=== PATIENT | female | born 1935 | race Caucasian/White ===

== ENCOUNTER 2017-09-22 11:52 | Emergency (ER) | payer MEDICARE, BC ==
--- NOTE | 2017-09-22 12:52 | RAD ---
RADIOGRAPH CHEST 1 VIEW: HISTORY: 82-year-old female with productive cough and dyspnea. FINDINGS: There is no air space density, pulmonary edema, or pneumothorax. The lateral costophrenic angles are sharp. IMPRESSION: No acute pulmonary findings. heather POS: [facility]
[2017-09-22 12:53] LABS: Mean Corpuscular HGB CONC 33.1 g/dL (32.0-36.0); Mean Corpuscular Volume 99.6 fl (81.0-99.0); Mean Platelet Volume 10.2 fL (7.4-10.4); Platelet Count 169 thou/uL (130-400); RBC Distribution Width 11.6 % (11.5-14.5); Red Blood Cell (RBC) Count 4.25 mill/uL (4.20-5.40); White Blood Cell (WBC) Count 12.4 thou/uL (4.8-10.8)
[2017-09-22 13:07] LABS: ALT (SGPT) 12 U/L (8-55); AST (SGOT) 18 U/L (5-34); Alkaline Phosphatase 88 U/L (40-150); Anion Gap 13 mmol/L (10-20); BUN (Urea Nitrogen) 28 mg/dL (9.8-20.1); Bilirubin, Total 0.9 mg/dL (0.2-1.2); Calc. Creatinine Clearance 0 mL/min (70-130); Calcium 10.9 mg/dL (7.8-10.44); Carbon Dioxide 27 mmol/L (23-31); Chloride 101 mmol/L (98-107); Estimated GFR-MDRD 55; Glucose 98 mg/dL (83-110); Potassium 3.7 mmol/L (3.5-5.1); Sodium 137 mmol/L (136-145)
[2017-09-22 13:11] LABS: CKMB 0.7 ng/mL (0-6.6); Troponin I 0.015 ng/mL (< 0.028)
[2017-09-22 13:33] LABS: Lymphocytes 36 % (21-51); MDiff Complete? YES; Monocytes 10 % (0-10); Neutrophil 54 % (42-75); PLT Morphology Comment Appears Adequate
[2017-09-22 16:17] LABS: Bilirubin Negative (Negative); Blood, Urine Negative (Negative); Clarity CLOUDY (Clear); Glucose, Urine (Dipstick) Negative (Negative); Leukocyte Moderate (Negative); Nitrite Negative (Negative); Protein, Urine (Dipstick) Negative (Neg-Trace); Specific Gravity, Urine 1.018 (1.002-1.036)
[2017-09-22 16:19] LABS: Bacteria/HPF 4+ HPF (None Seen); Hyaline Casts/LPF 0-3 HYALINE CAST LPF (0-3 Hyaline); Pathc Cast-AUWi Flag 0.13 (0-2.49); RBC/HPF None Seen HPF (0-3); Squamous Epithelial 0-3 HPF (0-3); WBC/HPF 21-50 HPF (0-3)
--- NOTE | 2017-10-24 15:03 | EKG ---
Test Reason : SOB Blood Pressure : / mmHG Vent. Rate : 075 BPM Atrial Rate : 075 BPM P-R Int : 300 ms QRS Dur : 130 ms QT Int : 390 ms P-R-T Axes : 050 -20 001 degrees QTc Int : 435 ms Sinus rhythm with 1st degree A-V block Right bundle branch block Inferior infarct , age undetermined Abnormal ECG Confirmed by ELGIN MERRITT ([id number]), publications editor SANDI QUINTANA ([id number]) on 10/24/2017 3:02:29 PM Referred By: Confirmed By:ELGIN MERRITT
== END 2017-09-22 18:38 | disposition home or self-care (01) ==
LOC: ERS 11:52
DX: R06.00 Dyspnea, unspecified (principal); R53.1 Weakness; I10 Essential (primary) hypertension
CPT/HCPCS: 36415; 71045; 80053; 81003; 81015; 82553; 84484; 85025; 87077; 87086; 87186; 87804; 93005; 94640; 96365; 96366; J1956; J7620

== ENCOUNTER 2017-12-16 14:24 | Inpatient (IN) | payer MEDICARE, BC ==
[2017-12-16 15:23] LABS: Hemoglobin 12.9 g/dL (12.0-16.0); Mean Corpuscular HGB CONC 33.5 g/dL (32.0-36.0); Mean Corpuscular Volume 95.4 fl (81.0-99.0); Mean Platelet Volume 10.2 fL (7.4-10.4); Platelet Count 205 thou/uL (130-400); RBC Distribution Width 12.5 % (11.5-14.5); Red Blood Cell (RBC) Count 4.03 mill/uL (4.20-5.40); White Blood Cell (WBC) Count 34.2 thou/uL (4.8-10.8)
--- NOTE | 2017-12-16 15:33 | RAD ---
CHEST ONE VIEW: Comparison: 09-22-17 History: Dyspnea. FINDINGS: Normal cardiac silhouette. The pulmonary vessels and hilum are normal. Costophrenic angles are clear. No consolidation or mass. No pneumothorax or osseous abnormality. IMPRESSION: No acute cardiopulmonary process. POS: [facility]
[2017-12-16 15:39] LABS: Band 20 % (5-11); Lymphocytes 4 % (21-51); MDiff Complete? YES; Metamyelocyte 2 % (0-0); Monocytes 11 % (0-10); Myelocyte 2 % (0-0); Neutrophil 61 % (42-75); PLT Morphology Comment Appears Adequate; RBC Morphology Normal
[2017-12-16 15:44] LABS: ALT (SGPT) 16 U/L (8-55); AST (SGOT) 20 U/L (5-34); Albumin 3.2 g/dL (3.4-4.8); Alkaline Phosphatase 76 U/L (40-150); Anion Gap 13 mmol/L (10-20); BUN (Urea Nitrogen) 60 mg/dL (9.8-20.1); Bilirubin, Total 1.2 mg/dL (0.2-1.2); Calc. Creatinine Clearance 0 mL/min (70-130); Calcium 9.5 mg/dL (7.8-10.44); Carbon Dioxide 24 mmol/L (23-31); Chloride 102 mmol/L (98-107); Estimated GFR-MDRD 34; Globulin 3.3 g/dL (2.4-3.5); Glucose 121 mg/dL (83-110); Protein, Total 6.5 g/dL (6.0-8.3); Sodium 136 mmol/L (136-145)
[2017-12-16 16:02] LABS: Potassium 2.8 mmol/L (3.5-5.1)
[2017-12-16 16:24] LABS: CKMB 0.8 ng/mL (0-6.6)
[2017-12-16] MEDS ORDERED: Potassium Chloride 20 MEQ TAB ONE (16:52)
[2017-12-16] MEDS ORDERED: Potassium Chloride 20 MEQ/100 ML PREMIX BAG ONE (16:52)
[2017-12-16 18:00] LABS: Bilirubin Negative (Negative); Blood, Urine Negative (Negative); Clarity CLEAR (Clear); Glucose, Urine (Dipstick) Negative (Negative); Leukocyte Small (Negative); Nitrite Negative (Negative); Protein, Urine (Dipstick) Negative (Neg-Trace); Specific Gravity, Urine 1.018 (1.002-1.036); pH, Urine 5.5 (5.0-9.0)
[2017-12-16 18:02] LABS: Bacteria/HPF 1+ HPF (None Seen); Hyaline Casts/LPF 4-6 HYALINE CAST LPF (0-3 Hyaline); Pathc Cast-AUWi Flag 0.29 (0-2.49); RBC/HPF 0-3 HPF (0-3); Squamous Epithelial 0-3 HPF (0-3)
[2017-12-16 18:24] LABS: Crystals/HPF None Seen HPF (Negative); Oval Fat Bodies/HPF None Seen HPF (None Seen); Renal Epithelial None Seen HPF (0-3); Transitional Epithelial NONE SEEN HPF (0-3); Trichomonas/HPF None Seen HPF (None Seen)
[2017-12-16] MEDS ORDERED: Morphine 4 MG/ML VIAL ONE (18:36)
[2017-12-16] MEDS ORDERED: Ondansetron ODT 8 MG TAB ONE (18:36)
[2017-12-16] MEDS ORDERED: Bisacodyl 5 MG TAB PO PRN (23:21)
[2017-12-16] MEDS ORDERED: Acetaminophen 650 MG Suppository PR PRN (23:21)
[2017-12-17] MEDS: Sodium Chloride 0.9% 1,000 ML IV SCH ×2 (00:30→14:36)
--- NOTE | 2017-12-17 00:37 | HP ---
PRIMARY CARE PHYSICIAN: Solitario Ivory M.D. CHIEF COMPLAINT: Altered mental status. HISTORY OF PRESENT ILLNESS: Ms. Genao is a pleasant 82-year-old lady who was seen at [facility] on 12/16/2017. She is a resident at [facility]. She is able to provide some history. Her daughter is by the bedside and is able to provide additional history. She was reportedly treated for urinary tract infection that was diagnosed 8 days ago. She was treated with Omnicef for 7 days. Her daughter reports that she had an allergic reaction to the antibiotic, with rash in the inframammary folds as well as towards the groin. She had repeat urinalysis, which was positive after finishing the Omnicef course. She was started on ciprofloxacin yesterday. She was found to be confused and was therefore sent to the emergency room. Patient is currently awake, alert, and oriented x2. She does not know why she is here. REVIEW OF SYSTEMS: All other systems were reviewed and found to be negative. PAST MEDICAL HISTORY: Significant for hypertension, possible COPD, possible congestive heart failure, and possible gastroesophageal reflux disease. PAST SURGICAL HISTORY: Appendectomy, hysterectomy, tonsillectomy. SOCIAL HISTORY: No history of tobacco use, alcohol use, or recreational drug use. CODE STATUS: I discussed her code status. She is FULL CODE. ALLERGIES: ADVIL, CODEINE, MACROBID, NAPROXEN, PENICILLIN, SODIUM, SULFA, and VIOXX. CURRENT MEDICATIONS: Advair Diskus 1 puff 2 times a day, albuterol as needed, carbonyl 45 mg daily, ciprofloxacin 250 mg 2 times a day, cranberry 500 mg 2 times a day, Delsym as needed, Lasix 40 mg daily, Micardis 40 mg daily, Mucinex 1200 mg 2 times a day, Nasacort AQ 2 sprays nasally daily, potassium 99 mg 2 times a day, One Source 1 tablet daily, Osteo Bi-Flex 1 tablet daily, Prevacid 30 mg daily, Pulmicort 2 puffs daily, and Xyzal 5 mg daily. FAMILY HISTORY: No family history of premature coronary artery disease. PHYSICAL EXAMINATION: GENERAL: Ms. Genao is awake and alert, not in acute distress. VITAL SIGNS: Blood pressure is 102/54, pulse is 75. She is breathing at rate of 18, and saturating 95% on 1 liter of oxygen. She is afebrile. EYES: No scleral icterus. No conjunctival pallor. ENT: Moist mucosal membranes, no oropharyngeal erythema or exudates. NECK: Supple, nontender, normal range of movement, trachea is midline. RESPIRATORY: Accessory muscles of breathing are not active. Chest wall movements are symmetric bilaterally. Lungs are clear to auscultation, without wheeze, rhonchi, or crepitations. CARDIOVASCULAR: S1 and S2 are heard, regular. Peripheral pulses palpable. No carotid bruit, no pericardial rub. ABDOMEN: Soft, nontender, bowel sounds heard, no hepatomegaly, no splenomegaly. MUSCULOSKELETAL: Power is 5/5 in all 4 extremities. SKIN: She has rash over the left intergluteal fold as well as over the groin. She also has 2 pressure wounds, one on each buttock. LYMPHATIC: No cervical lymphadenopathy. PSYCHIATRIC: Normal mood, normal affect, patient is oriented to person and place, not to time. LABORATORY DATA: Ms. Genao labs and investigations were reviewed. She has leukocytosis with 34,200 white cells, of which 20% are bands and 61% are neutrophils, normal hemoglobin, normal platelet count, normal sodium, decreased potassium of 2.8, elevated blood urea nitrogen of 60, elevated creatinine 1.46, last known creatinine 0.97 on 09/22/2017, decreased albumin of 3.2, otherwise unremarkable liver profile and mildly elevated BNP of 131.5. Magnesium is normal at 1.6. Lactic acid is normal at 1.1. ASSESSMENT AND PLAN: Ms. Genao is a pleasant 82-year-old lady who was seen at [facility] on 12/16/2017. Her problem list includes: 1. Urinary tract infection. Ms. Genao is being admitted to the hospital for urinary tract infection. Given her allergies, we will continue her on fluoroquinolones in the form of levofloxacin, which has already received in the emergency room. We will await urine cultures. 2. Leukocytosis: She has significantly elevated white count, including bands. She does not recall if she is having any loose stools. If she does have loose stools, we will send samples to rule out Clostridium difficile infection. 3. Acute kidney injury: Likely secondary to dehydration, we will provide intravenous fluids and recheck. 4. Hypertension: Monitor vital signs, titrate antihypertensives as needed. 5. Acute encephalopathy: Likely secondary to urinary tract infection. 6. Hypokalemia: Patient is being given potassium supplements. We will recheck her potassium level. Many thanks for allowing me to participate in your patient's care. Please feel free to contact me with any questions or concerns. LEVEL OF RISK: Moderate. LEVEL OF COMPLEXITY: Moderate. MTDD
[2017-12-17 04:46] LABS: Anion Gap 13 mmol/L (10-20); BUN (Urea Nitrogen) 55 mg/dL (9.8-20.1); Calc. Creatinine Clearance 0 mL/min (70-130); Calcium 8.9 mg/dL (7.8-10.44); Carbon Dioxide 21 mmol/L (23-31); Chloride 107 mmol/L (98-107); Estimated GFR-MDRD 41; Glucose 99 mg/dL (83-110); Potassium 3.3 mmol/L (3.5-5.1); Sodium 138 mmol/L (136-145)
[2017-12-17 05:14] LABS: Band 20 % (5-11); Hemoglobin 11.7 g/dL (12.0-16.0); Lymphocytes 15 % (21-51); MDiff Complete? YES; Mean Corpuscular HGB CONC 32.9 g/dL (32.0-36.0); Mean Corpuscular Hemoglobin 31.7 pg (27.0-31.0); Mean Corpuscular Volume 96.3 fl (81.0-99.0); Mean Platelet Volume 10.3 fL (7.4-10.4); Metamyelocyte 2 % (0-0); Monocytes 10 % (0-10); Neutrophil 53 % (42-75); PLT Morphology Comment Appears Adequate; Platelet Count 190 thou/uL (130-400); RBC Distribution Width 12.5 % (11.5-14.5); Red Blood Cell (RBC) Count 3.68 mill/uL (4.20-5.40); White Blood Cell (WBC) Count 33.8 thou/uL (4.8-10.8)
[2017-12-17] MEDS ORDERED: Potassium Chloride 20 MEQ TAB PO SCH ×2 (06:30→17:00)
[2017-12-17] MEDS: Heparin 5,000 UNITS/ML VIAL SC SCH ×3 (08:13→20:52)
[2017-12-17] MEDS ORDERED: Enoxaparin Sodium 40 MG/0.4 ML SYRINGE SC SCH (09:00)
[2017-12-17 11:24] VITALS: BMI 41.0
--- NOTE | 2017-12-17 14:04 | PDOC.PN ---
- Subjective Encounter Start Date: 12/17/17 Encounter Start Time: 14:05 Subjective: Seen and examined for acute encephalopathy, UTI. -: She is awake and oriented to time and place. -: No acute events overnight - Objective Resuscitation Status: Resuscitation Status FULL:Full Resuscitation MAR Reviewed: Yes Vital Signs & Weight: Vital Signs (12 hours) Temp Pulse Resp BP Pulse Ox 12/17/17 08:00 98.0 F 78 20 92 L 12/17/17 07:20 98.0 F 78 20 105/60 92 L 12/17/17 04:14 98.0 F 77 18 102/63 93 L Weight Admit Weight 254 lb 1.6 oz Weight 254 lb 1.6 oz I&O: 12/16/17 12/17/17 12/18/17 06:59 06:59 06:59 Intake Total 610 360 Output Total 600 Balance 10 360 Result Diagrams: 12/17/17 04:00 12/17/17 04:00 Phys Exam - Physical Examination Constitutional: NAD HEENT: PERRLA, moist MMs, sclera anicteric, oral pharynx no lesions Neck: no JVD, supple, full ROM Respiratory: no wheezing, no rales, no rhonchi, clear to auscultation bilateral Cardiovascular: RRR, no significant murmur, no rub Gastrointestinal: soft, non-tender, no distention, positive bowel sounds Musculoskeletal: no edema, pulses present Neurological: non-focal, moves all 4 limbs Psychiatric: normal affect Deviation from normal: Lethargic but oriented to person and place Skin: no rash, normal turgor Dx/Plan (1) Acute encephalopathy Code(s): G93.40 - ENCEPHALOPATHY, UNSPECIFIED Status: Acute Comment: Improving with Levofloxacin. f/u culture results. (2) UTI (urinary tract infection) Status: Acute Qualifiers: Urinary tract infection type: acute cystitis Hematuria presence: without hematuria Qualified Code(s): N30.00 - Acute cystitis without hematuria (3) Leucocytosis Code(s): D72.829 - ELEVATED WHITE BLOOD CELL COUNT, UNSPECIFIED Status: Acute Comment: Continue levofloxacin. f/u blood cultures. (4) STEPHANIE (acute kidney injury) Code(s): N17.9 - ACUTE KIDNEY FAILURE, UNSPECIFIED Status: Acute (5) HTN (hypertension) Code(s): I10 - ESSENTIAL (PRIMARY) HYPERTENSION Status: Acute Qualifiers: Hypertension type: essential hypertension Qualified Code(s): I10 - Essential (primary) hypertension Comment: Fairly well controlled. 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 - Plan cont current plan of care, plan discussed w/ family, edouard catheter, continue antibiotics, DVT proph w/heparin f/u cultures Continue parenteral hydration and monitor volume status. Avoid nephrotoxins Continue Levofloxacin. Review of Systems - Medications/Allergies Allergies/Adverse Reactions: Allergies Allergy/AdvReac Type Severity Reaction Status Date / Time codeine Allergy Verified 12/17/17 01:40 ibuprofen [From Advil] Allergy Verified 12/17/17 01:40 naproxen [From Naprosyn] Allergy Verified 12/17/17 01:40 nitrofurantoin Allergy Verified 12/17/17 01:40 [From Macrobid] Penicillins Allergy Verified 12/16/17 23:21 rofecoxib [From Vioxx] Allergy Verified 12/17/17 01:40 Sulfa (Sulfonamide Allergy Verified 12/17/17 01:40 Antibiotics) Medications: Current Medications Acetaminophen (Tylenol) 650 mg PO Q4H PRN PRN Reason: Headache/Fever or Pain Acetaminophen (Tylenol) 650 mg [place] Q4H PRN PRN Reason: Headache/Fever or Pain Bisacodyl (Dulcolax) 10 mg PO DAILYPRN PRN PRN Reason: Constipation Mineral Oil/White Petrolatum 99 gm/ Cholestyramine Resin 4 gm 0 gm TOP DAILY [facility] Heparin Sodium (Porcine) (Heparin) 5,000 units SC TID [facility] Last Admin: 12/17/17 08:13 Dose: 5,000 units Sodium Chloride (Normal Saline 0.9%) 1,000 mls @ 70 mls/hr IV .[id number] [facility] Last Admin: 12/17/17 00:30 Dose: 1,000 mls Levofloxacin 500 mg/ Device 100 mls @ 100 mls/hr IVPB Q24HR [facility] Potassium Chloride (K-Dur) 40 meq PO BID-WM [facility] Stop: 12/18/17 17:01 Sodium Chloride (Flush - Normal Saline) 10 ml IVF Q12HR [facility] Last Admin: 12/17/17 08:14 Dose: 10 ml Sodium Chloride (Flush - Normal Saline) 10 ml IVF PRN PRN PRN Reason: Saline Flush
[2017-12-17] MEDS ORDERED: Albuterol Sulfate 2.5 mg/3 ml Neb NEB PRN (14:08)
[2017-12-17] MEDS ORDERED: Nystatin Cream 30 GM TUBE TOP PRN ×2 (14:09→14:34)
[2017-12-17] MEDS: Acetaminophen 325 MG TAB PO PRN (16:29)
[2017-12-17] MEDS: guaiFENesin ER 600 MG TAB PO SCH (20:52)
[2017-12-17] MEDS ORDERED: Non-Formulary Item 1 EACH (Guaifenesin [Mucinex] 1,200 MG) PO SCH (21:00)
[2017-12-18 05:45] LABS: Anion Gap 9 mmol/L (10-20); BUN (Urea Nitrogen) 42 mg/dL (9.8-20.1); Calc. Creatinine Clearance 78 mL/min (70-130); Calcium 8.9 mg/dL (7.8-10.44); Carbon Dioxide 24 mmol/L (23-31); Chloride 109 mmol/L (98-107); Estimated GFR-MDRD 54; Glucose 101 mg/dL (83-110); Potassium 4.1 mmol/L (3.5-5.1); Sodium 138 mmol/L (136-145)
[2017-12-18 06:00] LABS: Band 20 % (5-11); Hemoglobin 11.3 g/dL (12.0-16.0); Lymphocytes 3 % (21-51); MDiff Complete? YES; Mean Corpuscular HGB CONC 32.3 g/dL (32.0-36.0); Mean Corpuscular Hemoglobin 31.2 pg (27.0-31.0); Mean Corpuscular Volume 96.8 fl (81.0-99.0); Mean Platelet Volume 10.2 fL (7.4-10.4); Metamyelocyte 4 % (0-0); Monocytes 15 % (0-10); Myelocyte 3 % (0-0); Neutrophil 55 % (42-75); PLT Morphology Comment Appears Adequate; Platelet Count 186 thou/uL (130-400); RBC Distribution Width 12.6 % (11.5-14.5); RBC Morphology Normal; Red Blood Cell (RBC) Count 3.62 mill/uL (4.20-5.40); White Blood Cell (WBC) Count 34.9 thou/uL (4.8-10.8)
[2017-12-18] MEDS ORDERED: Sodium Chloride 0.65% Nasal 44 ML BOT EA NARE PRN (06:58)
[2017-12-18] MEDS ORDERED: Artificial Tears 18 DROP/0.9 ML EA EYE PRN (06:58)
[2017-12-18] MEDS ORDERED: Mag-Al 1200 mg/1200 mg/30 ML UDCUP PO PRN (06:58)
[2017-12-18] MEDS ORDERED: Ondansetron HCl/PF 4 MG/2 ML Vial IVP PRN (06:58)
[2017-12-18] MEDS ORDERED: Ondansetron ODT 4 MG TAB PO PRN (06:58)
[2017-12-18] MEDS ORDERED: hydrALAZINE 20 MG/ML VIAL SLOW IVP PRN (06:58)
[2017-12-18] MEDS ORDERED: Eucerin (Mineral Oil/Petrolatum,White) 30 gm Jar TOP PRN (06:58)
[2017-12-18] MEDS ORDERED: Chloraseptic Spray 180 ml Bottle PO PRN (06:58)
[2017-12-18] MEDS ORDERED: Milk Of Magnesia 30 ML UDCUP PO PRN (06:58)
[2017-12-18] MEDS ORDERED: Diabetic Tussin 200 MG/10 ML UDCUP PO PRN (06:58)
[2017-12-18] MEDS: Sodium Chloride 0.9% 1,000 ML IV SCH ×2 (08:08→20:36)
[2017-12-18] MEDS: Heparin 5,000 UNITS/ML VIAL SC SCH ×3 (08:09→20:39)
[2017-12-18] MEDS: guaiFENesin ER 600 MG TAB PO SCH ×2 (08:09→20:39)
[2017-12-18] MEDS: Aquaphor 30 GM 99 GM, Cholestyramine/Aspartame 4 GM TOP SCH (08:10)
[2017-12-18] MEDS: Loratadine 10 MG TAB PO SCH (08:10)
[2017-12-18] MEDS: Multivit, Therapeutic 1 TAB PO SCH (08:10)
[2017-12-18] MEDS ORDERED: MULTIVITAMIN PO SCH (09:00)
[2017-12-18] MEDS ORDERED: LANSOPRAZOLE PO SCH (09:00)
[2017-12-18] MEDS ORDERED: Famotidine 20 MG TAB PO SCH (09:00)
[2017-12-18] MEDS ORDERED: THIAMINE HCL PO SCH (09:00)
[2017-12-18] MEDS ORDERED: [UNRECOGNIZED DRUG - REMARK] EA NARE SCH (09:00)
[2017-12-18] MEDS ORDERED: LEVOCETIRIZINE DIHYDROCHLORIDE 5 MG PO SCH (09:00)
[2017-12-18] MEDS: Acetaminophen 325 MG TAB PO PRN (11:42)
[2017-12-18] MEDS: Fluticasone Propionate Nasal Spray 16 gm Bottle NASAL SCH (11:43)
[2017-12-18] MEDS ORDERED: Fentanyl 100 MCG/2 ML VIAL SLOW IVP PRN (12:00)
--- NOTE | 2017-12-18 12:03 | PDOC.PN ---
- Subjective Encounter Start Date: 12/18/17 Encounter Start Time: 07:40 -: old records requested/rev Patient seen and examined for UTI, sepsis. pt is not feeling good, Noted overnight events - Objective Resuscitation Status: Resuscitation Status FULL:Full Resuscitation MAR Reviewed: Yes Vital Signs & Weight: Vital Signs (12 hours) Temp Pulse Resp BP Pulse Ox 12/18/17 07:37 98.1 F 71 20 93 L 12/18/17 07:10 98.1 F 71 20 100/56 L 93 L 12/18/17 04:57 93 L Weight Admit Weight 254 lb 1.6 oz Weight 254 lb 1.6 oz I&O: 12/17/17 12/18/17 12/19/17 06:59 06:59 06:59 Intake Total 610 1880 180 Output Total 600 1575 Balance 10 305 180 Result Diagrams: 12/18/17 04:35 12/18/17 04:35 Phys Exam - Physical Examination Constitutional: NAD HEENT: PERRLA, moist MMs, sclera anicteric Neck: no JVD, supple Respiratory: no wheezing, no rales, no rhonchi Cardiovascular: RRR, no significant murmur, no rub Gastrointestinal: soft, no distention, positive bowel sounds vague discomfort noted Musculoskeletal: no edema, pulses present Neurological: non-focal, normal sensation Lymphatic: no nodes Psychiatric: normal affect, A&O x 3 Skin: no rash, normal turgor Dx/Plan (1) STEPHANIE (acute kidney injury) Code(s): N17.9 - ACUTE KIDNEY FAILURE, UNSPECIFIED Status: Resolved (2) Acute encephalopathy Code(s): G93.40 - ENCEPHALOPATHY, UNSPECIFIED Status: Resolved Comment: (3) Leucocytosis Code(s): D72.829 - ELEVATED WHITE BLOOD CELL COUNT, UNSPECIFIED Status: Acute Comment: (4) UTI (urinary tract infection) Status: Acute Qualifiers: Urinary tract infection type: acute cystitis Hematuria presence: without hematuria Qualified Code(s): N30.00 - Acute cystitis without hematuria (5) HTN (hypertension) Code(s): I10 - ESSENTIAL (PRIMARY) HYPERTENSION Status: Chronic Qualifiers: Hypertension type: essential hypertension Qualified Code(s): I10 - Essential (primary) hypertension Comment: (6) Morbid obesity with BMI of 40.0-44.9, adult Code(s): E66.01 - MORBID (SEVERE) OBESITY DUE TO EXCESS CALORIES; Z68.41 - BODY MASS INDEX (BMI) 40.0-44.9, ADULT Status: Chronic (7) Hypokalemia Code(s): E87.6 - HYPOKALEMIA Status: Resolved Comment: - Plan cont current plan of care, plan discussed w/ family, continue antibiotics * her elevated wbc count is going up, she has abdominal discomfort, will get CT abdomen and pelvis with contrast * continue IVF * so far culture negative * continue levaquin * medication reviewed as below * symptomatic treatment * repeat labs tomorrow * discussed with family bedside. * stool for infection work up is pending Review of Systems - Review of Systems Constitutional: weakness, malaise. negative: fever, chills, sweats, other Eyes: negative: Pain, Vision Change, Conjunctivae Inflammation, Eyelid Inflammation, Redness, Other ENT: negative: Ear Pain, Ear Discharge, Nose Pain, Nose Discharge, Nose Congestion, Mouth Pain, Mouth Swelling, Throat Pain, Throat Swelling, Other Respiratory: negative: Cough, Dry, Shortness of Breath, Hemoptysis, SOB with Excertion, Pleuritic Pain, Sputum, Wheezing Cardiovascular: negative: chest pain, palpitations, orthopnea, paroxysmal nocturnal dyspnea, edema, light headedness, other Gastrointestinal: Abdominal Pain. negative: Nausea, Vomiting, Diarrhea, Constipation, Melena, Hematochezia, Other Genitourinary: negative: Dysuria, Frequency, Incontinence, Hematuria, Retention , Other Musculoskeletal: negative: Neck Pain, Shoulder Pain, Arm Pain, Back Pain, Hand Pain, Leg Pain, Foot Pain, Other Skin: negative: Rash, Lesions, Natalio, Bruising, Other - Medications/Allergies Allergies/Adverse Reactions: Allergies Allergy/AdvReac Type Severity Reaction Status Date / Time codeine Allergy Verified 12/17/17 01:40 ibuprofen [From Advil] Allergy Verified 12/17/17 01:40 naproxen [From Naprosyn] Allergy Verified 12/17/17 01:40 nitrofurantoin Allergy Verified 12/17/17 01:40 [From Macrobid] Penicillins Allergy Verified 12/16/17 23:21 rofecoxib [From Vioxx] Allergy Verified 12/17/17 01:40 Sulfa (Sulfonamide Allergy Verified 12/17/17 01:40 Antibiotics) Medications: Current Medications Acetaminophen (Tylenol) 650 mg PO Q4H PRN PRN Reason: Headache/Fever or Pain Last Admin: 12/18/17 11:42 Dose: 650 mg Acetaminophen (Tylenol) 650 mg RI Q4H PRN PRN Reason: Headache/Fever or Pain Al Hydroxide/Mg Hydroxide (Maalox) 15 ml PO Q4H PRN PRN Reason: Heartburn or Indigestion Albuterol Sulfate (Ventolin) 2.5 mg NEB [id number] PRN PRN Reason: Wheezing Artificial Tears (Tears Naturale) 0 drop EA EYE PRN PRN PRN Reason: Dry Eyes Bisacodyl (Dulcolax) 10 mg PO DAILYPRN PRN PRN Reason: Constipation Mineral Oil/White Petrolatum 99 gm/ Cholestyramine Resin 4 gm 0 gm TOP DAILY [facility] Last Admin: 12/18/17 08:10 Dose: 1 oint Fentanyl (Sublimaze) 25 mcg SLOW IVP Q4H PRN PRN Reason: Pain Fluticasone Propionate (Flonase Nasal Randolph) 0 gm NASAL DAILY [facility] Last Admin: 12/18/17 11:43 Dose: 2 spr Guaifenesin (Mucinex) 1,200 mg PO Q12HR [facility] Last Admin: 12/18/17 08:09 Dose: 1,200 mg Guaifenesin (Robitussin Sf) 200 mg PO Q4H PRN PRN Reason: Cough Heparin Sodium (Porcine) (Heparin) 5,000 units SC TID [facility] Last Admin: 12/18/17 08:09 Dose: 5,000 units Hydralazine HCl (Apresoline) 10 mg SLOW IVP Q4H PRN PRN Reason: Systolic BP > 180 Sodium Chloride (Normal Saline 0.9%) 1,000 mls @ 70 mls/hr IV .[id number] [facility] Last Admin: 12/18/17 08:08 Dose: 1,000 mls Levofloxacin 500 mg/ Device 100 mls @ 100 mls/hr IVPB Q24HR [facility] Last Admin: 12/17/17 20:52 Dose: 100 mls Loratadine (Claritin) 10 mg PO DAILY [facility] Last Admin: 12/18/17 08:10 Dose: 10 mg Magnesium Hydroxide (Milk Of Magnesium) 30 ml PO DAILYPRN PRN PRN Reason: Constipation Mineral Oil/White Petrolatum (Eucerin Cream) 0 gm TOP BIDPRN PRN PRN Reason: Dry Skin Multivitamins (Theragran) 1 tab PO DAILY [facility] Last Admin: 12/18/17 08:10 Dose: 1 tab Nystatin (Mycostatin Cream) 0 gm TOP BIDPRN PRN PRN Reason: Topical Irritations Ondansetron HCl (Zofran Odt) 4 mg PO Q6H PRN PRN Reason: Nausea/Vomiting Ondansetron HCl (Zofran) 4 mg IVP Q6H PRN PRN Reason: Nausea/Vomiting Pantoprazole Sodium (Protonix) 40 mg PO DAILY [facility] Last Admin: 12/18/17 08:10 Dose: 40 mg Phenol (Chloraseptic Randolph 180 Ml Bot) 0 ml PO PRN PRN PRN Reason: Sore Throat Sodium Chloride (Flush - Normal Saline) 10 ml IVF Q12HR [facility] Last Admin: 12/18/17 08:10 Dose: Not Given Sodium Chloride (Flush - Normal Saline) 10 ml IVF PRN PRN PRN Reason: Saline Flush Sodium Chloride (Gila Nasal Randolph 0.65%) 0 ml EA NARE QIDPRN PRN PRN Reason: Nasal Congestion Thiamine HCl (Thiamine) 100 mg PO DAILY [facility] Last Admin: 12/18/17 08:10 Dose: 100 mg
--- NOTE | 2017-12-18 14:02 | CT ---
CT ABDOMEN AND PELVIS WITH ORAL AND IV CONTRAST: Date: 12/18/17 HISTORY: Sepsis, UTI. FINDINGS: There is a small patchy infiltrate in the left lower lobe. There is evidence of old granulomatous dis ease in the lower chest, liver, and spleen. The patient is post appendectomy, cholecystectomy, and hy sterectomy. There is atrophy of the pancreas. Adrenal glands and kidneys are unremarkable. No free air is seen. No lymphadenopathy is identified in the abdomen or pelvis. There is a small amou nt of free fluid in the lower abdomen and pelvis. There is sigmoid diverticulosis. There is thickenin g of the wall of the colon and the rectum with mild pericolonic and perirectal inflammatory changes. The small bowel loops are not abnormally dilated. A IVC filter is present. There is no evidence of an eurysmal dilatation of the abdominal aorta. There is a Marrero catheter in the urinary bladder. Degener ative changes are present in the spine. IMPRESSION: Findings are consistent with proctocolitis. CODE T. POS: [facility]
[2017-12-18] MEDS ORDERED: ISOVUE-370 76%-LOCM 1 ML ONE (20:20)
[2017-12-18] MEDS: metroNIDAZOLE 500 MG in Premix Bag 1 BAG IVPB SCH (22:23)
[2017-12-19] MEDS: metroNIDAZOLE 500 MG in Premix Bag 1 BAG IVPB SCH ×3 (05:44→20:48)
[2017-12-19 05:56] LABS: Anion Gap 12 mmol/L (10-20); BUN (Urea Nitrogen) 25 mg/dL (9.8-20.1); Calc. Creatinine Clearance 93 mL/min (70-130); Calcium 8.8 mg/dL (7.8-10.44); Carbon Dioxide 20 mmol/L (23-31); Chloride 108 mmol/L (98-107); Estimated GFR-MDRD 66; Glucose 94 mg/dL (83-110); Potassium 4.1 mmol/L (3.5-5.1); Sodium 136 mmol/L (136-145)
[2017-12-19 06:13] LABS: Band 5 % (5-11); Hemoglobin 11.3 g/dL (12.0-16.0); Lymphocytes 6 % (21-51); MDiff Complete? YES; Mean Corpuscular HGB CONC 32.4 g/dL (32.0-36.0); Mean Corpuscular Hemoglobin 31.5 pg (27.0-31.0); Mean Corpuscular Volume 97.3 fl (81.0-99.0); Mean Platelet Volume 10.2 fL (7.4-10.4); Monocytes 16 % (0-10); Neutrophil 73 % (42-75); PLT Morphology Comment Appears Adequate; Platelet Count 185 thou/uL (130-400); RBC Distribution Width 12.6 % (11.5-14.5); Red Blood Cell (RBC) Count 3.58 mill/uL (4.20-5.40); White Blood Cell (WBC) Count 30.9 thou/uL (4.8-10.8)
[2017-12-19] MEDS: guaiFENesin ER 600 MG TAB PO SCH ×2 (08:05→19:39)
[2017-12-19] MEDS: Loratadine 10 MG TAB PO SCH (08:05)
[2017-12-19] MEDS: Multivit, Therapeutic 1 TAB PO SCH (08:05)
[2017-12-19] MEDS: Saccharomyces boulardii 250 MG CAP PO SCH (08:05)
[2017-12-19] MEDS: Heparin 5,000 UNITS/ML VIAL SC SCH ×3 (08:07→19:40)
[2017-12-19] MEDS: Sodium Chloride 0.9% 1,000 ML IV SCH ×2 (08:07→14:48)
[2017-12-19] MEDS: Fluticasone Propionate Nasal Spray 16 gm Bottle NASAL SCH (08:07)
[2017-12-19] MEDS: Aquaphor 30 GM 99 GM, Cholestyramine/Aspartame 4 GM TOP SCH (08:08)
--- NOTE | 2017-12-19 10:06 | PDOC.PN ---
- Subjective Encounter Start Date: 12/19/17 Encounter Start Time: 09:00 Patient seen and examined for UTI and colitis. No new complaints. No overnight events - Objective Resuscitation Status: Resuscitation Status FULL:Full Resuscitation MAR Reviewed: Yes Vital Signs & Weight: Vital Signs (12 hours) Temp Pulse Resp BP Pulse Ox 12/19/17 07:19 98 F 71 16 114/69 94 L 12/19/17 05:28 94 L 12/19/17 04:00 97.6 F 75 20 116/70 94 L 12/19/17 00:00 98.6 F 76 20 101/58 L 94 L Weight Admit Weight 254 lb 1.6 oz Weight 254 lb 1.6 oz I&O: 12/18/17 12/19/17 12/20/17 06:59 06:59 06:59 Intake Total 1880 1309 Output Total 1575 850 Balance 305 459 Result Diagrams: 12/19/17 04:32 12/19/17 04:32 Radiology Reviewed by me: Yes (CT abdomen) Phys Exam - Physical Examination Constitutional: NAD HEENT: PERRLA, moist MMs, sclera anicteric Neck: no JVD, supple Respiratory: no wheezing, no rales, no rhonchi Cardiovascular: RRR, no significant murmur, no rub Gastrointestinal: soft, non-tender, no distention, positive bowel sounds discomfort noted Musculoskeletal: no edema, pulses present Neurological: non-focal, normal sensation, moves all 4 limbs Lymphatic: no nodes Psychiatric: normal affect Skin: no rash, normal turgor Dx/Plan (1) C. difficile colitis Status: Acute (2) STEPHANIE (acute kidney injury) Code(s): N17.9 - ACUTE KIDNEY FAILURE, UNSPECIFIED Status: Resolved (3) Acute encephalopathy Code(s): G93.40 - ENCEPHALOPATHY, UNSPECIFIED Status: Resolved Comment: (4) Leucocytosis Code(s): D72.829 - ELEVATED WHITE BLOOD CELL COUNT, UNSPECIFIED Status: Acute Qualifiers: Leukocytosis type: bandemia Qualified Code(s): D72.825 - Bandemia Comment: (5) UTI (urinary tract infection) Status: Acute Qualifiers: Urinary tract infection type: acute cystitis Hematuria presence: without hematuria Qualified Code(s): N30.00 - Acute cystitis without hematuria (6) HTN (hypertension) Code(s): I10 - ESSENTIAL (PRIMARY) HYPERTENSION Status: Chronic Qualifiers: Hypertension type: essential hypertension Qualified Code(s): I10 - Essential (primary) hypertension Comment: (7) Morbid obesity with BMI of 40.0-44.9, adult Code(s): E66.01 - MORBID (SEVERE) OBESITY DUE TO EXCESS CALORIES; Z68.41 - BODY MASS INDEX (BMI) 40.0-44.9, ADULT Status: Chronic (8) Hypokalemia Code(s): E87.6 - HYPOKALEMIA Status: Resolved Comment: - Plan cont current plan of care, plan discussed w/ family, continue antibiotics * continue levaquin for UTI * continue IV flagyl and add po vancomycin for c-diff infection * GI consulted * continue florastor * repeat labs tomorrow * medication reviewed as below * symptomatic treatment * discussed with family. Review of Systems - Review of Systems ENT: negative: Ear Pain, Ear Discharge, Nose Pain, Nose Discharge, Nose Congestion, Mouth Pain, Mouth Swelling, Throat Pain, Throat Swelling, Other Respiratory: negative: Cough, Dry, Shortness of Breath, Hemoptysis, SOB with Excertion, Pleuritic Pain, Sputum, Wheezing Cardiovascular: negative: chest pain, palpitations, orthopnea, paroxysmal nocturnal dyspnea, edema, light headedness, other Gastrointestinal: negative: Nausea, Vomiting, Abdominal Pain, Diarrhea, Constipation, Melena, Hematochezia, Other Genitourinary: negative: Dysuria, Frequency, Incontinence, Hematuria, Retention , Other Musculoskeletal: negative: Neck Pain, Shoulder Pain, Arm Pain, Back Pain, Hand Pain, Leg Pain, Foot Pain, Other Skin: negative: Rash, Lesions, Natalio, Bruising, Other - Medications/Allergies Allergies/Adverse Reactions: Allergies Allergy/AdvReac Type Severity Reaction Status Date / Time codeine Allergy Verified 12/17/17 01:40 ibuprofen [From Advil] Allergy Verified 12/17/17 01:40 naproxen [From Naprosyn] Allergy Verified 12/17/17 01:40 nitrofurantoin Allergy Verified 12/17/17 01:40 [From Macrobid] Penicillins Allergy Verified 12/16/17 23:21 rofecoxib [From Vioxx] Allergy Verified 12/17/17 01:40 Sulfa (Sulfonamide Allergy Verified 12/17/17 01:40 Antibiotics) Medications: Current Medications Acetaminophen (Tylenol) 650 mg PO Q4H PRN PRN Reason: Headache/Fever or Pain Last Admin: 12/18/17 11:42 Dose: 650 mg Al Hydroxide/Mg Hydroxide (Maalox) 15 ml PO Q4H PRN PRN Reason: Heartburn or Indigestion Albuterol Sulfate (Ventolin) 2.5 mg NEB [id number] PRN PRN Reason: Wheezing Artificial Tears (Tears Naturale) 0 drop EA EYE PRN PRN PRN Reason: Dry Eyes Bisacodyl (Dulcolax) 10 mg PO DAILYPRN PRN PRN Reason: Constipation Mineral Oil/White Petrolatum 99 gm/ Cholestyramine Resin 4 gm 0 gm TOP DAILY [facility] Last Admin: 12/19/17 08:08 Dose: 1 oint Fentanyl (Sublimaze) 25 mcg SLOW IVP Q4H PRN PRN Reason: PAIN 5-10 Fluticasone Propionate (Flonase Nasal [place]) 0 gm NASAL DAILY [facility] Last Admin: 12/19/17 08:07 Dose: 1 spr Guaifenesin (Mucinex) 1,200 mg PO Q12HR [facility] Last Admin: 12/19/17 08:05 Dose: 1,200 mg Guaifenesin (Robitussin Sf) 200 mg PO Q4H PRN PRN Reason: Cough Heparin Sodium (Porcine) (Heparin) 5,000 units SC TID [facility] Last Admin: 12/19/17 08:07 Dose: 5,000 units Hydralazine HCl (Apresoline) 10 mg SLOW IVP Q4H PRN PRN Reason: Systolic BP > 180 Sodium Chloride (Normal Saline 0.9%) 1,000 mls @ 70 mls/hr IV .[id number] [facility] Last Admin: 12/19/17 08:07 Dose: Not Given Levofloxacin 500 mg/ Device 100 mls @ 100 mls/hr IVPB Q24HR [facility] Last Admin: 12/18/17 20:37 Dose: 100 mls Metronidazole 500 mg/ Device 100 mls @ 100 mls/hr IVPB Q8HR [facility] Last Admin: 12/19/17 05:44 Dose: 100 mls Loratadine (Claritin) 10 mg PO DAILY [facility] Last Admin: 12/19/17 08:05 Dose: 10 mg Magnesium Hydroxide (Milk Of Magnesium) 30 ml PO DAILYPRN PRN PRN Reason: Constipation Mineral Oil/White Petrolatum (Eucerin Cream) 0 gm TOP BIDPRN PRN PRN Reason: Dry Skin Multivitamins (Theragran) 1 tab PO DAILY [facility] Last Admin: 12/19/17 08:05 Dose: 1 tab Nystatin (Mycostatin Cream) 0 gm TOP BIDPRN PRN PRN Reason: Topical Irritations Ondansetron HCl (Zofran Odt) 4 mg PO Q6H PRN PRN Reason: Nausea/Vomiting Ondansetron HCl (Zofran) 4 mg IVP Q6H PRN PRN Reason: Nausea/Vomiting Pantoprazole Sodium (Protonix) 40 mg PO DAILY [facility] Last Admin: 12/19/17 08:06 Dose: 40 mg Phenol (Chloraseptic [place] 180 Ml Bot) 0 ml PO PRN PRN PRN Reason: Sore Throat Saccharomyces Boulardii (Florastor) 250 mg PO DAILY [facility] Last Admin: 12/19/17 08:05 Dose: 250 mg Sodium Chloride (Flush - Normal Saline) 10 ml IVF Q12HR [facility] Last Admin: 12/19/17 08:08 Dose: Not Given Sodium Chloride (Flush - Normal Saline) 10 ml IVF PRN PRN PRN Reason: Saline Flush Sodium Chloride ([place] Nasal [place] 0.65%) 0 ml EA NARE QIDPRN PRN PRN Reason: Nasal Congestion Thiamine HCl (Thiamine) 100 mg PO DAILY [facility] Last Admin: 12/19/17 08:07 Dose: 100 mg Vancomycin HCl (First Vancomycin) 125 mg PO QID [facility]
[2017-12-19] MEDS: Vancomycin HCl 25 MG/ML Oral PO SCH ×3 (12:22→19:40)
[2017-12-20] MEDS: metroNIDAZOLE 500 MG in Premix Bag 1 BAG IVPB SCH ×3 (05:21→21:40)
[2017-12-20 05:49] LABS: Anion Gap 10 mmol/L (10-20); BUN (Urea Nitrogen) 18 mg/dL (9.8-20.1); Calc. Creatinine Clearance 106 mL/min (70-130); Calcium 8.8 mg/dL (7.8-10.44); Carbon Dioxide 19 mmol/L (23-31); Chloride 110 mmol/L (98-107); Estimated GFR-MDRD 76; Glucose 99 mg/dL (83-110); Potassium 4.4 mmol/L (3.5-5.1); Sodium 135 mmol/L (136-145)
[2017-12-20 06:00] LABS: Band 15 % (5-11); Hemoglobin 12.4 g/dL (12.0-16.0); Lymphocytes 5 % (21-51); MDiff Complete? YES; Mean Corpuscular HGB CONC 32.8 g/dL (32.0-36.0); Mean Corpuscular Volume 97.7 fl (81.0-99.0); Mean Platelet Volume 9.6 fL (7.4-10.4); Metamyelocyte 5 % (0-0); Monocytes 11 % (0-10); Neutrophil 64 % (42-75); PLT Morphology Comment Appears Adequate; Platelet Count 174 thou/uL (130-400); RBC Distribution Width 12.7 % (11.5-14.5); RBC Morphology Normal; Red Blood Cell (RBC) Count 3.88 mill/uL (4.20-5.40)
[2017-12-20] MEDS: Vancomycin HCl 25 MG/ML Oral PO SCH ×4 (07:31→20:20)
[2017-12-20] MEDS: Fluticasone Propionate Nasal Spray 16 gm Bottle NASAL SCH (07:32)
[2017-12-20] MEDS: Heparin 5,000 UNITS/ML VIAL SC SCH ×3 (07:32→20:19)
[2017-12-20] MEDS: Loratadine 10 MG TAB PO SCH (07:32)
[2017-12-20] MEDS: Multivit, Therapeutic 1 TAB PO SCH (07:32)
[2017-12-20] MEDS: Saccharomyces boulardii 250 MG CAP PO SCH ×3 (07:32→20:19)
[2017-12-20] MEDS: guaiFENesin ER 600 MG TAB PO SCH ×2 (07:33→20:19)
[2017-12-20] MEDS: Aquaphor 30 GM 99 GM, Cholestyramine/Aspartame 4 GM TOP SCH (07:34)
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
[2017-12-20] MEDS ORDERED: Nystatin Powder 15 GM BOT TOP PRN (10:01)
--- NOTE | 2017-12-20 10:51 | PDOC.PN ---
- Subjective Encounter Start Date: 12/20/17 Encounter Start Time: 09:20 Patient seen and examined for c-diff colitis. No new complaints. No overnight events - Objective Resuscitation Status: Resuscitation Status FULL:Full Resuscitation MAR Reviewed: Yes Vital Signs & Weight: Vital Signs (12 hours) Temp Pulse Resp BP BP Pulse Ox 12/20/17 08:00 98.3 F 78 16 95 12/20/17 07:20 98.3 F 78 16 107/64 95 12/20/17 04:00 97.9 F 79 20 145/74 H 96 12/20/17 00:00 98.5 F 79 20 132/83 95 Weight Admit Weight 254 lb 1.6 oz Weight 254 lb 1.6 oz I&O: 12/19/17 12/20/17 12/21/17 06:59 06:59 06:59 Intake Total 1309 790 Output Total 850 1550 Balance 459 -760 Result Diagrams: 12/20/17 05:11 12/20/17 05:11 Phys Exam - Physical Examination Constitutional: NAD HEENT: PERRLA, moist MMs, sclera anicteric Neck: no JVD, supple Respiratory: no wheezing, no rales, no rhonchi Cardiovascular: RRR, no significant murmur, no rub Gastrointestinal: soft, non-tender, no distention, positive bowel sounds edouard+ Musculoskeletal: no edema, pulses present Neurological: non-focal, normal sensation, moves all 4 limbs Lymphatic: no nodes Psychiatric: normal affect Skin: no rash, normal turgor Dx/Plan (1) C. difficile colitis Status: Acute (2) STEPHANIE (acute kidney injury) Code(s): N17.9 - ACUTE KIDNEY FAILURE, UNSPECIFIED Status: Resolved (3) Acute encephalopathy Code(s): G93.40 - ENCEPHALOPATHY, UNSPECIFIED Status: Resolved Comment: (4) Leucocytosis Code(s): D72.829 - ELEVATED WHITE BLOOD CELL COUNT, UNSPECIFIED Status: Acute Qualifiers: Leukocytosis type: bandemia Qualified Code(s): D72.825 - Bandemia Comment: (5) UTI (urinary tract infection) Status: Acute Qualifiers: Urinary tract infection type: acute cystitis Hematuria presence: without hematuria Qualified Code(s): N30.00 - Acute cystitis without hematuria (6) HTN (hypertension) Code(s): I10 - ESSENTIAL (PRIMARY) HYPERTENSION Status: Chronic Qualifiers: Hypertension type: essential hypertension Qualified Code(s): I10 - Essential (primary) hypertension Comment: (7) Morbid obesity with BMI of 40.0-44.9, adult Code(s): E66.01 - MORBID (SEVERE) OBESITY DUE TO EXCESS CALORIES; Z68.41 - BODY MASS INDEX (BMI) 40.0-44.9, ADULT Status: Chronic (8) Hypokalemia Code(s): E87.6 - HYPOKALEMIA Status: Resolved Comment: - Plan cont current plan of care, continue antibiotics * wbc count high today, continue iv flagyl and po vancomycin * change florastor bid * continue levaquin for UTI * will repeat labs tomorrow * pt will need placement on discharge as she is very weak * medication reviewed as below * symptomatic treatment. Review of Systems - Review of Systems Eyes: negative: Pain, Vision Change, Conjunctivae Inflammation, Eyelid Inflammation, Redness, Other ENT: negative: Ear Pain, Ear Discharge, Nose Pain, Nose Discharge, Nose Congestion, Mouth Pain, Mouth Swelling, Throat Pain, Throat Swelling, Other Respiratory: negative: Cough, Dry, Shortness of Breath, Hemoptysis, SOB with Excertion, Pleuritic Pain, Sputum, Wheezing Cardiovascular: negative: chest pain, palpitations, orthopnea, paroxysmal nocturnal dyspnea, edema, light headedness, other Gastrointestinal: negative: Nausea, Vomiting, Abdominal Pain, Diarrhea, Constipation, Melena, Hematochezia, Other Genitourinary: negative: Dysuria, Frequency, Incontinence, Hematuria, Retention , Other Musculoskeletal: negative: Neck Pain, Shoulder Pain, Arm Pain, Back Pain, Hand Pain, Leg Pain, Foot Pain, Other Skin: negative: Rash, Lesions, Natalio, Bruising, Other - Medications/Allergies Allergies/Adverse Reactions: Allergies Allergy/AdvReac Type Severity Reaction Status Date / Time codeine Allergy Verified 12/17/17 01:40 ibuprofen [From Advil] Allergy Verified 12/17/17 01:40 naproxen [From Naprosyn] Allergy Verified 12/17/17 01:40 nitrofurantoin Allergy Verified 12/17/17 01:40 [From Macrobid] Penicillins Allergy Verified 12/16/17 23:21 rofecoxib [From Vioxx] Allergy Verified 12/17/17 01:40 Sulfa (Sulfonamide Allergy Verified 12/17/17 01:40 Antibiotics) Medications: Current Medications Acetaminophen (Tylenol) 650 mg PO Q4H PRN PRN Reason: Headache/Fever or Pain Last Admin: 12/18/17 11:42 Dose: 650 mg Al Hydroxide/Mg Hydroxide (Maalox) 15 ml PO Q4H PRN PRN Reason: Heartburn or Indigestion Albuterol Sulfate (Ventolin) 2.5 mg NEB [id number] PRN PRN Reason: Wheezing Artificial Tears (Tears Naturale) 0 drop EA EYE PRN PRN PRN Reason: Dry Eyes Bisacodyl (Dulcolax) 10 mg PO DAILYPRN PRN PRN Reason: Constipation Mineral Oil/White Petrolatum 99 gm/ Cholestyramine Resin 4 gm 0 gm TOP DAILY [facility] Last Admin: 12/20/17 07:34 Dose: 1 oint Fentanyl (Sublimaze) 25 mcg SLOW IVP Q4H PRN PRN Reason: PAIN 5-10 Fluticasone Propionate (Flonase Nasal [place]) 0 gm NASAL DAILY [facility] Last Admin: 12/20/17 07:32 Dose: 1 spr Guaifenesin (Mucinex) 1,200 mg PO Q12HR [facility] Last Admin: 12/20/17 07:33 Dose: 1,200 mg Guaifenesin (Robitussin Sf) 200 mg PO Q4H PRN PRN Reason: Cough Heparin Sodium (Porcine) (Heparin) 5,000 units SC TID [facility] Last Admin: 12/20/17 07:32 Dose: 5,000 units Hydralazine HCl (Apresoline) 10 mg SLOW IVP Q4H PRN PRN Reason: Systolic BP > 180 Sodium Chloride (Normal Saline 0.9%) 1,000 mls @ 70 mls/hr IV .[id number] [facility] Last Admin: 12/19/17 14:48 Dose: 1,000 mls Levofloxacin 500 mg/ Device 100 mls @ 100 mls/hr IVPB Q24HR [facility] Last Admin: 12/19/17 19:37 Dose: 100 mls Metronidazole 500 mg/ Device 100 mls @ 100 mls/hr IVPB Q8HR [facility] Last Admin: 12/20/17 05:21 Dose: 100 mls Loratadine (Claritin) 10 mg PO DAILY [facility] Last Admin: 12/20/17 07:32 Dose: 10 mg Magnesium Hydroxide (Milk Of Magnesium) 30 ml PO DAILYPRN PRN PRN Reason: Constipation Mineral Oil/White Petrolatum (Eucerin Cream) 0 gm TOP BIDPRN PRN PRN Reason: Dry Skin Multivitamins (Theragran) 1 tab PO DAILY [facility] Last Admin: 12/20/17 07:32 Dose: 1 tab Nystatin (Mycostatin Cream) 0 gm TOP BIDPRN PRN PRN Reason: Topical Irritations Nystatin (Mycostatin Powder) 0 gm TOP PRN PRN PRN Reason: TO AREA Ondansetron HCl (Zofran Odt) 4 mg PO Q6H PRN PRN Reason: Nausea/Vomiting Ondansetron HCl (Zofran) 4 mg IVP Q6H PRN PRN Reason: Nausea/Vomiting Pantoprazole Sodium (Protonix) 40 mg PO DAILY [facility] Last Admin: 12/20/17 07:33 Dose: 40 mg Phenol (Chloraseptic [place] 180 Ml Bot) 0 ml PO PRN PRN PRN Reason: Sore Throat Saccharomyces Boulardii (Florastor) 250 mg PO BID [facility] Last Admin: 12/20/17 07:51 Dose: Not Given Sodium Chloride (Flush - Normal Saline) 10 ml IVF Q12HR [facility] Last Admin: 12/20/17 07:33 Dose: Not Given Sodium Chloride (Flush - Normal Saline) 10 ml IVF PRN PRN PRN Reason: Saline Flush Sodium Chloride ([place] Nasal [place] 0.65%) 0 ml EA NARE QIDPRN PRN PRN Reason: Nasal Congestion Thiamine HCl (Thiamine) 100 mg PO DAILY [facility] Last Admin: 12/20/17 07:33 Dose: 100 mg Vancomycin HCl (First Vancomycin) 125 mg PO QID [facility] Last Admin: 12/20/17 07:31 Dose: 125 mg
[2017-12-20] MEDS: Sodium Chloride 0.9% 1,000 ML IV SCH ×2 (16:32→20:16)
[2017-12-20] MEDS: Acetaminophen 325 MG TAB PO PRN (16:34)
--- NOTE | 2017-12-20 19:09 | PRG ---
DATE OF SERVICE: 12/20/2017 SUBJECTIVE: This is a very pleasant 82-year-old female hospitalized because of urina ry tract infection. She also has abdominal pain, recently some nausea. An abdominal CAT scan showed colitis. Subsequently, a stool exam done showed positive stool for C. difficile toxin and antigen. She is on vancomycin and also Flagyl and Levaquin. She is actually feeling a whole lot better today . She has had no stool today. No abdominal pain, no nausea, no vomiting. Her appetite is actually pretty good. She has no complains. OBJECTIVE: VITAL SIGNS: Afebrile, pulse is 78, blood pressure 145/74. CARDIOVASCULAR: First and second heart sounds normal. LUNGS: Clear to auscultation. ABDOMEN: Soft to palpate. Abdomen is nontender. LABORATORY DATA: Today shows a still marked leukocytosis of 32,000; however, yesterday . Hemog lobin 12.4, hematocrit 37.9, bandemia of 15%, total WBC is 30,000, polymorphs 64. Chem-7: Sodium 13 5, potassium 4.4, chloride 110, bicarbonate 19, BUN is 18, creatinine 0.73. CLINICAL IMPRESSION: 1. Recurrent urinary tract infection. 2. C. difficile colitis, on vancomycin. 3. Increased leukocytosis with very benign abdomen, etiology unclear. RECOMMENDATIONS: 1. Continue IV fluids and p.o. intake. 2. Continue vancomycin. 3. Follow up labs.
[2017-12-21] MEDS: metroNIDAZOLE 500 MG in Premix Bag 1 BAG IVPB SCH ×3 (05:24→20:22)
[2017-12-21 05:45] LABS: Anion Gap 10 mmol/L (10-20); BUN (Urea Nitrogen) 16 mg/dL (9.8-20.1); Calc. Creatinine Clearance 109 mL/min (70-130); Calcium 8.3 mg/dL (7.8-10.44); Carbon Dioxide 20 mmol/L (23-31); Chloride 110 mmol/L (98-107); Estimated GFR-MDRD 79; Glucose 103 mg/dL (83-110); Potassium 4.2 mmol/L (3.5-5.1); Sodium 136 mmol/L (136-145)
[2017-12-21 05:55] LABS: Band 6 % (5-11); Hemoglobin 11.9 g/dL (12.0-16.0); Lymphocytes 9 % (21-51); MDiff Complete? YES; Mean Corpuscular HGB CONC 32.2 g/dL (32.0-36.0); Mean Corpuscular Hemoglobin 31.3 pg (27.0-31.0); Mean Corpuscular Volume 97.1 fl (81.0-99.0); Mean Platelet Volume 9.9 fL (7.4-10.4); Metamyelocyte 4 % (0-0); Monocytes 10 % (0-10); Myelocyte 1 % (0-0); Neutrophil 70 % (42-75); PLT Morphology Comment Appears Adequate; Platelet Count 169 thou/uL (130-400); RBC Distribution Width 12.7 % (11.5-14.5); Red Blood Cell (RBC) Count 3.79 mill/uL (4.20-5.40); White Blood Cell (WBC) Count 36.2 thou/uL (4.8-10.8)
[2017-12-21] MEDS: Aquaphor 30 GM 99 GM, Cholestyramine/Aspartame 4 GM TOP SCH (08:08)
[2017-12-21] MEDS: Vancomycin HCl 25 MG/ML Oral PO SCH ×4 (08:09→20:25)
[2017-12-21] MEDS: Fluticasone Propionate Nasal Spray 16 gm Bottle NASAL SCH (08:09)
[2017-12-21] MEDS: guaiFENesin ER 600 MG TAB PO SCH ×2 (08:10→20:24)
[2017-12-21] MEDS: Heparin 5,000 UNITS/ML VIAL SC SCH ×3 (08:10→20:24)
[2017-12-21] MEDS: Saccharomyces boulardii 250 MG CAP PO SCH ×2 (08:10→20:24)
[2017-12-21] MEDS: Loratadine 10 MG TAB PO SCH (08:10)
[2017-12-21] MEDS: Multivit, Therapeutic 1 TAB PO SCH (08:10)
--- NOTE | 2017-12-21 11:01 | PDOC.PN ---
- Subjective Encounter Start Date: 12/21/17 Encounter Start Time: 09:00 Patient seen and examined for c-diff colitis. No new complaints. No overnight events - Objective Resuscitation Status: Resuscitation Status FULL:Full Resuscitation MAR Reviewed: Yes Vital Signs & Weight: Vital Signs (12 hours) Temp Pulse Resp BP BP Pulse Ox 12/21/17 08:00 98.2 F 80 18 94 L 12/21/17 07:26 98.2 F 80 18 121/59 L 94 L 12/21/17 04:05 95 12/21/17 04:00 97.5 F L 90 90 H 115/72 94 L 12/21/17 00:00 99.2 F 77 20 115/72 95 Weight Admit Weight 254 lb 1.6 oz Weight 254 lb 1.6 oz I&O: 12/20/17 12/21/17 12/22/17 06:59 06:59 06:59 Intake Total 790 820 Output Total 1550 450 Balance -760 370 Result Diagrams: 12/21/17 04:57 12/21/17 04:57 Phys Exam - Physical Examination Constitutional: NAD HEENT: PERRLA, moist MMs, sclera anicteric Neck: no JVD, supple Respiratory: no wheezing, no rales, no rhonchi Cardiovascular: RRR, no significant murmur, no rub Gastrointestinal: soft, non-tender, no distention, positive bowel sounds Musculoskeletal: no edema, pulses present Neurological: non-focal, normal sensation Lymphatic: no nodes Psychiatric: normal affect, A&O x 3 Skin: no rash, normal turgor Dx/Plan (1) C. difficile colitis Status: Acute (2) STEPHANIE (acute kidney injury) Code(s): N17.9 - ACUTE KIDNEY FAILURE, UNSPECIFIED Status: Resolved (3) Acute encephalopathy Code(s): G93.40 - ENCEPHALOPATHY, UNSPECIFIED Status: Resolved Comment: (4) Leucocytosis Code(s): D72.829 - ELEVATED WHITE BLOOD CELL COUNT, UNSPECIFIED Status: Acute Qualifiers: Leukocytosis type: bandemia Qualified Code(s): D72.825 - Bandemia Comment: (5) UTI (urinary tract infection) Status: Acute Qualifiers: Urinary tract infection type: acute cystitis Hematuria presence: without hematuria Qualified Code(s): N30.00 - Acute cystitis without hematuria (6) HTN (hypertension) Code(s): I10 - ESSENTIAL (PRIMARY) HYPERTENSION Status: Chronic Qualifiers: Hypertension type: essential hypertension Qualified Code(s): I10 - Essential (primary) hypertension Comment: (7) Morbid obesity with BMI of 40.0-44.9, adult Code(s): E66.01 - MORBID (SEVERE) OBESITY DUE TO EXCESS CALORIES; Z68.41 - BODY MASS INDEX (BMI) 40.0-44.9, ADULT Status: Chronic (8) Hypokalemia Code(s): E87.6 - HYPOKALEMIA Status: Resolved Comment: - Plan cont current plan of care, plan discussed w/ family, 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 Review of Systems - Review of Systems Constitutional: weakness. negative: fever, chills, sweats, malaise, other ENT: negative: Ear Pain, Ear Discharge, Nose Pain, Nose Discharge, Nose Congestion, Mouth Pain, Mouth Swelling, Throat Pain, Throat Swelling, Other Respiratory: negative: Cough, Dry, Shortness of Breath, Hemoptysis, SOB with Excertion, Pleuritic Pain, Sputum, Wheezing Cardiovascular: negative: chest pain, palpitations, orthopnea, paroxysmal nocturnal dyspnea, edema, light headedness, other Gastrointestinal: negative: Nausea, Vomiting, Abdominal Pain, Diarrhea, Constipation, Melena, Hematochezia, Other Genitourinary: negative: Dysuria, Frequency, Incontinence, Hematuria, Retention , Other Musculoskeletal: negative: Neck Pain, Shoulder Pain, Arm Pain, Back Pain, Hand Pain, Leg Pain, Foot Pain, Other Skin: negative: Rash, Lesions, Natalio, Bruising, Other - Medications/Allergies Allergies/Adverse Reactions: Allergies Allergy/AdvReac Type Severity Reaction Status Date / Time codeine Allergy Verified 12/17/17 01:40 ibuprofen [From Advil] Allergy Verified 12/17/17 01:40 naproxen [From Naprosyn] Allergy Verified 12/17/17 01:40 nitrofurantoin Allergy Verified 12/17/17 01:40 [From Macrobid] Penicillins Allergy Verified 12/16/17 23:21 rofecoxib [From Vioxx] Allergy Verified 12/17/17 01:40 Sulfa (Sulfonamide Allergy Verified 12/17/17 01:40 Antibiotics) Medications: Current Medications Acetaminophen (Tylenol) 650 mg PO Q4H PRN PRN Reason: Headache/Fever or Pain Last Admin: 12/20/17 16:34 Dose: 650 mg Al Hydroxide/Mg Hydroxide (Maalox) 15 ml PO Q4H PRN PRN Reason: Heartburn or Indigestion Albuterol Sulfate (Ventolin) 2.5 mg NEB [id number] PRN PRN Reason: Wheezing Last Admin: 12/20/17 16:57 Dose: 2.5 mg Artificial Tears (Tears Naturale) 0 drop EA EYE PRN PRN PRN Reason: Dry Eyes Bisacodyl (Dulcolax) 10 mg PO DAILYPRN PRN PRN Reason: Constipation Mineral Oil/White Petrolatum 99 gm/ Cholestyramine Resin 4 gm 0 gm TOP DAILY [facility] Last Admin: 12/21/17 08:08 Dose: 1 oint Fentanyl (Sublimaze) 25 mcg SLOW IVP Q4H PRN PRN Reason: PAIN 5-10 Fluticasone Propionate (Flonase Nasal [place]) 0 gm NASAL DAILY [facility] Last Admin: 12/21/17 08:09 Dose: 1 spr Guaifenesin (Mucinex) 1,200 mg PO Q12HR [facility] Last Admin: 12/21/17 08:10 Dose: 1,200 mg Guaifenesin (Robitussin Sf) 200 mg PO Q4H PRN PRN Reason: Cough Heparin Sodium (Porcine) (Heparin) 5,000 units SC TID [facility] Last Admin: 12/21/17 08:10 Dose: 5,000 units Hydralazine HCl (Apresoline) 10 mg SLOW IVP Q4H PRN PRN Reason: Systolic BP > 180 Metronidazole 500 mg/ Device 100 mls @ 100 mls/hr IVPB Q8HR [facility] Last Admin: 12/21/17 05:24 Dose: 100 mls Loratadine (Claritin) 10 mg PO DAILY [facility] Last Admin: 12/21/17 08:10 Dose: 10 mg Magnesium Hydroxide (Milk Of Magnesium) 30 ml PO DAILYPRN PRN PRN Reason: Constipation Mineral Oil/White Petrolatum (Eucerin Cream) 0 gm TOP BIDPRN PRN PRN Reason: Dry Skin Multivitamins (Theragran) 1 tab PO DAILY [facility] Last Admin: 12/21/17 08:10 Dose: 1 tab Nystatin (Mycostatin Cream) 0 gm TOP BIDPRN PRN PRN Reason: Topical Irritations Nystatin (Mycostatin Powder) 0 gm TOP PRN PRN PRN Reason: TO AREA Ondansetron HCl (Zofran Odt) 4 mg PO Q6H PRN PRN Reason: Nausea/Vomiting Ondansetron HCl (Zofran) 4 mg IVP Q6H PRN PRN Reason: Nausea/Vomiting Pantoprazole Sodium (Protonix) 40 mg PO DAILY [facility] Last Admin: 12/21/17 08:10 Dose: 40 mg Phenol (Chloraseptic [place] 180 Ml Bot) 0 ml PO PRN PRN PRN Reason: Sore Throat Saccharomyces Boulardii (Florastor) 250 mg PO BID [facility] Last Admin: 12/21/17 08:10 Dose: 250 mg Sodium Chloride (Flush - Normal Saline) 10 ml IVF Q12HR [facility] Last Admin: 12/21/17 08:10 Dose: Not Given Sodium Chloride (Flush - Normal Saline) 10 ml IVF PRN PRN PRN Reason: Saline Flush Sodium Chloride ([place] Nasal [place] 0.65%) 0 ml EA NARE QIDPRN PRN PRN Reason: Nasal Congestion Thiamine HCl (Thiamine) 100 mg PO DAILY [facility] Last Admin: 12/21/17 08:10 Dose: 100 mg Vancomycin HCl (First Vancomycin) 125 mg PO QID [facility] Last Admin: 12/21/17 08:09 Dose: 125 mg
--- NOTE | 2017-12-21 12:29 | PQF ---
CLINICAL DOCUMENTATION IMPROVEMENT CLARIFICATION FORM: ICD-10 Updated PLEASE DO AN ADDENDUM TO THE PROGRESS NOTE WITH ANY DOCUMENTATION UPDATES OR ADDITIONS AND CARRY THROUGH TO DC SUMMARY. THANK YOU. DATE: 12/21/17 ATTN: Dr. Tovar Please exercise your independent, professional judgment in responding to the clarification form. Clinical indicators are provided on the bottom of this form for your review Please check appropriate box(s) to clarify if the following diagnosis has been ruled in or ruled out: SEPSIS (PN /) . [ X ] Ruled in diagnosis [ X ] Continue to treat [ ] Resolved [ ] Ruled out diagnosis [ ] Cannot rule out diagnosis [ ] Other diagnosis [ ] Unable to determine In addition, please specify: Present on Admission (POA): [ X ] Yes [ ] No [ ] Unable to determine For continuity of documentation, please document condition throughout progress notes and discharge summary. Thank You. CLINICAL INDICATORS - SIGNS / SYMPTOMS / LABS PN /: PT SEEN & EXAMINED FOR UTI, SEPSIS. H&P: SHE HAS LEUKOCYTOSIS W/ 34,200 WHITE CELLS, OF WHICH 20% BANDS & 61% ARE NEUTROPHILS. ADMITTED TO THE HOSPITAL FOR UTI. LEUKOCYTOSIS. STEPHANIE. ACUTE ENCEPHALOPATHY, LIKELY 2/2 UTI. RISKS: H&P: 82 YO. UTI. LEUKOCYTOSIS. ACUTE ENCEPHALOPATHY. GI CONSULT 12/19: CLOSTRIDIUM DIFFICILE COLITIS W/ BANDEMIA & ALSO MARKED LEUKOCYTOSIS. TREATMENT: CPOE 5/2: LEVAQUIN 500MG IV Q24 HR. DC'D 12/21/17. CPOE 5/4: FLAGYL 500MG IV Q8 HR Thank you, Carie (This form is maintained as a part of the permanent medical record) 2015 [email or web address] All Rights Reserved Carie Juárez RN, BSN [email or web address] Office: [phone] [facility]
--- NOTE | 2017-12-21 18:10 | PRG ---
DATE OF SERVICE: 12/21/2017 SUBJECTIVE: This is an 82-year-old female with recurrent UTI, C. difficile colitis. She i s on IV antibiotics. She is also on p.o. vancomycin. The patient has no abdominal pain, no nausea o r vomiting. She had no diarrhea anymore. She feels well actually. She has no abdominal pain, no na usea, and her appetite is very good. She offers no complaints. OBJECTIVE: GENERAL: She appears comfortable. VITAL SIGNS: Stable, afebrile, temperature 98.2 degrees Fahrenheit, pulse is 80, blood pressure 120/ 59. CARDIOVASCULAR: First and second heart sounds normal. LUNGS: Clear to auscultation. ABDOMEN: Soft to palpate. No organomegaly. No tenderness. No mass. RECOMMENDATIONS: 1. Continue antibiotics. 2. Follow up labs.
[2017-12-22] MEDS: metroNIDAZOLE 500 MG in Premix Bag 1 BAG IVPB SCH (04:29)
[2017-12-22 06:04] LABS: Band 24 % (5-11); Hemoglobin 11.6 g/dL (12.0-16.0); Lymphocytes 5 % (21-51); MDiff Complete? YES; Mean Corpuscular HGB CONC 32.5 g/dL (32.0-36.0); Mean Corpuscular Hemoglobin 31.8 pg (27.0-31.0); Mean Corpuscular Volume 97.7 fl (81.0-99.0); Mean Platelet Volume 9.7 fL (7.4-10.4); Metamyelocyte 10 % (0-0); Monocytes 6 % (0-10); Myelocyte 2 % (0-0); Neutrophil 53 % (42-75); PLT Morphology Comment Appears Adequate; Platelet Count 173 thou/uL (130-400); RBC Distribution Width 12.8 % (11.5-14.5); RBC Morphology Normal; Red Blood Cell (RBC) Count 3.66 mill/uL (4.20-5.40)
[2017-12-22] MEDS: Acetaminophen 325 MG TAB PO PRN (06:11)
[2017-12-22] MEDS: Heparin 5,000 UNITS/ML VIAL SC SCH ×3 (08:08→20:34)
[2017-12-22] MEDS: guaiFENesin ER 600 MG TAB PO SCH ×2 (08:08→20:34)
[2017-12-22] MEDS: Multivit, Therapeutic 1 TAB PO SCH (08:08)
[2017-12-22] MEDS: Saccharomyces boulardii 250 MG CAP PO SCH ×2 (08:08→20:34)
[2017-12-22] MEDS: Loratadine 10 MG TAB PO SCH (08:08)
[2017-12-22] MEDS: Vancomycin HCl 25 MG/ML Oral PO SCH ×4 (08:09→20:34)
[2017-12-22] MEDS: Fluticasone Propionate Nasal Spray 16 gm Bottle NASAL SCH (08:09)
[2017-12-22] MEDS: Aquaphor 30 GM 99 GM, Cholestyramine/Aspartame 4 GM TOP SCH (08:10)
--- NOTE | 2017-12-22 09:41 | PDOC.PN ---
- Subjective Encounter Start Date: 12/22/17 Encounter Start Time: 08:40 Patient seen and examined for c-diff colitis. No new complaints. No overnight events - Objective Resuscitation Status: Resuscitation Status FULL:Full Resuscitation MAR Reviewed: Yes Vital Signs & Weight: Vital Signs (12 hours) Temp Pulse Resp BP Pulse Ox 12/22/17 07:37 98.3 F 75 22 H 106/66 94 L 12/22/17 04:49 98.4 F 71 20 120/66 94 L 12/22/17 00:34 98.4 F 84 20 123/72 92 L Weight Admit Weight 254 lb 1.6 oz Weight 254 lb 1.6 oz I&O: 12/21/17 12/22/17 12/23/17 06:59 06:59 06:59 Intake Total 820 500 Output Total 450 1050 Balance 370 -550 Result Diagrams: 12/22/17 04:38 12/21/17 04:57 Phys Exam - Physical Examination Constitutional: NAD HEENT: PERRLA, moist MMs, sclera anicteric Neck: no JVD, supple Respiratory: no wheezing, no rales, no rhonchi Cardiovascular: RRR, no significant murmur, no rub Gastrointestinal: soft, non-tender, no distention, positive bowel sounds obesity+ Musculoskeletal: no edema, pulses present Neurological: non-focal, normal sensation Lymphatic: no nodes Psychiatric: normal affect Skin: no rash, normal turgor Dx/Plan (1) C. difficile colitis Status: Acute (2) STEPHANIE (acute kidney injury) Code(s): N17.9 - ACUTE KIDNEY FAILURE, UNSPECIFIED Status: Resolved (3) Acute encephalopathy Code(s): G93.40 - ENCEPHALOPATHY, UNSPECIFIED Status: Resolved Comment: (4) Leucocytosis Code(s): D72.829 - ELEVATED WHITE BLOOD CELL COUNT, UNSPECIFIED Status: Acute Qualifiers: Leukocytosis type: bandemia Qualified Code(s): D72.825 - Bandemia Comment: (5) UTI (urinary tract infection) Status: Resolved Qualifiers: Urinary tract infection type: acute cystitis Hematuria presence: without hematuria Qualified Code(s): N30.00 - Acute cystitis without hematuria (6) HTN (hypertension) Code(s): I10 - ESSENTIAL (PRIMARY) HYPERTENSION Status: Chronic Qualifiers: Hypertension type: essential hypertension Qualified Code(s): I10 - Essential (primary) hypertension Comment: (7) Morbid obesity with BMI of 40.0-44.9, adult Code(s): E66.01 - MORBID (SEVERE) OBESITY DUE TO EXCESS CALORIES; Z68.41 - BODY MASS INDEX (BMI) 40.0-44.9, ADULT Status: Chronic (8) Hypokalemia Code(s): E87.6 - HYPOKALEMIA Status: Resolved Comment: - Plan cont current plan of care, 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 Review of Systems - Review of Systems Constitutional: weakness Eyes: negative: Pain, Vision Change, Conjunctivae Inflammation, Eyelid Inflammation, Redness, Other ENT: negative: Ear Pain, Ear Discharge, Nose Pain, Nose Discharge, Nose Congestion, Mouth Pain, Mouth Swelling, Throat Pain, Throat Swelling, Other Respiratory: negative: Cough, Dry, Shortness of Breath, Hemoptysis, SOB with Excertion, Pleuritic Pain, Sputum, Wheezing Cardiovascular: negative: chest pain, palpitations, orthopnea, paroxysmal nocturnal dyspnea, edema, light headedness, other Gastrointestinal: Diarrhea. negative: Nausea, Vomiting, Abdominal Pain, Constipation, Melena, Hematochezia, Other Genitourinary: negative: Dysuria, Frequency, Incontinence, Hematuria, Retention , Other Musculoskeletal: negative: Neck Pain, Shoulder Pain, Arm Pain, Back Pain, Hand Pain, Leg Pain, Foot Pain, Other Skin: negative: Rash, Lesions, Natalio, Bruising, Other - Medications/Allergies Allergies/Adverse Reactions: Allergies Allergy/AdvReac Type Severity Reaction Status Date / Time codeine Allergy Verified 12/17/17 01:40 ibuprofen [From Advil] Allergy Verified 12/17/17 01:40 naproxen [From Naprosyn] Allergy Verified 12/17/17 01:40 nitrofurantoin Allergy Verified 12/17/17 01:40 [From Macrobid] Penicillins Allergy Verified 12/16/17 23:21 rofecoxib [From Vioxx] Allergy Verified 12/17/17 01:40 Sulfa (Sulfonamide Allergy Verified 12/17/17 01:40 Antibiotics) Medications: Current Medications Acetaminophen (Tylenol) 650 mg PO Q4H PRN PRN Reason: Headache/Fever or Pain Last Admin: 12/22/17 06:11 Dose: 650 mg Al Hydroxide/Mg Hydroxide (Maalox) 15 ml PO Q4H PRN PRN Reason: Heartburn or Indigestion Albuterol Sulfate (Ventolin) 2.5 mg NEB [id number] PRN PRN Reason: Wheezing Last Admin: 12/20/17 16:57 Dose: 2.5 mg Artificial Tears (Tears Naturale) 0 drop EA EYE PRN PRN PRN Reason: Dry Eyes Bisacodyl (Dulcolax) 10 mg PO DAILYPRN PRN PRN Reason: Constipation Mineral Oil/White Petrolatum 99 gm/ Cholestyramine Resin 4 gm 0 gm TOP DAILY [facility] Last Admin: 12/22/17 08:10 Dose: 1 oint Fentanyl (Sublimaze) 25 mcg SLOW IVP Q4H PRN PRN Reason: PAIN 5-10 Fluticasone Propionate (Flonase Nasal [place]) 0 gm NASAL DAILY [facility] Last Admin: 12/22/17 08:09 Dose: 2 spr Guaifenesin (Mucinex) 1,200 mg PO Q12HR [facility] Last Admin: 12/22/17 08:08 Dose: 1,200 mg Guaifenesin (Robitussin Sf) 200 mg PO Q4H PRN PRN Reason: Cough Heparin Sodium (Porcine) (Heparin) 5,000 units SC TID [facility] Last Admin: 12/22/17 08:08 Dose: 5,000 units Hydralazine HCl (Apresoline) 10 mg SLOW IVP Q4H PRN PRN Reason: Systolic BP > 180 Metronidazole 500 mg/ Device 100 mls @ 100 mls/hr IVPB Q8HR [facility] Last Admin: 12/22/17 04:29 Dose: 100 mls Loratadine (Claritin) 10 mg PO DAILY [facility] Last Admin: 12/22/17 08:08 Dose: 10 mg Magnesium Hydroxide (Milk Of Magnesium) 30 ml PO DAILYPRN PRN PRN Reason: Constipation Metronidazole (Flagyl) 500 mg PO TID [facility] Mineral Oil/White Petrolatum (Eucerin Cream) 0 gm TOP BIDPRN PRN PRN Reason: Dry Skin Multivitamins (Theragran) 1 tab PO DAILY [facility] Last Admin: 12/22/17 08:08 Dose: 1 tab Nystatin (Mycostatin Cream) 0 gm TOP BIDPRN PRN PRN Reason: Topical Irritations Nystatin (Mycostatin Powder) 0 gm TOP PRN PRN PRN Reason: TO AREA Ondansetron HCl (Zofran Odt) 4 mg PO Q6H PRN PRN Reason: Nausea/Vomiting Ondansetron HCl (Zofran) 4 mg IVP Q6H PRN PRN Reason: Nausea/Vomiting Pantoprazole Sodium (Protonix) 40 mg PO DAILY [facility] Last Admin: 12/22/17 08:09 Dose: 40 mg Phenol (Chloraseptic [place] 180 Ml Bot) 0 ml PO PRN PRN PRN Reason: Sore Throat Saccharomyces Boulardii (Florastor) 250 mg PO BID [facility] Last Admin: 12/22/17 08:08 Dose: 250 mg Sodium Chloride (Flush - Normal Saline) 10 ml IVF Q12HR [facility] Last Admin: 12/22/17 08:08 Dose: 10 ml Sodium Chloride (Flush - Normal Saline) 10 ml IVF PRN PRN PRN Reason: Saline Flush Sodium Chloride ([place] Nasal [place] 0.65%) 0 ml EA NARE QIDPRN PRN PRN Reason: Nasal Congestion Thiamine HCl (Thiamine) 100 mg PO DAILY [facility] Last Admin: 12/22/17 08:08 Dose: 100 mg Vancomycin HCl (First Vancomycin) 125 mg PO QID [facility] Last Admin: 12/22/17 08:09 Dose: 125 mg
[2017-12-22] MEDS: metroNIDAZOLE 500 MG TAB PO SCH ×2 (14:01→20:34)
[2017-12-23 05:49] LABS: Band 21 % (5-11); Lymphocytes 9 % (21-51); MDiff Complete? YES; Mean Corpuscular HGB CONC 31.7 g/dL (32.0-36.0); Mean Corpuscular Hemoglobin 31.3 pg (27.0-31.0); Mean Corpuscular Volume 98.6 fl (81.0-99.0); Mean Platelet Volume 9.7 fL (7.4-10.4); Metamyelocyte 3 % (0-0); Monocytes 12 % (0-10); Neutrophil 55 % (42-75); PLT Morphology Comment Appears Adequate; Platelet Count 170 thou/uL (130-400); RBC Distribution Width 12.9 % (11.5-14.5); Red Blood Cell (RBC) Count 3.82 mill/uL (4.20-5.40)
[2017-12-23] MEDS: Fluticasone Propionate Nasal Spray 16 gm Bottle NASAL SCH (09:13)
[2017-12-23] MEDS: metroNIDAZOLE 500 MG TAB PO SCH ×3 (09:14→20:09)
[2017-12-23] MEDS: guaiFENesin ER 600 MG TAB PO SCH ×2 (09:14→20:09)
[2017-12-23] MEDS: Heparin 5,000 UNITS/ML VIAL SC SCH ×3 (09:15→20:10)
[2017-12-23] MEDS: Loratadine 10 MG TAB PO SCH (09:15)
[2017-12-23] MEDS: Multivit, Therapeutic 1 TAB PO SCH (09:15)
[2017-12-23] MEDS: Saccharomyces boulardii 250 MG CAP PO SCH ×2 (09:15→20:09)
[2017-12-23] MEDS: Vancomycin HCl 25 MG/ML Oral PO SCH ×4 (09:22→20:11)
[2017-12-23] MEDS: Aquaphor 30 GM 99 GM, Cholestyramine/Aspartame 4 GM TOP SCH (09:23)
--- NOTE | 2017-12-23 10:27 | PDOC.PN ---
- Subjective Encounter Start Date: 12/23/17 Encounter Start Time: 09:10 Patient seen and examined for c-diff colitis. No new complaints. No overnight events - Objective Resuscitation Status: Resuscitation Status FULL:Full Resuscitation MAR Reviewed: Yes Vital Signs & Weight: Vital Signs (12 hours) Temp Pulse Resp BP Pulse Ox 12/23/17 08:03 98.6 F 75 18 93 L 12/23/17 07:42 98.6 F 75 18 122/72 93 L Weight Admit Weight 254 lb 1.6 oz Weight 254 lb 1.6 oz I&O: 12/22/17 12/23/17 12/24/17 06:59 06:59 06:59 Intake Total 500 740 Output Total 1050 550 Balance -550 190 Result Diagrams: 12/23/17 04:39 12/21/17 04:57 Phys Exam - Physical Examination Constitutional: NAD HEENT: PERRLA, moist MMs, sclera anicteric Neck: no JVD, supple Respiratory: no wheezing, no rales, no rhonchi Cardiovascular: RRR, no significant murmur, no rub Gastrointestinal: soft, non-tender, no distention, positive bowel sounds Musculoskeletal: no edema, pulses present Neurological: non-focal, moves all 4 limbs Lymphatic: no nodes Psychiatric: normal affect Skin: no rash, normal turgor Dx/Plan (1) C. difficile colitis Status: Acute (2) STEPHANIE (acute kidney injury) Code(s): N17.9 - ACUTE KIDNEY FAILURE, UNSPECIFIED Status: Resolved (3) Acute encephalopathy Code(s): G93.40 - ENCEPHALOPATHY, UNSPECIFIED Status: Resolved Comment: (4) Leucocytosis Code(s): D72.829 - ELEVATED WHITE BLOOD CELL COUNT, UNSPECIFIED Status: Acute Qualifiers: Leukocytosis type: bandemia Qualified Code(s): D72.825 - Bandemia Comment: (5) UTI (urinary tract infection) Status: Resolved Qualifiers: Urinary tract infection type: acute cystitis Hematuria presence: without hematuria Qualified Code(s): N30.00 - Acute cystitis without hematuria (6) HTN (hypertension) Code(s): I10 - ESSENTIAL (PRIMARY) HYPERTENSION Status: Chronic Qualifiers: Hypertension type: essential hypertension Qualified Code(s): I10 - Essential (primary) hypertension Comment: (7) Morbid obesity with BMI of 40.0-44.9, adult Code(s): E66.01 - MORBID (SEVERE) OBESITY DUE TO EXCESS CALORIES; Z68.41 - BODY MASS INDEX (BMI) 40.0-44.9, ADULT Status: Chronic (8) Hypokalemia Code(s): E87.6 - HYPOKALEMIA Status: Resolved Comment: - Plan cont current plan of care, continue antibiotics, 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 Review of Systems - Review of Systems Eyes: negative: Pain, Vision Change, Conjunctivae Inflammation, Eyelid Inflammation, Redness, Other ENT: negative: Ear Pain, Ear Discharge, Nose Pain, Nose Discharge, Nose Congestion, Mouth Pain, Mouth Swelling, Throat Pain, Throat Swelling, Other Respiratory: negative: Cough, Dry, Shortness of Breath, Hemoptysis, SOB with Excertion, Pleuritic Pain, Sputum, Wheezing Cardiovascular: negative: chest pain, palpitations, orthopnea, paroxysmal nocturnal dyspnea, edema, light headedness, other Gastrointestinal: negative: Nausea, Vomiting, Abdominal Pain, Diarrhea, Constipation, Melena, Hematochezia, Other Genitourinary: negative: Dysuria, Frequency, Incontinence, Hematuria, Retention , Other Musculoskeletal: negative: Neck Pain, Shoulder Pain, Arm Pain, Back Pain, Hand Pain, Leg Pain, Foot Pain, Other Skin: negative: Rash, Lesions, Natalio, Bruising, Other - Medications/Allergies Allergies/Adverse Reactions: Allergies Allergy/AdvReac Type Severity Reaction Status Date / Time codeine Allergy Verified 12/17/17 01:40 ibuprofen [From Advil] Allergy Verified 12/17/17 01:40 naproxen [From Naprosyn] Allergy Verified 12/17/17 01:40 nitrofurantoin Allergy Verified 12/17/17 01:40 [From Macrobid] Penicillins Allergy Verified 12/16/17 23:21 rofecoxib [From Vioxx] Allergy Verified 12/17/17 01:40 Sulfa (Sulfonamide Allergy Verified 12/17/17 01:40 Antibiotics) Medications: Current Medications Acetaminophen (Tylenol) 650 mg PO Q4H PRN PRN Reason: Headache/Fever or Pain Last Admin: 12/22/17 06:11 Dose: 650 mg Al Hydroxide/Mg Hydroxide (Maalox) 15 ml PO Q4H PRN PRN Reason: Heartburn or Indigestion Albuterol Sulfate (Ventolin) 2.5 mg NEB [id number] PRN PRN Reason: Wheezing Last Admin: 12/20/17 16:57 Dose: 2.5 mg Artificial Tears (Tears Naturale) 0 drop EA EYE PRN PRN PRN Reason: Dry Eyes Bisacodyl (Dulcolax) 10 mg PO DAILYPRN PRN PRN Reason: Constipation Mineral Oil/White Petrolatum 99 gm/ Cholestyramine Resin 4 gm 0 gm TOP DAILY [facility] Last Admin: 12/23/17 09:23 Dose: 1 oint Fentanyl (Sublimaze) 25 mcg SLOW IVP Q4H PRN PRN Reason: PAIN 5-10 Fluticasone Propionate (Flonase Nasal [place]) 0 gm NASAL DAILY [facility] Last Admin: 12/23/17 09:13 Dose: 1 spr Guaifenesin (Mucinex) 1,200 mg PO Q12HR [facility] Last Admin: 12/23/17 09:14 Dose: 1,200 mg Guaifenesin (Robitussin Sf) 200 mg PO Q4H PRN PRN Reason: Cough Heparin Sodium (Porcine) (Heparin) 5,000 units SC TID [facility] Last Admin: 12/23/17 09:15 Dose: 5,000 units Hydralazine HCl (Apresoline) 10 mg SLOW IVP Q4H PRN PRN Reason: Systolic BP > 180 Loratadine (Claritin) 10 mg PO DAILY [facility] Last Admin: 12/23/17 09:15 Dose: 10 mg Magnesium Hydroxide (Milk Of Magnesium) 30 ml PO DAILYPRN PRN PRN Reason: Constipation Metronidazole (Flagyl) 500 mg PO TID [facility] Last Admin: 12/23/17 09:14 Dose: 500 mg Mineral Oil/White Petrolatum (Eucerin Cream) 0 gm TOP BIDPRN PRN PRN Reason: Dry Skin Multivitamins (Theragran) 1 tab PO DAILY [facility] Last Admin: 12/23/17 09:15 Dose: 1 tab Nystatin (Mycostatin Cream) 0 gm TOP BIDPRN PRN PRN Reason: Topical Irritations Nystatin (Mycostatin Powder) 0 gm TOP PRN PRN PRN Reason: TO AREA Ondansetron HCl (Zofran Odt) 4 mg PO Q6H PRN PRN Reason: Nausea/Vomiting Ondansetron HCl (Zofran) 4 mg IVP Q6H PRN PRN Reason: Nausea/Vomiting Pantoprazole Sodium (Protonix) 40 mg PO DAILY [facility] Last Admin: 12/23/17 09:15 Dose: 40 mg Phenol (Chloraseptic [place] 180 Ml Bot) 0 ml PO PRN PRN PRN Reason: Sore Throat Saccharomyces Boulardii (Florastor) 250 mg PO BID [facility] Last Admin: 12/23/17 09:15 Dose: 250 mg Sodium Chloride (Flush - Normal Saline) 10 ml IVF Q12HR [facility] Last Admin: 12/23/17 09:16 Dose: 10 ml Sodium Chloride (Flush - Normal Saline) 10 ml IVF PRN PRN PRN Reason: Saline Flush Sodium Chloride ([place] Nasal [place] 0.65%) 0 ml EA NARE QIDPRN PRN PRN Reason: Nasal Congestion Thiamine HCl (Thiamine) 100 mg PO DAILY [facility] Last Admin: 12/23/17 09:14 Dose: 100 mg Vancomycin HCl (First Vancomycin) 125 mg PO QID [facility] Last Admin: 12/23/17 09:22 Dose: 125 mg
[2017-12-23] MEDS: Acetaminophen 325 MG TAB PO PRN (22:19)
[2017-12-24 05:41] LABS: Band 11 % (5-11); Hemoglobin 11.6 g/dL (12.0-16.0); Lymphocytes 19 % (21-51); MDiff Complete? YES; Mean Corpuscular Hemoglobin 31.6 pg (27.0-31.0); Mean Corpuscular Volume 98.9 fl (81.0-99.0); Mean Platelet Volume 9.7 fL (7.4-10.4); Monocytes 15 % (0-10); Neutrophil 55 % (42-75); Platelet Count 183 thou/uL (130-400); RBC Distribution Width 13.1 % (11.5-14.5); Red Blood Cell (RBC) Count 3.68 mill/uL (4.20-5.40); White Blood Cell (WBC) Count 29.9 thou/uL (4.8-10.8)
[2017-12-24] MEDS: metroNIDAZOLE 500 MG TAB PO SCH ×3 (09:11→20:43)
[2017-12-24] MEDS: guaiFENesin ER 600 MG TAB PO SCH ×2 (09:11→20:40)
[2017-12-24] MEDS: Saccharomyces boulardii 250 MG CAP PO SCH ×2 (09:11→20:40)
[2017-12-24] MEDS: Loratadine 10 MG TAB PO SCH (09:11)
[2017-12-24] MEDS: Multivit, Therapeutic 1 TAB PO SCH (09:11)
[2017-12-24] MEDS: Heparin 5,000 UNITS/ML VIAL SC SCH ×3 (09:12→20:41)
[2017-12-24] MEDS: Fluticasone Propionate Nasal Spray 16 gm Bottle NASAL SCH (09:13)
[2017-12-24] MEDS: Aquaphor 30 GM 99 GM, Cholestyramine/Aspartame 4 GM TOP SCH (09:15)
[2017-12-24] MEDS: Vancomycin HCl 25 MG/ML Oral PO SCH ×4 (09:15→20:41)
--- NOTE | 2017-12-24 09:42 | PDOC.PN ---
- Subjective Encounter Start Date: 12/24/17 Encounter Start Time: 07:50 Patient seen and examined for c-diff colitis. No new complaints. No overnight events - Objective Resuscitation Status: Resuscitation Status FULL:Full Resuscitation MAR Reviewed: Yes Vital Signs & Weight: Vital Signs (12 hours) Temp Pulse Resp BP Pulse Ox 12/24/17 07:09 98.2 F 65 20 119/73 95 Weight Admit Weight 254 lb 1.6 oz Weight 254 lb 1.6 oz I&O: 12/23/17 12/24/17 12/25/17 06:59 06:59 06:59 Intake Total 740 720 Output Total 550 1250 Balance 190 -530 Result Diagrams: 12/24/17 03:59 12/21/17 04:57 Phys Exam - Physical Examination Constitutional: NAD HEENT: PERRLA, moist MMs, sclera anicteric Neck: no JVD, supple Respiratory: no wheezing, no rales, no rhonchi Cardiovascular: RRR, no significant murmur, no rub Gastrointestinal: soft, non-tender, no distention, positive bowel sounds Musculoskeletal: no edema, pulses present Neurological: non-focal, moves all 4 limbs Lymphatic: no nodes Psychiatric: normal affect, A&O x 3 Skin: no rash, normal turgor Dx/Plan (1) C. difficile colitis Status: Acute (2) STEPHANIE (acute kidney injury) Code(s): N17.9 - ACUTE KIDNEY FAILURE, UNSPECIFIED Status: Resolved (3) Acute encephalopathy Code(s): G93.40 - ENCEPHALOPATHY, UNSPECIFIED Status: Resolved Comment: (4) Leucocytosis Code(s): D72.829 - ELEVATED WHITE BLOOD CELL COUNT, UNSPECIFIED Status: Acute Qualifiers: Leukocytosis type: bandemia Qualified Code(s): D72.825 - Bandemia Comment: (5) UTI (urinary tract infection) Status: Resolved Qualifiers: Urinary tract infection type: acute cystitis Hematuria presence: without hematuria Qualified Code(s): N30.00 - Acute cystitis without hematuria (6) HTN (hypertension) Code(s): I10 - ESSENTIAL (PRIMARY) HYPERTENSION Status: Chronic Qualifiers: Hypertension type: essential hypertension Qualified Code(s): I10 - Essential (primary) hypertension Comment: (7) Morbid obesity with BMI of 40.0-44.9, adult Code(s): E66.01 - MORBID (SEVERE) OBESITY DUE TO EXCESS CALORIES; Z68.41 - BODY MASS INDEX (BMI) 40.0-44.9, ADULT Status: Chronic (8) Hypokalemia Code(s): E87.6 - HYPOKALEMIA Status: Resolved Comment: - Plan cont current plan of care, PT/OT, social welfare research worker * medication reviewed as below * symptomatic treatment * continue oral vancomycin and flagyl. * will need placement Review of Systems - Review of Systems Constitutional: weakness. negative: fever, chills, sweats, malaise, other Eyes: negative: Pain, Vision Change, Conjunctivae Inflammation, Eyelid Inflammation, Redness, Other ENT: negative: Ear Pain, Ear Discharge, Nose Pain, Nose Discharge, Nose Congestion, Mouth Pain, Mouth Swelling, Throat Pain, Throat Swelling, Other Respiratory: negative: Cough, Dry, Shortness of Breath, Hemoptysis, SOB with Excertion, Pleuritic Pain, Sputum, Wheezing Cardiovascular: negative: chest pain, palpitations, orthopnea, paroxysmal nocturnal dyspnea, edema, light headedness, other Gastrointestinal: negative: Nausea, Vomiting, Abdominal Pain, Diarrhea, Constipation, Melena, Hematochezia, Other Genitourinary: negative: Dysuria, Frequency, Incontinence, Hematuria, Retention , Other Musculoskeletal: negative: Neck Pain, Shoulder Pain, Arm Pain, Back Pain, Hand Pain, Leg Pain, Foot Pain, Other Skin: negative: Rash, Lesions, Natalio, Bruising, Other - Medications/Allergies Allergies/Adverse Reactions: Allergies Allergy/AdvReac Type Severity Reaction Status Date / Time codeine Allergy Verified 12/17/17 01:40 ibuprofen [From Advil] Allergy Verified 12/17/17 01:40 naproxen [From Naprosyn] Allergy Verified 12/17/17 01:40 nitrofurantoin Allergy Verified 12/17/17 01:40 [From Macrobid] Penicillins Allergy Verified 12/16/17 23:21 rofecoxib [From Vioxx] Allergy Verified 12/17/17 01:40 Sulfa (Sulfonamide Allergy Verified 12/17/17 01:40 Antibiotics) Medications: Current Medications Acetaminophen (Tylenol) 650 mg PO Q4H PRN PRN Reason: Headache/Fever or Pain Last Admin: 12/23/17 22:19 Dose: 650 mg Al Hydroxide/Mg Hydroxide (Maalox) 15 ml PO Q4H PRN PRN Reason: Heartburn or Indigestion Albuterol Sulfate (Ventolin) 2.5 mg NEB [id number] PRN PRN Reason: Wheezing Last Admin: 12/20/17 16:57 Dose: 2.5 mg Artificial Tears (Tears Naturale) 0 drop EA EYE PRN PRN PRN Reason: Dry Eyes Bisacodyl (Dulcolax) 10 mg PO DAILYPRN PRN PRN Reason: Constipation Mineral Oil/White Petrolatum 99 gm/ Cholestyramine Resin 4 gm 0 gm TOP DAILY [facility] Last Admin: 12/23/17 09:23 Dose: 1 oint Fentanyl (Sublimaze) 25 mcg SLOW IVP Q4H PRN PRN Reason: PAIN 5-10 Fluticasone Propionate (Flonase Nasal [place]) 0 gm NASAL DAILY [facility] Last Admin: 12/24/17 09:13 Dose: 1 spr Guaifenesin (Mucinex) 1,200 mg PO Q12HR [facility] Last Admin: 12/24/17 09:11 Dose: 1,200 mg Guaifenesin (Robitussin Sf) 200 mg PO Q4H PRN PRN Reason: Cough Heparin Sodium (Porcine) (Heparin) 5,000 units SC TID [facility] Last Admin: 12/24/17 09:12 Dose: 5,000 units Hydralazine HCl (Apresoline) 10 mg SLOW IVP Q4H PRN PRN Reason: Systolic BP > 180 Loratadine (Claritin) 10 mg PO DAILY [facility] Last Admin: 12/24/17 09:11 Dose: 10 mg Magnesium Hydroxide (Milk Of Magnesium) 30 ml PO DAILYPRN PRN PRN Reason: Constipation Metronidazole (Flagyl) 500 mg PO TID [facility] Last Admin: 12/24/17 09:11 Dose: 500 mg Mineral Oil/White Petrolatum (Eucerin Cream) 0 gm TOP BIDPRN PRN PRN Reason: Dry Skin Multivitamins (Theragran) 1 tab PO DAILY [facility] Last Admin: 12/24/17 09:11 Dose: 1 tab Nystatin (Mycostatin Cream) 0 gm TOP BIDPRN PRN PRN Reason: Topical Irritations Nystatin (Mycostatin Powder) 0 gm TOP PRN PRN PRN Reason: TO AREA Ondansetron HCl (Zofran Odt) 4 mg PO Q6H PRN PRN Reason: Nausea/Vomiting Ondansetron HCl (Zofran) 4 mg IVP Q6H PRN PRN Reason: Nausea/Vomiting Pantoprazole Sodium (Protonix) 40 mg PO DAILY [facility] Last Admin: 12/24/17 09:11 Dose: 40 mg Phenol (Chloraseptic [place] 180 Ml Bot) 0 ml PO PRN PRN PRN Reason: Sore Throat Saccharomyces Boulardii (Florastor) 250 mg PO BID [facility] Last Admin: 12/24/17 09:11 Dose: 250 mg Sodium Chloride (Flush - Normal Saline) 10 ml IVF Q12HR [facility] Last Admin: 12/24/17 09:12 Dose: 10 ml Sodium Chloride (Flush - Normal Saline) 10 ml IVF PRN PRN PRN Reason: Saline Flush Sodium Chloride ([place] Nasal [place] 0.65%) 0 ml EA NARE QIDPRN PRN PRN Reason: Nasal Congestion Thiamine HCl (Thiamine) 100 mg PO DAILY [facility] Last Admin: 12/24/17 09:11 Dose: 100 mg Vancomycin HCl (First Vancomycin) 125 mg PO QID [facility] Last Admin: 12/23/17 20:11 Dose: 125 mg
[2017-12-24] MEDS: Acetaminophen 325 MG TAB PO PRN (22:00)
[2017-12-25] MEDS: Saccharomyces boulardii 250 MG CAP PO SCH ×2 (10:01→21:22)
[2017-12-25] MEDS: Multivit, Therapeutic 1 TAB PO SCH (10:01)
[2017-12-25] MEDS: Heparin 5,000 UNITS/ML VIAL SC SCH ×3 (10:01→21:22)
[2017-12-25] MEDS: metroNIDAZOLE 500 MG TAB PO SCH ×3 (10:01→21:22)
[2017-12-25] MEDS: Loratadine 10 MG TAB PO SCH (10:01)
[2017-12-25] MEDS: guaiFENesin ER 600 MG TAB PO SCH ×2 (10:01→21:21)
[2017-12-25] MEDS: Fluticasone Propionate Nasal Spray 16 gm Bottle NASAL SCH (10:02)
[2017-12-25] MEDS: Aquaphor 30 GM 99 GM, Cholestyramine/Aspartame 4 GM TOP SCH (10:10)
[2017-12-25] MEDS: Vancomycin HCl 25 MG/ML Oral PO SCH ×4 (10:35→21:23)
--- NOTE | 2017-12-25 17:51 | PDOC.PN ---
- Subjective Encounter Start Date: 12/25/17 Encounter Start Time: 17:45 Subjective: f/u for c. diff colitis on Vancomycin and Flagyl and Enterobacter UTI. -: Remains weakened, working with PT but slow to meet goals. - Objective Resuscitation Status: Resuscitation Status FULL:Full Resuscitation MAR Reviewed: Yes Vital Signs & Weight: Vital Signs (12 hours) Temp Pulse Resp BP Pulse Ox 12/25/17 16:43 98.5 F 74 16 130/75 94 L 12/25/17 12:07 97.8 F 73 18 116/83 94 L 12/25/17 08:00 97.6 F 69 16 93 L 12/25/17 07:13 97.6 F 69 16 125/80 93 L Weight Admit Weight 254 lb 1.6 oz Weight 254 lb 1.6 oz I&O: 12/24/17 12/25/17 12/26/17 06:59 06:59 06:59 Intake Total 720 880 Output Total 1250 1300 Balance -530 -420 Result Diagrams: 12/24/17 03:59 12/21/17 04:57 Additional Labs: Microbiology 12/22/17 16:51 Stool C. difficile [facility] Antigen & Toxins - Final 12/19/17 05:46 Stool Stool Culture - Final 12/19/17 05:46 Stool Campylobacter Antigen Assay - Final 12/19/17 05:46 Stool Shiga Toxin Test - Final 12/19/17 05:46 Stool C. difficile [facility] Antigen & Toxins - Final 12/16/17 17:17 Urine Straight Catheter Urine Culture - Final Enterobacter cloacae complex Laboratory Tests 12/20/17 12/21/17 12/22/17 05:11 04:57 04:38 WBC 32.0 H 36.2 H 34.0 H Band Neuts % (Manual) 15 H 6 24 H 12/23/17 12/24/17 04:39 03:59 WBC 34.0 H Band Neuts % (Manual) 21 H 11 Phys Exam - Physical Examination Constitutional: NAD HEENT: PERRLA, moist MMs, sclera anicteric, oral pharynx no lesions Neck: no nodes, no JVD, supple Respiratory: no wheezing, no rales, no rhonchi, clear to auscultation bilateral S1, S2 Cardiovascular: RRR, no significant murmur, no rub, gallop Gastrointestinal: soft, non-tender, no distention, positive bowel sounds Musculoskeletal: no edema, pulses present Neurological: non-focal, normal sensation, moves all 4 limbs Psychiatric: normal affect, A&O x 3 Skin: no rash, normal turgor, cap refill <2 seconds Dx/Plan (1) C. difficile colitis Status: Acute Comment: Continue Flagyl and po Vancomycin, repeat c. diff toxin after 7 days of therapy (2) Leucocytosis Code(s): D72.829 - ELEVATED WHITE BLOOD CELL COUNT, UNSPECIFIED Status: Acute Qualifiers: Leukocytosis type: bandemia Qualified Code(s): D72.825 - Bandemia Comment: Secondary to #1, serial monitoring, anticipate improvement in next 48h (3) Sepsis Code(s): A41.9 - SEPSIS, UNSPECIFIED ORGANISM Status: Acute Comment: Resolving with abx support (4) Morbid obesity with BMI of 40.0-44.9, adult Code(s): E66.01 - MORBID (SEVERE) OBESITY DUE TO EXCESS CALORIES; Z68.41 - BODY MASS INDEX (BMI) 40.0-44.9, ADULT Status: Chronic Comment: Dietary measures (5) UTI (urinary tract infection) Status: Resolved Qualifiers: Urinary tract infection type: acute cystitis Hematuria presence: without hematuria Qualified Code(s): N30.00 - Acute cystitis without hematuria Comment: Enterobacter spp, completed abx rx - Plan continue antibiotics, PT/OT, social work manager, DVT proph w/SCDs Stable overall -: Continue Flagyl and Vancomycin -: Leukocytosis persistent, serial monitoring -: CM for assistance with SNF options -: AM lab: CBC * .
[2017-12-26 05:16] LABS: Band 8 % (5-11); Hemoglobin 11.4 g/dL (12.0-16.0); Lymphocytes 17 % (21-51); MDiff Complete? YES; Mean Corpuscular HGB CONC 33.2 g/dL (32.0-36.0); Mean Corpuscular Hemoglobin 33.1 pg (27.0-31.0); Mean Corpuscular Volume 99.6 fl (81.0-99.0); Mean Platelet Volume 9.5 fL (7.4-10.4); Monocytes 17 % (0-10); Neutrophil 58 % (42-75); Platelet Count 210 thou/uL (130-400); RBC Distribution Width 13.4 % (11.5-14.5); Red Blood Cell (RBC) Count 3.44 mill/uL (4.20-5.40); White Blood Cell (WBC) Count 23.5 thou/uL (4.8-10.8)
[2017-12-26] MEDS: Vancomycin HCl 25 MG/ML Oral PO SCH ×4 (10:26→21:27)
[2017-12-26] MEDS: guaiFENesin ER 600 MG TAB PO SCH ×2 (10:27→21:26)
[2017-12-26] MEDS: Heparin 5,000 UNITS/ML VIAL SC SCH ×3 (10:27→21:26)
[2017-12-26] MEDS: Multivit, Therapeutic 1 TAB PO SCH (10:28)
[2017-12-26] MEDS: metroNIDAZOLE 500 MG TAB PO SCH ×3 (10:28→21:27)
[2017-12-26] MEDS: Loratadine 10 MG TAB PO SCH (10:28)
[2017-12-26] MEDS: Saccharomyces boulardii 250 MG CAP PO SCH ×2 (10:28→21:27)
[2017-12-26] MEDS: Aquaphor 30 GM 99 GM, Cholestyramine/Aspartame 4 GM TOP SCH (10:28)
[2017-12-26] MEDS: Fluticasone Propionate Nasal Spray 16 gm Bottle NASAL SCH (10:30)
[2017-12-26] MEDS: Acetaminophen 325 MG TAB PO PRN (17:05)
--- NOTE | 2017-12-26 22:37 | PDOC.PN ---
- Subjective Encounter Start Date: 12/26/17 Encounter Start Time: 11:30 Patient seen and examined for Sepsis/C diff colitis/UTI. Diarrhea improving. No overnight events - Objective Resuscitation Status: Resuscitation Status FULL:Full Resuscitation MAR Reviewed: Yes Vital Signs & Weight: Vital Signs (12 hours) Temp Pulse Resp BP Pulse Ox 12/26/17 19:38 97.6 F 78 18 116/71 92 L 12/26/17 16:00 98.9 F 65 18 102/57 L 93 L 12/26/17 11:00 98.7 F 76 16 113/68 93 L Weight Admit Weight 254 lb 1.6 oz Weight 254 lb 1.6 oz I&O: 12/25/17 12/26/17 12/27/17 06:59 06:59 06:59 Intake Total 880 135 Output Total 1300 850 Balance -420 -715 Result Diagrams: 12/27/17 04:11 12/27/17 04:11 Phys Exam - Physical Examination Constitutional: NAD Respiratory: no wheezing, no rhonchi Cardiovascular: RRR, no rub Gastrointestinal: soft, non-tender, positive bowel sounds Musculoskeletal: no edema Neurological: moves all 4 limbs Dx/Plan (1) Sepsis Code(s): A41.9 - SEPSIS, UNSPECIFIED ORGANISM Status: Acute (2) C. difficile colitis Status: Acute Plan: Cont PO Vancomycin and Flagyl (3) Physical deconditioning Code(s): R53.81 - OTHER MALAISE Status: Acute (4) Morbid obesity with BMI of 40.0-44.9, adult Code(s): E66.01 - MORBID (SEVERE) OBESITY DUE TO EXCESS CALORIES; Z68.41 - BODY MASS INDEX (BMI) 40.0-44.9, ADULT Status: Chronic (5) HTN (hypertension) Code(s): I10 - ESSENTIAL (PRIMARY) HYPERTENSION Status: Chronic Qualifiers: Hypertension type: essential hypertension Qualified Code(s): I10 - Essential (primary) hypertension Plan: Will monitor Comment: (6) STEPHANIE (acute kidney injury) Code(s): N17.9 - ACUTE KIDNEY FAILURE, UNSPECIFIED Status: Resolved (7) Hypokalemia Code(s): E87.6 - HYPOKALEMIA Status: Resolved Comment: (8) UTI (urinary tract infection) Status: Resolved Qualifiers: Urinary tract infection type: acute cystitis Hematuria presence: without hematuria Qualified Code(s): N30.00 - Acute cystitis without hematuria Comment: Enterobacter spp, completed abx rx - Plan plan discussed w/ family, edouard catheter, continue antibiotics, PT/OT, DVT proph w/heparin, DVT proph w/SCDs Still her elevated WBC -: DC in AM if stable -: AM labs Review of Systems - Review of Systems Respiratory: negative: Cough, Dry, Shortness of Breath, Hemoptysis, SOB with Excertion, Pleuritic Pain, Sputum, Wheezing Cardiovascular: negative: chest pain, palpitations, orthopnea, paroxysmal nocturnal dyspnea, edema, light headedness, other - Medications/Allergies Allergies/Adverse Reactions: Allergies Allergy/AdvReac Type Severity Reaction Status Date / Time codeine Allergy Verified 12/17/17 01:40 ibuprofen [From Advil] Allergy Verified 12/17/17 01:40 naproxen [From Naprosyn] Allergy Verified 12/17/17 01:40 nitrofurantoin Allergy Verified 12/17/17 01:40 [From Macrobid] Penicillins Allergy Verified 12/16/17 23:21 rofecoxib [From Vioxx] Allergy Verified 12/17/17 01:40 Sulfa (Sulfonamide Allergy Verified 12/17/17 01:40 Antibiotics) Medications: Current Medications Acetaminophen (Tylenol) 650 mg PO Q4H PRN PRN Reason: Headache/Fever or Pain Last Admin: 12/26/17 17:05 Dose: 650 mg Al Hydroxide/Mg Hydroxide (Maalox) 15 ml PO Q4H PRN PRN Reason: Heartburn or Indigestion Albuterol Sulfate (Ventolin) 2.5 mg NEB [id number] PRN PRN Reason: Wheezing Last Admin: 12/20/17 16:57 Dose: 2.5 mg Artificial Tears (Tears Naturale) 0 drop EA EYE PRN PRN PRN Reason: Dry Eyes Bisacodyl (Dulcolax) 10 mg PO DAILYPRN PRN PRN Reason: Constipation Mineral Oil/White Petrolatum 99 gm/ Cholestyramine Resin 4 gm 0 gm TOP DAILY [facility] Last Admin: 12/26/17 10:28 Dose: 1 oint Fentanyl (Sublimaze) 25 mcg SLOW IVP Q4H PRN PRN Reason: PAIN 5-10 Fluticasone Propionate (Flonase Nasal [place]) 0 gm NASAL DAILY [facility] Last Admin: 12/26/17 10:30 Dose: 1 spr Guaifenesin (Mucinex) 1,200 mg PO Q12HR [facility] Last Admin: 12/26/17 21:26 Dose: 1,200 mg Guaifenesin (Robitussin Sf) 200 mg PO Q4H PRN PRN Reason: Cough Heparin Sodium (Porcine) (Heparin) 5,000 units SC TID [facility] Last Admin: 12/26/17 21:26 Dose: 5,000 units Hydralazine HCl (Apresoline) 10 mg SLOW IVP Q4H PRN PRN Reason: Systolic BP > 180 Loratadine (Claritin) 10 mg PO DAILY [facility] Last Admin: 12/26/17 10:28 Dose: 10 mg Magnesium Hydroxide (Milk Of Magnesium) 30 ml PO DAILYPRN PRN PRN Reason: Constipation Metronidazole (Flagyl) 500 mg PO TID [facility] Last Admin: 12/26/17 21:27 Dose: 500 mg Mineral Oil/White Petrolatum (Eucerin Cream) 0 gm TOP BIDPRN PRN PRN Reason: Dry Skin Multivitamins (Theragran) 1 tab PO DAILY [facility] Last Admin: 12/26/17 10:28 Dose: 1 tab Nystatin (Mycostatin Cream) 0 gm TOP BIDPRN PRN PRN Reason: Topical Irritations Nystatin (Mycostatin Powder) 0 gm TOP PRN PRN PRN Reason: TO AREA Ondansetron HCl (Zofran Odt) 4 mg PO Q6H PRN PRN Reason: Nausea/Vomiting Ondansetron HCl (Zofran) 4 mg IVP Q6H PRN PRN Reason: Nausea/Vomiting Pantoprazole Sodium (Protonix) 40 mg PO DAILY [facility] Last Admin: 12/26/17 10:28 Dose: 40 mg Phenol (Chloraseptic [place] 180 Ml Bot) 0 ml PO PRN PRN PRN Reason: Sore Throat Saccharomyces Boulardii (Florastor) 250 mg PO BID [facility] Last Admin: 12/26/17 21:27 Dose: 250 mg Sodium Chloride (Flush - Normal Saline) 10 ml IVF Q12HR [facility] Last Admin: 12/26/17 21:27 Dose: 10 ml Sodium Chloride (Flush - Normal Saline) 10 ml IVF PRN PRN PRN Reason: Saline Flush Sodium Chloride ([place] Nasal [place] 0.65%) 0 ml EA NARE QIDPRN PRN PRN Reason: Nasal Congestion Thiamine HCl (Thiamine) 100 mg PO DAILY [facility] Last Admin: 12/26/17 10:27 Dose: 100 mg Vancomycin HCl (First Vancomycin) 125 mg PO QID [facility] Last Admin: 12/26/17 21:27 Dose: 125 mg
[2017-12-27 05:04] LABS: Albumin 2.5 g/dL (3.4-4.8); Anion Gap 10 mmol/L (10-20); BUN (Urea Nitrogen) 7 mg/dL (9.8-20.1); BUN/Creatinine Ratio 11.11; Calc. Creatinine Clearance 123 mL/min (70-130); Calcium 8.8 mg/dL (7.8-10.44); Carbon Dioxide 24 mmol/L (23-31); Chloride 108 mmol/L (98-107); Estimated GFR-MDRD 90; Glucose 102 mg/dL (83-110); Magnesium 1.3 mg/dL (1.6-2.6); Phosphorus 2.6 mg/dL (2.3-4.7); Potassium 4.2 mmol/L (3.5-5.1); Sodium 138 mmol/L (136-145)
[2017-12-27 05:27] LABS: Band 7 % (5-11); Hemoglobin 11.6 g/dL (12.0-16.0); Lymphocytes 7 % (21-51); MDiff Complete? YES; Mean Corpuscular Hemoglobin 32.7 pg (27.0-31.0); Metamyelocyte 2 % (0-0); Monocytes 20 % (0-10); Myelocyte 1 % (0-0); Neutrophil 63 % (42-75); Platelet Count 224 thou/uL (130-400); RBC Distribution Width 13.7 % (11.5-14.5); Red Blood Cell (RBC) Count 3.53 mill/uL (4.20-5.40); White Blood Cell (WBC) Count 20.9 thou/uL (4.8-10.8)
[2017-12-27] MEDS: guaiFENesin ER 600 MG TAB PO SCH (07:32)
[2017-12-27] MEDS: Saccharomyces boulardii 250 MG CAP PO SCH (07:32)
[2017-12-27] MEDS: metroNIDAZOLE 500 MG TAB PO SCH ×2 (07:32→14:51)
[2017-12-27] MEDS: Multivit, Therapeutic 1 TAB PO SCH (07:32)
[2017-12-27] MEDS: Loratadine 10 MG TAB PO SCH (07:32)
[2017-12-27] MEDS: Acetaminophen 325 MG TAB PO PRN (07:32)
[2017-12-27] MEDS: Heparin 5,000 UNITS/ML VIAL SC SCH ×2 (07:34→14:51)
[2017-12-27] MEDS: Fluticasone Propionate Nasal Spray 16 gm Bottle NASAL SCH (07:35)
[2017-12-27] MEDS: Aquaphor 30 GM 99 GM, Cholestyramine/Aspartame 4 GM TOP SCH (07:36)
[2017-12-27] MEDS ORDERED: Magnesium Sulfate 4 GM in Sodium Chloride 0.9% 250 ML 250 ML IVPB SCH (10:00)
[2017-12-27] MEDS: Vancomycin HCl 25 MG/ML Oral PO SCH ×3 (11:35→17:40)
[2017-12-27 16:28] VITALS: BP 132/87; TEMP 98.7
--- NOTE | 2017-12-28 09:56 | DIS ---
DATE OF DISCHARGE: 12/27/2017 DISCHARGE DISPOSITION: To inpatient rehabilitation. DISCHARGE MEDICATIONS: 1. Oral vancomycin with Flagyl until 01/03/2018. 2. Lasix 40 mg daily as needed. 3. Mucinex twice a day. 4. Lansoprazole 30 mg daily. 5. Levocetirizine 5 mg daily. 6. Nystatin cream as needed. 7. Florastor 250 mg twice a day. 8. Thiamine daily. 9. Nasacort Allergy daily. 10. Tylenol as needed. 11. Albuterol inhaler as needed, vitamin C daily, Pulmicort 2 puffs daily, vitamin D3 and vitamin B1 2 daily. 12. Advair 250/50 b.i.d. INPATIENT MEAT MANAGER: Gastroenterology, Dr. Rodriguez. BRIEF HOSPITAL COURSE: Patient is an 82-year-old female with hypertension who [facility]ation. Please refer to the history and physical dated 01/03/2018 for further de tails. The patient was admitted to the hospital with a diagnosis of sepsis with toxic metabolic encephalopat hy. Her WBC count on admission was 34.2 with 20% bandemia. Her potassium was 2.8 with normal magnes ium. Her creatinine was 1.46 with BUN of 60. Urinalysis showed 1+ bacteria. Her blood cultures rem ained negative. Urine culture showed Enterobacter. Later on stool for C. difficile was positive for antigen and toxin. All other stool workups were negative. She showed good improvement with antibio tics and IV fluids. Electrolytes have been corrected. On the day of discharge, magnesium was 1.3 th at was replaced. Creatinine on the day of discharge is 0.63. WBC count has improved to 20.9 on the day of discharge with only 7% bandemia. Patient was evaluated by Gastroenterology who recommended to continue antibiotics. FINAL DIAGNOSES: 1. Sepsis secondary to Clostridium difficile colitis and Enterobacter urinary tract infection. 2. Physical deconditioning. Patient will be discharged to inpatient rehabilitation. 3. Morbid obesity with body mass index of 41. 4. Hypertension. 5. Acute kidney injury, resolved. 6. Hypokalemia, corrected. 7. Hypomagnesemia. 8. Enterobacter urinary tract infection. 9. Suspected chronic obstructive pulmonary disease. 10. Toxic metabolic encephalopathy on admission, resolved. RADIOLOGY FINDINGS: 1. CT scan of the abdomen and pelvis with oral and IV contrast showed findings consistent with proct ocolitis. 2. Chest x-ray on admission was negative for infiltrate. Plan of care was discussed with the patient and the family in detail. They stated understanding. Total time coordinating the discharge of this patient to inpatient rehabilitation was 35 minutes.
== END 2017-12-27 17:52 | DRG 871 ==
LOC: ERS 14:24 → T4-A 18:10
PROVIDERS: ADMIT Internal Medicine; ATTEND Internal Medicine
DX: A41.59 Other Gram-negative sepsis (principal); G92 Toxic encephalopathy; N17.9 Acute kidney failure, unspecified; A04.72 Enterocolitis due to Clostridium difficile, not specified as recurrent; Z68.41 Body mass index [BMI] 40.0-44.9, adult; N30.00 Acute cystitis without hematuria; E86.0 Dehydration; I10 Essential (primary) hypertension; E87.6 Hypokalemia; E83.42 Hypomagnesemia; E66.01 Morbid (severe) obesity due to excess calories; B96.89 Other specified bacterial agents as the cause of diseases classified elsewhere; Z88.6 Allergy status to analgesic agent; Z88.5 Allergy status to narcotic agent; Z88.0 Allergy status to penicillin; Z88.2 Allergy status to sulfonamides; Z88.1 Allergy status to other antibiotic agents; Z79.899 Other long term (current) drug therapy
CPT/HCPCS: 36415; 51701; 71045; 74177; 80048; 80053; 80069; 81003; 81015; 82553; 83605; 83735; 83880; 84484; 85007; 85025; 85027; 87040; 87045; 87046; 87077; 87086; 87186; 87324; 87449; 87899; 94640; 96365; 96366; 96368; 96375; A4216; A4353; G8978-GP-CM; G8979-GP-CK; G8987-GO-CL; G8988-GO-CJ; J1644; J1956; J2270; J3475; J3480; J7050

== ENCOUNTER 2018-01-03 13:49 | Emergency (ER) | payer MEDICARE, BC ==
[2018-01-03] MEDS ORDERED: Enoxaparin Sodium 100 MG/ML SYRINGE ONE (14:46)
[2018-01-03 14:48] LABS: Hemoglobin 13.3 g/dL (12.0-16.0); Mean Corpuscular HGB CONC 32.8 g/dL (32.0-36.0); Mean Corpuscular Hemoglobin 32.7 pg (27.0-31.0); Mean Corpuscular Volume 99.8 fl (81.0-99.0); Mean Platelet Volume 8.9 fL (7.4-10.4); Platelet Count 252 thou/uL (130-400); RBC Distribution Width 14.7 % (11.5-14.5); Red Blood Cell (RBC) Count 4.06 mill/uL (4.20-5.40); White Blood Cell (WBC) Count 9.7 thou/uL (4.8-10.8)
[2018-01-03 14:54] LABS: INR-International Normal Ratio 1.1; PTT 32.1 SEC (22.9-36.1); Prothrombin Time 14.8 SEC (12.0-14.7)
[2018-01-03 15:08] LABS: ALT (SGPT) 18 U/L (8-55); AST (SGOT) 24 U/L (5-34); Albumin 3.4 g/dL (3.4-4.8); Alkaline Phosphatase 148 U/L (40-150); Anion Gap 11 mmol/L (10-20); BUN (Urea Nitrogen) 9 mg/dL (9.8-20.1); Band 4 % (5-11); Bilirubin, Total 0.7 mg/dL (0.2-1.2); Calc. Creatinine Clearance 0 mL/min (70-130); Calcium 10.3 mg/dL (7.8-10.44); Carbon Dioxide 31 mmol/L (23-31); Chloride 100 mmol/L (98-107); Estimated GFR-MDRD 73; Globulin 4.1 g/dL (2.4-3.5); Glucose 99 mg/dL (83-110); Lymphocytes 29 % (21-51); MDiff Complete? YES; Monocytes 21 % (0-10); Neutrophil 42 % (42-75); PLT Morphology Comment Appears Adequate; Polychromasia SLIGHT = 2-3 cells (100X) (0-2/hpf); Potassium 3.8 mmol/L (3.5-5.1); Protein, Total 7.5 g/dL (6.0-8.3); Reactive Lymphocytes 4 % (0-10); Sodium 138 mmol/L (136-145); Vacuoles SLIGHT
== END 2018-01-03 17:20 | disposition home or self-care (01) ==
LOC: ERS 13:49
DX: I82.431 Acute embolism and thrombosis of right popliteal vein (principal); I82.441 Acute embolism and thrombosis of right tibial vein; I10 Essential (primary) hypertension; Z79.899 Other long term (current) drug therapy
CPT/HCPCS: 36415; 80053; 85025; 85610; 85730; 96372; J1650

== ENCOUNTER → 2018-01-07 | Day surgery (SDC) | payer MEDICARE, BC ==
--- NOTE | 2018-01-07 16:31 | SPC ---
LEFT UPPER EXTREMITY PICC LINE PLACEMENT: INDICATIONS: History of C. difficile infection and UTI. TECHNIQUE: Informed consent was obtained. Pre-procedure ultrasound demonstrated a patent left basilic vein. Th e left upper extremity was prepped and draped in the usual sterile fashion, and buffered 1% Lidocaine was administered to the overlying subcutaneous tissues. Under ultrasound guidance, a micropuncture access kit was utilized to gain access to the left basilic vein. The guide wire was advanced to the level of the IVC. A 5 [place] catheter sheath was then placed. A dual-lumen PICC line, trimmed to 45 cm, was guided over the wire and into the sheath. The sheath and wire were removed. Total fluorosc opic time was 1.3 minutes. Total exposure was 8827 mGy per cm2. IMPRESSION: Successful ultrasound-guided placement of a left upper extremity basilic vein peripherally inserted c entral catheter line, trimmed to 45 cm. POS: [facility]
== END ==
LOC: SPEC 12:33
PROVIDERS: ATTEND Internal Medicine
PROC: 06H033Z Insertion of Infusion Device into Inferior Vena Cava, Percutaneous Approach (ICD-10-PCS; principal; 2018-01-07)
PROC: B549ZZA Ultrasonography of Inferior Vena Cava, Guidance (ICD-10-PCS; 2018-01-07)
DX: N39.0 Urinary tract infection, site not specified (principal); B96.89 Other specified bacterial agents as the cause of diseases classified elsewhere; Z88.0 Allergy status to penicillin; Z88.1 Allergy status to other antibiotic agents; Z88.2 Allergy status to sulfonamides; Z88.5 Allergy status to narcotic agent; Z88.6 Allergy status to analgesic agent; Z79.51 Long term (current) use of inhaled steroids; Z79.2 Long term (current) use of antibiotics; Z79.899 Other long term (current) drug therapy
CPT/HCPCS: 36569

== ENCOUNTER 2018-02-03 09:47 | Inpatient (IN) | payer MEDICARE, BC ==
[2018-02-03 10:32] LABS: PTT 46.7 SEC (22.9-36.1)
[2018-02-03 10:33] LABS: Prothrombin Time 68.2 SEC (12.0-14.7)
[2018-02-03 10:38] LABS: Bilirubin Small (Negative); Blood, Urine Negative (Negative); Clarity CLOUDY (Clear); Glucose, Urine (Dipstick) Negative (Negative); Leukocyte Small (Negative); Nitrite Negative (Negative); Protein, Urine (Dipstick) 30 mg/dL (Neg-Trace); Specific Gravity, Urine 1.017 (1.002-1.036)
[2018-02-03 10:42] LABS: Hemoglobin 14.5 g/dL (12.0-16.0); Mean Corpuscular HGB CONC 32.4 g/dL (32.0-36.0); Mean Corpuscular Hemoglobin 31.1 pg (27.0-31.0); Mean Corpuscular Volume 95.9 fL (78.0-98.0); Mean Platelet Volume 10.5 fL (7.4-10.4); Platelet Count 198 thou/uL (130-400); RBC Distribution Width 14.3 % (11.5-14.5); Red Blood Cell (RBC) Count 4.65 mill/uL (4.20-5.40)
[2018-02-03 10:42] LABS: Bacteria/HPF 2+ HPF (None Seen); Pathc Cast-AUWi Flag 1.74 (0-2.49); RBC/HPF 0-3 HPF (0-3); WBC/HPF 0-3 HPF (0-3)
[2018-02-03 10:51] LABS: Hyaline Casts/LPF 0-3 HYALINE CAST LPF (0-3 Hyaline); Renal Epithelial None Seen HPF (0-3); Transitional Epithelial NONE SEEN HPF (0-3)
[2018-02-03 10:53] LABS: Band 27 % (5-11); Lymphocytes 5 % (21-51); MDiff Complete? YES; Metamyelocyte 5 % (0-0); Monocytes 13 % (0-10); Myelocyte 3 % (0-0); Neutrophil 47 % (42-75); PLT Morphology Comment Appears Adequate; RBC Morphology Normal; Vacuoles SLIGHT
[2018-02-03 10:55] LABS: INR-International Normal Ratio 7.5
--- NOTE | 2018-02-03 11:01 | RAD ---
SINGLE VIEW CHEST: Date: 02/03/18 COMPARISON: 12/29/17. HISTORY: Altered mental status and fever. FINDINGS: Single view of the chest shows a cardiomediastinal silhouette which is upper limits of normal in size . Increased interstitial markings are present. A calcified granuloma projects over the bilateral lowe r lobes. There is no evidence of consolidation or pleural effusion. IMPRESSION: No evidence of acute cardiopulmonary disease. POS: [facility]
[2018-02-03 11:10] LABS: ALT (SGPT) 18 U/L (8-55); Albumin 2.6 g/dL (3.4-4.8); Alkaline Phosphatase 167 U/L (40-150); BUN (Urea Nitrogen) 102 mg/dL (9.8-20.1); Bilirubin, Total 1.2 mg/dL (0.2-1.2); Calc. Creatinine Clearance 0 mL/min (70-130); Calcium 9.5 mg/dL (7.8-10.44); Carbon Dioxide 21 mmol/L (23-31); Chloride 86 mmol/L (98-107); Estimated GFR-MDRD 35; Globulin 3.6 g/dL (2.4-3.5); Glucose 114 mg/dL (83-110); Lipase 42 U/L (8-78); Protein, Total 6.2 g/dL (5.8-8.1); Sodium 127 mmol/L (136-145)
[2018-02-03 11:11] LABS: AST (SGOT) 31 U/L (5-34); Magnesium 1.8 mg/dL (1.6-2.6)
[2018-02-03 11:12] LABS: Anion Gap 24 mmol/L (10-20)
[2018-02-03 11:21] LABS: Troponin I Less than 0.010 ng/mL (< 0.028)
--- NOTE | 2018-02-03 11:55 | CT ---
CT ABDOMEN AND PELVIS WITH CONTRAST: Comparison: 12-18-17 History: Abdominal pain, altered mental status. Patient was recently diagnosed with a urinary tract i nfection and placed on antibiotics. Technique: Multiple contiguous axial images were obtained in a CT of the abdomen and pelvis with cont rast. Coronal reformats were performed. FINDINGS: There is diffuse thickening of the wall of the colon. This extends throughout the colon but is more p rominent in the rectum and left colon. There is slight stranding changes surrounding the colon which could be secondary to colitis. No free air or free fluid are seen in the abdomen or pelvis. A few sca ttered diverticula are seen in the sigmoid colon. Patient has an inferior vena cava filter. One of the struts of the inferior vena cava filter is seen within the liver. This is unchanged compared to the prior examination. The gallbladder is not seen an d may have been removed. The kidneys, adrenal glands, and pancreas are unremarkable. Calcifications i n the spleen are likely from prior granulomatous disease. The small bowel is unremarkable. There is a right ventral hernia containing nonobstructed small bowel measuring 5.8 cm in size. No abdominal or pelvic lymphadenopathy are seen. The patient is status pos t hysterectomy. Degenerative changes are seen in the spine. There are nodules in the abdominal wall soft tissues whic h may represent injection hematomas. The visualized inferior thorax shows a calcified granuloma in th e bilateral lung bases and calcified mediastinal lymph nodes from prior granulomatous disease. IMPRESSION: 1. Diffuse thickening in the wall of the colon is concerning for colitis. This could be secondary to C. Diff. Colitis. 2. Diverticulosis. 3. Fractured inferior vena cava filter as above, unchanged. POS: [facility]
[2018-02-03] MEDS ORDERED: metroNIDAZOLE 500 MG in Premix Bag 1 BAG IVPB SCH (13:00)
[2018-02-03] MEDS ORDERED: Vancomycin HCl 25 MG/ML Oral PO SCH ×2 (13:00→17:00)
[2018-02-03] MEDS ORDERED: ISOVUE-370 76%-LOCM 1 ML ONE (14:17)
[2018-02-03 14:24] LABS: Lactic Acid 3.1 mmol/L (0.5-2.2)
--- NOTE | 2018-02-03 14:44 | HP ---
PRIMARY CARE PHYSICIAN: Dr. Ivory REASON FOR ADMISSION: Sepsis due to colitis. HISTORY OF PRESENT ILLNESS: An 82-year-old female who lives at [facility]. From there, she was sent to Emergency Room for diffuse abdominal pain and altered mental status. The patient is not able to provide any history because of altered mental status and discomfort with abdominal pain, but patient's daughter who is present at bedside who provided some history. Back in 12/2017, she was admitted in our hospital. At that time, she was found with urinary tract infection as well as C. difficile infection. Patient was treated with levofloxacin for urinary tract infection and subsequently her WBC count was not improving and we checked a stool for C. diff which was positive and that is why antibiotic therapy was discontinued and patient was only treated for C. difficile infection. During that admission, GI Dr. Rodriguez was also consulted. She was discharged from the hospital on 12/28/2017, at that time, patient was given oral vancomycin therapy only. When she was discharged at that time her white count improved to 12,000 and eventually it was normal. Her renal function was also normal by the time of discharge. Family member reports that for the last 2-3 days, the patient was not eating. She was having diffuse abdominal discomfort. She started having diarrhea yesterday and she was becoming more and more disoriented and that is why today she was sent to emergency room for evaluation. The patient's family member also reports that after discharge, the patient was required PICC line placement on 01/07/2018 and the patient was given course of antibiotic therapy for UTI as well as recently patient was given Macrobid for UTI as well. After starting all these antibiotic therapy, patient's condition had gotten worse with abdominal pain. Today in the emergency room, the patient has a white count 102 with bandemia, coagulopathy with INR 7.5 and acute kidney injury with a creatinine of 1.44. REVIEW OF SYSTEMS: All review of systems tried to review with the patient, but unable to review due to encephalopathy. ALLERGIES: ADVIL, CODEINE SULFATE, IBUPROFEN, MACROBID, NAPROXEN, SULFA DRUGS, PENICILLIN, VIOXX. CURRENT HOME MEDICATIONS: The patient was discharged to skilled nursing on following medications: Vitamin C 1000 mg p.o. daily, Pulmicort nebulization twice daily, vitamin D3 of 1000 unit p.o. daily, vitamin B12 of 2500 mcg p.o. daily, Advair 1 inhalation b.i.d., Lasix 40 mg p.o. daily p.r.n., Mucinex 1200 mg p.o. twice daily, Prevacid 30 mg p.o. daily, levocetirizine 5 mg p.o. daily, multivitamin 1 tablet p.o. daily, Florastor 250 mg p.o. daily, thiamine 125 mg p.o. daily, vancomycin 125 mg p.o. q.i.d. which she finished on 01/03/2018. Patient was also given Flagyl 500 mg p.o. t.i.d. which she finished on 2017. PAST MEDICAL HISTORY: COPD, physical deconditioning, hypertension, chronic diastolic heart failure, gastroesophageal reflux disease, recent admission for C. diff colitis, recurrent urinary tract infection. PAST SURGICAL HISTORY: Appendicectomy, hysterectomy, tonsillectomy, PICC line placement. PAST PSYCHIATRIC HISTORY: Reviewed and negative. SOCIAL HISTORY: Patient is currently from skilled nursing. No history of tobacco , alcohol or illicit drug abuse. FAMILY HISTORY: No strong family history of premature coronary artery disease, stroke or cancer. EMERGENCY ROOM COURSE: Patient has received Flagyl 500 mg IV, vancomycin 500 mg oral and IV fluid. PHYSICAL EXAMINATION: VITAL SIGNS: On arrival, blood pressure 109/59, pulse 89, respiratory rate 20, saturation 95% on room air, weight 108.9 kg, respiratory rate 18. GENERAL: Patient is in distress due to abdominal pain, altered. HEENT: Head is normocephalic, atraumatic. Eyes: Pupils round, reactive to light. Dry appearing mucous membrane, no oral lesion, no pharyngeal erythema, no exudate. NECK: Supple, no JVD, no thyromegaly, no carotid bruit. LUNGS: Clear to auscultation without any rhonchi or rales, air entry reduced at base because of poor respiratory effort. CARDIAC: S1, S2 appears slightly irregular. Monitor showing atrial flutter. Soft systolic murmur noted, no gallop, no rub. ABDOMEN: The patient does have diffuse tenderness all over abdomen, but no peritoneal sign, no guarding, no rigidity, no rebound. BACK: Unremarkable, no CVA tenderness. EXTREMITIES: Upper extremity passive movement of all joints are normal. Lower extremity, no edema. Good peripheral pulsation. SKIN: No skin rash. HEMATOLOGICAL: No lymphadenopathy. NEUROLOGIC: Grossly nonfocal examination. She moves all 4 limbs. Detailed neurological examination is not possible because not able to provide any good history. SIGNIFICANT LABORATORIES: EKG showing atrial fibrillation with controlled ventricular response, complete right bundle-branch block pattern. Chest x-ray based on my review, no acute cardiopulmonary process. CT of the abdomen and pelvis showing diffuse thickening of the colon consistent with colitis. CBC: WBC 102.0, hemoglobin 14.5, platelet 198 with bandemia 27. INR 7.5. BMP: Sodium 127, potassium 4.0, chloride 86, carbon dioxide 21, BUN 102, creatinine 1.44, anion gap 24, glucose 114, lactic acid 2.2, calcium 9.5. LFT: AST 31, ALT 18, alkaline phosphatase 167, albumin 2.6, lipase 42. Cardiac enzymes negative. Urinalysis: Leukocyte esterase small, with 2+ bacteria. ASSESSMENT AND PLAN: 1. Sepsis with acute organ dysfunction due to Clostridium difficile colitis. Patient has associated acute kidney injury. 2. Diffuse colitis likely due to Clostridium difficile infection. This patient was exposed to antibiotic therapy, IV as well as overall recently and she does have previous history of Clostridium difficile colitis. 3. Acute kidney failure due to dehydration and poor p.o. intake as well as volume depletion secondary to diarrhea from Clostridium difficile colitis. 4. Metabolic acidosis due to renal failure as well as diarrhea. 5. Hyponatremia due to volume depletion. 6. Leukemoid reaction with WBC 102,000 secondary to Clostridium difficile colitis. 7. Coagulopathy with INR 7.5. We will reverse coagulopathy with FFP 1 unit and will repeat PT/INR. 8. Gastroesophageal reflux disease. We will continue Pepcid 20 mg p.o. b.i.d. 9. Chronic obstructive pulmonary disease. We will continue DuoNeb, Pulmicort therapy. 10. Extreme physical deconditioning. PT, OT will be consulted. 11. Code status: At this point, I spoke with the patient's daughter at bedside who wanted to conform code status with her brother and then she will let us know about code status. Meanwhile, she wanted to keep as a FULL CODE. She personally prefers DNR, but she wanted to make sure with other family member. We will consult palliative care while in hospital. 12. Gastrointestinal prophylaxis. Pepcid 20 mg p.o. b.i.d. 13. Acute encephalopathy: due to sepsis PLAN: 1. The patient will be admitted to telemetry floor. Currently, she is hemodynamically stable with vitals. We will continue with oral vancomycin 125 mg q.i.d. with Flagyl 500 mg IV q.8 hourly. GI will be consulted. She may need ultimately fecal transplantation for possible refractory Clostridium difficile colitis. We will also prescribe probiotic, Florastor 250 mg twice daily. Patient will be given IV fluid with NS 800 mL per hour. We will resume her selected home medication including vitamin B12, vitamin D3, vitamin C, vitamin B1, along with p.r.n. DuoNeb therapy as well as Pulmicort nebulization therapy. PT, OT will be consulted. Wound care team will be consulted because she has a decubitus ulcer which is already improving, but present since previous admission. She has tinea infection in groin and that is why she will need to be treated with Nystatin powder as well as Diflucan. 2. Deep venous thrombosis prophylaxis. We will avoid any heparin products because of coagulopathy. Disposition plan based on clinical course. We are expecting patient's stay in hospital more than 2 midnights. Plan of care discussed with the family member at bedside. Condition is severe and prognosis is guarded. MTDD
[2018-02-03] MEDS ORDERED: hydrALAZINE 20 MG/ML VIAL SLOW IVP PRN (15:04)
[2018-02-03] MEDS ORDERED: Mag-Al 1200 mg/1200 mg/30 ML UDCUP PO PRN (15:04)
[2018-02-03] MEDS ORDERED: Diabetic Tussin 200 MG/10 ML UDCUP PO PRN (15:04)
[2018-02-03] MEDS ORDERED: Loratadine 10 MG TAB PO PRN (15:04)
[2018-02-03] MEDS ORDERED: Sodium Chloride 0.65% Nasal 44 ML BOT EA NARE PRN (15:04)
[2018-02-03] MEDS ORDERED: Eucerin (Mineral Oil/Petrolatum,White) 30 gm Jar TOP PRN (15:04)
[2018-02-03] MEDS ORDERED: Artificial Tear Sol 15 ML BOT EA EYE PRN (15:04)
[2018-02-03] MEDS ORDERED: Ondansetron ODT 4 MG TAB PO PRN (15:04)
[2018-02-03] MEDS ORDERED: Sodium Chloride 0.9% 1,000 ML IV SCH (15:04)
[2018-02-03 16:15] LABS: Actual Bicarbonate (HCO3a) 24.6 mEq/L (22-28); Base Excess (BEa) 2.2 mEq/L (-2.0 to +3.0); CO2 Tension 32.1 mmHg (35.0-45.0); Hemoglobin (Hb) 14.1 g/dL (12.0-16.0); O2 Tension (PaO2) 77.1 mmHg (> 60.0)
[2018-02-03 16:17] LABS: Calcium, Ionized 1.1 mmol/L (1.12-1.30)
[2018-02-03 16:18] LABS: ALV-art Gradient 81.015 (0-20); Puncture Site LR
[2018-02-03] MEDS: Budesonide 0.5 MG/2 ML NEB INH SCH (18:15)
[2018-02-03] MEDS: Vancomycin HCl 25 MG/ML Oral PO SCH ×2 (18:19→21:28)
[2018-02-03] MEDS: Sodium Chloride 0.9% 1,000 ML IV SCH ×2 (18:26→21:29)
[2018-02-03] MEDS ORDERED: Saccharomyces boulardii 250 MG CAP PO SCH (21:00)
[2018-02-03] MEDS: Nystatin Powder 15 GM BOT TOP SCH (21:25)
--- NOTE | 2018-02-03 21:45 | RAD ---
RADIOGRAPH CHEST 1 VIEW: 02/03/18 HISTORY: Central line placement FINDINGS: There are no air space densities, pulmonary edema, pneumothorax, or cardiomegaly. The lateral costop hrenic angles are sharp. There is a right subclavian central line with distal tip overlying the expec asif location of the SVC/right atrial junction, new since the prior study of 01/03/18. IMPRESSION: 1. No acute cardiopulmonary findings. 2. Insertion of right subclavian central venous catheter. heather [] POS: JAXSON
--- NOTE | 2018-02-03 22:00 | CON ---
DATE OF CONSULTATION: 02/03/2018 Ms. Cardoso is an 82-year-old female. She has been in rehabilitation across [facility] after a hospitaliza tion here with a UTI and Clostridium difficile infection. She was hospitalized 12/16/2017 to 12/27/2017. She was discharged with a diagnosis of sepsis secondary to Clostridium difficile colitis and an enter obacter urinary tract infection. Reviewing cultures, she had enterobacter in her urine, but no enter obacter in her blood. She had Clostridium difficile antigen and toxins positive that admission. She was seen by Dr. Rodriguez and was treated with antimicrobial therapy for both her UTI and her Yasmeen stridium difficile. She apparently came back 4 days after discharge for PICC line placement. She actually had been disch arged on oral Flagyl and oral vancomycin. It is unclear to me what culture led to placement of the PICC line, but her daughter tells me that bryant adkins had another [facility]. For 2 days, she has had progressive abdominal discomfort, abdominal distention, and her daughter says that she has been looking acutely ill. She says 3 days ago, her mom looked great. She subsequently was admitted to the Intermediate Care Unit. I was consulted by the nurses because o f their concerns about her clinical condition. PAST MEDICAL HISTORY: Prior to this last admission in December was remarkable for hypertension, possible COPD, history of reflux disease. She actually was quite functional, according to her daughter. PAST SURGICAL HISTORY: Remarkable for appendectomy, hysterectomy, and tonsillectomy. SOCIAL HISTORY: She is a nonsmoker, nondrinker, and does not use drugs. ALLERGIES: She reports allergies to ADVIL, CODEINE, MACROBID, NAPROSYN, PENICILLIN, SULFA, and VIOXX . It is interesting to note that she was just [facility]. FAMILY HISTORY: Negative for lung disease in early age. REVIEW OF SYSTEMS: 10-point review of systems is not really accurately obtainable. Her daughter say s her only complaints were abdominal pain and diarrhea. She only said "I feel horrible." I have discussed surgery with her and she said she would do whatever she had to do to get better. PHYSICAL EXAMINATION: VITAL SIGNS: She is afebrile, heart rate 79, respiratory rates in the mid 20s, oximetry is 96 on 2 l iters, blood pressure is 97/59. HEENT: Pupils are equal. Sclerae are anicteric. NECK: Supple. LUNGS: Clear anteriorly. HEART: Regular rhythm. S1 and S2 are normal. I do not hear a murmur. ABDOMEN: Diffusely tender. EXTREMITIES: Without clubbing, cyanosis, or edema. NEUROLOGIC: Grossly nonfocal. LABORATORY DATA: White count is 102,000, hemoglobin 14.5, platelets 198,000. She has 47 segs, 27 ba nds, 5% lymphocytes, 13% monocytes, 5% metamyelocytes, 3% myelocytes. Platelets are normal at 198. Sodium 127, potassium 4, chloride 86, bicarbonate 21, BUN 102, creatinine 1.44. Creatinine was 0.[address] shows diffuse thickening of her colon. IMPRESSION: ? toxic megacolon versus sepsis from Clostridium difficile colitis versus bowel. A consult to Gastroenterology and General Surgery. I think this is all leukemoid reaction, although I have reviewed her smear with Hematology. Based on reviewing the old smears recently, it is felt to be much less likely acute leukemia, especia lly given her clinical condition. We will make her n.p.o. She may need surgical resection of her colon. I think she can survive the surgery, but I am not sure she can recover from that, although she says s he is willing to do whatever she needs to do. I have increased her fluids from 100 mL an hour to 20 0 mL an hour. Critical care time, 35 minutes.
[2018-02-03] MEDS: metroNIDAZOLE 500 MG in Premix Bag 1 BAG IVPB SCH (22:17)
[2018-02-03] MEDS: Acetaminophen 325 MG TAB PO PRN (22:18)
[2018-02-03] MEDS: Norepinephrine 8 MG/250 ML BAG IVPB PRN (22:20)
[2018-02-04] MEDS: Sodium Chloride 0.9% 1,000 ML IV SCH ×5 (01:21→21:28)
--- NOTE | 2018-02-04 03:13 | CON ---
DATE OF CONSULTATION: 02/03/2018 REFERRING PHYSICIAN: Rochelle Tovar M.D. REASON FOR CONSULTATION: Recurrent Clostridium difficile colitis, severe dehydration, sepsis. HISTORY OF PRESENT ILLNESS: Ms. Jessica Cardoso is a very pleasant 82-year-old female seen by me in 12/2017 when she was hospitalized here with recurrent UTI and also C. difficile diarrhea. T he patient was given antibiotics including vancomycin and also IV Levaquin for UTI. She was also carlos terrie on probiotics. She had persistent leukocytosis several days and subsequently she got better and [facility]. The patient was sent to ER today because of altered mental status and the patient's clinical condition appears slightly worse over the last 24 hours. The patient was seen in the room along with the patient's daughter. As per the patient's daughter, Tara, the patient has bee n eating well over the last probably 10 days or longer. She was eating very small amount of ice crea m and drinking small amount of fluid. She was tolerating her diet. Apparently, she has had diarrhea off and on, but the diarrhea was really not very severe. Tara, her daughter, tells me that she had 1 watery stool yesterday. Apparently, the watery stool has been going and the severity is unclear at the present time. The patient was found to have abdominal distention and also had altered mental sta tus. She was sent to the ER. In the ER, the evaluation showed, 1. Stool positive for C. difficile toxin and antigen. 2. She is severely dehydrated with BUN of 112. 3. She has severe bandemia, almost like leukemoid reaction with total WBC count of 102,000 and she h ad 27% bands. The patient is awake and does communicate to some extent. Most of the history was obtained by remedios jones to the patient's daughter. The patient had no stool since admission to the hospital. She has been started on Flagyl, vancomycin, and probiotics by Dr. Rochelle Tovar. She is also on IV fluids. She complains of diffuse abdominal pain. Even slight touch of abdomen, she is very tender. Apparently, since discharge from the hospital, she had to have another course of antibiotics because of UTI. She was also placed on Macrobid recently. ALLERGIES: CODEINE, IBUPROFEN, NAPROXEN, NITROFURANTOIN, PENICILLIN. SOCIAL HISTORY: The patient does not smoke or drink alcohol. MEDICAL ILLNESSES: 1. Recurrent urinary tract infection. 2. Recent Clostridium difficile colitis, treated with vancomycin with resolution. 3. Hypertension. 4. Chronic obstructive pulmonary disease. 5. Chronic acid reflux. 6. Colon polyp. 7. Appendectomy. 8. Hysterectomy. MEDICATIONS: List includes IV Flagyl and also p.o. vancomycin and Florastor. Other medicines includ e Micardis, Lasix, albuterol inhaler, Nasacort spray. REVIEW OF SYSTEMS: Unobtainable. PHYSICAL EXAMINATION: GENERAL: She is awake, but she appears clinically dry. She is in no distress. VITAL SIGNS: Afebrile. Temperature 97.3 degree Fahrenheit, pulse is 83, blood pressure 120/59. HEENT: Her oral mucous membranes are dry. Conjunctivae clear. CARDIOVASCULAR SYSTEM: First and second heart sounds normal. LUNGS: Clear to auscultation. ABDOMEN: Distended. Abdomen is markedly tender. Her bowel sounds are faint. EXTREMITIES: Reveal no edema. LABORATORY DATA: Shows severe leukocytosis with WBC count of 102,000, polymorphs 47, bands 27, lymph ocytes 5, monocytes 13, hemoglobin 14.5, hematocrit 46.6. Chemistry panel: Sodium 127, potassium 4, chloride 86, bicarbonate 21, BUN is 102, creatinine 1.44, glucose 114, lactic acid is 3.1, calcium 9 .5, bilirubin 1.2, AST 31, ALT 18, alkaline phosphatase 167, albumin 2.6. CLINICAL IMPRESSION: 1. An 82-year-old female with Clostridium difficile colitis, treated with vancomycin a mon th ago. She presents with recurrence of diarrhea and she has positive Clostridium difficile toxin an d antigen. She is severely dehydrated. She also has leukemoid reaction. The abdomen is very tender even slight to touch. It appears that she has severe form of Clostridium difficile colitis and seps is. 2. Severe dehydration. 3. Leukemoid reaction. RECOMMENDATIONS: N.p.o., IV fluids, IV Flagyl, and also p.o. vancomycin. I also agree with starting on Florastor. The patient's overall prognosis appears poor at the present time. If clinically the patient does not really get better in the next 24 hours, may have to consider surgical input.
[2018-02-04 05:17] LABS: Hemoglobin 12.8 g/dL (12.0-16.0); Mean Corpuscular HGB CONC 32.3 g/dL (32.0-36.0); Mean Corpuscular Hemoglobin 30.9 pg (27.0-31.0); Mean Corpuscular Volume 95.7 fL (78.0-98.0); Mean Platelet Volume 9.8 fL (7.4-10.4); Platelet Count 205 thou/uL (130-400); RBC Distribution Width 14.4 % (11.5-14.5); Red Blood Cell (RBC) Count 4.14 mill/uL (4.20-5.40); White Blood Cell (WBC) Count 99.8 thou/uL (4.8-10.8)
[2018-02-04 05:20] LABS: Band 13 % (5-11); Lymphocytes 7 % (21-51); MDiff Complete? YES; Metamyelocyte 3 % (0-0); Monocytes 6 % (0-10); Myelocyte 1 % (0-0); Neutrophil 70 % (42-75)
[2018-02-04 05:28] LABS: ALT (SGPT) 14 U/L (8-55); AST (SGOT) 29 U/L (5-34); Albumin 2.5 g/dL (3.4-4.8); Alkaline Phosphatase 144 U/L (40-150); Anion Gap 19 mmol/L (10-20); BUN (Urea Nitrogen) 93 mg/dL (9.8-20.1); Calc. Creatinine Clearance 59 mL/min (70-130); Calcium 8.9 mg/dL (7.8-10.44); Carbon Dioxide 23 mmol/L (23-31); Chloride 96 mmol/L (98-107); Estimated GFR-MDRD 45; Glucose 151 mg/dL (83-110); Protein, Total 5.5 g/dL (6.0-8.3); Sodium 135 mmol/L (136-145)
--- NOTE | 2018-02-04 05:30 | OP ---
DATE OF PROCEDURE: 02/03/2018 PREOPERATIVE DIAGNOSEIS: Abdominal pain, sepsis, leukocytosis, poor IV access, anticoagulation. POSTOPERATIVE DIAGNOSES: Abdominal pain, sepsis, leukocytosis, poor IV access, anticoagulation. PROCEDURE: Right subclavian vein central line. SURGEON: Dr. Neo Benitez ANESTHESIA: 1%, Xylocaine. PROCEDURE: The patient at her bedside, her right periclavicular area was prepared with ChloraPrep, d raped in routine fashion. Local anesthetic instilled 1% Xylocaine infiltrated into skin and subcutan eous tissue. Seldinger technique used to place a triple lumen catheter, removing the J wire securing it with 3-0 silk. Sterile dressing applied. The patient tolerated the procedure well.
[2018-02-04] MEDS: metroNIDAZOLE 500 MG in Premix Bag 1 BAG IVPB SCH ×3 (06:05→21:28)
[2018-02-04] MEDS: Norepinephrine 8 MG/250 ML BAG IVPB PRN ×3 (06:06→21:29)
[2018-02-04] MEDS: Budesonide 0.5 MG/2 ML NEB INH SCH ×2 (06:32→19:18)
--- NOTE | 2018-02-04 08:17 | HP ---
HISTORY OF PRESENT ILLNESS: Jessica Cardoso is an 82-year-old female who [facility] for her change in mental status, abdominal pain. The patient has been treated for C. diff coli tis. Apparently, she has had solid stool for the past 2-3 weeks and the care facility as stated that there is no need to test that anymore. The patient apparently has had a deterioration and condition ing; however, she has been unable to walk since her recent hospitalization for [facility]. Patient has had a history of C. difficile colitis seen by Dr. Rodriguez in the past. Since that time , she has been treated on two different occasions for urinary tract infections, has had a PICC line p laced and removed. She is admitted on this occasion because of abdominal pain and found to have an I NR of 7.5. She has history of DVT. She has had an IVC filter, the family states it is fragmented, b ut has been present for more than 30 years. On admission, the patient's PT was 68. INR 7.5. PTT 46 .7. Sodium 127, potassium 4.0, chloride 86, carbon dioxide 21, BUN 102, creatinine 1.44. GFR 35. W adam count 102,000, hemoglobin 14, 47 neutrophils, 27 bands. Patient's hemoglobin has been usually t end to 11, this probably represents hemoconcentration and dehydration. Patient has been admitted to the ICU. Heart rate is 79, temperature 96.9. The patient had a CAT scan of the abdomen and pelvis o n admission, revealing a chronically incarcerated ventral hernia, nonobstructive thickened colon, but no other significant findings. She has an IVC filter. ALLERGIES: CODEINE, MOTRIN, NAPROXEN, NITROFURANTOIN, PENICILLIN, and more. MEDICATIONS: Outpatient Tylenol, Maalox, DuoNebs, Artificial Tears, budesonide, Pulmicort nebs, Difl ucan, Robitussin, Theragran, Claritin, metronidazole 500 mg q.8 hours IV, vancomycin p.o. q.i.d. 250 mg. PAST SURGICAL HISTORY: Open cholecystectomy, open hiatal hernia repair, open appendectomy, hysterect john, bilateral salpingo-oophorectomy, IVC filter placed more than 30 years ago, PICC line placement i n the past. PAST MEDICAL HISTORY: Chronic kidney disease, COPD, deconditioning, GERD, history of C. difficile co litis, recurrent urinary tract infection treated with antibiotics. Cultures pending for C. diff colitis. Stool studies today, antigen and toxin positive. PHYSICAL EXAMINATION: VITAL SIGNS: 5 feet 6 inches, 238 pounds, 38 BMI, 96.9 degrees, 79, 24, 115/55. GENERAL: Patient is in ICU. She is uncomfortable. She is confused. HEAD, EARS, EYES, NOSE, AND THROAT: Unremarkable. LUNGS: Clear to auscultation. CARDIAC: Regular rate and rhythm. No murmur or gallop. ABDOMEN: Soft, quiet, diffusely tender with guarding. EXTREMITIES: Unremarkable. ASSESSMENT AND PLAN: 1. Abdominal pain and tenderness. 2. History of clostridium difficile colitis. Would recommend Gastroenterology consultation, she is not taking orals, recommend vancomycin p.o. and Flagyl IV, probably is not very good choice for clost ridium difficile colitis. GI has been consulted. PT, OT, palliative care has been consulted. The p atient is a FULL CODE, but there is some discussion with the family about the palliative measures and we will have the discussion with the family. 3. Marked deconditioning. 4. Diastolic dysfunction. 5. Other medical problems as noted above.
[2018-02-04 08:22] LABS: Fibrinogen 461 mg/dL (253-463)
[2018-02-04 08:24] LABS: D-Dimer Test 0.44 *mcg/mL (0.27-0.43); PTT 63.7 SEC (22.9-36.1)
[2018-02-04 08:26] LABS: INR-International Normal Ratio 10.7
[2018-02-04 08:35] LABS: Platelet Count 197 thou/uL (130-400)
[2018-02-04] MEDS: Vancomycin HCl 25 MG/ML Oral PO SCH ×4 (08:59→20:47)
[2018-02-04] MEDS: Fluconazole 100 MG TAB PO SCH (09:00)
[2018-02-04] MEDS: Multivitamin W/ Minerals 1 TAB PO SCH (09:00)
[2018-02-04] MEDS: Nystatin Powder 15 GM BOT TOP SCH ×2 (09:00→20:47)
[2018-02-04] MEDS ORDERED: Cyanocobalamin (Vitamin B-12) 1,000 MCG TAB PO SCH (09:00)
[2018-02-04] MEDS ORDERED: Ascorbic Acid 500 mg Chewable Tablet PO SCH (09:00)
[2018-02-04 09:22] LABS: FSP-Qualitative Normal (Normal)
[2018-02-04] MEDS ORDERED: Human Prothrombin Complx(PCC) 2,500 UNIT in Admixture Fee 1 EACH IV SCH (09:45)
--- NOTE | 2018-02-04 09:55 | RAD ---
PORTABLE AP CHEST: Date: 02/04/18 HISTORY: On ventilator. COMPARISON: 02/03/18. FINDINGS: Again noted is a right subclavian central venous catheter, unchanged in position. This exam is obtain ed with patient in kyphotic positioning and shallow depth of inspiration limiting evaluation. There i s an interval development of linear densities in the region of the lingula, likely related to mild suggs bsegmental atelectasis. Calcified granuloma at the right lung base is again present. The lungs are ot herwise clear. Cardiac silhouette is within normal limits. There is accentuation of bronchovascular m arkings. There has been no significant interval change from the prior exam. IMPRESSION: Overall stable chest. POS: KEANN
--- NOTE | 2018-02-04 10:09 | RAD ---
ABDOMEN 1 VIEW: Date: 02/04/18 HISTORY: C. Diff colitis. FINDINGS/IMPRESSION: IVC filter with abnormal configuration and a fractured strut in the liver. Bowel gas pattern appears unremarkable. No suspicious calcifications are seen. There are degenerative changes in the spine. A u rinary catheter is present. POS: [facility]
[2018-02-04] MEDS ORDERED: Morphine 10 MG/ML VIAL SLOW IVP SCH (11:00)
--- NOTE | 2018-02-04 11:47 | PDOC.PN ---
- Subjective Encounter Start Date: 02/04/18 Encounter Start Time: 09:30 Patient seen and examined for septic shock. has abdominal pain, on levophed, central line placed last night, No overnight events - Objective Resuscitation Status: Resuscitation Status FULL:Full Resuscitation MAR Reviewed: Yes Vital Signs & Weight: Vital Signs (12 hours) Temp Pulse Resp Pulse Ox 02/04/18 08:00 99.1 F 80 20 100 02/04/18 06:33 99 02/04/18 06:32 80 20 Weight Admit Weight 216 lb 14.958 oz Weight 221 lb 12.56 oz Most Recent Monitor Data Heart Rate from ECG 76 NIBP 118/41 NIBP BP-Mean 79 Respiration from ECG 17 SpO2 100 I&O: 02/03/18 02/04/18 02/05/18 06:59 06:59 06:59 Intake Total 2734 Output Total 240 185 Balance 2494 -185 Result Diagrams: 02/04/18 08:10 02/04/18 04:30 Radiology Reviewed by me: Yes (chest xray) EKG Reviewed by me: Yes (nsr) Phys Exam - Physical Examination Constitutional: NAD HEENT: PERRLA, moist MMs, sclera anicteric Neck: no JVD, supple central line Respiratory: no wheezing, no rales, no rhonchi Cardiovascular: RRR, no significant murmur, no rub Gastrointestinal: soft, no distention, positive bowel sounds tenderness Musculoskeletal: no edema, pulses present Neurological: non-focal, normal sensation Lymphatic: no nodes Psychiatric: normal affect Skin: no rash, normal turgor Dx/Plan (1) Acute encephalopathy Code(s): G93.40 - ENCEPHALOPATHY, UNSPECIFIED Status: Acute Comment: (2) Acute kidney failure Status: Acute (3) C. difficile colitis Status: Acute (4) Hypokalemia Code(s): E87.6 - HYPOKALEMIA Status: Acute Comment: (5) Hyponatremia Code(s): E87.1 - HYPO-OSMOLALITY AND HYPONATREMIA Status: Acute (6) Leukemoid reaction Code(s): D72.823 - LEUKEMOID REACTION Status: Acute (7) Physical deconditioning Code(s): R53.81 - OTHER MALAISE Status: Acute (8) Sepsis with acute organ dysfunction Code(s): A41.9 - SEPSIS, UNSPECIFIED ORGANISM; R65.20 - SEVERE SEPSIS WITHOUT SEPTIC SHOCK Status: Acute (9) Septic shock due to Clostridium difficile Code(s): CVI2505 - Status: Acute (10) HTN (hypertension) Code(s): I10 - ESSENTIAL (PRIMARY) HYPERTENSION Status: Chronic Qualifiers: Hypertension type: essential hypertension Qualified Code(s): I10 - Essential (primary) hypertension Comment: (11) Obesity (BMI 30-39.9) Code(s): E66.9 - OBESITY, UNSPECIFIED Status: Chronic (12) Coagulopathy Status: Acute Comment: due to anticoagulation prior to admission and may be due to sepsis (13) H/O deep venous thrombosis Code(s): Z86.718 - PERSONAL HISTORY OF OTHER VENOUS THROMBOSIS AND EMBOLISM Status: Chronic Comment: right leg DVT - Plan cont current plan of care, plan discussed w/ family, continue antibiotics * continue oral vancomycin and IV flagyl * as per surgeon, no need of surgery * spoke with GI continue current treatment for now * continue levophed and wean as tolerated * will give FFP today and repeat PT INR after sandhu * medication reviewed as below * symptomatic treatment * discussed with family * continue IVF * selected home meds. Review of Systems - Review of Systems Constitutional: weakness, malaise. negative: fever, chills, sweats, other ENT: negative: Ear Pain, Ear Discharge, Nose Pain, Nose Discharge, Nose Congestion, Mouth Pain, Mouth Swelling, Throat Pain, Throat Swelling, Other Respiratory: negative: Cough, Dry, Shortness of Breath, Hemoptysis, SOB with Excertion, Pleuritic Pain, Sputum, Wheezing Cardiovascular: negative: chest pain, palpitations, orthopnea, paroxysmal nocturnal dyspnea, edema, light headedness, other Gastrointestinal: Abdominal Pain. negative: Nausea, Vomiting, Diarrhea, Constipation, Melena, Hematochezia, Other Genitourinary: negative: Dysuria, Frequency, Incontinence, Hematuria, Retention , Other Musculoskeletal: negative: Neck Pain, Shoulder Pain, Arm Pain, Back Pain, Hand Pain, Leg Pain, Foot Pain, Other Skin: negative: Rash, Lesions, Natalio, Bruising, Other - Medications/Allergies Allergies/Adverse Reactions: Allergies Allergy/AdvReac Type Severity Reaction Status Date / Time codeine Allergy Verified 02/03/18 15:07 ibuprofen [From Advil] Allergy Verified 02/03/18 15:07 naproxen [From Naprosyn] Allergy Verified 02/03/18 15:07 nitrofurantoin Allergy Verified 02/03/18 15:07 [From Macrobid] Penicillins Allergy Verified 02/03/18 15:07 rofecoxib [From Vioxx] Allergy Verified 02/03/18 15:07 Sulfa (Sulfonamide Allergy Verified 02/03/18 15:07 Antibiotics) Medications: Current Medications Acetaminophen (Tylenol) 650 mg PO Q4H PRN PRN Reason: Headache/Fever or Pain Last Admin: 02/03/18 22:18 Dose: 650 mg Al Hydroxide/Mg Hydroxide (Maalox) 30 ml PO Q6H PRN PRN Reason: Heartburn or Indigestion Albuterol/Ipratropium (Duoneb) 3 ml NEB [id number] CUCA Last Admin: 02/04/18 06:32 Dose: 3 ml Albuterol/Ipratropium (Duoneb) 3 ml NEB [id number] PRN PRN Reason: SOB &/or Wheezing Artificial Tears (Tears Renewed 15ml Bottle) 0 drop EA EYE PRN PRN PRN Reason: Dry Eyes Budesonide (Pulmicort Neb Solution) 0.5 mg INH BID-RT [facility] Last Admin: 02/04/18 06:32 Dose: 0.5 mg Fluconazole (Diflucan) 100 mg PO DAILY [facility] Last Admin: 02/04/18 09:00 Dose: Not Given Guaifenesin (Robitussin Sf) 200 mg PO Q4H PRN PRN Reason: Cough Metronidazole 500 mg/ Device 100 mls @ 100 mls/hr IVPB Q8HR [facility] Last Admin: 02/04/18 06:05 Dose: 100 mls Sodium Chloride (Normal Saline 0.9%) 1,000 mls @ 200 mls/hr IV .Q5H [facility] Last Admin: 02/04/18 08:59 Dose: 1,000 mls Norepinephrine Bitartrate (Levophed) 250 mls @ 0 mls/hr IVPB INF PRN; Protocol ; Titrate PRN Reason: Blood Pressure Last Admin: 02/04/18 06:06 Dose: 250 mls Miscellaneous Medication 2,500 unit/ Miscellaneous Medication mls @ 504 mls/ hr IV INF CCUA Stop: 02/05/18 09:46 Last Admin: 02/04/18 10:34 Dose: 100 mls Iron/Minerals/Multivitamins (Theragran M) 1 tab PO DAILY [facility] Last Admin: 02/04/18 09:00 Dose: Not Given Loratadine (Claritin) 10 mg PO DAILYPRN PRN PRN Reason: Sinus Symptoms Mineral Oil/White Petrolatum (Eucerin Cream) 0 gm TOP BIDPRN PRN PRN Reason: Dry Skin Nystatin (Mycostatin Powder) 0 gm TOP BID [facility] Last Admin: 02/04/18 09:00 Dose: 1 applic Ondansetron HCl (Zofran Odt) 4 mg PO Q6H PRN PRN Reason: Nausea/Vomiting Ondansetron HCl (Zofran) 4 mg IVP Q6H PRN PRN Reason: Nausea/Vomiting Phenol (Chloraseptic [place] 180 Ml Bot) 0 ml PO PRN PRN PRN Reason: Sore Throat Sodium Chloride ([place] Nasal [place] 0.65%) 0 ml EA NARE QIDPRN PRN PRN Reason: Nasal Congestion Vancomycin HCl (First Vancomycin) 500 mg PO QID [facility] Last Admin: 02/04/18 08:59 Dose: 500 mg
--- NOTE | 2018-02-04 11:52 | PRG ---
DATE OF SERVICE: 02/04/2018 Jessica Cardoso feels no better. PHYSICAL EXAMINATION: VITAL SIGNS: Heart rate 76, blood pressure 136/51, respiratory rates in the teens. She went on a lo w dose of Levophed last night. She is afebrile. LUNGS: Lungs are clear. HEART: Regular rhythm. ABDOMEN: The abdomen is still diffusely tender. INR was 10.7. Surprisingly, she did not have a DIC picture with a DIC panel. She had been on Coumad in, so Kcentra has been ordered. We will repeat coags after that. Sodium is 135, potassium 3, chloride 96, bicarbonate 23, BUN 93, creatinine 1.5.: White count is sti ll 99.8, hemoglobin 12.8, platelets 205,000. She has 13% bands, 3% metamyelocytes, 1% myelocytes, 70 % neutrophils. IMPRESSION: Clinical sepsis with life threatening colitis. Based on the literature, she is in the h igh risk category for needing a pancolectomy. My gut feeling is that she will not survive this witho ut surgery and may not survive this in spite of surgery. I have met with family and answered all the ir questions and relayed this information to them. I will continue to follow with the other physicia ns. I also discussed her case and care with Dr. Benitez today. He is contemplating surgery.
[2018-02-04 11:59] LABS: INR-International Normal Ratio 1.3; PTT 29.8 SEC (22.9-36.1); Prothrombin Time 16.9 SEC (12.0-14.7)
--- NOTE | 2018-02-04 20:13 | PRG ---
DATE OF SERVICE: 02/04/2018 SUBJECTIVE: Jessica Cardoso is in the ICU. She seems more comfortable. White count is down from 102 ,000 to 99,000, hemoglobin 12, BUN 93, creatinine 1.15, sodium 135. PT/INR corrected after holding C oumadin and giving her Kcentra. The patient is not uncomfortable, moaning, or groaning that she was before. OBJECTIVE: VITAL SIGNS: Blood pressure 122/44, pulse 72, respiratory rate 28, temperature 98.8 degrees. She fermin s been afebrile. LUNGS: Clear to auscultation. CARDIAC: Regular rate and rhythm without murmur or gallop. ABDOMEN: Soft, nontender. No guarding. EXTREMITIES: Unremarkable. ASSESSMENT AND PLAN: Clostridium difficile colitis. She seemed to be improved relative to yesterday . Hopefully, we can avoid colectomy. The patient's family is still discussing DNR status, but we wi ll continue care. We would recommend she be up in a chair as often as possible.
[2018-02-04] MEDS: Acetaminophen 325 MG TAB PO PRN (20:48)
--- NOTE | 2018-02-04 23:23 | PRG ---
DATE OF SERVICE: 02/04/2018 SUBJECTIVE: This is an 82-year-old female hospitalized with acute abdominal pain, diarrhea , and CAT scan findings of colitis. She had positive C. difficile antigen and toxin. She is on p.o. vancomycin and IV Flagyl. The patient was seen by General Surgery yesterday and the surgery was not carried out yesterday. It was felt that she is very high risk for surgery. The patient surprisingl y feels better. She appears comfortable; however, she is on some drugs. However, the abdomen is a l ot softer and very minimally tender. There are no peritoneal signs. She has active bowel sounds. S he was found to have markedly prolonged INR of 10.7 and the DIC panel was negative. She was given Ady entra and she had repeat coagulation profile. The repeat coag profile shows PT 16.9, INR 1.3, PTT 29 .8. This morning, PT was 10.7. Also, her blood pressure was maintained on Levophed. PHYSICAL EXAMINATION: GENERAL: She appears comfortable and in no distress, but she is somewhat sleepy. VITAL SIGNS: Her pulse is 65, blood pressure 108/72. She is on IV Levophed. CARDIOVASCULAR SYSTEM: First and second heart sounds normal. LUNGS: Clear to auscultation. ABDOMEN: Distended, but very soft compared to the exam done yesterday. Abdomen is really nontender. She does have bowel sounds. LABORATORY DATA: From today, [place] [address], hemoglobin 12.8, hematocrit 39.7, carlos telet count is 205,000. The band has come down to 13, polymorphs 70. Chemistry panel shows sodium 1 35, potassium 3, chloride 96, bicarbonate 23, BUN is dropping down to 93, creatinine 1.15, glucose is 151, total protein is 5.5, albumin 2.5. Liver function tests are normal. CLINICAL IMPRESSION: Diarrhea, hypotension, and findings of colitis on CAT scan. She also has marke d leukocytosis with bandemia. She does have Clostridium difficile toxin positive. I believe she pro bably has ischemic bowel disease on top of the Clostridium difficile colitis account for this clinica l picture. She also had prolonged PT/INR this morning, which was corrected by Kcentra. She seems to be doing little bit better than compared to yesterday. The abdomen is actually soft and really nont angelo. She is high risk for surgery. She seems to be feeling better. I did a physical examination, I believe it will be prudent the continue the antibiotics and supportive care. There is no family a vailable at the present time to talk to them. Overall prognosis is still poor with her marked leukoc ytosis and bandemia.
[2018-02-05] MEDS: Sodium Chloride 0.9% 1,000 ML IV SCH ×4 (04:17→16:59)
[2018-02-05 05:17] LABS: Anion Gap 15 mmol/L (10-20); BUN (Urea Nitrogen) 60 mg/dL (9.8-20.1); Calc. Creatinine Clearance 85 mL/min (70-130); Calcium 8.4 mg/dL (7.8-10.44); Carbon Dioxide 22 mmol/L (23-31); Chloride 109 mmol/L (98-107); Estimated GFR-MDRD 69; Glucose 132 mg/dL (83-110); Sodium 144 mmol/L (136-145)
[2018-02-05 05:19] LABS: Potassium 2.3 mmol/L (3.5-5.1)
[2018-02-05] MEDS ORDERED: Magnesium 2 GM/NS 0.9% 100 ML 2 GM in Premix Bag 1 BAG IVPB PRN (05:39)
[2018-02-05] MEDS ORDERED: Potassium Phosphate 12 MMOL in Sodium Chloride 0.9% 250 ML 250 ML IV PRN (05:39)
[2018-02-05] MEDS ORDERED: Potassium Chloride 20 MEQ TAB PO PRN (05:39)
[2018-02-05] MEDS ORDERED: CCU ELECTROLYTE REPLACEMENT PROTOCOL FS PRN (05:39)
[2018-02-05] MEDS ORDERED: Potassium Chloride 40 MEQ in Sodium Chloride 0.9% 250 ML 250 ML IVPB PRN (05:39)
[2018-02-05] MEDS ORDERED: Potassium Phosphate 15 MMOL in Sodium Chloride 0.9% 250 ML 250 ML IV PRN (05:39)
[2018-02-05] MEDS ORDERED: Magnesium Oxide 400 MG TAB PO PRN ×2 (05:39)
[2018-02-05] MEDS ORDERED: Potassium Phosphate 9 MMOL in Sodium Chloride 0.9% 100 ML IVPB PRN (05:39)
[2018-02-05] MEDS: Potassium Chloride 40 MEQ in Premix Bag 1 BAG IVPB PRN ×2 (05:49→16:59)
[2018-02-05] MEDS: metroNIDAZOLE 500 MG in Premix Bag 1 BAG IVPB SCH ×3 (05:50→21:10)
[2018-02-05 07:04] LABS: Mean Corpuscular HGB CONC 31.9 g/dL (32.0-36.0); Mean Platelet Volume 9.7 fL (7.4-10.4); Platelet Count 150 thou/uL (130-400); RBC Distribution Width 14.7 % (11.5-14.5); Red Blood Cell (RBC) Count 3.57 mill/uL (4.20-5.40); White Blood Cell (WBC) Count 72.1 thou/uL (4.8-10.8)
[2018-02-05] MEDS: Budesonide 0.5 MG/2 ML NEB INH SCH ×2 (07:20→19:16)
[2018-02-05 07:57] LABS: Band 23 % (5-11); Lymphocytes 2 % (21-51); MDiff Complete? YES; Metamyelocyte 6 % (0-0); Monocytes 11 % (0-10); Myelocyte 9 % (0-0); Neutrophil 49 % (42-75); Nucleated RBC 1 % (0); PLT Morphology Comment Appears Adequate; Polychromasia SLIGHT = 2-3 cells (100X) (0-2/hpf)
[2018-02-05 07:58] LABS: Magnesium 1.6 mg/dL (1.6-2.6); Phosphorus 2.7 mg/dL (2.3-4.7)
--- NOTE | 2018-02-05 08:17 | RAD ---
SINGLE VIEW OF THE CHEST: COMPARISON: 02/04/18. HISTORY: Ventilated patient with respiratory failure. FINDINGS: A single view of the chest shows a normal-size cardiomediastinal silhouette. The central venous cath eter is unchanged in position. Increased interstitial markings are present. There is no evidence of consolidation, mass, or pleural effusion. IMPRESSION: No evidence of acute cardiopulmonary disease. POS: [facility]
[2018-02-05 10:09] LABS: Potassium 3.3 mmol/L (3.5-5.1)
[2018-02-05] MEDS: Vancomycin HCl 25 MG/ML Oral PO SCH ×4 (10:50→21:10)
[2018-02-05] MEDS: Fluconazole 100 MG TAB PO SCH (10:50)
[2018-02-05] MEDS: Multivitamin W/ Minerals 1 TAB PO SCH (10:50)
[2018-02-05] MEDS: Nystatin Powder 15 GM BOT TOP SCH ×2 (10:51→21:10)
--- NOTE | 2018-02-05 11:36 | PDOC.PN ---
- Subjective Encounter Start Date: 02/05/18 Encounter Start Time: 10:15 Patient seen and examined for septic shock, she is on levophed, she has vague abdominal discomfort, No overnight events - Objective Resuscitation Status: Resuscitation Status FULL:Full Resuscitation MAR Reviewed: Yes Vital Signs & Weight: Vital Signs (12 hours) Temp Pulse Resp Pulse Ox 02/05/18 07:24 98 02/05/18 07:20 89 20 02/05/18 07:00 97.9 F Weight Admit Weight 216 lb 14.958 oz Weight 225 lb 12.054 oz Most Recent Monitor Data Heart Rate from ECG 85 NIBP 115/54 NIBP BP-Mean 88 Respiration from ECG 16 SpO2 94 I&O: 02/04/18 02/05/18 02/06/18 06:59 06:59 06:59 Intake Total 2734 3110 Output Total 240 1590 165 Balance 2494 1520 -165 Result Diagrams: 02/05/18 04:20 02/05/18 09:49 Radiology Reviewed by me: Yes (chest xray) EKG Reviewed by me: Yes (afib/flutter) Phys Exam - Physical Examination Constitutional: NAD HEENT: PERRLA, sclera anicteric dry MM Neck: no JVD, supple Respiratory: no wheezing, no rales, no rhonchi Cardiovascular: no significant murmur, no rub, irregular Gastrointestinal: soft, no distention, positive bowel sounds diffuse soreness Musculoskeletal: no edema, pulses present Neurological: non-focal, normal sensation, moves all 4 limbs Lymphatic: no nodes Psychiatric: normal affect Skin: no rash, normal turgor Dx/Plan (1) Acute encephalopathy Code(s): G93.40 - ENCEPHALOPATHY, UNSPECIFIED Status: Acute Comment: (2) Acute kidney failure Status: Resolved (3) C. difficile colitis Status: Acute (4) Hypokalemia Code(s): E87.6 - HYPOKALEMIA Status: Acute Comment: (5) Hyponatremia Code(s): E87.1 - HYPO-OSMOLALITY AND HYPONATREMIA Status: Acute (6) Leukemoid reaction Code(s): D72.823 - LEUKEMOID REACTION Status: Acute (7) Physical deconditioning Code(s): R53.81 - OTHER MALAISE Status: Acute (8) Sepsis with acute organ dysfunction Code(s): A41.9 - SEPSIS, UNSPECIFIED ORGANISM; R65.20 - SEVERE SEPSIS WITHOUT SEPTIC SHOCK Status: Acute (9) Septic shock due to Clostridium difficile Code(s): [id number] - Status: Acute (10) HTN (hypertension) Code(s): I10 - ESSENTIAL (PRIMARY) HYPERTENSION Status: Chronic Qualifiers: Hypertension type: essential hypertension Qualified Code(s): I10 - Essential (primary) hypertension Comment: (11) Obesity (BMI 30-39.9) Code(s): E66.9 - OBESITY, UNSPECIFIED Status: Chronic (12) Coagulopathy Status: Resolved Comment: due to anticoagulation prior to admission and may be due to sepsis (13) H/O deep venous thrombosis Code(s): Z86.718 - PERSONAL HISTORY OF OTHER VENOUS THROMBOSIS AND EMBOLISM Status: Chronic Comment: right leg DVT - Plan cont current plan of care, continue antibiotics * continue oral vancomycin and IV flagyl * medication reviewed as below * symptomatic treatment * replace potassium * will monitor in CCU * continue levophed and wean as tolerated. Review of Systems - Review of Systems Other: not reliable with pt as she is confused and sore all over and unable to focus - Medications/Allergies Allergies/Adverse Reactions: Allergies Allergy/AdvReac Type Severity Reaction Status Date / Time codeine Allergy Verified 02/03/18 15:07 ibuprofen [From Advil] Allergy Verified 02/03/18 15:07 naproxen [From Naprosyn] Allergy Verified 02/03/18 15:07 nitrofurantoin Allergy Verified 02/03/18 15:07 [From Macrobid] Penicillins Allergy Verified 02/03/18 15:07 rofecoxib [From Vioxx] Allergy Verified 02/03/18 15:07 Sulfa (Sulfonamide Allergy Verified 02/03/18 15:07 Antibiotics) Medications: Current Medications Acetaminophen (Tylenol) 650 mg PO Q4H PRN PRN Reason: Headache/Fever or Pain Last Admin: 02/03/18 22:18 Dose: 650 mg Al Hydroxide/Mg Hydroxide (Maalox) 30 ml PO Q6H PRN PRN Reason: Heartburn or Indigestion Albuterol/Ipratropium (Duoneb) 3 ml NEB [id number] [facility] Last Admin: 02/05/18 07:20 Dose: 3 ml Albuterol/Ipratropium (Duoneb) 3 ml NEB [id number] PRN PRN Reason: SOB &/or Wheezing Artificial Tears (Tears Renewed 15ml Bottle) 0 drop EA EYE PRN PRN PRN Reason: Dry Eyes Budesonide (Pulmicort Neb Solution) 0.5 mg INH BID-RT [facility] Last Admin: 02/05/18 07:20 Dose: 0.5 mg Fentanyl (Duragesic) 12 mcg TD Q3D [facility] Last Admin: 02/05/18 10:57 Dose: 12 mcg Fluconazole (Diflucan) 100 mg PO DAILY [facility] Last Admin: 02/05/18 10:50 Dose: 100 mg Guaifenesin (Robitussin Sf) 200 mg PO Q4H PRN PRN Reason: Cough Metronidazole 500 mg/ Device 100 mls @ 100 mls/hr IVPB Q8HR [facility] Last Admin: 02/05/18 05:50 Dose: 100 mls Sodium Chloride (Normal Saline 0.9%) 1,000 mls @ 200 mls/hr IV .Q5H [facility] Last Admin: 02/05/18 10:49 Dose: 1,000 mls Norepinephrine Bitartrate (Levophed) 250 mls @ 0 mls/hr IVPB INF PRN; Protocol ; Titrate PRN Reason: Blood Pressure Last Admin: 02/04/18 21:29 Dose: 250 mls Potassium Chloride 40 meq/ (Sodium Chloride) 270 mls @ 135 mls/hr IVPB ASDIR PRN PRN Reason: FOR SERUM K+ 2.5 - 3.5 Potassium Chloride 40 meq/ (Device) 100 mls @ 50 mls/hr IVPB ASDIR PRN PRN Reason: FOR SERUM K+ 2.5 - 3.5 Last Admin: 02/05/18 05:49 Dose: 100 mls Magnesium Sulfate 1 gm/ Sodium (Chloride) 102 mls @ 102 mls/hr IV PRN PRN PRN Reason: MAG LEVEL 1.4 - 2.0 Magnesium Sulfate 2 gm/ Device 100 mls @ 100 mls/hr IVPB ASDIR PRN PRN Reason: MAGNESIUM < 1.4 Potassium Phosphate 9 mmol/ (Sodium Chloride) 103 mls @ 25.75 mls/hr IVPB ASDIR PRN PRN Reason: Phosphate 1.0-1.8 Potassium Phosphate 12 mmol/ (Sodium Chloride) 254 mls @ 63.5 mls/hr IV ASDIR PRN PRN Reason: Serum phosphate 0.5-0.9 Potassium Phosphate 15 mmol/ (Sodium Chloride) 255 mls @ 63.75 mls/hr IV ASDIR PRN PRN Reason: Serum Phos < 0.5 Iron/Minerals/Multivitamins (Theragran M) 1 tab PO DAILY [facility] Last Admin: 02/05/18 10:50 Dose: 1 tab Loratadine (Claritin) 10 mg PO DAILYPRN PRN PRN Reason: Sinus Symptoms Magnesium Oxide (Magnesium Oxide) 400 mg PO BIDPRN PRN PRN Reason: FOR SERUM MAG 1.4 - 2.0 Magnesium Oxide (Magnesium Oxide) 800 mg PO PRN PRN PRN Reason: FOR SERUM MAG < 1.4 Mineral Oil/White Petrolatum (Eucerin Cream) 0 gm TOP BIDPRN PRN PRN Reason: Dry Skin Miscellaneous Medication (Phos-Nak) 1 pkt PO TIDPRN PRN PRN Reason: FOR PHOS LEVEL 1.0 - 1.8 Miscellaneous Medication (Phos-Nak) 2 pkt PO TIDPRN PRN PRN Reason: FOR PHOS LEVEL 0.5 - 1.0 Morphine Sulfate (Morphine Sulfate) 4 mg SLOW IVP Q1H PRN PRN Reason: Breakthrough Pain Ccu Electrolyte (Replacement Protocol) 0 each FS PRN PRN PRN Reason: FOR ELECTROLYTE REPLACEMENT Nystatin (Mycostatin Powder) 0 gm TOP BID [facility] Last Admin: 02/05/18 10:51 Dose: 1 applic Ondansetron HCl (Zofran Odt) 4 mg PO Q6H PRN PRN Reason: Nausea/Vomiting Ondansetron HCl (Zofran) 4 mg IVP Q6H PRN PRN Reason: Nausea/Vomiting Phenol (Chloraseptic [place] 180 Ml Bot) 0 ml PO PRN PRN PRN Reason: Sore Throat Potassium Chloride (K-Dur) 40 meq PO ASDIR PRN PRN Reason: FOR SERUM K+ 2.5 - 3.5 Potassium Chloride (Klor-Con) 40 meq PER TUBE ASDIR PRN PRN Reason: FOR SERUM K+ 2.5-3.5 Sodium Chloride (Tyler Nasal [place] 0.65%) 0 ml EA NARE QIDPRN PRN PRN Reason: Nasal Congestion Vancomycin HCl (First Vancomycin) 500 mg PO QID [facility] Last Admin: 02/05/18 10:50 Dose: 500 mg
--- NOTE | 2018-02-05 13:10 | PRG ---
DATE OF SERVICE: 02/05/2018 SUBJECTIVE: Jessica Cardoso remains hemodynamically stable. Heart rates in the 80s-90s. She is stil l complaining of some significant abdominal discomfort, so I placed the 12 mcg fentanyl patch on her and bumped her morphine dose up from 2-4 mg p.r.n. for breakthrough pain. OBJECTIVE: VITAL SIGNS: Her blood pressure remains stable 115/54, respiratory rate is 18, oximetry is 100%. In take and output is positive 1520s and positive 2494 yesterday, so she is ahead 4 liters. LUNGS: Clear. HEART: Regular rhythm. ABDOMEN: Still diffusely tender, perhaps a little better. On peripheral smear, she has 72,000 white cells, 23% bands, 11% monocytes, 6% metamyelocytes, 9% myel ocytes. Surprisingly, her renal function is improving. BUN is down to 60, creatinine is down to 0.8. Potass ium is 2.3; she has been replaced today. Her followup potassium is 3.3. Her anion gap is 13. Her albumin is down to 2.5. IMPRESSION: 1. 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 2. Low colony count of gram-negative leona in her urine. This does not need to be treated at this lindsay e, especially with a Marrero in place. 3. Deconditioning and advanced age with historically some findings consistent with early dementia, i .e., confusion with urinary tract infections. She is certainly at risk still for passing away with her colitis. I suspect just being bedridden kt l be the major risk factor for her dying with this. I think colectomy would also likely end up being ultimately fatal. I doubt an 82-year-old woman with some early dementia would be able to keep up wi th her fluid needs with an ileostomy. There is no easy answer in this situation. I do believe she i s slightly clinically improved, but very sick. She has had a monocytosis for some time and also has a lot of immature white cells, i.e., metamyelocytes and myelocytes circulating. She could have a com ponent of leukemia mixed in, but at this point in time, a bone marrow is not indicated and this will just need to be followed longitudinally. At this point in time, this all appears to be a leukemoid r eaction, but extremely impressive for an 82-year-old. We will continue with ICU care.
[2018-02-05] MEDS: Norepinephrine 8 MG/250 ML BAG IVPB PRN (13:24)
--- NOTE | 2018-02-05 23:10 | PRG ---
DATE OF SERVICE: 02/05/2018 SUBJECTIVE: Jessica Cardoso's family has decided to make her a DNR. They decided against surgery ja n if indicated. The patient was seemed to be doing better, but she has been requiring narcotics for pain control. OBJECTIVE: VITAL SIGNS: Blood pressure 104/42, heart rate 70, respiratory rate 14. LUNGS: Clear to auscultation. CARDIAC: Regular rate and rhythm without murmur or gallop. ABDOMEN: Soft, no guarding. EXTREMITIES: Unremarkable. LABORATORY DATA: White count down to 72,000 from 99,000. Hemoglobin 11, potassium 2.3. Potassium r eplacement undertaken. Sodium 144, BUN 60, creatinine 0.8. ASSESSMENT AND PLAN: Clostridium difficile colitis. Currently, she seems to be improving, family do es not want surgery. Continue supportive medical care. Hypokalemia replaced.
[2018-02-06] MEDS: Sodium Chloride 0.9% 1,000 ML IV SCH ×3 (00:08→08:45)
[2018-02-06] MEDS: metroNIDAZOLE 500 MG in Premix Bag 1 BAG IVPB SCH ×3 (05:04→21:04)
[2018-02-06 05:23] LABS: Anion Gap 11 mmol/L (10-20); BUN (Urea Nitrogen) 43 mg/dL (9.8-20.1); Calc. Creatinine Clearance 100 mL/min (70-130); Calcium 8.8 mg/dL (7.8-10.44); Carbon Dioxide 21 mmol/L (23-31); Chloride 116 mmol/L (98-107); Estimated GFR-MDRD 77; Glucose 103 mg/dL (83-110); Potassium 3.3 mmol/L (3.5-5.1); Sodium 145 mmol/L (136-145)
[2018-02-06] MEDS: Potassium Chloride 40 MEQ in Premix Bag 1 BAG IVPB PRN (05:27)
[2018-02-06 05:58] LABS: Band 32 % (5-11); Hemoglobin 10.4 g/dL (12.0-16.0); Lymphocytes 7 % (21-51); MDiff Complete? YES; Mean Corpuscular HGB CONC 32.1 g/dL (32.0-36.0); Mean Corpuscular Hemoglobin 31.6 pg (27.0-31.0); Mean Corpuscular Volume 98.7 fL (78.0-98.0); Mean Platelet Volume 9.8 fL (7.4-10.4); Metamyelocyte 6 % (0-0); Monocytes 9 % (0-10); Myelocyte 6 % (0-0); Neutrophil 40 % (42-75); PLT Morphology Comment Appears Adequate; Platelet Count 137 thou/uL (130-400); Polychromasia SLIGHT = 2-3 cells (100X) (0-2/hpf); RBC Distribution Width 14.8 % (11.5-14.5); Red Blood Cell (RBC) Count 3.28 mill/uL (4.20-5.40); White Blood Cell (WBC) Count 50.8 thou/uL (4.8-10.8)
[2018-02-06] MEDS: Budesonide 0.5 MG/2 ML NEB INH SCH ×2 (06:43→18:51)
[2018-02-06] MEDS: Nystatin Powder 15 GM BOT TOP SCH ×2 (08:18→21:08)
[2018-02-06] MEDS: Fluconazole 100 MG TAB PO SCH ×2 (08:18→11:37)
[2018-02-06] MEDS: Multivitamin W/ Minerals 1 TAB PO SCH ×2 (08:18→10:19)
--- NOTE | 2018-02-06 08:28 | RAD ---
SINGLE VIEW OF THE CHEST: COMPARISON: 02/05/18. HISTORY: Ventilated patient with respiratory failure. FINDINGS: A single view of the chest shows a cardiomediastinal silhouette which is upper limits of normal in si ze. The central venous catheter is unchanged in position. Increased interstitial lung markings are present. A calcified granuloma projects over the right lower lobe. No consolidation or pleural effu casey are seen. IMPRESSION: No evidence of acute cardiopulmonary disease. POS: [facility]
[2018-02-06] MEDS ORDERED: Potassium Chloride 40 MEQ in Premix Bag 1 BAG IVPB SCH (10:00)
--- NOTE | 2018-02-06 10:22 | PRG ---
DATE OF SERVICE: 02/05/2018 HISTORY OF PRESENT ILLNESS: Ms. Jessica Cardoso is a very pleasant 81-year-old hospitalized with hypotension, sepsis, abdominal pain, abdominal distention and CAT scan showing colitis. She fermin s marked leukocytosis on admission with a white cell count 102,000. She also has evidence of prerena l azotemia. She is on IV Flagyl, Diflucan and also vancomycin. She is not having diarrhea. The abd omen is very distended and very tight and tender. There is a possibility the patient has ischemic osmani wel disease. She was seen by General Surgery and because of high risk for surgery, no surgery was sc heduled. She actually appears to be turning the corner. Her abdomen is a lot softer and less tender than yesterday. She is still on IV fluids, Levophed and Flagyl. She is moaning and groaning. Upon asking her if she is in pain, she has no pain. She obviously . PHYSICAL EXAMINATION: VITAL SIGNS: Afebrile, temperature 97.5 degrees Fahrenheit, pulse is 85, blood pressure is 115/54. CARDIOVASCULAR SYSTEM/LUNGS: Normal. ABDOMEN: Still distended, but softer than before. Abdomen is nontender with palpating over the vari ous quadrants. Bowel sounds are not audible today. Her intake and output, intake total was 3110, output is 1590. LABORATORY: The lab data shows CBC coming down to WBC count of 32,100, hemoglobin 11, hematocrit 34, MCV 97, platelet count 150,000, polymorphs 49, bands 23. Chemistry panel shows potassium of 2.3 tod ay, CO2 is 22. Sodium 144. Bilirubin is dropping down to 860, creatinine 0.80, glucose 132. CLINICAL IMPRESSION: 1. Recurrent Clostridium difficile colitis, possibility of ischemic bowel disease. 2. Prerenal azotemia. 3. Hypotension . 4. Hyperkalemia. She had a potassium rider this morning. OVERALL IMPRESSION: She seems to be actually getting better with a drop in her white cell count and also the BUN. Also, abdomen is softer than before and actually nontender at this time. Her surgical risk is extremely very high and I believe she should be managed with symptomatic treatment and suppo rtive care.
[2018-02-06] MEDS: Sodium Chloride 0.45% 1,000 ML IV SCH ×2 (10:24→20:26)
[2018-02-06] MEDS ORDERED: Magnesium Sulfate 2 GM in Sodium Chloride 0.9% 100 ML IVPB SCH (10:30)
--- NOTE | 2018-02-06 10:30 | PRG ---
DATE OF SERVICE: 02/06/2018 SERVICE: Pulmonary Medicine. INTERVAL HISTORY: The patient is doing fine from a cardiovascular and respiratory standpoint. That being said, she continues to have severe abdominal discomfort requiring multiple doses of morphine. She is intermittently uncomfortable and encephalopathic. There has been no interval change to her co ndition, however. PHYSICAL EXAMINATION: VITAL SIGNS: Afebrile, pulse 96, blood pressure 95/44, respirations 19, saturation 100% on room air. GENERAL: The patient is encephalopathic. She will wake up and attend. HEENT: Normocephalic, atraumatic. Sclerae are white. Conjunctivae pink. Oral and nasal mucosa are dry. There are no lesions. LUNGS: Decent air entry. 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 HEART: Normal rate and regular. ABDOMEN: Distended. There is tenderness to palpation. No rebound or guarding is appreciated. MUSCULOSKELETAL: No cyanosis or clubbing. There is no pitting in the bilateral lower extremities. GENITOURINARY: Marrero catheter in place. LABORATORY DATA: WBC is nicely down trending to 51,000. Hemoglobin 10.4 and roughly stable, platele ts 137,000. Band count has increased to 32%. INR 1.3. Creatinine 0.72 and BUN 43. Chloride 116, s odium 145. Potassium 3.3. Urinalysis is essentially unremarkable. Urine culture, however, is growi ng Klebsiella which is a pansensitive organism. Blood cultures x2 are unremarkable. C. diff antigen and toxin are both positive. IMAGING DATA: Chest x-ray demonstrates left subclavian central venous catheter is in good position. Low lung volumes accentuated interstitial markings. That being said, I get the sense that there is a little bit of pulmonary vascular congestion present. Minimal blunting of the bilateral costophreni c angles is noted suggestive of small pleural effusions. ASSESSMENT: 1. Septic shock. 2. Clostridium difficile infection, severe. 3. Metabolic encephalopathy. 4. Hypokalemia. DISCUSSION AND PLAN: We will continue our supportive care. We will see if we can back off on the mo rphine ever so slightly. Potassium will be replaced. We will increase her free water ever so slight ly and decrease her salt load. Pulmonary or Critical Care will continue to follow along and the diana ent will certainly remain in the ICU for the next 24-48 hours. Mobilization efforts will be pursued once the patient more clearly turns the corner. She remains a DNI/DNR.
[2018-02-06] MEDS: Vancomycin HCl 25 MG/ML Oral PO SCH ×5 (10:52→21:07)
[2018-02-06] MEDS: Fluconazole In NaCl,Iso-Osm 100 MG in Admixture Fee 2 EACH IVPB SCH (11:29)
--- NOTE | 2018-02-06 11:35 | PDOC.PN ---
- Subjective Encounter Start Date: 02/06/18 Encounter Start Time: 09:40 Patient seen and examined for septic shock. No overnight events - Objective Resuscitation Status: Resuscitation Status DNR:Do Not Resuscitate MAR Reviewed: Yes Vital Signs & Weight: Vital Signs (12 hours) Temp Pulse Resp Pulse Ox 02/06/18 08:00 98.8 F 62 16 100 02/06/18 06:45 100 02/06/18 06:43 62 16 02/06/18 00:02 92 14 100 Weight Admit Weight 216 lb 14.958 oz Weight 236 lb 1.841 oz Most Recent Monitor Data Heart Rate from ECG 90 NIBP 97/47 NIBP BP-Mean 65 Respiration from ECG 12 SpO2 100 I&O: 02/05/18 02/06/18 02/07/18 06:59 06:59 06:59 Intake Total 3110 5026.4 100 Output Total 1590 1250 185 Balance 1520 3776.4 -85 Result Diagrams: 02/06/18 04:00 02/06/18 04:00 Radiology Reviewed by me: Yes (chest xray) EKG Reviewed by me: Yes (afib/flutter) Phys Exam - Physical Examination Constitutional: NAD HEENT: PERRLA, sclera anicteric dry MM Neck: no JVD, supple Respiratory: no wheezing, no rales, no rhonchi Cardiovascular: no significant murmur, irregular Gastrointestinal: soft, no distention, positive bowel sounds sore Musculoskeletal: no edema, pulses present Lymphatic: no nodes Skin: no rash, normal turgor Dx/Plan (1) Acute encephalopathy Code(s): G93.40 - ENCEPHALOPATHY, UNSPECIFIED Status: Acute Comment: (2) Acute kidney failure Status: Resolved (3) C. difficile colitis Status: Acute (4) Hypokalemia Code(s): E87.6 - HYPOKALEMIA Status: Acute Comment: (5) Hyponatremia Code(s): E87.1 - HYPO-OSMOLALITY AND HYPONATREMIA Status: Acute (6) Leukemoid reaction Code(s): D72.823 - LEUKEMOID REACTION Status: Acute (7) Physical deconditioning Code(s): R53.81 - OTHER MALAISE Status: Acute (8) Sepsis with acute organ dysfunction Code(s): A41.9 - SEPSIS, UNSPECIFIED ORGANISM; R65.20 - SEVERE SEPSIS WITHOUT SEPTIC SHOCK Status: Acute (9) Septic shock due to Clostridium difficile Code(s): [id number] - Status: Acute (10) HTN (hypertension) Code(s): I10 - ESSENTIAL (PRIMARY) HYPERTENSION Status: Chronic Qualifiers: Hypertension type: essential hypertension Qualified Code(s): I10 - Essential (primary) hypertension Comment: (11) Obesity (BMI 30-39.9) Code(s): E66.9 - OBESITY, UNSPECIFIED Status: Chronic (12) Coagulopathy Status: Resolved Comment: due to anticoagulation prior to admission and may be due to sepsis (13) H/O deep venous thrombosis Code(s): Z86.718 - PERSONAL HISTORY OF OTHER VENOUS THROMBOSIS AND EMBOLISM Status: Chronic Comment: right leg DVT - Plan cont current plan of care, plan discussed w/ family, continue antibiotics * still on levophed * continue IV flagyl and oral vancomycin * wbc is improving * wean off levophed as tolerated * daughter wanted to change SNU on discharge * medication reviewed as below * symptomatic treatment * replace potassium * discussed with family bedside. Review of Systems - Review of Systems Other: not reliable with pt due to her level of cognitive status - Medications/Allergies Allergies/Adverse Reactions: Allergies Allergy/AdvReac Type Severity Reaction Status Date / Time codeine Allergy Verified 02/03/18 15:07 ibuprofen [From Advil] Allergy Verified 02/03/18 15:07 naproxen [From Naprosyn] Allergy Verified 02/03/18 15:07 nitrofurantoin Allergy Verified 02/03/18 15:07 [From Macrobid] Penicillins Allergy Verified 02/03/18 15:07 rofecoxib [From Vioxx] Allergy Verified 02/03/18 15:07 Sulfa (Sulfonamide Allergy Verified 02/03/18 15:07 Antibiotics) Medications: Current Medications Acetaminophen (Tylenol) 650 mg PO Q4H PRN PRN Reason: Headache/Fever or Pain Last Admin: 02/03/18 22:18 Dose: 650 mg Al Hydroxide/Mg Hydroxide (Maalox) 30 ml PO Q6H PRN PRN Reason: Heartburn or Indigestion Albuterol/Ipratropium (Duoneb) 3 ml NEB [id number] [facility] Last Admin: 02/06/18 06:43 Dose: 3 ml Albuterol/Ipratropium (Duoneb) 3 ml NEB [id number] PRN PRN Reason: SOB &/or Wheezing Artificial Tears (Tears Renewed 15ml Bottle) 0 drop EA EYE PRN PRN PRN Reason: Dry Eyes Budesonide (Pulmicort Neb Solution) 0.5 mg INH BID-RT [facility] Last Admin: 02/06/18 06:43 Dose: 0.5 mg Fentanyl (Duragesic) 12 mcg TD Q3D [facility] Last Admin: 02/05/18 10:57 Dose: 12 mcg Guaifenesin (Robitussin Sf) 200 mg PO Q4H PRN PRN Reason: Cough Metronidazole 500 mg/ Device 100 mls @ 100 mls/hr IVPB Q8HR [facility] Last Admin: 02/06/18 05:04 Dose: 100 mls Norepinephrine Bitartrate (Levophed) 250 mls @ 0 mls/hr IVPB INF PRN; Protocol ; Titrate PRN Reason: Blood Pressure Last Admin: 02/05/18 13:24 Dose: 250 mls Potassium Chloride 40 meq/ (Sodium Chloride) 270 mls @ 135 mls/hr IVPB ASDIR PRN PRN Reason: FOR SERUM K+ 2.5 - 3.5 Potassium Chloride 40 meq/ (Device) 100 mls @ 50 mls/hr IVPB ASDIR PRN PRN Reason: FOR SERUM K+ 2.5 - 3.5 Last Admin: 02/06/18 05:27 Dose: 100 mls Magnesium Sulfate 1 gm/ Sodium (Chloride) 102 mls @ 102 mls/hr IV PRN PRN PRN Reason: MAG LEVEL 1.4 - 2.0 Magnesium Sulfate 2 gm/ Device 100 mls @ 100 mls/hr IVPB ASDIR PRN PRN Reason: MAGNESIUM < 1.4 Potassium Phosphate 9 mmol/ (Sodium Chloride) 103 mls @ 25.75 mls/hr IVPB ASDIR PRN PRN Reason: Phosphate 1.0-1.8 Potassium Phosphate 12 mmol/ (Sodium Chloride) 254 mls @ 63.5 mls/hr IV ASDIR PRN PRN Reason: Serum phosphate 0.5-0.9 Potassium Phosphate 15 mmol/ (Sodium Chloride) 255 mls @ 63.75 mls/hr IV ASDIR PRN PRN Reason: Serum Phos < 0.5 Sodium Chloride (1/2 Normal Saline) 1,000 mls @ 100 mls/hr IV .Q10H [facility] Last Admin: 02/06/18 10:24 Dose: 1,000 mls Magnesium Sulfate 2 gm/ Sodium (Chloride) 104 mls @ 100 mls/hr IVPB 1030 [facility] Stop: 02/06/18 12:30 Last Admin: 02/06/18 11:29 Dose: 104 mls Potassium Chloride 40 meq/ (Device) 100 mls @ 25 mls/hr IVPB 1000 [facility] Stop: 02/06/18 13:59 Last Admin: 02/06/18 10:22 Dose: 100 mls Fluconazole/Sodium Chloride 100 mg/ Miscellaneous Medication 50 mls @ 50 mls/ hr IVPB 1100 [facility] Last Admin: 02/06/18 11:29 Dose: 50 mls Iron/Minerals/Multivitamins (Theragran M) 1 tab PO DAILY [facility] Last Admin: 02/06/18 10:19 Dose: Not Given Loratadine (Claritin) 10 mg PO DAILYPRN PRN PRN Reason: Sinus Symptoms Magnesium Oxide (Magnesium Oxide) 400 mg PO BIDPRN PRN PRN Reason: FOR SERUM MAG 1.4 - 2.0 Magnesium Oxide (Magnesium Oxide) 800 mg PO PRN PRN PRN Reason: FOR SERUM MAG < 1.4 Mineral Oil/White Petrolatum (Eucerin Cream) 0 gm TOP BIDPRN PRN PRN Reason: Dry Skin Miscellaneous Medication (Phos-Nak) 1 pkt PO TIDPRN PRN PRN Reason: FOR PHOS LEVEL 1.0 - 1.8 Miscellaneous Medication (Phos-Nak) 2 pkt PO TIDPRN PRN PRN Reason: FOR PHOS LEVEL 0.5 - 1.0 Morphine Sulfate (Morphine Sulfate) 2 mg SLOW IVP Q1H PRN PRN Reason: Breakthrough Pain Ccu Electrolyte (Replacement Protocol) 0 each FS PRN PRN PRN Reason: FOR ELECTROLYTE REPLACEMENT Nystatin (Mycostatin Powder) 0 gm TOP BID [facility] Last Admin: 02/06/18 08:18 Dose: 1 applic Ondansetron HCl (Zofran Odt) 4 mg PO Q6H PRN PRN Reason: Nausea/Vomiting Ondansetron HCl (Zofran) 4 mg IVP Q6H PRN PRN Reason: Nausea/Vomiting Phenol (Chloraseptic [place] 180 Ml Bot) 0 ml PO PRN PRN PRN Reason: Sore Throat Potassium Chloride (K-Dur) 40 meq PO ASDIR PRN PRN Reason: FOR SERUM K+ 2.5 - 3.5 Potassium Chloride (Klor-Con) 40 meq PER TUBE ASDIR PRN PRN Reason: FOR SERUM K+ 2.5-3.5 Simethicone (Mylicon Chewable) 80 mg PO [facility] Stop: 02/07/18 13:01 Sodium Chloride ([place] Nasal [place] 0.65%) 0 ml EA NARE QIDPRN PRN PRN Reason: Nasal Congestion Sodium Chloride (Flush - Normal Saline) 10 ml IVF Q12HR [facility] Sodium Chloride (Flush - Normal Saline) 10 ml IVF PRN PRN PRN Reason: Saline Flush Vancomycin HCl (First Vancomycin) 500 mg PO QID [facility] Last Admin: 02/06/18 10:52 Dose: Not Given
[2018-02-06] MEDS: Simethicone Chewable 80 MG TAB PO SCH ×3 (13:27→21:04)
--- NOTE | 2018-02-06 15:14 | RAD ---
SINGLE VIEW OF THE ABDOMEN: COMPARISON: 02/04/18. HISTORY: Dobbhoff placement. FINDINGS: A single view of the upper abdomen shows a Dobbhoff tube located in the left upper quadrant of the ab domen, likely within the stomach. A nonobstructive bowel gas pattern is seen. The patient has a fra ctured inferior vena cava filter with one of the limbs in the right lobe of the liver. IMPRESSION: Dobbhoff tube located in the stomach. POS: [facility]
--- NOTE | 2018-02-06 21:40 | PRG ---
DATE OF SERVICE: 02/06/2018 SUBJECTIVE: Ms. Cardoso seems to be doing better. She is still is in pain. PHYSICAL EXAMINATION: VITAL SIGNS: Stable, 102/58, respiratory rate 15, heart rate 91. Urine output 1250 over the past 24 hours. LUNGS: Clear to auscultation. CARDIAC: Regular rate and rhythm. ABDOMEN: Softer, less tender. No guarding. LABORATORY DATA: Her white blood cell count has fallen from down to 50,000, hemoglobin 10.4. Basic metabolic profile improved with BUN down to 43, creatinine 0.72. ASSESSMENT AND PLAN: 1. Clostridium difficile colitis. Continue current care. 2. DNR status. At this point, I will see her as needed. Her family does not want operative interve ntion. Please call if necessary.
[2018-02-07 05:24] LABS: Anion Gap 14 mmol/L (10-20); BUN (Urea Nitrogen) 35 mg/dL (9.8-20.1); Band 20 % (5-11); Calc. Creatinine Clearance 102 mL/min (70-130); Calcium 9.3 mg/dL (7.8-10.44); Carbon Dioxide 19 mmol/L (23-31); Chloride 120 mmol/L (98-107); Estimated GFR-MDRD 79; Glucose 92 mg/dL (83-110); Hemoglobin 10.1 g/dL (12.0-16.0); Lymphocytes 16 % (21-51); MDiff Complete? YES; Magnesium 1.7 mg/dL (1.6-2.6); Mean Corpuscular HGB CONC 31.5 g/dL (32.0-36.0); Mean Corpuscular Hemoglobin 31.1 pg (27.0-31.0); Mean Corpuscular Volume 98.8 fL (78.0-98.0); Mean Platelet Volume 9.1 fL (7.4-10.4); Monocytes 15 % (0-10); Myelocyte 3 % (0-0); Neutrophil 46 % (42-75); Phosphorus 2.4 mg/dL (2.3-4.7); Platelet Count 132 thou/uL (130-400); Potassium 4.8 mmol/L (3.5-5.1); RBC Distribution Width 15.4 % (11.5-14.5); Red Blood Cell (RBC) Count 3.26 mill/uL (4.20-5.40); Sodium 148 mmol/L (136-145); White Blood Cell (WBC) Count 39.1 thou/uL (4.8-10.8)
[2018-02-07] MEDS: Sodium Chloride 0.45% 1,000 ML IV SCH (06:00)
[2018-02-07] MEDS: metroNIDAZOLE 500 MG in Premix Bag 1 BAG IVPB SCH ×3 (06:01→20:17)
[2018-02-07] MEDS: Nystatin Powder 15 GM BOT TOP SCH ×2 (07:54→19:59)
[2018-02-07] MEDS: Vancomycin HCl 25 MG/ML Oral PO SCH ×4 (07:54→21:25)
[2018-02-07] MEDS: Multivitamin W/ Minerals 1 TAB PO SCH (07:54)
[2018-02-07] MEDS: Simethicone Chewable 80 MG TAB PO SCH ×2 (07:54→12:23)
[2018-02-07] MEDS: Multivits W-Minerals Liquid 15mL UDCUP PER TUBE SCH (09:05)
[2018-02-07] MEDS: Budesonide 0.5 MG/2 ML NEB INH SCH ×2 (09:06→18:37)
--- NOTE | 2018-02-07 10:40 | PDOC.PN ---
- Subjective Encounter Start Date: 02/07/18 Encounter Start Time: 09:50 Patient seen and examined for septic shock and c-diff, today she is off levophed , vital stable. No overnight events - Objective Resuscitation Status: Resuscitation Status DNR:Do Not Resuscitate MAR Reviewed: Yes Vital Signs & Weight: Vital Signs (12 hours) Temp Pulse Resp Pulse Ox 02/07/18 09:07 99 02/07/18 09:06 86 20 02/07/18 08:00 99.1 F 94 18 98 02/07/18 00:31 94 18 98 Weight Admit Weight 216 lb 14.958 oz Weight 243 lb 2.718 oz Most Recent Monitor Data Heart Rate from ECG 84 NIBP 110/85 NIBP BP-Mean 102 Respiration from ECG 17 SpO2 100 I&O: 02/06/18 02/07/18 02/08/18 06:59 06:59 06:59 Intake Total 5026.4 3481.8 Output Total 1250 805 105 Balance 3776.4 2676.8 -105 Result Diagrams: 02/07/18 04:45 02/07/18 04:45 EKG Reviewed by me: Yes (afib) Phys Exam - Physical Examination Constitutional: NAD HEENT: PERRLA, sclera anicteric she has dubhuff tube+ Neck: no JVD, supple Respiratory: no wheezing, no rales, no rhonchi Cardiovascular: no significant murmur, irregular Gastrointestinal: soft, no distention, positive bowel sounds sore Musculoskeletal: no edema, pulses present unable to assess Lymphatic: no nodes Deviation from normal: unable to assess Skin: no rash, normal turgor Dx/Plan (1) Acute encephalopathy Code(s): G93.40 - ENCEPHALOPATHY, UNSPECIFIED Status: Acute Comment: (2) Acute kidney failure Status: Resolved (3) C. difficile colitis Status: Acute (4) Hypokalemia Code(s): E87.6 - HYPOKALEMIA Status: Acute Comment: (5) Hyponatremia Code(s): E87.1 - HYPO-OSMOLALITY AND HYPONATREMIA Status: Acute (6) Leukemoid reaction Code(s): D72.823 - LEUKEMOID REACTION Status: Acute (7) Physical deconditioning Code(s): R53.81 - OTHER MALAISE Status: Acute (8) Sepsis with acute organ dysfunction Code(s): A41.9 - SEPSIS, UNSPECIFIED ORGANISM; R65.20 - SEVERE SEPSIS WITHOUT SEPTIC SHOCK Status: Acute (9) Septic shock due to Clostridium difficile Code(s): [id number] - Status: Acute (10) HTN (hypertension) Code(s): I10 - ESSENTIAL (PRIMARY) HYPERTENSION Status: Chronic Qualifiers: Hypertension type: essential hypertension Qualified Code(s): I10 - Essential (primary) hypertension Comment: (11) Obesity (BMI 30-39.9) Code(s): E66.9 - OBESITY, UNSPECIFIED Status: Chronic (12) Coagulopathy Status: Resolved Comment: due to anticoagulation prior to admission and may be due to sepsis (13) H/O deep venous thrombosis Code(s): Z86.718 - PERSONAL HISTORY OF OTHER VENOUS THROMBOSIS AND EMBOLISM Status: Chronic Comment: right leg DVT - Plan cont current plan of care, continue antibiotics * continue oral vancomycin and IV flagyl * continue IVF * dubhuff tube feeding * wbc count is improving * medication reviewed as below * symptomatic treatment * if her Bp remains stable off levophed, then will consider transfer to medical/ tele. Review of Systems - Review of Systems Other: not reliable with pt due to her level of cognitive status - Medications/Allergies Allergies/Adverse Reactions: Allergies Allergy/AdvReac Type Severity Reaction Status Date / Time codeine Allergy Verified 02/03/18 15:07 ibuprofen [From Advil] Allergy Verified 02/03/18 15:07 naproxen [From Naprosyn] Allergy Verified 02/03/18 15:07 nitrofurantoin Allergy Verified 02/03/18 15:07 [From Macrobid] Penicillins Allergy Verified 02/03/18 15:07 rofecoxib [From Vioxx] Allergy Verified 02/03/18 15:07 Sulfa (Sulfonamide Allergy Verified 02/03/18 15:07 Antibiotics) Medications: Current Medications Acetaminophen (Tylenol) 650 mg PO Q4H PRN PRN Reason: Headache/Fever or Pain Last Admin: 02/03/18 22:18 Dose: 650 mg Al Hydroxide/Mg Hydroxide (Maalox) 30 ml PO Q6H PRN PRN Reason: Heartburn or Indigestion Albuterol/Ipratropium (Duoneb) 3 ml NEB [id number] [facility] Last Admin: 02/07/18 09:06 Dose: 3 ml Albuterol/Ipratropium (Duoneb) 3 ml NEB [id number] PRN PRN Reason: SOB &/or Wheezing Artificial Tears (Tears Renewed 15ml Bottle) 0 drop EA EYE PRN PRN PRN Reason: Dry Eyes Budesonide (Pulmicort Neb Solution) 0.5 mg INH BID-RT [facility] Last Admin: 02/07/18 09:06 Dose: 0.5 mg Fentanyl (Duragesic) 12 mcg TD Q3D [facility] Last Admin: 02/05/18 10:57 Dose: 12 mcg Guaifenesin (Robitussin Sf) 200 mg PO Q4H PRN PRN Reason: Cough Metronidazole 500 mg/ Device 100 mls @ 100 mls/hr IVPB Q8HR [facility] Last Admin: 02/07/18 06:01 Dose: 100 mls Norepinephrine Bitartrate (Levophed) 250 mls @ 0 mls/hr IVPB INF PRN; Protocol ; Titrate PRN Reason: Blood Pressure Last Admin: 02/05/18 13:24 Dose: 250 mls Potassium Chloride 40 meq/ (Sodium Chloride) 270 mls @ 135 mls/hr IVPB ASDIR PRN PRN Reason: FOR SERUM K+ 2.5 - 3.5 Potassium Chloride 40 meq/ (Device) 100 mls @ 50 mls/hr IVPB ASDIR PRN PRN Reason: FOR SERUM K+ 2.5 - 3.5 Last Admin: 02/06/18 05:27 Dose: 100 mls Magnesium Sulfate 1 gm/ Sodium (Chloride) 102 mls @ 102 mls/hr IV PRN PRN PRN Reason: MAG LEVEL 1.4 - 2.0 Last Admin: 02/07/18 06:17 Dose: 102 mls Magnesium Sulfate 2 gm/ Device 100 mls @ 100 mls/hr IVPB ASDIR PRN PRN Reason: MAGNESIUM < 1.4 Potassium Phosphate 9 mmol/ (Sodium Chloride) 103 mls @ 25.75 mls/hr IVPB ASDIR PRN PRN Reason: Phosphate 1.0-1.8 Potassium Phosphate 12 mmol/ (Sodium Chloride) 254 mls @ 63.5 mls/hr IV ASDIR PRN PRN Reason: Serum phosphate 0.5-0.9 Potassium Phosphate 15 mmol/ (Sodium Chloride) 255 mls @ 63.75 mls/hr IV ASDIR PRN PRN Reason: Serum Phos < 0.5 Sodium Chloride (1/2 Normal Saline) 1,000 mls @ 100 mls/hr IV .Q10H [facility] Last Admin: 02/07/18 06:00 Dose: 1,000 mls Fluconazole/Sodium Chloride 100 mg/ Miscellaneous Medication 50 mls @ 50 mls/ hr IVPB 1100 [facility] Last Admin: 02/06/18 11:29 Dose: 50 mls Iron/Minerals/Multivitamins (Certa Lo Liquid) 15 ml PER TUBE DAILY [facility] Last Admin: 02/07/18 09:05 Dose: 15 ml Loratadine (Claritin) 10 mg PO DAILYPRN PRN PRN Reason: Sinus Symptoms Magnesium Oxide (Magnesium Oxide) 400 mg PO BIDPRN PRN PRN Reason: FOR SERUM MAG 1.4 - 2.0 Magnesium Oxide (Magnesium Oxide) 800 mg PO PRN PRN PRN Reason: FOR SERUM MAG < 1.4 Mineral Oil/White Petrolatum (Eucerin Cream) 0 gm TOP BIDPRN PRN PRN Reason: Dry Skin Miscellaneous Medication (Phos-Nak) 1 pkt PO TIDPRN PRN PRN Reason: FOR PHOS LEVEL 1.0 - 1.8 Miscellaneous Medication (Phos-Nak) 2 pkt PO TIDPRN PRN PRN Reason: FOR PHOS LEVEL 0.5 - 1.0 Morphine Sulfate (Morphine Sulfate) 2 mg SLOW IVP Q1H PRN PRN Reason: Breakthrough Pain Last Admin: 02/07/18 00:02 Dose: 2 mg [facility] Electrolyte (Replacement Protocol) 0 each FS PRN PRN PRN Reason: FOR ELECTROLYTE REPLACEMENT Nystatin (Mycostatin Powder) 0 gm TOP BID [facility] Last Admin: 02/07/18 07:54 Dose: 1 applic Ondansetron HCl (Zofran Odt) 4 mg PO Q6H PRN PRN Reason: Nausea/Vomiting Ondansetron HCl (Zofran) 4 mg IVP Q6H PRN PRN Reason: Nausea/Vomiting Phenol (Chloraseptic [place] 180 Ml Bot) 0 ml PO PRN PRN PRN Reason: Sore Throat Potassium Chloride (K-Dur) 40 meq PO ASDIR PRN PRN Reason: FOR SERUM K+ 2.5 - 3.5 Potassium Chloride (Klor-Con) 40 meq PER TUBE ASDIR PRN PRN Reason: FOR SERUM K+ 2.5-3.5 Simethicone (Mylicon Chewable) 80 mg PO [facility] Stop: 02/07/18 13:01 Last Admin: 02/07/18 07:54 Dose: 80 mg Sodium Chloride ([place] Nasal [place] 0.65%) 0 ml EA NARE QIDPRN PRN PRN Reason: Nasal Congestion Sodium Chloride (Flush - Normal Saline) 10 ml IVF Q12HR [facility] Last Admin: 02/07/18 07:55 Dose: 10 ml Sodium Chloride (Flush - Normal Saline) 10 ml IVF PRN PRN PRN Reason: Saline Flush Vancomycin HCl (First Vancomycin) 500 mg PO QID [facility] Last Admin: 02/07/18 07:54 Dose: 500 mg
[2018-02-07] MEDS ORDERED: Magnesium Sulfate 2 GM in Sodium Chloride 0.9% 100 ML IVPB SCH (11:30)
[2018-02-07] MEDS: Fluconazole In NaCl,Iso-Osm 100 MG in Admixture Fee 2 EACH IVPB SCH (11:34)
--- NOTE | 2018-02-07 12:15 | PRG ---
DATE OF SERVICE: 02/07/2018 SERVICE: Pulmonary Medicine. INTERVAL HISTORY: The patient is doing really well from a respiratory standpoint. Her mentation is much improved today. That being said, she continues to moan if stimulated. Outside of that, however , she remains alert and cooperative for the most part. OBJECTIVE: VITAL SIGNS: Afebrile, pulse 86, blood pressure 110/85, respirations 20, saturation 99% on room air. GENERAL: The patient is awake and alert, in no apparent distress. LUNGS: Decent air entry. There is no prolonged expiratory phase or wheezing. HEART: Normal rate, regular. ABDOMEN: Distended. Tender to palpation, but I do not appreciate significant rebound or guarding. Bowel sounds are active. MUSCULOSKELETAL: No cyanosis or clubbing. She does have 2+ edema despite the fact that she has othe r signs (01:07) is dry. GENITOURINARY: Marrero catheter in place. NEUROLOGIC: Grossly nonfocal. LABORATORY DATA: WBC continues to trend downward to 39.1, hemoglobin 10.1, platelets 132,000. Band count is dropping nicely to 20%. INR 1.3. Basic metabolic profile is essentially unremarkable excep t for a magnesium of 1.7, phosphorous falls within the normal limits. Chloride and sodium are both t rending upward. Urine culture is growing Klebsiella pneumonia, which is pansensitive. Blood culture s x2 are negative. C. diff antigen and toxin are positive. IMAGING: Abdominal x-ray demonstrates Dobbhoff tube in the stomach. Nonobstructive bowel gas patter n is identified. ASSESSMENT: 1. Septic shock, improving. 2. Clostridium difficile infection, severe. 3. Metabolic encephalopathy. 4. Urinary tract infection secondary to Klebsiella. 5. Hypokalemia, resolved. DISCUSSION AND PLAN: We will discontinue her half normal saline and start her on D5 water at 100 per hour. Hopefully, her sodium and chloride will start to settle down a touch. Overall, I do believe she is little volume overloaded, but intravascularly, she is euvolemic to slightly dry. As such, no aggressive fluid resuscitation will be considered. If she is not eating by the end of the day, we wi ll put a Dobbhoff tube down and initiate some gentle nutrition since we have good evidence to suggest that her bowels are working again. Dr. Bal will assume care in the morning.
[2018-02-07] MEDS: Dextrose 5% in Water 1,000 ML IV SCH ×2 (12:22→19:59)
--- NOTE | 2018-02-07 18:15 | PRG ---
DATE OF SERVICE: 02/06/2018 SUBJECTIVE: Walker is a very pleasant 82-year-old , who was hospitalized 3 days ago with a bdominal pain, abdominal distention, sepsis, and also leukocytosis, and evidence of kidney injury. I t was felt that the patient could have a combination of C. difficile colitis and also ischemic coliti s. The patient was seen by Dr. Benitez . She has been on antibiotics including vancomycin, Flag yl, and Diflucan. Surprisingly, she is making slow, but steady progress. She appears more comfortab le. getting some pain medication. There is no nausea and no vomiting. She became restless an d moans and groans of and on. Her WBC count is down to 51,000, hemoglobin 10.4, hematocrit is slight ly low, platelet count 137,000. Bandemia of 32%. The BUN is 43, creatinine is down to 0.72. Chem-7 is okay except for mild hypokalemia. The blood cultures x2 is negative. Urine culture shows Klebsi brianna. She is having good urine output. PHYSICAL EXAMINATION: GENERAL: Patient is obese. She is afebrile. Pulse is 96, blood pressure is 100/60. CARDIOVASCULAR: Lungs within normal limits. ABDOMEN: Mildly distended, but much softer than before. She is still mildly tender. Overall, the e xam is likely very benign. CLINICAL IMPRESSION: 1. Recurrent Clostridium difficile colitis. 2. Possible ischemic colitis. 3. Acute kidney injury, resolving with a drop in BUN and creatinine. 4. Hypokalemia. 5. Recurrent urinary tract infection. RECOMMENDATIONS: Continue present treatment and follow up the lab. She seemed to be actually and she is making good progress. Abdominal exam is actually .
[2018-02-08 05:18] LABS: Anion Gap 10 mmol/L (10-20); BUN (Urea Nitrogen) 33 mg/dL (9.8-20.1); Calc. Creatinine Clearance 99 mL/min (70-130); Calcium 8.9 mg/dL (7.8-10.44); Carbon Dioxide 20 mmol/L (23-31); Chloride 118 mmol/L (98-107); Estimated GFR-MDRD 74; Glucose 176 mg/dL (83-110); Potassium 4.6 mmol/L (3.5-5.1); Sodium 143 mmol/L (136-145)
[2018-02-08] MEDS: metroNIDAZOLE 500 MG in Premix Bag 1 BAG IVPB SCH ×3 (05:44→21:28)
[2018-02-08 05:59] LABS: Band 24 % (5-11); Lymphocytes 10 % (21-51); MDiff Complete? YES; Mean Corpuscular HGB CONC 32.4 g/dL (32.0-36.0); Mean Corpuscular Volume 98.9 fL (78.0-98.0); Mean Platelet Volume 9.4 fL (7.4-10.4); Metamyelocyte 2 % (0-0); Monocytes 17 % (0-10); Myelocyte 2 % (0-0); Neutrophil 45 % (42-75); PLT Morphology Comment Appears Decreased; Platelet Count 117 thou/uL (130-400); RBC Distribution Width 15.3 % (11.5-14.5); Red Blood Cell (RBC) Count 3.12 mill/uL (4.20-5.40)
[2018-02-08] MEDS: Budesonide 0.5 MG/2 ML NEB INH SCH ×2 (08:23→18:49)
[2018-02-08] MEDS: Vancomycin HCl 25 MG/ML Oral PO SCH ×4 (08:26→21:27)
[2018-02-08] MEDS: Nystatin Powder 15 GM BOT TOP SCH ×2 (08:27→21:29)
[2018-02-08] MEDS: Multivits W-Minerals Liquid 15mL UDCUP PER TUBE SCH (08:27)
--- NOTE | 2018-02-08 09:51 | PDOC.PN ---
- Subjective Encounter Start Date: 02/08/18 Encounter Start Time: 09:20 pt is moaning and delirious, asking for help, mild distress, BP stable - Objective Resuscitation Status: Resuscitation Status DNR:Do Not Resuscitate MAR Reviewed: Yes Vital Signs & Weight: Vital Signs (12 hours) Temp Pulse Pulse Pulse Resp BP BP 02/08/18 09:33 98 86 91/45 L 88/50 L 02/08/18 08:22 81 18 02/08/18 07:10 96.2 F L 87 16 02/08/18 05:50 86 18 02/08/18 03:45 98.3 F 84 12 02/08/18 01:05 85 16 02/07/18 23:05 99.2 F 90 16 BP Pulse Ox Pulse Ox 02/08/18 09:33 99 02/08/18 08:22 95 02/08/18 07:10 93/49 L 100 02/08/18 05:50 101/56 L 96 02/08/18 03:45 90/46 L 100 02/08/18 01:05 100 02/07/18 23:05 122/65 95 Weight Admit Weight 238 lb 1.588 oz Weight 256 lb 4.8 oz Most Recent Monitor Data Heart Rate from ECG 81 NIBP 114/50 NIBP BP-Mean 68 Respiration from ECG 14 SpO2 99 I&O: 02/07/18 02/08/18 02/09/18 06:59 06:59 06:59 Intake Total 3481.8 3680 Output Total 805 765 Balance 2676.8 2915 Result Diagrams: 02/08/18 03:45 02/08/18 03:45 EKG Reviewed by me: Yes (afib) Phys Exam - Physical Examination Constitutional: NAD HEENT: PERRLA, sclera anicteric dubhuff tube+ Neck: no JVD, supple Respiratory: no wheezing, no rales, no rhonchi reduced air entry Cardiovascular: no significant murmur, irregular Gastrointestinal: soft, no distention, positive bowel sounds diffuse soreness Musculoskeletal: pulses present, edema present Neurological: non-focal Lymphatic: no nodes Psychiatric: normal affect Skin: no rash, normal turgor Dx/Plan (1) Acute encephalopathy Code(s): G93.40 - ENCEPHALOPATHY, UNSPECIFIED Status: Acute Comment: (2) Acute kidney failure Status: Resolved (3) C. difficile colitis Status: Acute (4) Hypokalemia Code(s): E87.6 - HYPOKALEMIA Status: Acute Comment: (5) Hyponatremia Code(s): E87.1 - HYPO-OSMOLALITY AND HYPONATREMIA Status: Acute (6) Leukemoid reaction Code(s): D72.823 - LEUKEMOID REACTION Status: Acute (7) Physical deconditioning Code(s): R53.81 - OTHER MALAISE Status: Acute (8) Sepsis with acute organ dysfunction Code(s): A41.9 - SEPSIS, UNSPECIFIED ORGANISM; R65.20 - SEVERE SEPSIS WITHOUT SEPTIC SHOCK Status: Acute (9) Septic shock due to Clostridium difficile Code(s): OCE2276 - Status: Acute (10) HTN (hypertension) Code(s): I10 - ESSENTIAL (PRIMARY) HYPERTENSION Status: Chronic Qualifiers: Hypertension type: essential hypertension Qualified Code(s): I10 - Essential (primary) hypertension Comment: (11) Obesity (BMI 30-39.9) Code(s): E66.9 - OBESITY, UNSPECIFIED Status: Chronic (12) Coagulopathy Status: Resolved Comment: due to anticoagulation prior to admission and may be due to sepsis (13) H/O deep venous thrombosis Code(s): Z86.718 - PERSONAL HISTORY OF OTHER VENOUS THROMBOSIS AND EMBOLISM Status: Chronic Comment: right leg DVT - Plan cont current plan of care, continue antibiotics * septic shock resolved, sepsis is improving * BP stable * continue gentle IVF * continue oral vancomycin and IV flagyl * wbc count is improving * medication reviewed as below * symptomatic treatment. * family wanted to change alf on discharge * still not ready for discharge Review of Systems - Review of Systems Other: not reliable due to encephalopathy - Medications/Allergies Allergies/Adverse Reactions: Allergies Allergy/AdvReac Type Severity Reaction Status Date / Time codeine Allergy Verified 02/03/18 15:07 ibuprofen [From Advil] Allergy Verified 02/03/18 15:07 naproxen [From Naprosyn] Allergy Verified 02/03/18 15:07 nitrofurantoin Allergy Verified 02/03/18 15:07 [From Macrobid] Penicillins Allergy Verified 02/03/18 15:07 rofecoxib [From Vioxx] Allergy Verified 02/03/18 15:07 Sulfa (Sulfonamide Allergy Verified 02/03/18 15:07 Antibiotics) Medications: Current Medications Acetaminophen (Tylenol) 650 mg PO Q4H PRN PRN Reason: Headache/Fever or Pain Last Admin: 02/03/18 22:18 Dose: 650 mg Al Hydroxide/Mg Hydroxide (Maalox) 30 ml PO Q6H PRN PRN Reason: Heartburn or Indigestion Albuterol/Ipratropium (Duoneb) 3 ml NEB [id number] Last Admin: 02/08/18 08:22 Dose: 3 ml Albuterol/Ipratropium (Duoneb) 3 ml NEB [id number] PRN PRN Reason: SOB &/or Wheezing Artificial Tears (Tears Renewed 15ml Bottle) 0 drop EA EYE PRN PRN PRN Reason: Dry Eyes Budesonide (Pulmicort Neb Solution) 0.5 mg INH BID-RT [facility] Last Admin: 02/08/18 08:23 Dose: 0.5 mg Fentanyl (Duragesic) 12 mcg TD Q3D [facility] Last Admin: 02/05/18 10:57 Dose: 12 mcg Guaifenesin (Robitussin Sf) 200 mg PO Q4H PRN PRN Reason: Cough Metronidazole 500 mg/ Device 100 mls @ 100 mls/hr IVPB Q8HR [facility] Last Admin: 02/08/18 05:44 Dose: 100 mls Norepinephrine Bitartrate (Levophed) 250 mls @ 0 mls/hr IVPB INF PRN; Protocol ; Titrate PRN Reason: Blood Pressure Last Admin: 02/05/18 13:24 Dose: 250 mls Potassium Chloride 40 meq/ (Sodium Chloride) 270 mls @ 135 mls/hr IVPB ASDIR PRN PRN Reason: FOR SERUM K+ 2.5 - 3.5 Potassium Chloride 40 meq/ (Device) 100 mls @ 50 mls/hr IVPB ASDIR PRN PRN Reason: FOR SERUM K+ 2.5 - 3.5 Last Admin: 02/06/18 05:27 Dose: 100 mls Magnesium Sulfate 1 gm/ Sodium (Chloride) 102 mls @ 102 mls/hr IV PRN PRN PRN Reason: MAG LEVEL 1.4 - 2.0 Last Admin: 02/07/18 06:17 Dose: 102 mls Magnesium Sulfate 2 gm/ Device 100 mls @ 100 mls/hr IVPB ASDIR PRN PRN Reason: MAGNESIUM < 1.4 Potassium Phosphate 9 mmol/ (Sodium Chloride) 103 mls @ 25.75 mls/hr IVPB ASDIR PRN PRN Reason: Phosphate 1.0-1.8 Potassium Phosphate 12 mmol/ (Sodium Chloride) 254 mls @ 63.5 mls/hr IV ASDIR PRN PRN Reason: Serum phosphate 0.5-0.9 Potassium Phosphate 15 mmol/ (Sodium Chloride) 255 mls @ 63.75 mls/hr IV ASDIR PRN PRN Reason: Serum Phos < 0.5 Ciprofloxacin/Dextrose 400 mg/ (Device) 200 mls @ 200 mls/hr IVPB 1200,2359 [facility] Last Admin: 02/07/18 23:07 Dose: 200 mls Dextrose/Water (D5w) 1,000 mls @ 100 mls/hr IV .Q10H [facility] Last Admin: 02/07/18 19:59 Dose: 1,000 mls Iron/Minerals/Multivitamins (Certa Lo Liquid) 15 ml PER TUBE DAILY [facility] Last Admin: 02/08/18 08:27 Dose: 15 ml Loratadine (Claritin) 10 mg PO DAILYPRN PRN PRN Reason: Sinus Symptoms Magnesium Oxide (Magnesium Oxide) 400 mg PO BIDPRN PRN PRN Reason: FOR SERUM MAG 1.4 - 2.0 Magnesium Oxide (Magnesium Oxide) 800 mg PO PRN PRN PRN Reason: FOR SERUM MAG < 1.4 Mineral Oil/White Petrolatum (Eucerin Cream) 0 gm TOP BIDPRN PRN PRN Reason: Dry Skin Miscellaneous Medication (Phos-Nak) 1 pkt PO TIDPRN PRN PRN Reason: FOR PHOS LEVEL 1.0 - 1.8 Miscellaneous Medication (Phos-Nak) 2 pkt PO TIDPRN PRN PRN Reason: FOR PHOS LEVEL 0.5 - 1.0 Morphine Sulfate (Morphine Sulfate) 2 mg SLOW IVP Q1H PRN PRN Reason: Breakthrough Pain Last Admin: 02/08/18 08:24 Dose: 2 mg Ccu Electrolyte (Replacement Protocol) 0 each FS PRN PRN PRN Reason: FOR ELECTROLYTE REPLACEMENT Nystatin (Mycostatin Powder) 0 gm TOP BID [facility] Last Admin: 02/08/18 08:27 Dose: 1 applic Ondansetron HCl (Zofran Odt) 4 mg PO Q6H PRN PRN Reason: Nausea/Vomiting Ondansetron HCl (Zofran) 4 mg IVP Q6H PRN PRN Reason: Nausea/Vomiting Phenol (Chloraseptic [place] 180 Ml Bot) 0 ml PO PRN PRN PRN Reason: Sore Throat Potassium Chloride (K-Dur) 40 meq PO ASDIR PRN PRN Reason: FOR SERUM K+ 2.5 - 3.5 Potassium Chloride (Klor-Con) 40 meq PER TUBE ASDIR PRN PRN Reason: FOR SERUM K+ 2.5-3.5 Sodium Chloride ([place] Nasal [place] 0.65%) 0 ml EA NARE QIDPRN PRN PRN Reason: Nasal Congestion Sodium Chloride (Flush - Normal Saline) 10 ml IVF Q12HR [facility] Last Admin: 02/08/18 08:28 Dose: 10 ml Sodium Chloride (Flush - Normal Saline) 10 ml IVF PRN PRN PRN Reason: Saline Flush Vancomycin HCl (First Vancomycin) 500 mg PO QID [facility] Last Admin: 02/08/18 08:26 Dose: 500 mg
--- NOTE | 2018-02-08 10:11 | PRG ---
DATE OF SERVICE: 02/07/2018 SUBJECTIVE: Ms. Jessica Cardoso is a very pleasant 82-year-old female with recurrent C. dif ficile colitis and diarrhea, possibly septic on admission. She is markedly tender over the abdomen. The patient has seen (00:28) surgery and surgery did not recommend any exploratory laparectomy . The patient's blood count has been steadily coming down. On admission, her CBC show WBC count of 102,000. She is on IV antibiotic and also vancomycin. WBC count is trending up slowly but steadily. Also liver functions improving. Dr. Benigno Pizaror wanted a Dobhoff placement for feeding purposes today. The patient is awake, but she moans and groans for no reason. When abdomen sometimes does really groan. OBJECTIVE: VITAL SIGNS: Afebrile, pulse is 81, blood pressure 141/50. CARDIOVASCULAR: First and second heart sounds normal. LUNGS: Clear to auscultation. ABDOMEN: Distended, but soft to palpate. Abdomen is mildly tender. There is no rebound or guarding . LABORATORY DATA: From today, CBC: WBC trending down to 39,100, hemoglobin 10.1, hematocrit 32.2, MC V 98.8, platelet count 132,000. Chemistry panel: Sodium is 148, potassium 4.8, chloride 120, bicarb lonny 19, BUN 35, creatinine 0.71. CLINICAL IMPRESSION: 1. Clostridium difficile colitis, sepsis. 2. Possibility of ischemic colitis exists. 3. Prerenal azotemia, getting better. Recommendation is to continue on vancomycin and also IV Flagyl. I would agree with a Dobhoff placeme and start tube feeding today.
[2018-02-08] MEDS: Dextrose 5% in Water 1,000 ML IV SCH ×2 (10:21→21:29)
--- NOTE | 2018-02-08 15:49 | PRG ---
DATE OF SERVICE: 02/08/2018 SUBJECTIVE: Ms. Cardoso'carmen pain continues to wax and wane. Her daughter said she looked good yesterd ay and then on another conversation told me that she did not look good yesterday. She looked terrible this morning and both the palliative care nurse and the nurse caring for her on [facility] care unit agreed that she looked miserable. OBJECTIVE: VITAL SIGNS: She is afebrile. Oximetry is high 90s, heart rate is in the 80s. Blood pressure is 91 /45. LUNGS: Clear. HEART: Regular rhythm. ABDOMEN: Still diffusely tender, maybe a little better than it was last week. LABORATORY DATA: White count is 32,000, hemoglobin 10, platelets 117,000. Sodium 143, potassium 4.6 , chloride 118, bicarbonate 20, BUN 33, creatinine 0.75. She is getting edematous. Her intake and outputs have been at least 2 liters ahead every day. She i s positive 2915 today. IMPRESSION: 1. Very severe Clostridium difficile colitis. 2. Extreme deconditioning. I met with the daughter and with the palliative care nurse, Silke, present. I have explained to the daughter that, even though her colitis may be gradually responding to antimic robial therapy, I do not feel that she is going to recover from this to a functional level. She has been unable to walk for several weeks, and the more I talked to her daughter the more I realize Ms. Ray palmer really has been nonfunctional for at least a month from what I can tell. On top of that, she had a recent deep vein thrombus while in a rehabilitation that was picked up by [facility]ек[facility] stone daughter and diagnosed by Dr. Xiong. She is off anticoagulants. It would be appropriate at this point in time to put her on just subcutan eous Lovenox at 40 mg a day. Because she still intermittently has significant pain, we will increase her fentanyl patch. I do bel ieve that we are probably approaching comfort care stage, although the daughter does not seem ready t o accept that. It is not whether or not she can survive the colitis. I have explained to the daught er that is whether or not she can develop any functional strength after a prolonged illness. She has a Dobbhoff tube in place, but has not had a bowel movement for 2 days and has a tender distended abd omen, so I stopped her feeds for now.
--- NOTE | 2018-02-08 22:41 | PRG ---
DATE OF SERVICE: 02/08/2018 HOSPITAL VISIT NOTE SUBJECTIVE: This is an 82-year-old female with C. difficile colitis, possibly ischemic bow el disease. The patient had taken a turn for the worse. Her labs are premarkedly since admission. Her leukocyte has come down to around 32,000 from 102,000. Her bandemia remains the same at 24%. H owever, her kidney function has markedly improved. The BUN has come down to 33, creatinine is 0.75. Electrolytes are normal. However, clinically she appears really terrible today. She appears very i ll and she is moaning and groaning. She is being medicated with fentanyl patch and also morphine. H er urine output is decreasing. OBJECTIVE: VITAL SIGNS: Afebrile, pulse is 81, blood pressure 92/51. CARDIOVASCULAR SYSTEM AND LUNGS: Within normal limits. ABDOMEN: Distended, but soft and nontender. OVERALL IMPRESSION: Clinical condition is markedly worse in the last 24 hours. The prognosis appear s very poor. Continue supportive care.
[2018-02-09 03:43] LABS: Anion Gap 11 mmol/L (10-20); BUN (Urea Nitrogen) 30 mg/dL (9.8-20.1); Calc. Creatinine Clearance 103 mL/min (70-130); Calcium 8.7 mg/dL (7.8-10.44); Carbon Dioxide 19 mmol/L (23-31); Chloride 114 mmol/L (98-107); Estimated GFR-MDRD 73; Glucose 116 mg/dL (83-110); Potassium 4.7 mmol/L (3.5-5.1); Sodium 139 mmol/L (136-145)
[2018-02-09 04:30] LABS: Band 19 % (5-11); Hemoglobin 10.7 g/dL (12.0-16.0); Lymphocytes 7 % (21-51); MDiff Complete? YES; Mean Corpuscular HGB CONC 31.7 g/dL (32.0-36.0); Mean Corpuscular Hemoglobin 31.4 pg (27.0-31.0); Mean Corpuscular Volume 99.1 fL (78.0-98.0); Mean Platelet Volume 9.7 fL (7.4-10.4); Monocytes 24 % (0-10); Neutrophil 50 % (42-75); PLT Morphology Comment Appears Decreased; Platelet Count 112 thou/uL (130-400); RBC Distribution Width 15.4 % (11.5-14.5); RBC Morphology Normal; Red Blood Cell (RBC) Count 3.41 mill/uL (4.20-5.40); White Blood Cell (WBC) Count 28.6 thou/uL (4.8-10.8)
[2018-02-09] MEDS: metroNIDAZOLE 500 MG in Premix Bag 1 BAG IVPB SCH ×3 (06:01→22:03)
[2018-02-09] MEDS: Budesonide 0.5 MG/2 ML NEB INH SCH ×2 (06:51→18:45)
[2018-02-09] MEDS: Enoxaparin Sodium 40 MG/0.4 ML SYRINGE SC SCH (09:07)
[2018-02-09] MEDS: Nystatin Powder 15 GM BOT TOP SCH ×2 (09:07→20:58)
[2018-02-09] MEDS: Saccharomyces boulardii 250 MG CAP PER TUBE SCH ×3 (09:07→20:57)
[2018-02-09] MEDS: Vancomycin HCl 25 MG/ML Oral PO SCH ×4 (09:08→20:57)
[2018-02-09] MEDS: Multivits W-Minerals Liquid 15mL UDCUP PER TUBE SCH (09:08)
--- NOTE | 2018-02-09 11:28 | PDOC.PN ---
- Subjective Encounter Start Date: 02/09/18 Encounter Start Time: 09:15 Patient seen and examined. No new complaints. No overnight events per daughter she is better today she is sore all over still moaning in pain but little better than yesterday - Objective Resuscitation Status: Resuscitation Status DNR:Do Not Resuscitate MAR Reviewed: Yes Vital Signs & Weight: Vital Signs (12 hours) Temp Pulse Pulse Resp BP BP Pulse Ox 02/09/18 11:01 98.2 F 82 18 88/46 L 98 02/09/18 10:00 77 86/82 L 02/09/18 08:00 98.3 F 71 18 100 02/09/18 07:36 98.3 F 71 18 107/77 100 02/09/18 06:52 73 16 02/09/18 03:52 97.8 F 76 16 101/56 L 99 02/09/18 00:21 80 20 100 02/08/18 23:54 97.8 F 82 20 100/47 L 95 Pulse Ox 02/09/18 11:01 02/09/18 10:00 100 02/09/18 08:00 02/09/18 07:36 02/09/18 06:52 02/09/18 03:52 02/09/18 00:21 02/08/18 23:54 Weight Admit Weight 238 lb 1.588 oz Weight 260 lb 14.4 oz Most Recent Monitor Data Heart Rate from ECG 81 NIBP 114/50 NIBP BP-Mean 68 Respiration from ECG 14 SpO2 99 I&O: 02/08/18 02/09/18 02/10/18 06:59 06:59 06:59 Intake Total 3680 2140 Output Total 765 490 Balance 2915 1650 Result Diagrams: 02/09/18 03:20 02/09/18 03:20 EKG Reviewed by me: Yes (afib) Phys Exam - Physical Examination Constitutional: NAD HEENT: PERRLA, moist MMs, sclera anicteric Neck: no JVD, supple Respiratory: no wheezing, no rales, no rhonchi Cardiovascular: no significant murmur, irregular Gastrointestinal: soft, no distention, positive bowel sounds Musculoskeletal: pulses present, edema present Neurological: non-focal Psychiatric: normal affect Skin: no rash, normal turgor Dx/Plan (1) Acute encephalopathy Code(s): G93.40 - ENCEPHALOPATHY, UNSPECIFIED Status: Acute Comment: (2) Acute kidney failure Status: Resolved (3) C. difficile colitis Status: Acute (4) Hypokalemia Code(s): E87.6 - HYPOKALEMIA Status: Acute Comment: (5) Hyponatremia Code(s): E87.1 - HYPO-OSMOLALITY AND HYPONATREMIA Status: Acute (6) Leukemoid reaction Code(s): D72.823 - LEUKEMOID REACTION Status: Acute (7) Physical deconditioning Code(s): R53.81 - OTHER MALAISE Status: Acute (8) Sepsis with acute organ dysfunction Code(s): A41.9 - SEPSIS, UNSPECIFIED ORGANISM; R65.20 - SEVERE SEPSIS WITHOUT SEPTIC SHOCK Status: Acute (9) Septic shock due to Clostridium difficile Code(s): [id number] - Status: Acute (10) HTN (hypertension) Code(s): I10 - ESSENTIAL (PRIMARY) HYPERTENSION Status: Chronic Qualifiers: Hypertension type: essential hypertension Qualified Code(s): I10 - Essential (primary) hypertension Comment: (11) Obesity (BMI 30-39.9) Code(s): E66.9 - OBESITY, UNSPECIFIED Status: Chronic (12) Coagulopathy Status: Resolved Comment: due to anticoagulation prior to admission and may be due to sepsis (13) H/O deep venous thrombosis Code(s): Z86.718 - PERSONAL HISTORY OF OTHER VENOUS THROMBOSIS AND EMBOLISM Status: Chronic Comment: right leg DVT - Plan cont current plan of care, plan discussed w/ family * DC Cipro * continue po vancomycin and IV flagyl * add florastor * medication reviewed as below * symptomatic treatment * ID consult. * Her BP still lower side Review of Systems - Review of Systems Other: not reliable with pt due to her cognitive status - Medications/Allergies Allergies/Adverse Reactions: Allergies Allergy/AdvReac Type Severity Reaction Status Date / Time codeine Allergy Verified 02/03/18 15:07 ibuprofen [From Advil] Allergy Verified 02/03/18 15:07 naproxen [From Naprosyn] Allergy Verified 02/03/18 15:07 nitrofurantoin Allergy Verified 02/03/18 15:07 [From Macrobid] Penicillins Allergy Verified 02/03/18 15:07 rofecoxib [From Vioxx] Allergy Verified 02/03/18 15:07 Sulfa (Sulfonamide Allergy Verified 02/03/18 15:07 Antibiotics) Medications: Current Medications Acetaminophen (Tylenol) 650 mg PO Q4H PRN PRN Reason: Headache/Fever or Pain Last Admin: 02/03/18 22:18 Dose: 650 mg Al Hydroxide/Mg Hydroxide (Maalox) 30 ml PO Q6H PRN PRN Reason: Heartburn or Indigestion Albuterol/Ipratropium (Duoneb) 3 ml NEB [id number] CUCA Last Admin: 02/09/18 06:52 Dose: 3 ml Albuterol/Ipratropium (Duoneb) 3 ml NEB [id number] PRN PRN Reason: SOB &/or Wheezing Artificial Tears (Tears Renewed 15ml Bottle) 0 drop EA EYE PRN PRN PRN Reason: Dry Eyes Budesonide (Pulmicort Neb Solution) 0.5 mg INH BID-RT [facility] Last Admin: 02/09/18 06:51 Dose: 0.5 mg Enoxaparin Sodium (Lovenox) 40 mg SC 0900 [facility] Last Admin: 02/09/18 09:07 Dose: 40 mg Fentanyl (Duragesic) 25 mcg TD Q3D [facility] Last Admin: 02/08/18 16:45 Dose: 25 mcg Guaifenesin (Robitussin Sf) 200 mg PO Q4H PRN PRN Reason: Cough Metronidazole 500 mg/ Device 100 mls @ 100 mls/hr IVPB Q8HR [facility] Last Admin: 02/09/18 06:01 Dose: 100 mls Norepinephrine Bitartrate (Levophed) 250 mls @ 0 mls/hr IVPB INF PRN; Protocol ; Titrate PRN Reason: Blood Pressure Last Admin: 02/05/18 13:24 Dose: 250 mls Potassium Chloride 40 meq/ (Sodium Chloride) 270 mls @ 135 mls/hr IVPB ASDIR PRN PRN Reason: FOR SERUM K+ 2.5 - 3.5 Potassium Chloride 40 meq/ (Device) 100 mls @ 50 mls/hr IVPB ASDIR PRN PRN Reason: FOR SERUM K+ 2.5 - 3.5 Last Admin: 02/06/18 05:27 Dose: 100 mls Magnesium Sulfate 1 gm/ Sodium (Chloride) 102 mls @ 102 mls/hr IV PRN PRN PRN Reason: MAG LEVEL 1.4 - 2.0 Last Admin: 02/07/18 06:17 Dose: 102 mls Magnesium Sulfate 2 gm/ Device 100 mls @ 100 mls/hr IVPB ASDIR PRN PRN Reason: MAGNESIUM < 1.4 Potassium Phosphate 9 mmol/ (Sodium Chloride) 103 mls @ 25.75 mls/hr IVPB ASDIR PRN PRN Reason: Phosphate 1.0-1.8 Potassium Phosphate 12 mmol/ (Sodium Chloride) 254 mls @ 63.5 mls/hr IV ASDIR PRN PRN Reason: Serum phosphate 0.5-0.9 Potassium Phosphate 15 mmol/ (Sodium Chloride) 255 mls @ 63.75 mls/hr IV ASDIR PRN PRN Reason: Serum Phos < 0.5 Dextrose/Water (D5w) 1,000 mls @ 60 mls/hr IV .[id number] [facility] Last Admin: 02/08/18 21:29 Dose: 1,000 mls Iron/Minerals/Multivitamins (Certa Lo Liquid) 15 ml PER TUBE DAILY [facility] Last Admin: 02/09/18 09:08 Dose: 15 ml Loratadine (Claritin) 10 mg PO DAILYPRN PRN PRN Reason: Sinus Symptoms Magnesium Oxide (Magnesium Oxide) 400 mg PO BIDPRN PRN PRN Reason: FOR SERUM MAG 1.4 - 2.0 Magnesium Oxide (Magnesium Oxide) 800 mg PO PRN PRN PRN Reason: FOR SERUM MAG < 1.4 Mineral Oil/White Petrolatum (Eucerin Cream) 0 gm TOP BIDPRN PRN PRN Reason: Dry Skin Miscellaneous Medication (Phos-Nak) 1 pkt PO TIDPRN PRN PRN Reason: FOR PHOS LEVEL 1.0 - 1.8 Miscellaneous Medication (Phos-Nak) 2 pkt PO TIDPRN PRN PRN Reason: FOR PHOS LEVEL 0.5 - 1.0 Morphine Sulfate (Morphine Sulfate) 2 mg SLOW IVP Q1H PRN PRN Reason: Breakthrough Pain Last Admin: 02/09/18 10:59 Dose: 2 mg Ccu Electrolyte (Replacement Protocol) 0 each FS PRN PRN PRN Reason: FOR ELECTROLYTE REPLACEMENT Nystatin (Mycostatin Powder) 0 gm TOP BID [facility] Last Admin: 02/09/18 09:07 Dose: 1 applic Ondansetron HCl (Zofran Odt) 4 mg PO Q6H PRN PRN Reason: Nausea/Vomiting Ondansetron HCl (Zofran) 4 mg IVP Q6H PRN PRN Reason: Nausea/Vomiting Phenol (Chloraseptic [place] 180 Ml Bot) 0 ml PO PRN PRN PRN Reason: Sore Throat Potassium Chloride (K-Dur) 40 meq PO ASDIR PRN PRN Reason: FOR SERUM K+ 2.5 - 3.5 Potassium Chloride (Klor-Con) 40 meq PER TUBE ASDIR PRN PRN Reason: FOR SERUM K+ 2.5-3.5 Saccharomyces Boulardii (Florastor) 250 mg PER TUBE TID [facility] Last Admin: 02/09/18 09:07 Dose: 250 mg Sodium Chloride ([place] Nasal [place] 0.65%) 0 ml EA NARE QIDPRN PRN PRN Reason: Nasal Congestion Sodium Chloride (Flush - Normal Saline) 10 ml IVF Q12HR [facility] Last Admin: 02/09/18 09:07 Dose: 10 ml Sodium Chloride (Flush - Normal Saline) 10 ml IVF PRN PRN PRN Reason: Saline Flush Last Admin: 02/09/18 06:01 Dose: 10 ml Vancomycin HCl (First Vancomycin) 500 mg PO QID [facility] Last Admin: 02/09/18 09:08 Dose: 500 mg
[2018-02-09] MEDS: Dextrose 5% in Water 1,000 ML IV SCH (15:52)
--- NOTE | 2018-02-09 18:34 | HP ---
DATE OF SERVICE: 02/09/2018 SUBJECTIVE: Ms. Cardoso says she feels better. OBJECTIVE: VITAL SIGNS: She is afebrile, heart rate 82, respiratory rate 18, oximetry is 98 on room air, blood pressure 88/46. Intake and output is positive 1650. Her weight last week was 221. Her weight recor ded now is 260. LUNGS: Clear. HEART: Regular rhythm. ABDOMEN: Remarkable for ascites and diffuse tenderness. It is persistent. LABORATORY DATA: White count is 28.6, hemoglobin 10.7, platelets 112,000. She has 19% bands on her peripheral smear. She still has a high monocyte count. She had metamyelocytes yesterday, but does n ot today. Creatinine is 0.7, BUN is 30, still mildly hyperchloremic. IMPRESSION: 1. Severe Clostridium colitis. 2. [id number] status. 3. Extreme deconditioning. 4. Persistent leukocytosis. 5. Hyperchloremic acidosis, most likely secondary to abdominal third spacing and free water. Since she had a bowel movement today, we will gently started on tube feeds at 20 mL an hour. She can have ice chips and sips of thickened water. She has fewer complaints of pain today, but sheila edwards has a very tender abdomen.
--- NOTE | 2018-02-10 00:35 | CON ---
DATE OF CONSULTATION: 02/09/2018 REASON FOR CONSULTATION: Leukemoid reaction, abdominal pain. HISTORY OF PRESENT ILLNESS: An 82-year-old, who has a history of COPD, hypertension, CHF, mostly chan stolic dysfunction and episodes of urinary tract infection, was recently treated for C. difficile and now comes back from half-way with diffuse abdominal pain, leukemoid reaction, altered mental sta tus. No headaches, no seizure activity, no respiratory symptoms, no genitourinary symptoms, no bleed ing. PAST MEDICAL HISTORY: COPD, hypertension, diastolic heart failure, GERD, UTIs, recurrent episode of Clostridium difficile treated recently with vancomycin. PAST SURGICAL HISTORY: Appendectomy, hysterectomy, tonsillectomy, PICC line placement for treatment of urinary tract infection. SOCIAL HISTORY: group home resident, never smoker. FAMILY HISTORY: Noncontributory. CURRENT MEDICATIONS: Tylenol, Maalox, DuoNeb, Pulmicort, Lovenox, Duragesic, Robitussin, Claritin, m agnesium, metronidazole intravenously, Levophed, and vancomycin orally administered. ALLERGIES: CODEINE, NAPROXEN, NITROFURANTOIN, PENICILLIN, and VIOXX. PHYSICAL EXAMINATION: VITAL SIGNS: Temperature max 97.2, blood pressure 86/46, pulse 82, respirations 18, and O2 saturatio n 98%. SKIN: Thin with deep tissue injury in the gluteal areas bilaterally. Peripheral IV access and a robby tral line, subclavian position. She has an indwelling Marrero catheter. : I's and O's are positive. Urine output ranging from 500-800 per day. NEURO: She is bit drowsy, oriented to time, self. She knew she was in the hospital, but could not t ell me the date. PELVIS: Areas of deep tissue injury in the presacral region. HEENT: Ocular movements are conjugate. Oral cavity dry. She has a nasoenteric feeding tube. HEART: S1, S2, regular rate. ABDOMEN: Soft with some distention. Marked tenderness in the right lower quadrant. Bowel sounds ar e diminished. 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 She may able to move extremities , but she is diffusely weak, but no focal weakness. NEUROLOGIC: Plantar responses are flexure. Pulses are 1+ in dorsalis pedis. LABORATORY DATA: White cell count was [address]83 on arrival with 49% neutrophils, 23% bands, hemoglobin 1 1, MCV 97, white cell count has decreased to 28.6, hemoglobin 10.7, platelets 112,000. Chemistry wit h a creatinine at 0.76, sodium 139, potassium 4.7, glucose 116. Urinalysis with 0-3 WBCs. Microbiol ogy with a Klebsiella pneumo and urine culture, 50-75,000 CFU per mL. Positive Clostridium difficile antigen and toxin assay from 620. IMAGING STUDIES: Include abdomen and pelvis CT scan with diffuse thickening of wall of colon, and fr actured inferior vena cava filter. Abdomen x-ray or KUB was done two days ago and it showed Dobbhoff tube nonobstructive bowel gas pattern and a chest x-ray with no evidence of acute cardiopulmonary di sease. ASSESSMENT: Chronic obstructive pulmonary disease with episodes of urinary tract infection or presum ed with urinary tract infection in the past and recent episode of Clostridium difficile, now with sev ere C. difficile colitis with leukemoid reaction. No evidence of megacolon at this point in time. T he patient seems to be able to tolerate oral vancomycin and treatment may continue as currently presc ribed. She is at risk for developing megacolon and we will have to continue to monitor closely. Thi s patient would merit tapering vancomycin treatment at phase once acute phase of treatment is complet ed, since she is at high risk for recrudescence.
--- NOTE | 2018-02-10 03:21 | PRG ---
DATE OF SERVICE: 02/09/2018 SUBJECTIVE: Ms. Jessica Cardoso is a very pleasant 82-year-old female with recurrent C. dif ficile colitis. The patient was hospitalized with acute sepsis with WBC count of more than 100,000. The patient has had bandemia. She also has evidence of azotemia with BUN of more than 100. The pat dylan's abdomen is very tight and markedly tender. She was seen by General Surgery and General Surger y felt surgery is a very high risk and we cannot recommend surgery. She has been placed on vancomyci n and also IV Flagyl. She was making good progress until yesterday, but yesterday she looked terribl e. Today, she turned around, she looks comfortable and she is awake, alert and oriented. In fact, s he is able to communicate very well and does okay with her daughter. She still has abdominal pain, b ut not as bad as before. The tube feeding was withheld yesterday. She had one stool yesterday and w as foul smelling to her stool today. The patient is actually doing much better today than 24 h ours ago. PHYSICAL EXAMINATION: GENERAL: She is awake, alert and communicative. VITAL SIGNS: Afebrile, temperature 97.4 degrees Fahrenheit, pulse is 82, blood pressure is 88/46. CARDIOVASCULAR: Within normal limits. ABDOMEN: Soft, but tender diffusely. There is no rebound or guarding. LABORATORY DATA: From today shows WBC count dropping down to 28,600, hemoglobin 10.7, hematocrit 33. 8, platelet count 112,000. Bandemia has come down to 19,000. The chemistry panel looks very good wi th her BUN coming down to 30. Chem-7 is normal, potassium 4.7 and creatinine 0.76. 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 Her lab data looks wonderful compared to admission. She was terrible looki ng yesterday, but today she looks very comfortable, in no distress. Apparently, the pain medicine do es seem to help control the pain. . RECOMMENDATIONS: 1. Continue IV Flagyl and vancomycin. 2. Consider restarting tube feeding. 3. Follow up labs.
[2018-02-10 04:49] LABS: Anion Gap 9 mmol/L (10-20); BUN (Urea Nitrogen) 28 mg/dL (9.8-20.1); Calc. Creatinine Clearance 112 mL/min (70-130); Calcium 8.6 mg/dL (7.8-10.44); Carbon Dioxide 21 mmol/L (23-31); Chloride 112 mmol/L (98-107); Estimated GFR-MDRD 79; Glucose 116 mg/dL (83-110); Potassium 4.6 mmol/L (3.5-5.1); Sodium 137 mmol/L (136-145)
[2018-02-10 05:00] LABS: Band 24 % (5-11); Eosinophils 1 % (0-10); Hemoglobin 10.6 g/dL (12.0-16.0); Lymphocytes 5 % (21-51); MDiff Complete? YES; Mean Corpuscular HGB CONC 31.6 g/dL (32.0-36.0); Mean Corpuscular Hemoglobin 31.1 pg (27.0-31.0); Mean Corpuscular Volume 98.6 fL (78.0-98.0); Monocytes 16 % (0-10); Neutrophil 54 % (42-75); PLT Morphology Comment Appears Decreased; Platelet Count 111 thou/uL (130-400); RBC Distribution Width 15.7 % (11.5-14.5); White Blood Cell (WBC) Count 23.4 thou/uL (4.8-10.8)
[2018-02-10] MEDS: metroNIDAZOLE 500 MG in Premix Bag 1 BAG IVPB SCH ×3 (05:57→21:01)
[2018-02-10] MEDS: Budesonide 0.5 MG/2 ML NEB INH SCH ×2 (07:01→18:38)
[2018-02-10] MEDS: Saccharomyces boulardii 250 MG CAP PER TUBE SCH ×3 (09:26→20:12)
[2018-02-10] MEDS: Multivits W-Minerals Liquid 15mL UDCUP PER TUBE SCH (09:26)
[2018-02-10] MEDS: Vancomycin HCl 25 MG/ML Oral PO SCH ×4 (09:26→20:35)
[2018-02-10] MEDS: Enoxaparin Sodium 40 MG/0.4 ML SYRINGE SC SCH (09:26)
[2018-02-10] MEDS: Nystatin Powder 15 GM BOT TOP SCH ×2 (09:27→20:27)
--- NOTE | 2018-02-10 11:09 | PDOC.PN ---
- Subjective Encounter Start Date: 02/10/18 Encounter Start Time: 09:15 Patient seen and examined for sepsis. No new complaints. No overnight events today more alert and less pain - Objective Resuscitation Status: Resuscitation Status DNR:Do Not Resuscitate MAR Reviewed: Yes Vital Signs & Weight: Vital Signs (12 hours) Temp Pulse Resp BP Pulse Ox 02/10/18 07:22 98.4 F 89 22 H 92/51 L 100 02/10/18 07:01 80 20 100 02/10/18 06:59 80 20 100 02/10/18 04:00 97.8 F 82 16 96/51 L 99 02/10/18 00:05 75 18 99 02/10/18 00:00 98.4 F 76 14 101/51 L 100 Weight Admit Weight 238 lb 1.588 oz Weight 260 lb 3.2 oz Most Recent Monitor Data Heart Rate from ECG 81 NIBP 114/50 NIBP BP-Mean 68 Respiration from ECG 14 SpO2 99 I&O: 02/09/18 02/10/18 02/11/18 06:59 06:59 06:59 Intake Total 2140 1225.0 Output Total 490 575 Balance 1650 650.0 Result Diagrams: 02/10/18 04:33 02/10/18 04:33 EKG Reviewed by me: Yes Phys Exam - Physical Examination Constitutional: NAD HEENT: PERRLA, moist MMs, sclera anicteric Neck: no JVD, supple Respiratory: no wheezing, no rales, no rhonchi Cardiovascular: no significant murmur, irregular Gastrointestinal: soft, no distention, positive bowel sounds Musculoskeletal: pulses present, edema present Neurological: non-focal Lymphatic: no nodes Psychiatric: normal affect Skin: no rash, normal turgor Dx/Plan (1) Acute encephalopathy Code(s): G93.40 - ENCEPHALOPATHY, UNSPECIFIED Status: Acute Comment: (2) Acute kidney failure Status: Resolved (3) C. difficile colitis Status: Acute (4) Hypokalemia Code(s): E87.6 - HYPOKALEMIA Status: Acute Comment: (5) Hyponatremia Code(s): E87.1 - HYPO-OSMOLALITY AND HYPONATREMIA Status: Acute (6) Leukemoid reaction Code(s): D72.823 - LEUKEMOID REACTION Status: Acute (7) Physical deconditioning Code(s): R53.81 - OTHER MALAISE Status: Acute (8) Sepsis with acute organ dysfunction Code(s): A41.9 - SEPSIS, UNSPECIFIED ORGANISM; R65.20 - SEVERE SEPSIS WITHOUT SEPTIC SHOCK Status: Acute (9) Septic shock due to Clostridium difficile Code(s): JHG2450 - Status: Acute (10) HTN (hypertension) Code(s): I10 - ESSENTIAL (PRIMARY) HYPERTENSION Status: Chronic Qualifiers: Hypertension type: essential hypertension Qualified Code(s): I10 - Essential (primary) hypertension Comment: (11) Obesity (BMI 30-39.9) Code(s): E66.9 - OBESITY, UNSPECIFIED Status: Chronic (12) Coagulopathy Status: Resolved Comment: due to anticoagulation prior to admission and may be due to sepsis (13) H/O deep venous thrombosis Code(s): Z86.718 - PERSONAL HISTORY OF OTHER VENOUS THROMBOSIS AND EMBOLISM Status: Chronic Comment: right leg DVT - Plan cont current plan of care, continue antibiotics * WBC count continue to improve * continue tube feeding * medication reviewed as below * symptomatic treatment * ID recommendation noted. Review of Systems - Review of Systems Other: more alert but still not reliable due to her level of cognitive status - Medications/Allergies Allergies/Adverse Reactions: Allergies Allergy/AdvReac Type Severity Reaction Status Date / Time codeine Allergy Verified 02/03/18 15:07 ibuprofen [From Advil] Allergy Verified 02/03/18 15:07 naproxen [From Naprosyn] Allergy Verified 02/03/18 15:07 nitrofurantoin Allergy Verified 02/03/18 15:07 [From Macrobid] Penicillins Allergy Verified 02/03/18 15:07 rofecoxib [From Vioxx] Allergy Verified 02/03/18 15:07 Sulfa (Sulfonamide Allergy Verified 02/03/18 15:07 Antibiotics) Medications: Current Medications Acetaminophen (Tylenol) 650 mg PO Q4H PRN PRN Reason: Headache/Fever or Pain Last Admin: 02/03/18 22:18 Dose: 650 mg Al Hydroxide/Mg Hydroxide (Maalox) 30 ml PO Q6H PRN PRN Reason: Heartburn or Indigestion Albuterol/Ipratropium (Duoneb) 3 ml NEB [id number] Last Admin: 02/10/18 06:59 Dose: 3 ml Albuterol/Ipratropium (Duoneb) 3 ml NEB [id number] PRN PRN Reason: SOB &/or Wheezing Artificial Tears (Tears Renewed 15ml Bottle) 0 drop EA EYE PRN PRN PRN Reason: Dry Eyes Budesonide (Pulmicort Neb Solution) 0.5 mg INH BID-RT [facility] Last Admin: 02/10/18 07:01 Dose: 0.5 mg Enoxaparin Sodium (Lovenox) 40 mg SC 0900 [facility] Last Admin: 02/10/18 09:26 Dose: 40 mg Fentanyl (Duragesic) 25 mcg TD Q3D [facility] Last Admin: 02/08/18 16:45 Dose: 25 mcg Guaifenesin (Robitussin Sf) 200 mg PO Q4H PRN PRN Reason: Cough Metronidazole 500 mg/ Device 100 mls @ 100 mls/hr IVPB Q8HR [facility] Last Admin: 02/10/18 05:57 Dose: 100 mls Norepinephrine Bitartrate (Levophed) 250 mls @ 0 mls/hr IVPB INF PRN; Protocol ; Titrate PRN Reason: Blood Pressure Last Admin: 02/05/18 13:24 Dose: 250 mls Potassium Chloride 40 meq/ (Sodium Chloride) 270 mls @ 135 mls/hr IVPB ASDIR PRN PRN Reason: FOR SERUM K+ 2.5 - 3.5 Potassium Chloride 40 meq/ (Device) 100 mls @ 50 mls/hr IVPB ASDIR PRN PRN Reason: FOR SERUM K+ 2.5 - 3.5 Last Admin: 02/06/18 05:27 Dose: 100 mls Magnesium Sulfate 1 gm/ Sodium (Chloride) 102 mls @ 102 mls/hr IV PRN PRN PRN Reason: MAG LEVEL 1.4 - 2.0 Last Admin: 02/07/18 06:17 Dose: 102 mls Magnesium Sulfate 2 gm/ Device 100 mls @ 100 mls/hr IVPB ASDIR PRN PRN Reason: MAGNESIUM < 1.4 Potassium Phosphate 9 mmol/ (Sodium Chloride) 103 mls @ 25.75 mls/hr IVPB ASDIR PRN PRN Reason: Phosphate 1.0-1.8 Potassium Phosphate 12 mmol/ (Sodium Chloride) 254 mls @ 63.5 mls/hr IV ASDIR PRN PRN Reason: Serum phosphate 0.5-0.9 Potassium Phosphate 15 mmol/ (Sodium Chloride) 255 mls @ 63.75 mls/hr IV ASDIR PRN PRN Reason: Serum Phos < 0.5 Iron/Minerals/Multivitamins (Certa Lo Liquid) 15 ml PER TUBE DAILY [facility] Last Admin: 02/10/18 09:26 Dose: 15 ml Loratadine (Claritin) 10 mg PO DAILYPRN PRN PRN Reason: Sinus Symptoms Magnesium Oxide (Magnesium Oxide) 400 mg PO BIDPRN PRN PRN Reason: FOR SERUM MAG 1.4 - 2.0 Magnesium Oxide (Magnesium Oxide) 800 mg PO PRN PRN PRN Reason: FOR SERUM MAG < 1.4 Mineral Oil/White Petrolatum (Eucerin Cream) 0 gm TOP BIDPRN PRN PRN Reason: Dry Skin Miscellaneous Medication (Phos-Nak) 1 pkt PO TIDPRN PRN PRN Reason: FOR PHOS LEVEL 1.0 - 1.8 Miscellaneous Medication (Phos-Nak) 2 pkt PO TIDPRN PRN PRN Reason: FOR PHOS LEVEL 0.5 - 1.0 Morphine Sulfate (Morphine Sulfate) 2 mg SLOW IVP Q1H PRN PRN Reason: Breakthrough Pain Last Admin: 02/10/18 09:27 Dose: 2 mg Ccu Electrolyte (Replacement Protocol) 0 each FS PRN PRN PRN Reason: FOR ELECTROLYTE REPLACEMENT Nystatin (Mycostatin Powder) 0 gm TOP BID [facility] Last Admin: 02/10/18 09:27 Dose: 1 applic Ondansetron HCl (Zofran Odt) 4 mg PO Q6H PRN PRN Reason: Nausea/Vomiting Ondansetron HCl (Zofran) 4 mg IVP Q6H PRN PRN Reason: Nausea/Vomiting Phenol (Chloraseptic [place] 180 Ml Bot) 0 ml PO PRN PRN PRN Reason: Sore Throat Potassium Chloride (K-Dur) 40 meq PO ASDIR PRN PRN Reason: FOR SERUM K+ 2.5 - 3.5 Potassium Chloride (Klor-Con) 40 meq PER TUBE ASDIR PRN PRN Reason: FOR SERUM K+ 2.5-3.5 Saccharomyces Boulardii (Florastor) 250 mg PER TUBE TID [facility] Last Admin: 02/10/18 09:26 Dose: 250 mg Sodium Chloride (Blyn Nasal [place] 0.65%) 0 ml EA NARE QIDPRN PRN PRN Reason: Nasal Congestion Sodium Chloride (Flush - Normal Saline) 10 ml IVF Q12HR [facility] Last Admin: 02/10/18 09:27 Dose: 10 ml Sodium Chloride (Flush - Normal Saline) 10 ml IVF PRN PRN PRN Reason: Saline Flush Last Admin: 02/10/18 05:58 Dose: 10 ml Vancomycin HCl (First Vancomycin) 500 mg PO QID [facility] Last Admin: 02/10/18 09:26 Dose: 500 mg
--- NOTE | 2018-02-10 13:30 | PRG ---
DATE OF SERVICE: 02/10/2018 PHYSICAL EXAMINATION: VITAL SIGNS: Ms. Cardoso is afebrile, heart rate 83, respiratory rate 22, oximetry is 95-100 on room air, blood pressure 118/52. LUNGS: Clear. HEART: Irregular rhythm. S1 and S2 are normal. ABDOMEN: Soft, still diffusely tender, probably better than it was 4 days ago. She has since had another bowel movement. LABORATORY DATA: White count is down to 23, hemoglobin 10.6, platelets 111. Sodium 137, potassium 4.6, chloride 112, bicarbonate 21, BUN 20, creatinine 0.7. IMPRESSION: 1. Clostridium difficile colitis (life threatening). 2. Recent deep venous thrombosis. 3. Inferior vena cava filter in place that is fractured. It is probably reasonable at this time to anticoagulate her, but I am hesitant to place her on hepari n and full dose Lovenox. I am also hesitant to try to treat her anteriorly with anticoagulants becau se of uncertain absorption. I think I will just continue with prophylactic dose Lovenox for now. Clemente adkins is having a slow tube feeds running in through her Dobbhoff at 20 mL an hour. She is tolerating li quids and ice and will advance based on speech pathology recommendations. Her deconditioning is the biggest issue. I have asked the nurses to see if they can get her up in a bedside neuro chair.
[2018-02-10] MEDS: Vancomycin HCl 500 MG, Sodium Chloride 0.9% 100 ML PR SCH ×2 (18:45→23:55)
--- NOTE | 2018-02-10 19:43 | PRG ---
DATE OF SERVICE: 02/10/2018 SUBJECTIVE: Still appears in some distress. Still with abdominal pain. No respiratory symptoms, fe eling thirsty. PHYSICAL EXAMINATION: VITAL SIGNS: T-max 98.4, blood pressure 92/51, pulse 89, respirations 22, O2 sat 100%. GENERAL: Appears acutely ill, awake. Dobbhoff feeding tube in place. LUNGS: Symmetric air entry. HEART: S1 and S2 regular rate. ABDOMEN: Distended with diffuse tenderness. Bowel sounds are diminished. LABORATORY DATA: White cell count is 23,000, hemoglobin 10, platelets 111, 54% neutrophils, 24% band s, creatinine 0.71. ASSESSMENT AND DISCUSSION: Chronic obstructive lung disease with episodes of urinary tract infection , treated in past and now with severe Clostridium difficile colitis. Still with signs of persistent inflammatory process. I am not sure the vancomycin is getting into her colon. She may need to have enemas done. We will prescribe enemas since I am afraid she is developing megacolon, high risk for p oor outcome with this patient.
[2018-02-11 05:15] LABS: Anion Gap 8 mmol/L (10-20); BUN (Urea Nitrogen) 27 mg/dL (9.8-20.1); Calc. Creatinine Clearance 108 mL/min (70-130); Calcium 8.4 mg/dL (7.8-10.44); Carbon Dioxide 22 mmol/L (23-31); Chloride 111 mmol/L (98-107); Estimated GFR-MDRD 75; Glucose 130 mg/dL (83-110); Potassium 4.6 mmol/L (3.5-5.1); Sodium 136 mmol/L (136-145)
[2018-02-11 05:32] LABS: Band 17 % (5-11); Hemoglobin 10.4 g/dL (12.0-16.0); Lymphocytes 6 % (21-51); MDiff Complete? YES; Mean Corpuscular HGB CONC 32.9 g/dL (32.0-36.0); Mean Corpuscular Hemoglobin 32.3 pg (27.0-31.0); Mean Platelet Volume 10.4 fL (7.4-10.4); Metamyelocyte 1 % (0-0); Monocytes 11 % (0-10); Neutrophil 65 % (42-75); PLT Morphology Comment Appears Adequate; Platelet Count 122 thou/uL (130-400); RBC Distribution Width 15.8 % (11.5-14.5); Red Blood Cell (RBC) Count 3.22 mill/uL (4.20-5.40); White Blood Cell (WBC) Count 22.6 thou/uL (4.8-10.8)
[2018-02-11] MEDS: Vancomycin HCl 500 MG, Sodium Chloride 0.9% 100 ML PR SCH ×2 (05:50→12:04)
[2018-02-11] MEDS: metroNIDAZOLE 500 MG in Premix Bag 1 BAG IVPB SCH ×3 (05:50→22:14)
[2018-02-11] MEDS: Budesonide 0.5 MG/2 ML NEB INH SCH ×2 (06:54→18:17)
[2018-02-11] MEDS: Enoxaparin Sodium 40 MG/0.4 ML SYRINGE SC SCH (08:36)
[2018-02-11] MEDS: Vancomycin HCl 25 MG/ML Oral PO SCH ×4 (08:37→20:37)
[2018-02-11] MEDS: Saccharomyces boulardii 250 MG CAP PER TUBE SCH ×3 (08:37→20:37)
[2018-02-11] MEDS: Nystatin Powder 15 GM BOT TOP SCH ×2 (08:37→22:14)
[2018-02-11] MEDS ORDERED: Fidaxomicin 200 MG TAB PO SCH (09:00)
[2018-02-11] MEDS: Multivits W-Minerals Liquid 15mL UDCUP PER TUBE SCH (10:08)
--- NOTE | 2018-02-11 11:21 | PDOC.PN ---
- Subjective Encounter Start Date: 02/11/18 Encounter Start Time: 09:30 Patient seen and examined for c-diff colitis. No overnight events - Objective Resuscitation Status: Resuscitation Status DNR:Do Not Resuscitate MAR Reviewed: Yes Vital Signs & Weight: Vital Signs (12 hours) Temp Pulse Resp BP Pulse Ox 02/11/18 08:00 97.3 F L 78 20 94 L 02/11/18 07:34 97.3 F L 78 20 110/61 94 L 02/11/18 06:55 99 02/11/18 06:54 80 16 99 02/11/18 04:00 97.8 F 84 22 H 123/72 100 02/11/18 00:10 81 18 100 02/11/18 00:00 98.0 F 78 16 102/55 L 100 Weight Admit Weight 238 lb 1.588 oz Weight 261 lb 11.2 oz Most Recent Monitor Data Heart Rate from ECG 81 NIBP 114/50 NIBP BP-Mean 68 Respiration from ECG 14 SpO2 99 I&O: 02/10/18 02/11/18 02/12/18 06:59 06:59 06:59 Intake Total 1225.0 646 Output Total 575 500 Balance 650.0 146 Result Diagrams: 02/11/18 04:59 02/11/18 04:59 EKG Reviewed by me: Yes (afib) Phys Exam - Physical Examination Constitutional: NAD HEENT: PERRLA, moist MMs, sclera anicteric Neck: no JVD, supple Respiratory: no wheezing, no rales, no rhonchi reduced air entry at base Cardiovascular: no significant murmur, irregular Gastrointestinal: soft, no distention, positive bowel sounds diffuse sore but less tender than before Musculoskeletal: pulses present, edema present Neurological: non-focal, normal sensation, moves all 4 limbs Lymphatic: no nodes Psychiatric: normal affect Skin: no rash, normal turgor Dx/Plan (1) Acute encephalopathy Code(s): G93.40 - ENCEPHALOPATHY, UNSPECIFIED Status: Acute Comment: (2) Acute kidney failure Status: Resolved (3) C. difficile colitis Status: Acute (4) Hypokalemia Code(s): E87.6 - HYPOKALEMIA Status: Acute Comment: (5) Hyponatremia Code(s): E87.1 - HYPO-OSMOLALITY AND HYPONATREMIA Status: Acute (6) Leukemoid reaction Code(s): D72.823 - LEUKEMOID REACTION Status: Acute (7) Physical deconditioning Code(s): R53.81 - OTHER MALAISE Status: Acute (8) Sepsis with acute organ dysfunction Code(s): A41.9 - SEPSIS, UNSPECIFIED ORGANISM; R65.20 - SEVERE SEPSIS WITHOUT SEPTIC SHOCK Status: Acute (9) Septic shock due to Clostridium difficile Code(s): [id number] - Status: Acute (10) HTN (hypertension) Code(s): I10 - ESSENTIAL (PRIMARY) HYPERTENSION Status: Chronic Qualifiers: Hypertension type: essential hypertension Qualified Code(s): I10 - Essential (primary) hypertension Comment: (11) Obesity (BMI 30-39.9) Code(s): E66.9 - OBESITY, UNSPECIFIED Status: Chronic (12) Coagulopathy Status: Resolved Comment: due to anticoagulation prior to admission and may be due to sepsis (13) H/O deep venous thrombosis Code(s): Z86.718 - PERSONAL HISTORY OF OTHER VENOUS THROMBOSIS AND EMBOLISM Status: Chronic Comment: right leg DVT - Plan cont current plan of care, continue antibiotics, PT/OT, social work program coordinator * as per ID, dificid not indicated for now * continue oral vancomycin and vancomycin enema along with IV flagyl * medication reviewed as below * symptomatic treatment * will give lasix for edema * monitor in CCU * supportive care. * wound care * tube feeding Review of Systems - Review of Systems Constitutional: weakness, malaise. negative: fever, chills, sweats, other Eyes: negative: Pain, Vision Change, Conjunctivae Inflammation, Eyelid Inflammation, Redness, Other ENT: negative: Ear Pain, Ear Discharge, Nose Pain, Nose Discharge, Nose Congestion, Mouth Pain, Mouth Swelling, Throat Pain, Throat Swelling, Other Respiratory: negative: Cough, Dry, Shortness of Breath, Hemoptysis, SOB with Excertion, Pleuritic Pain, Sputum, Wheezing Cardiovascular: negative: chest pain, palpitations, orthopnea, paroxysmal nocturnal dyspnea, edema, light headedness, other Gastrointestinal: Abdominal Pain, Diarrhea. negative: Nausea, Vomiting, Constipation, Melena, Hematochezia, Other Genitourinary: negative: Dysuria, Frequency, Incontinence, Hematuria, Retention , Other Musculoskeletal: negative: Neck Pain, Shoulder Pain, Arm Pain, Back Pain, Hand Pain, Leg Pain, Foot Pain, Other - Medications/Allergies Allergies/Adverse Reactions: Allergies Allergy/AdvReac Type Severity Reaction Status Date / Time codeine Allergy Verified 02/03/18 15:07 ibuprofen [From Advil] Allergy Verified 02/03/18 15:07 naproxen [From Naprosyn] Allergy Verified 02/03/18 15:07 nitrofurantoin Allergy Verified 02/03/18 15:07 [From Macrobid] Penicillins Allergy Verified 02/03/18 15:07 rofecoxib [From Vioxx] Allergy Verified 02/03/18 15:07 Sulfa (Sulfonamide Allergy Verified 02/03/18 15:07 Antibiotics) Medications: Current Medications Acetaminophen (Tylenol) 650 mg PO Q4H PRN PRN Reason: Headache/Fever or Pain Last Admin: 02/03/18 22:18 Dose: 650 mg Al Hydroxide/Mg Hydroxide (Maalox) 30 ml PO Q6H PRN PRN Reason: Heartburn or Indigestion Albuterol/Ipratropium (Duoneb) 3 ml NEB [id number] [facility] Last Admin: 02/11/18 06:54 Dose: 3 ml Albuterol/Ipratropium (Duoneb) 3 ml NEB [id number] PRN PRN Reason: SOB &/or Wheezing Artificial Tears (Tears Renewed 15ml Bottle) 0 drop EA EYE PRN PRN PRN Reason: Dry Eyes Budesonide (Pulmicort Neb Solution) 0.5 mg INH BID-RT [facility] Last Admin: 02/11/18 06:54 Dose: 0.5 mg Vancomycin HCl 500 mg/ Sodium (Chloride 100 ml) 0 mg WA Q6HR [facility] Last Admin: 02/11/18 05:50 Dose: 100 ml Enoxaparin Sodium (Lovenox) 40 mg SC 0900 [facility] Last Admin: 02/11/18 08:36 Dose: 40 mg Fentanyl (Duragesic) 25 mcg TD Q3D [facility] Last Admin: 02/08/18 16:45 Dose: 25 mcg Furosemide (Lasix) 40 mg SLOW IVP NOW [facility] Stop: 02/11/18 14:00 Guaifenesin (Robitussin Sf) 200 mg PO Q4H PRN PRN Reason: Cough Norepinephrine Bitartrate (Levophed) 250 mls @ 0 mls/hr IVPB INF PRN; Protocol ; Titrate PRN Reason: Blood Pressure Last Admin: 02/05/18 13:24 Dose: 250 mls Potassium Chloride 40 meq/ (Sodium Chloride) 270 mls @ 135 mls/hr IVPB ASDIR PRN PRN Reason: FOR SERUM K+ 2.5 - 3.5 Potassium Chloride 40 meq/ (Device) 100 mls @ 50 mls/hr IVPB ASDIR PRN PRN Reason: FOR SERUM K+ 2.5 - 3.5 Last Admin: 02/06/18 05:27 Dose: 100 mls Magnesium Sulfate 1 gm/ Sodium (Chloride) 102 mls @ 102 mls/hr IV PRN PRN PRN Reason: MAG LEVEL 1.4 - 2.0 Last Admin: 02/07/18 06:17 Dose: 102 mls Magnesium Sulfate 2 gm/ Device 100 mls @ 100 mls/hr IVPB ASDIR PRN PRN Reason: MAGNESIUM < 1.4 Potassium Phosphate 9 mmol/ (Sodium Chloride) 103 mls @ 25.75 mls/hr IVPB ASDIR PRN PRN Reason: Phosphate 1.0-1.8 Potassium Phosphate 12 mmol/ (Sodium Chloride) 254 mls @ 63.5 mls/hr IV ASDIR PRN PRN Reason: Serum phosphate 0.5-0.9 Potassium Phosphate 15 mmol/ (Sodium Chloride) 255 mls @ 63.75 mls/hr IV ASDIR PRN PRN Reason: Serum Phos < 0.5 Metronidazole 500 mg/ Device 100 mls @ 200 mls/hr IVPB Q8HR [facility] Iron/Minerals/Multivitamins (Certa Lo Liquid) 15 ml PER TUBE DAILY [facility] Last Admin: 02/11/18 10:08 Dose: Not Given Loratadine (Claritin) 10 mg PO DAILYPRN PRN PRN Reason: Sinus Symptoms Magnesium Oxide (Magnesium Oxide) 400 mg PO BIDPRN PRN PRN Reason: FOR SERUM MAG 1.4 - 2.0 Magnesium Oxide (Magnesium Oxide) 800 mg PO PRN PRN PRN Reason: FOR SERUM MAG < 1.4 Mineral Oil/White Petrolatum (Eucerin Cream) 0 gm TOP BIDPRN PRN PRN Reason: Dry Skin Miscellaneous Medication (Phos-Nak) 1 pkt PO TIDPRN PRN PRN Reason: FOR PHOS LEVEL 1.0 - 1.8 Miscellaneous Medication (Phos-Nak) 2 pkt PO TIDPRN PRN PRN Reason: FOR PHOS LEVEL 0.5 - 1.0 Morphine Sulfate (Morphine Sulfate) 2 mg SLOW IVP Q1H PRN PRN Reason: Breakthrough Pain Last Admin: 02/11/18 09:09 Dose: 2 mg Ccu Electrolyte (Replacement Protocol) 0 each FS PRN PRN PRN Reason: FOR ELECTROLYTE REPLACEMENT Nystatin (Mycostatin Powder) 0 gm TOP BID [facility] Last Admin: 02/11/18 08:37 Dose: 1 applic Ondansetron HCl (Zofran Odt) 4 mg PO Q6H PRN PRN Reason: Nausea/Vomiting Ondansetron HCl (Zofran) 4 mg IVP Q6H PRN PRN Reason: Nausea/Vomiting Phenol (Chloraseptic [place] 180 Ml Bot) 0 ml PO PRN PRN PRN Reason: Sore Throat Potassium Chloride (K-Dur) 40 meq PO ASDIR PRN PRN Reason: FOR SERUM K+ 2.5 - 3.5 Potassium Chloride (Klor-Con) 40 meq PER TUBE ASDIR PRN PRN Reason: FOR SERUM K+ 2.5-3.5 Saccharomyces Boulardii (Florastor) 250 mg PER TUBE TID [facility] Last Admin: 02/11/18 08:37 Dose: 250 mg Sodium Chloride ([place] Nasal [place] 0.65%) 0 ml EA NARE QIDPRN PRN PRN Reason: Nasal Congestion Sodium Chloride (Flush - Normal Saline) 10 ml IVF Q12HR [facility] Last Admin: 02/11/18 08:37 Dose: 10 ml Sodium Chloride (Flush - Normal Saline) 10 ml IVF PRN PRN PRN Reason: Saline Flush Last Admin: 02/10/18 05:58 Dose: 10 ml Vancomycin HCl (First Vancomycin) 500 mg PO QID [facility] Last Admin: 02/11/18 08:37 Dose: 500 mg
[2018-02-11] MEDS ORDERED: Furosemide 40 MG/4 ML VIAL SLOW IVP SCH (11:30)
--- NOTE | 2018-02-11 19:41 | PRG ---
DATE OF SERVICE: 02/11/2018 SUBJECTIVE: Ms. Cardoso still has significant abdominal discomfort. Vancomycin enema was ordered, b ut this went in and came straight out, I was in the room with the nurses. OBJECTIVE: VITAL SIGNS: She is afebrile, heart rate rate 70, respiratory rate 18, oximetry is 97 on room air, a nd blood pressure 117/69. LUNGS: Clear. CARDIOVASCULAR: Regular rhythm. ABDOMEN: intermediate card tender. IMPRESSION: Very severe Clostridium difficile colitis. She appears to be slowly clinically improvin g. She met criteria for colectomy, but everyone was undecided about whether or not she would tolerat e this or want to go through this. She appears to be clinically improving, but I am not sure she kt l recover from this give her severe weakness and deconditioning at this point. It is unclear whether or not she would benefit from repeat imaging of her colon via plain films of her CAT scan. Gastroen terology is following.
--- NOTE | 2018-02-12 02:42 | PRG ---
DATE OF SERVICE: 02/11/2018 HISTORY OF PRESENT ILLNESS: This is an 82-year-old hospitalized approximately 8-9 days ago with abdominal pain, C. difficile colitis, severe volume depletion, kidney dysfunction, bandemia, et c. The patient has been on vancomycin and also Flagyl. The patient's lab data appears very wonderfu l, but on the other hand, her clinical condition really has not much improved. Initially appears to be improving, but now her clinical condition is not changing that much and this is status of colonosc opy report 2-3 days. The patient is on pain medication. She appears comfortable, but when feel the abdomen, she is tender. She has a Dobhoff feeding. She had been seen by Dr. Prieto Godinez for her C . difficile colitis. I strongly feel that she probably has some ischemic bowel disease on top of the colitis. Her lab data had markedly improved. Her WBC count which was 100,000 has come down to 22,4 00. Her bandemia has come down to 24%. Hemoglobin is 10.6. Her kidney function has markedly improv ed. The BUN was 116 and today it has come down to 27. Creatinine is normal at 0.74. PHYSICAL EXAMINATION: GENERAL: The patient appears weak, appears ill. VITAL SIGNS: Her vital signs are actually stable. She is afebrile. Her pulse is around 91, blood p ressure is 92/48. CARDIOVASCULAR SYSTEM: Within normal limits. LUNGS: Within normal limits. ABDOMEN: Distended and flabby. Abdomen is tender. There is no rebound. CLINICAL IMPRESSION: 1. Clostridium difficile colitis. 2. Marked volume depletion, possible chronic kidney disease. 3. Bandemia, which is persistent. 4. Leukemoid reaction and WBC count has come down to 24,000. Overall, the lab data appears to be showing marked improvement, but clinically she . The patien t at the present time. RECOMMENDATIONS: 1. Continue treatment as before. 2. Supportive care.
[2018-02-12 05:55] LABS: Anion Gap 11 mmol/L (10-20); BUN (Urea Nitrogen) 27 mg/dL (9.8-20.1); Calc. Creatinine Clearance 105 mL/min (70-130); Calcium 8.3 mg/dL (7.8-10.44); Carbon Dioxide 22 mmol/L (23-31); Chloride 110 mmol/L (98-107); Estimated GFR-MDRD 73; Glucose 113 mg/dL (83-110); Potassium 4.9 mmol/L (3.5-5.1); Sodium 138 mmol/L (136-145)
[2018-02-12] MEDS: metroNIDAZOLE 500 MG in Premix Bag 1 BAG IVPB SCH ×3 (06:01→21:14)
[2018-02-12 06:12] LABS: Band 7 % (5-11); Hemoglobin 9.8 g/dL (12.0-16.0); Lymphocytes 9 % (21-51); MDiff Complete? YES; Mean Corpuscular HGB CONC 32.1 g/dL (32.0-36.0); Mean Corpuscular Hemoglobin 31.7 pg (27.0-31.0); Mean Corpuscular Volume 98.6 fL (78.0-98.0); Mean Platelet Volume 10.5 fL (7.4-10.4); Monocytes 13 % (0-10); Neutrophil 71 % (42-75); PLT Morphology Comment Appears Decreased; Platelet Count 116 thou/uL (130-400); RBC Distribution Width 15.8 % (11.5-14.5); Red Blood Cell (RBC) Count 3.08 mill/uL (4.20-5.40); White Blood Cell (WBC) Count 21.1 thou/uL (4.8-10.8)
[2018-02-12] MEDS: Budesonide 0.5 MG/2 ML NEB INH SCH ×2 (07:52→18:43)
[2018-02-12] MEDS: Enoxaparin Sodium 40 MG/0.4 ML SYRINGE SC SCH (09:14)
[2018-02-12] MEDS: Nystatin Powder 15 GM BOT TOP SCH ×2 (09:14→21:15)
[2018-02-12] MEDS: Saccharomyces boulardii 250 MG CAP PER TUBE SCH ×3 (09:14→21:14)
[2018-02-12] MEDS: Multivits W-Minerals Liquid 15mL UDCUP PER TUBE SCH (09:14)
[2018-02-12] MEDS: Vancomycin HCl 25 MG/ML Oral PO SCH ×4 (09:15→21:14)
--- NOTE | 2018-02-12 10:41 | PRG ---
DATE OF SERVICE: 02/12/2018 PHYSICAL EXAMINATION: VITAL SIGNS: Jessica Cardoso is afebrile, heart rate is 73, respiratory 26, oximetry is 96% on room a ir, blood pressure is 100/60, at 4 o'clock this morning 88/61. LUNGS/HEART/ABDOMEN: Unchanged. LABORATORY DATA: White count 21, hemoglobin 9.8, platelets 116,000. Still has 13% monocytes on her peripheral smear, yesterday she had 1% metamyelocytes. IMPRESSION: 1. Clostridium difficile colitis, severe. 2. Extreme deconditioning. 3. Anemia of chronic disease. 4. Monocytosis that was present last admission with metamyelocytes, underlying myelomonocytic leukem ia is still in the differential, but it is not appropriate to consider bone marrow at this time. PLAN: I met with the daughter and answered all of her questions. I do believe that she needs to con tinue with heart monitoring in my opinion as there are no cardiac interventions planned and she is a do not resuscitate patient. She had a DVT recently and has a dislodged fractured inferior vena cava filter in place. She is on prophylactic dose Lovenox. I feel she is at high risk for bleeding with full dose anticoag ulation at this time. We will continue to follow. She will move out of Intermediate Care Unit to [facility] medical floor.
[2018-02-12] MEDS ORDERED: Albumin 25% 25 GM/100 ML BOT IVPB SCH (11:17)
--- NOTE | 2018-02-12 11:20 | PDOC.PN ---
- Subjective Encounter Start Date: 02/12/18 Encounter Start Time: 10:15 Patient seen and examined for sepsis, c-diff. No new complaints. No overnight events - Objective Resuscitation Status: Resuscitation Status DNR:Do Not Resuscitate MAR Reviewed: Yes Vital Signs & Weight: Vital Signs (12 hours) Temp Pulse Resp BP Pulse Ox 02/12/18 07:52 81 18 100 02/12/18 07:34 97.9 F 73 26 H 88/61 L 100 02/12/18 07:31 97.0 F L 79 21 H 100 02/12/18 04:10 97.0 F L 79 21 H 100/60 99 02/12/18 00:26 75 16 98 02/12/18 00:00 101/47 L 02/11/18 23:53 97.0 F L 78 15 92/43 L 96 Weight Admit Weight 238 lb 1.588 oz Weight 263 lb 2 oz Most Recent Monitor Data Heart Rate from ECG 81 NIBP 114/50 NIBP BP-Mean 68 Respiration from ECG 14 SpO2 99 I&O: 02/11/18 02/12/18 02/13/18 06:59 06:59 06:59 Intake Total 646 60 Output Total 500 1025 Balance 146 -965 Result Diagrams: 02/12/18 05:31 02/12/18 05:31 EKG Reviewed by me: Yes (afib) Phys Exam - Physical Examination Constitutional: NAD HEENT: PERRLA, moist MMs, sclera anicteric dubhuff tube+ Neck: no JVD, supple Respiratory: no wheezing, no rales, no rhonchi Cardiovascular: no significant murmur, irregular Gastrointestinal: soft, no distention, positive bowel sounds diffuse tender, more on right side Musculoskeletal: pulses present, edema present Neurological: non-focal, normal sensation Lymphatic: no nodes Psychiatric: normal affect, A&O x 3 Skin: no rash, normal turgor Dx/Plan (1) Acute encephalopathy Code(s): G93.40 - ENCEPHALOPATHY, UNSPECIFIED Status: Resolved Comment: (2) Acute kidney failure Status: Resolved (3) C. difficile colitis Status: Acute (4) Hypokalemia Code(s): E87.6 - HYPOKALEMIA Status: Acute Comment: (5) Hyponatremia Code(s): E87.1 - HYPO-OSMOLALITY AND HYPONATREMIA Status: Acute (6) Leukemoid reaction Code(s): D72.823 - LEUKEMOID REACTION Status: Acute (7) Physical deconditioning Code(s): R53.81 - OTHER MALAISE Status: Acute (8) Sepsis with acute organ dysfunction Code(s): A41.9 - SEPSIS, UNSPECIFIED ORGANISM; R65.20 - SEVERE SEPSIS WITHOUT SEPTIC SHOCK Status: Acute (9) Septic shock due to Clostridium difficile Code(s): [id number] - Status: Acute (10) HTN (hypertension) Code(s): I10 - ESSENTIAL (PRIMARY) HYPERTENSION Status: Chronic Qualifiers: Hypertension type: essential hypertension Qualified Code(s): I10 - Essential (primary) hypertension Comment: (11) Obesity (BMI 30-39.9) Code(s): E66.9 - OBESITY, UNSPECIFIED Status: Chronic (12) Coagulopathy Status: Resolved Comment: due to anticoagulation prior to admission and may be due to sepsis (13) H/O deep venous thrombosis Code(s): Z86.718 - PERSONAL HISTORY OF OTHER VENOUS THROMBOSIS AND EMBOLISM Status: Chronic Comment: right leg DVT - Plan cont current plan of care, plan discussed w/ family, continue antibiotics, PT/OT , social insurance adviser * continue lovenox for DVT prophylaxis for now * she is not a good candidate for full anticoagulation for now * continue IV flagyl and vancomycin orally and enema * wbc slowly improving * today transfer to medical floor * she has 3rd spacing and edema, will give her albumin and if BP is allows then consider IV lasix * medication reviewed as below * symptomatic treatment * prognosis is guarded * not ready for discharge * family wanted to change another SNU on discharge. Review of Systems - Review of Systems Constitutional: weakness, malaise. negative: fever, chills, sweats, other ENT: negative: Ear Pain, Ear Discharge, Nose Pain, Nose Discharge, Nose Congestion, Mouth Pain, Mouth Swelling, Throat Pain, Throat Swelling, Other Respiratory: negative: Cough, Dry, Shortness of Breath, Hemoptysis, SOB with Excertion, Pleuritic Pain, Sputum, Wheezing Cardiovascular: edema. negative: chest pain, palpitations, orthopnea, paroxysmal nocturnal dyspnea, light headedness, other Gastrointestinal: Abdominal Pain. negative: Nausea, Vomiting, Diarrhea, Constipation, Melena, Hematochezia, Other Genitourinary: negative: Dysuria, Frequency, Incontinence, Hematuria, Retention , Other Musculoskeletal: negative: Neck Pain, Shoulder Pain, Arm Pain, Back Pain, Hand Pain, Leg Pain, Foot Pain, Other Skin: negative: Rash, Lesions, Natalio, Bruising, Other - Medications/Allergies Allergies/Adverse Reactions: Allergies Allergy/AdvReac Type Severity Reaction Status Date / Time codeine Allergy Verified 02/03/18 15:07 ibuprofen [From Advil] Allergy Verified 02/03/18 15:07 naproxen [From Naprosyn] Allergy Verified 02/03/18 15:07 nitrofurantoin Allergy Verified 02/03/18 15:07 [From Macrobid] Penicillins Allergy Verified 02/03/18 15:07 rofecoxib [From Vioxx] Allergy Verified 02/03/18 15:07 Sulfa (Sulfonamide Allergy Verified 02/03/18 15:07 Antibiotics) Medications: Current Medications Acetaminophen (Tylenol) 650 mg PO Q4H PRN PRN Reason: Headache/Fever or Pain Last Admin: 02/03/18 22:18 Dose: 650 mg Al Hydroxide/Mg Hydroxide (Maalox) 30 ml PO Q6H PRN PRN Reason: Heartburn or Indigestion Albuterol/Ipratropium (Duoneb) 3 ml NEB [id number] [facility] Last Admin: 02/12/18 07:52 Dose: 3 ml Albuterol/Ipratropium (Duoneb) 3 ml NEB [id number] PRN PRN Reason: SOB &/or Wheezing Artificial Tears (Tears Renewed 15ml Bottle) 0 drop EA EYE PRN PRN PRN Reason: Dry Eyes Budesonide (Pulmicort Neb Solution) 0.5 mg INH BID-RT [facility] Last Admin: 02/12/18 07:52 Dose: 0.5 mg Enoxaparin Sodium (Lovenox) 40 mg SC 0900 [facility] Last Admin: 02/12/18 09:14 Dose: 40 mg Fentanyl (Duragesic) 25 mcg TD Q3D [facility] Last Admin: 02/11/18 16:53 Dose: 25 mcg Guaifenesin (Robitussin Sf) 200 mg PO Q4H PRN PRN Reason: Cough Norepinephrine Bitartrate (Levophed) 250 mls @ 0 mls/hr IVPB INF PRN; Protocol ; Titrate PRN Reason: Blood Pressure Last Admin: 02/05/18 13:24 Dose: 250 mls Potassium Chloride 40 meq/ (Sodium Chloride) 270 mls @ 135 mls/hr IVPB ASDIR PRN PRN Reason: FOR SERUM K+ 2.5 - 3.5 Potassium Chloride 40 meq/ (Device) 100 mls @ 50 mls/hr IVPB ASDIR PRN PRN Reason: FOR SERUM K+ 2.5 - 3.5 Last Admin: 02/06/18 05:27 Dose: 100 mls Magnesium Sulfate 1 gm/ Sodium (Chloride) 102 mls @ 102 mls/hr IV PRN PRN PRN Reason: MAG LEVEL 1.4 - 2.0 Last Admin: 02/07/18 06:17 Dose: 102 mls Magnesium Sulfate 2 gm/ Device 100 mls @ 100 mls/hr IVPB ASDIR PRN PRN Reason: MAGNESIUM < 1.4 Potassium Phosphate 9 mmol/ (Sodium Chloride) 103 mls @ 25.75 mls/hr IVPB ASDIR PRN PRN Reason: Phosphate 1.0-1.8 Potassium Phosphate 12 mmol/ (Sodium Chloride) 254 mls @ 63.5 mls/hr IV ASDIR PRN PRN Reason: Serum phosphate 0.5-0.9 Potassium Phosphate 15 mmol/ (Sodium Chloride) 255 mls @ 63.75 mls/hr IV ASDIR PRN PRN Reason: Serum Phos < 0.5 Metronidazole 500 mg/ Device 100 mls @ 200 mls/hr IVPB Q8HR [facility] Last Admin: 02/12/18 06:01 Dose: 100 mls Iron/Minerals/Multivitamins (Certa Lo Liquid) 15 ml PER TUBE DAILY [facility] Last Admin: 02/12/18 09:14 Dose: 15 ml Loratadine (Claritin) 10 mg PO DAILYPRN PRN PRN Reason: Sinus Symptoms Magnesium Oxide (Magnesium Oxide) 400 mg PO BIDPRN PRN PRN Reason: FOR SERUM MAG 1.4 - 2.0 Magnesium Oxide (Magnesium Oxide) 800 mg PO PRN PRN PRN Reason: FOR SERUM MAG < 1.4 Mineral Oil/White Petrolatum (Eucerin Cream) 0 gm TOP BIDPRN PRN PRN Reason: Dry Skin Miscellaneous Medication (Phos-Nak) 1 pkt PO TIDPRN PRN PRN Reason: FOR PHOS LEVEL 1.0 - 1.8 Miscellaneous Medication (Phos-Nak) 2 pkt PO TIDPRN PRN PRN Reason: FOR PHOS LEVEL 0.5 - 1.0 Morphine Sulfate (Morphine Sulfate) 2 mg SLOW IVP Q1H PRN PRN Reason: Breakthrough Pain Last Admin: 02/12/18 09:12 Dose: 2 mg Ccu Electrolyte (Replacement Protocol) 0 each FS PRN PRN PRN Reason: FOR ELECTROLYTE REPLACEMENT Nystatin (Mycostatin Powder) 0 gm TOP BID [facility] Last Admin: 02/12/18 09:14 Dose: 1 applic Ondansetron HCl (Zofran Odt) 4 mg PO Q6H PRN PRN Reason: Nausea/Vomiting Ondansetron HCl (Zofran) 4 mg IVP Q6H PRN PRN Reason: Nausea/Vomiting Phenol (Chloraseptic [place] 180 Ml Bot) 0 ml PO PRN PRN PRN Reason: Sore Throat Potassium Chloride (K-Dur) 40 meq PO ASDIR PRN PRN Reason: FOR SERUM K+ 2.5 - 3.5 Potassium Chloride (Klor-Con) 40 meq PER TUBE ASDIR PRN PRN Reason: FOR SERUM K+ 2.5-3.5 Saccharomyces Boulardii (Florastor) 250 mg PER TUBE TID [facility] Last Admin: 02/12/18 09:14 Dose: 250 mg Sodium Chloride ([place] Nasal [place] 0.65%) 0 ml EA NARE QIDPRN PRN PRN Reason: Nasal Congestion Sodium Chloride (Flush - Normal Saline) 10 ml IVF Q12HR [facility] Last Admin: 02/12/18 09:14 Dose: 10 ml Sodium Chloride (Flush - Normal Saline) 10 ml IVF PRN PRN PRN Reason: Saline Flush Last Admin: 02/10/18 05:58 Dose: 10 ml Vancomycin HCl (First Vancomycin) 500 mg PO QID [facility] Last Admin: 02/12/18 09:15 Dose: 500 mg
--- NOTE | 2018-02-12 19:15 | PRG ---
DATE OF SERVICE: 02/12/2018 SUBJECTIVE: Still not happy with her status. Had a large liquid stool on arrival to the floor. No headaches, no chest pain. Some abdominal pain. PHYSICAL EXAMINATION: VITAL SIGNS: T-max 98.2, blood pressure 94/63. GENERAL: Awake, alert, and Dobbhoff tube in place. LUNGS: Symmetric air entry. ABDOMEN: Moderately distended with mild tenderness in all 4 quadrants. NEUROLOGIC: Moves extremities on command. Cognitive function appears to be intact. Quite alert. LABORATORY DATA: White cell count at 21,000, hemoglobin 9.8, platelets 116 and 71 % neutrophils, ban ds are down to 7, creatinine 0.76. ASSESSMENT AND DISCUSSION: Chronic obstructive lung disease and urinary tract infections, treated mu ltiple times now with severe Clostridium difficile colitis. No clear cut evidence of megacolon at th is time and the white cell count steadily is improving. The bands are down to 7%. DISCUSSION: Continue oral vancomycin and IV Flagyl. Since Dificid is only shown to be better for pr eventing recurrences, but does not yield better outcomes on vancomycin, continue the current dose of vancomycin.
[2018-02-12] MEDS: Acetaminophen 325 MG TAB PO PRN (21:14)
[2018-02-13] MEDS: metroNIDAZOLE 500 MG in Premix Bag 1 BAG IVPB SCH ×3 (04:26→21:12)
[2018-02-13 05:48] LABS: Anion Gap 9 mmol/L (10-20); BUN (Urea Nitrogen) 25 mg/dL (9.8-20.1); Band 30 % (5-11); Calc. Creatinine Clearance 113 mL/min (70-130); Calcium 8.3 mg/dL (7.8-10.44); Carbon Dioxide 22 mmol/L (23-31); Chloride 110 mmol/L (98-107); Estimated GFR-MDRD 79; Glucose 91 mg/dL (83-110); Hemoglobin 9.2 g/dL (12.0-16.0); Lymphocytes 10 % (21-51); MDiff Complete? YES; Mean Corpuscular HGB CONC 31.2 g/dL (32.0-36.0); Mean Corpuscular Hemoglobin 30.8 pg (27.0-31.0); Mean Corpuscular Volume 98.7 fL (78.0-98.0); Mean Platelet Volume 10.2 fL (7.4-10.4); Monocytes 13 % (0-10); Neutrophil 47 % (42-75); PLT Morphology Comment Appears Adequate; Platelet Count 151 thou/uL (130-400); Red Blood Cell (RBC) Count 2.97 mill/uL (4.20-5.40); Sodium 137 mmol/L (136-145); White Blood Cell (WBC) Count 19.4 thou/uL (4.8-10.8)
[2018-02-13] MEDS: Budesonide 0.5 MG/2 ML NEB INH SCH ×2 (07:01→19:23)
[2018-02-13] MEDS: Saccharomyces boulardii 250 MG CAP PER TUBE SCH ×3 (10:26→21:11)
[2018-02-13] MEDS: Multivits W-Minerals Liquid 15mL UDCUP PER TUBE SCH (10:26)
[2018-02-13] MEDS: Enoxaparin Sodium 40 MG/0.4 ML SYRINGE SC SCH (10:27)
[2018-02-13] MEDS: Vancomycin HCl 25 MG/ML Oral PO SCH ×4 (10:27→21:12)
[2018-02-13] MEDS: Nystatin Powder 15 GM BOT TOP SCH ×2 (10:28→21:11)
--- NOTE | 2018-02-13 12:15 | PRG ---
DATE OF SERVICE: 02/13/2018 SUBJECTIVE: This morning, she is moaning and groaning. She says she is short of breath. OBJECTIVE: VITAL SIGNS: Sats are 100% on room air, respiration 16, temperature 97, blood pressure 101/63. GENERAL: She appears to be in no distress. She has got a feeding tube in place. CHEST: Chest reveals decreased breath sounds, no wheezing. CARDIAC: Normal S1, S2, no gallops. ABDOMEN: Soft, no masses. LABORATORY DATA: White count 90,000, H&H is 9 and 29, platelet count 251,000. Electrolytes are norm al. IMPRESSION: Clostridium difficile colitis, severe deconditioning, chronic pain. PLAN: Continue p.o. vancomycin, PT and supportive care. We will follow.
--- NOTE | 2018-02-13 14:35 | PDOC.PN ---
- Subjective Encounter Start Date: 02/13/18 Encounter Start Time: 14:30 Subjective: c/p persistant AP.denies any CP/SOB.no V/Diarrhea - Objective Resuscitation Status: Resuscitation Status DNR:Do Not Resuscitate MAR Reviewed: Yes Vital Signs & Weight: Vital Signs (12 hours) Temp Pulse Resp BP Pulse Ox 02/13/18 13:53 91 18 95 02/13/18 11:12 96.7 F L 82 18 116/73 100 02/13/18 09:15 96.7 F L 82 18 02/13/18 07:27 97.6 F 82 16 101/63 100 02/13/18 07:02 100 02/13/18 07:01 78 18 100 02/13/18 06:57 78 18 100 02/13/18 05:28 97.9 F 78 18 96/63 99 Weight Admit Weight 238 lb 1.588 oz Weight 263 lb 2 oz Most Recent Monitor Data Heart Rate from ECG 81 NIBP 114/50 NIBP BP-Mean 68 Respiration from ECG 14 SpO2 99 I&O: 02/12/18 02/13/18 02/14/18 06:59 06:59 06:59 Intake Total 60 880 Output Total 1025 550 Balance -965 330 Result Diagrams: 02/13/18 05:31 02/13/18 05:31 Additional Labs: Microbiology 02/03/18 10:20 Urine Straight Catheter Urine Culture - Final Klebsiella pneumoniae ssp pneu 02/03/18 10:10 Venous blood - Right Hand Blood Culture - Final NO GROWTH IN 5 DAYS 02/03/18 10:10 Venous blood - Left Hand Blood Culture - Final NO GROWTH IN 5 DAYS 02/03/18 10:10 Stool - Pending C. difficile GDH Antigen & Toxins - Final Laboratory Tests 02/03/18 02/04/18 02/05/18 10:10 04:30 04:20 WBC 102.0 H* 99.8 H* 72.1 H* Band Neuts % (Manual) 27 H 13 H 23 H 02/06/18 02/07/18 02/08/18 04:00 04:45 03:45 WBC 50.8 H* 39.1 H 32.0 H Band Neuts % (Manual) 32 H 20 H 24 H 06/26/18 06/27/18 06/28/18 03:20 04:33 04:59 WBC 28.6 H 23.4 H 22.6 H Band Neuts % (Manual) 19 H 24 H 17 H 02/12/18 02/13/18 05:31 05:31 WBC 21.1 H 19.4 H Band Neuts % (Manual) 7 30 H labs reviewed Phys Exam - Physical Examination weak,pale,tired looking HEENT: PERRLA, sclera anicteric dry red erythematous tounge Neck: no nodes, no JVD, supple, full ROM Respiratory: no wheezing, no rales, no rhonchi, clear to auscultation bilateral Cardiovascular: RRR, no significant murmur, no rub Gastrointestinal: soft, no distention, positive bowel sounds TTP Musculoskeletal: no edema, pulses present Neurological: non-focal, normal sensation, moves all 4 limbs Psychiatric: normal affect, A&O x 3 Skin: no rash Dx/Plan (1) C. difficile colitis Status: Acute (2) UTI (urinary tract infection) Status: Acute Comment: True Infection Vs Colonization (3) Septic shock due to Clostridium difficile Code(s): [id number] - Status: Acute Comment: Stable now (4) Leukemoid reaction Code(s): D72.823 - LEUKEMOID REACTION Status: Acute (5) Physical deconditioning Code(s): R53.81 - OTHER MALAISE Status: Acute (6) H/O deep venous thrombosis Code(s): Z86.718 - PERSONAL HISTORY OF OTHER VENOUS THROMBOSIS AND EMBOLISM Status: Chronic Comment: right leg DVT (7) HTN (hypertension) Code(s): I10 - ESSENTIAL (PRIMARY) HYPERTENSION Status: Chronic Qualifiers: Hypertension type: essential hypertension Qualified Code(s): I10 - Essential (primary) hypertension Comment: (8) Obesity (BMI 30-39.9) Code(s): E66.9 - OBESITY, UNSPECIFIED Status: Chronic (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 -: on Dobhoff feeds.increase rate.tolerating so far -: pain meds. -: am labs. Bands higher today even though total WBc counts better * . Review of Systems - Review of Systems Constitutional: weakness, malaise Respiratory: negative: Cough, Dry, Shortness of Breath, Hemoptysis, SOB with Excertion, Pleuritic Pain, Sputum, Wheezing Cardiovascular: negative: chest pain, palpitations, orthopnea, paroxysmal nocturnal dyspnea, edema, light headedness, other Gastrointestinal: negative: Nausea, Vomiting, Abdominal Pain, Diarrhea, Constipation, Melena, Hematochezia, Other Genitourinary: negative: Dysuria, Frequency, Incontinence, Hematuria, Retention , Other Musculoskeletal: negative: Neck Pain, Shoulder Pain, Arm Pain, Back Pain, Hand Pain, Leg Pain, Foot Pain, Other Neurological: negative: Weakness, Numbness, Incoordination, Change in Speech, Confusion, Seizures, Other - Medications/Allergies Allergies/Adverse Reactions: Allergies Allergy/AdvReac Type Severity Reaction Status Date / Time codeine Allergy Verified 02/03/18 15:07 ibuprofen [From Advil] Allergy Verified 02/03/18 15:07 naproxen [From Naprosyn] Allergy Verified 02/03/18 15:07 nitrofurantoin Allergy Verified 02/03/18 15:07 [From Macrobid] Penicillins Allergy Verified 02/03/18 15:07 rofecoxib [From Vioxx] Allergy Verified 02/03/18 15:07 Sulfa (Sulfonamide Allergy Verified 02/03/18 15:07 Antibiotics) Medications: Current Medications Acetaminophen (Tylenol) 650 mg PO Q4H PRN PRN Reason: Headache/Fever or Pain Last Admin: 02/12/18 21:14 Dose: 650 mg Al Hydroxide/Mg Hydroxide (Maalox) 30 ml PO Q6H PRN PRN Reason: Heartburn or Indigestion Albuterol/Ipratropium (Duoneb) 3 ml NEB [id number] [facility] Last Admin: 02/13/18 13:53 Dose: 3 ml Albuterol/Ipratropium (Duoneb) 3 ml NEB [id number] PRN PRN Reason: SOB &/or Wheezing Artificial Tears (Tears Renewed 15ml Bottle) 0 drop EA EYE PRN PRN PRN Reason: Dry Eyes Budesonide (Pulmicort Neb Solution) 0.5 mg INH BID-RT [facility] Last Admin: 02/13/18 07:01 Dose: 0.5 mg Enoxaparin Sodium (Lovenox) 40 mg SC 0900 [facility] Last Admin: 02/13/18 10:27 Dose: 40 mg Fentanyl (Duragesic) 25 mcg TD Q3D [facility] Last Admin: 02/11/18 16:53 Dose: 25 mcg Guaifenesin (Robitussin Sf) 200 mg PO Q4H PRN PRN Reason: Cough Metronidazole 500 mg/ Device 100 mls @ 200 mls/hr IVPB Q8HR [facility] Last Admin: 02/13/18 14:23 Dose: 100 mls Iron/Minerals/Multivitamins (Certa Lo Liquid) 15 ml PER TUBE DAILY [facility] Last Admin: 02/13/18 10:26 Dose: 15 ml Lidocaine HCl (Xylocaine 2% Viscous) 15 ml SSP QID PRN PRN Reason: oral pain Loratadine (Claritin) 10 mg PO DAILYPRN PRN PRN Reason: Sinus Symptoms Mineral Oil/White Petrolatum (Eucerin Cream) 0 gm TOP BIDPRN PRN PRN Reason: Dry Skin Morphine Sulfate (Morphine Sulfate) 2 mg SLOW IVP Q1H PRN PRN Reason: Breakthrough Pain Last Admin: 02/13/18 13:40 Dose: 2 mg Nystatin (Mycostatin Powder) 0 gm TOP BID [facility] Last Admin: 02/13/18 10:28 Dose: 1 applic Ondansetron HCl (Zofran Odt) 4 mg PO Q6H PRN PRN Reason: Nausea/Vomiting Ondansetron HCl (Zofran) 4 mg IVP Q6H PRN PRN Reason: Nausea/Vomiting Phenol (Chloraseptic [place] 180 Ml Bot) 0 ml PO PRN PRN PRN Reason: Sore Throat Saccharomyces Boulardii (Florastor) 250 mg PER TUBE TID [facility] Last Admin: 02/13/18 14:30 Dose: 250 mg Sodium Chloride ([place] Nasal [place] 0.65%) 0 ml EA NARE QIDPRN PRN PRN Reason: Nasal Congestion Sodium Chloride (Flush - Normal Saline) 10 ml IVF Q12HR [facility] Last Admin: 02/13/18 10:29 Dose: 10 ml Sodium Chloride (Flush - Normal Saline) 10 ml IVF PRN PRN PRN Reason: Saline Flush Last Admin: 02/13/18 13:42 Dose: 10 ml Vancomycin HCl (First Vancomycin) 500 mg PO QID [facility] Last Admin: 02/13/18 14:29 Dose: 500 mg
[2018-02-13] MEDS: Lidocaine Viscous Sol 2% 15 ml UD Cup SSP PRN (16:55)
[2018-02-13] MEDS: Mometasone/Formoterol 120 PUFF INHALER INH SCH (19:26)
[2018-02-13] MEDS: Acetaminophen 325 MG TAB PO PRN (21:11)
[2018-02-14] MEDS: metroNIDAZOLE 500 MG in Premix Bag 1 BAG IVPB SCH ×3 (04:52→20:01)
[2018-02-14 06:12] LABS: Anion Gap 10 mmol/L (10-20); BUN (Urea Nitrogen) 22 mg/dL (9.8-20.1); Calc. Creatinine Clearance 115 mL/min (70-130); Calcium 8.4 mg/dL (7.8-10.44); Carbon Dioxide 23 mmol/L (23-31); Chloride 110 mmol/L (98-107); Estimated GFR-MDRD 80; Glucose 105 mg/dL (83-110); Potassium 4.2 mmol/L (3.5-5.1); Sodium 139 mmol/L (136-145)
[2018-02-14 06:35] LABS: Band 18 % (5-11); Hemoglobin 9.2 g/dL (12.0-16.0); Lymphocytes 18 % (21-51); MDiff Complete? YES; Mean Corpuscular HGB CONC 31.8 g/dL (32.0-36.0); Mean Corpuscular Hemoglobin 31.4 pg (27.0-31.0); Mean Corpuscular Volume 98.7 fL (78.0-98.0); Mean Platelet Volume 10.2 fL (7.4-10.4); Monocytes 9 % (0-10); Neutrophil 55 % (42-75); PLT Morphology Comment Appears Adequate; Platelet Count 160 thou/uL (130-400); RBC Distribution Width 16.3 % (11.5-14.5); Red Blood Cell (RBC) Count 2.94 mill/uL (4.20-5.40); White Blood Cell (WBC) Count 18.3 thou/uL (4.8-10.8)
[2018-02-14] MEDS: Budesonide 0.5 MG/2 ML NEB INH SCH ×2 (07:09→19:28)
[2018-02-14] MEDS: Mometasone/Formoterol 120 PUFF INHALER INH SCH ×2 (07:15→19:28)
[2018-02-14] MEDS: Enoxaparin Sodium 40 MG/0.4 ML SYRINGE SC SCH (09:25)
[2018-02-14] MEDS: Vancomycin HCl 25 MG/ML Oral PO SCH ×4 (09:25→20:04)
[2018-02-14] MEDS: Saccharomyces boulardii 250 MG CAP PER TUBE SCH ×3 (09:25→20:01)
[2018-02-14] MEDS: Nystatin Powder 15 GM BOT TOP SCH ×2 (09:26→20:05)
[2018-02-14] MEDS: Multivits W-Minerals Liquid 15mL UDCUP PER TUBE SCH (09:33)
[2018-02-14] MEDS: Fluticasone Propionate Nasal Spray 16 gm Bottle NASAL SCH (09:33)
[2018-02-14] MEDS: Chloraseptic Spray 180 ml Bottle PO PRN (09:41)
--- NOTE | 2018-02-14 12:00 | PDOC.PN ---
- Subjective Encounter Start Date: 02/14/18 Encounter Start Time: 09:00 -: old records requested/rev Patient seen and examined for c-diff sepsis, pt has diffuse body pain and sore, No overnight events - Objective Resuscitation Status: Resuscitation Status DNR:Do Not Resuscitate MAR Reviewed: Yes Vital Signs & Weight: Vital Signs (12 hours) Temp Pulse Resp BP Pulse Ox 02/14/18 07:54 98.7 F 87 20 92/67 100 02/14/18 07:29 100 02/14/18 07:15 77 16 100 02/14/18 07:07 79 16 100 02/14/18 00:42 91 16 99 Weight Admit Weight 238 lb 1.588 oz Weight 263 lb 2 oz Most Recent Monitor Data Heart Rate from ECG 81 NIBP 114/50 NIBP BP-Mean 68 Respiration from ECG 14 SpO2 99 I&O: 02/13/18 02/14/18 02/15/18 06:59 06:59 06:59 Intake Total 880 1030 30 Output Total 550 700 Balance 330 330 30 Result Diagrams: 02/14/18 05:53 02/14/18 05:53 Phys Exam - Physical Examination distress due to pain HEENT: moist MMs, sclera anicteric dubhuff tube+ Neck: no JVD, supple Respiratory: no wheezing, no rales, no rhonchi Cardiovascular: no significant murmur, no rub, irregular Gastrointestinal: soft, no distention, positive bowel sounds sore diffuse Musculoskeletal: pulses present, edema present Neurological: non-focal, normal sensation Lymphatic: no nodes Psychiatric: normal affect Skin: no rash, normal turgor Dx/Plan (1) Acute encephalopathy Code(s): G93.40 - ENCEPHALOPATHY, UNSPECIFIED Status: Resolved Comment: (2) Acute kidney failure Status: Resolved (3) C. difficile colitis Status: Acute (4) Hypokalemia Code(s): E87.6 - HYPOKALEMIA Status: Acute Comment: (5) Hyponatremia Code(s): E87.1 - HYPO-OSMOLALITY AND HYPONATREMIA Status: Acute (6) Leukemoid reaction Code(s): D72.823 - LEUKEMOID REACTION Status: Acute (7) Physical deconditioning Code(s): R53.81 - OTHER MALAISE Status: Acute (8) Sepsis with acute organ dysfunction Code(s): A41.9 - SEPSIS, UNSPECIFIED ORGANISM; R65.20 - SEVERE SEPSIS WITHOUT SEPTIC SHOCK Status: Acute (9) Septic shock due to Clostridium difficile Code(s): BIN2449 - Status: Acute Comment: Stable now (10) HTN (hypertension) Code(s): I10 - ESSENTIAL (PRIMARY) HYPERTENSION Status: Chronic Qualifiers: Hypertension type: essential hypertension Qualified Code(s): I10 - Essential (primary) hypertension Comment: (11) Obesity (BMI 30-39.9) Code(s): E66.9 - OBESITY, UNSPECIFIED Status: Chronic (12) Coagulopathy Status: Resolved Comment: due to anticoagulation prior to admission and may be due to sepsis (13) H/O deep venous thrombosis Code(s): Z86.718 - PERSONAL HISTORY OF OTHER VENOUS THROMBOSIS AND EMBOLISM Status: Chronic Comment: right leg DVT - Plan cont current plan of care, plan discussed w/ family, edouard catheter, 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 Review of Systems - Review of Systems Constitutional: weakness. negative: fever, chills, sweats, malaise, other Eyes: negative: Pain, Vision Change, Conjunctivae Inflammation, Eyelid Inflammation, Redness, Other ENT: negative: Ear Pain, Ear Discharge, Nose Pain, Nose Discharge, Nose Congestion, Mouth Pain, Mouth Swelling, Throat Pain, Throat Swelling, Other Respiratory: negative: Cough, Dry, Shortness of Breath, Hemoptysis, SOB with Excertion, Pleuritic Pain, Sputum, Wheezing Gastrointestinal: Abdominal Pain. negative: Nausea, Vomiting, Diarrhea, Constipation, Melena, Hematochezia, Other Genitourinary: negative: Dysuria, Frequency, Incontinence, Hematuria, Retention , Other Musculoskeletal: Other (generalised soreness). negative: Neck Pain, Shoulder Pain, Arm Pain, Back Pain, Hand Pain, Leg Pain, Foot Pain - Medications/Allergies Allergies/Adverse Reactions: Allergies Allergy/AdvReac Type Severity Reaction Status Date / Time codeine Allergy Verified 02/03/18 15:07 ibuprofen [From Advil] Allergy Verified 02/03/18 15:07 naproxen [From Naprosyn] Allergy Verified 02/03/18 15:07 nitrofurantoin Allergy Verified 02/03/18 15:07 [From Macrobid] Penicillins Allergy Verified 02/03/18 15:07 rofecoxib [From Vioxx] Allergy Verified 02/03/18 15:07 Sulfa (Sulfonamide Allergy Verified 02/03/18 15:07 Antibiotics) Medications: Current Medications Acetaminophen (Tylenol) 650 mg PO Q4H PRN PRN Reason: Headache/Fever or Pain Last Admin: 02/13/18 21:11 Dose: 650 mg Al Hydroxide/Mg Hydroxide (Maalox) 30 ml PO Q6H PRN PRN Reason: Heartburn or Indigestion Albuterol/Ipratropium (Duoneb) 3 ml NEB [id number] [facility] Last Admin: 02/14/18 07:07 Dose: 3 ml Albuterol/Ipratropium (Duoneb) 3 ml NEB [id number] PRN PRN Reason: SOB &/or Wheezing Artificial Tears (Tears Renewed 15ml Bottle) 0 drop EA EYE PRN PRN PRN Reason: Dry Eyes Budesonide (Pulmicort Neb Solution) 0.5 mg INH BID-RT [facility] Last Admin: 02/14/18 07:09 Dose: 0.5 mg Enoxaparin Sodium (Lovenox) 40 mg SC 0900 [facility] Last Admin: 02/14/18 09:25 Dose: 40 mg Fentanyl (Duragesic) 50 mcg TD Q3D [facility] Fluticasone Propionate (Flonase Nasal [place]) 0 gm NASAL DAILY [facility] Last Admin: 02/14/18 09:33 Dose: 1 spray Guaifenesin (Robitussin Sf) 200 mg PO Q4H PRN PRN Reason: Cough Metronidazole 500 mg/ Device 100 mls @ 200 mls/hr IVPB Q8HR [facility] Last Admin: 02/14/18 04:52 Dose: 100 mls Iron/Minerals/Multivitamins (Certa Lo Liquid) 15 ml PER TUBE DAILY [facility] Last Admin: 02/14/18 09:33 Dose: 15 ml Lidocaine HCl (Xylocaine 2% Viscous) 15 ml SSP QID PRN PRN Reason: oral pain Last Admin: 02/13/18 16:55 Dose: 15 ml Loratadine (Claritin) 10 mg PO DAILYPRN PRN PRN Reason: Sinus Symptoms Mineral Oil/White Petrolatum (Eucerin Cream) 0 gm TOP BIDPRN PRN PRN Reason: Dry Skin Mometasone Furoate/Formoterol Fumar (Dulera 100 Mcg/5 Mcg Inhaler) 2 puff INH BID-RT [facility] Last Admin: 02/14/18 07:15 Dose: 2 puff Morphine Sulfate (Morphine Sulfate) 4 mg SLOW IVP Q1H PRN PRN Reason: Breakthrough Pain Nystatin (Mycostatin Powder) 0 gm TOP BID [facility] Last Admin: 02/14/18 09:26 Dose: 1 applic Ondansetron HCl (Zofran Odt) 4 mg PO Q6H PRN PRN Reason: Nausea/Vomiting Ondansetron HCl (Zofran) 4 mg IVP Q6H PRN PRN Reason: Nausea/Vomiting Phenol (Chloraseptic [place] 180 Ml Bot) 0 ml PO PRN PRN PRN Reason: Sore Throat Last Admin: 02/14/18 09:41 Dose: 1 spr Saccharomyces Boulardii (Florastor) 250 mg PER TUBE TID [facility] Last Admin: 02/14/18 09:25 Dose: 250 mg Sodium Chloride ([place] Nasal [place] 0.65%) 0 ml EA NARE QIDPRN PRN PRN Reason: Nasal Congestion Sodium Chloride (Flush - Normal Saline) 10 ml IVF Q12HR [facility] Last Admin: 02/14/18 09:25 Dose: 10 ml Sodium Chloride (Flush - Normal Saline) 10 ml IVF PRN PRN PRN Reason: Saline Flush Last Admin: 02/13/18 16:02 Dose: 10 ml Vancomycin HCl (First Vancomycin) 500 mg PO QID [facility] Last Admin: 02/14/18 09:25 Dose: 500 mg
[2018-02-14] MEDS: fentaNYL 50 mcg/hour Patch TD SCH (12:16)
[2018-02-14] MEDS: Lidocaine Viscous Sol 2% 15 ml UD Cup SSP PRN (12:23)
--- NOTE | 2018-02-14 13:46 | PRG ---
DATE OF SERVICE: 02/14/2018 SUBJECTIVE: This morning, she is complaining of pain all over. She is still getting morphine q. 1ho ur p.r.n., still complaining of extensive pain. OBJECTIVE: VITAL SIGNS: Sats 100% on room air, respirations 20, temperature 98, blood pressure 90/67. CHEST: Decreased breath sounds without any wheezing. CARDIAC: Normal S1, S2, no gallops. ABDOMEN: Massive. LABORATORY DATA: White count 18,000, H and H 9 and 29, platelet count is 160. Electrolytes are norm al. IMPRESSION: 1. Chronic pain. 2. Clostridium difficile colitis. 3. Do not resuscitate. 4. Leukocytosis. PLAN: Continue pain management, antibiotics. We will follow.
[2018-02-14] MEDS: Acetaminophen 325 MG TAB PO PRN ×2 (17:39→20:58)
[2018-02-15] MEDS: Acetaminophen 325 MG TAB PO PRN (04:41)
[2018-02-15] MEDS: metroNIDAZOLE 500 MG in Premix Bag 1 BAG IVPB SCH ×3 (04:41→20:24)
[2018-02-15 05:54] LABS: Chloride 111 mmol/L (98-107); Potassium 4.6 mmol/L (3.5-5.1); Sodium 139 mmol/L (136-145)
[2018-02-15 05:55] LABS: Calcium 8.6 mg/dL (7.8-10.44); Glucose 100 mg/dL (83-110)
[2018-02-15 05:57] LABS: Carbon Dioxide 23 mmol/L (23-31)
[2018-02-15 05:59] LABS: Calc. Creatinine Clearance 120 mL/min (70-130); Estimated GFR-MDRD 84
[2018-02-15 06:00] LABS: BUN (Urea Nitrogen) 23 mg/dL (9.8-20.1); Band 25 % (5-11); Hemoglobin 8.9 g/dL (12.0-16.0); Lymphocytes 11 % (21-51); MDiff Complete? YES; Mean Corpuscular HGB CONC 31.4 g/dL (32.0-36.0); Mean Corpuscular Hemoglobin 31.3 pg (27.0-31.0); Mean Corpuscular Volume 99.5 fL (78.0-98.0); Mean Platelet Volume 10.1 fL (7.4-10.4); Monocytes 13 % (0-10); Neutrophil 50 % (42-75); PLT Morphology Comment Appears Adequate; Platelet Count 152 thou/uL (130-400); RBC Distribution Width 16.6 % (11.5-14.5); Red Blood Cell (RBC) Count 2.84 mill/uL (4.20-5.40); White Blood Cell (WBC) Count 17.2 thou/uL (4.8-10.8)
[2018-02-15 06:09] LABS: Anion Gap 10 mmol/L (10-20)
[2018-02-15] MEDS: Budesonide 0.5 MG/2 ML NEB INH SCH ×2 (06:39→19:11)
[2018-02-15] MEDS: Mometasone/Formoterol 120 PUFF INHALER INH SCH ×2 (06:39→19:11)
[2018-02-15] MEDS: Enoxaparin Sodium 40 MG/0.4 ML SYRINGE SC SCH (09:55)
[2018-02-15] MEDS: Multivits W-Minerals Liquid 15mL UDCUP PER TUBE SCH (09:56)
[2018-02-15] MEDS: Saccharomyces boulardii 250 MG CAP PER TUBE SCH ×3 (09:56→20:23)
[2018-02-15] MEDS: Vancomycin HCl 25 MG/ML Oral PO SCH ×4 (09:56→20:23)
[2018-02-15] MEDS: Nystatin Powder 15 GM BOT TOP SCH ×2 (09:56→20:23)
--- NOTE | 2018-02-15 10:44 | PDOC.PN ---
- Subjective Encounter Start Date: 02/15/18 Encounter Start Time: 08:50 Patient seen and examined for c-diff colitis, has pain all over, No overnight events - Objective Resuscitation Status: Resuscitation Status DNR:Do Not Resuscitate MAR Reviewed: Yes Vital Signs & Weight: Vital Signs (12 hours) Temp Pulse Resp BP Pulse Ox 02/15/18 07:39 97.7 F 85 18 98/63 100 02/15/18 04:30 98.2 F 80 20 91/70 98 02/15/18 02:30 99 02/15/18 02:04 90 16 02/14/18 23:19 98.5 F 77 20 106/58 L 97 Weight Admit Weight 238 lb 1.588 oz Weight 263 lb 2 oz Most Recent Monitor Data Heart Rate from ECG 81 NIBP 114/50 NIBP BP-Mean 68 Respiration from ECG 14 SpO2 99 I&O: 02/14/18 02/15/18 02/16/18 06:59 06:59 06:59 Intake Total 1030 1050 Output Total 700 600 Balance 330 450 Result Diagrams: 02/15/18 05:21 02/15/18 05:21 EKG Reviewed by me: Yes Dx/Plan (1) Acute encephalopathy Code(s): G93.40 - ENCEPHALOPATHY, UNSPECIFIED Status: Resolved Comment: (2) Acute kidney failure Status: Resolved (3) C. difficile colitis Status: Acute (4) Hypokalemia Code(s): E87.6 - HYPOKALEMIA Status: Acute Comment: (5) Hyponatremia Code(s): E87.1 - HYPO-OSMOLALITY AND HYPONATREMIA Status: Acute (6) Leukemoid reaction Code(s): D72.823 - LEUKEMOID REACTION Status: Acute (7) Physical deconditioning Code(s): R53.81 - OTHER MALAISE Status: Acute (8) Sepsis with acute organ dysfunction Code(s): A41.9 - SEPSIS, UNSPECIFIED ORGANISM; R65.20 - SEVERE SEPSIS WITHOUT SEPTIC SHOCK Status: Acute (9) Septic shock due to Clostridium difficile Code(s): LBV8800 - Status: Acute Comment: Stable now (10) HTN (hypertension) Code(s): I10 - ESSENTIAL (PRIMARY) HYPERTENSION Status: Chronic Qualifiers: Hypertension type: essential hypertension Qualified Code(s): I10 - Essential (primary) hypertension Comment: (11) Obesity (BMI 30-39.9) Code(s): E66.9 - OBESITY, UNSPECIFIED Status: Chronic (12) Coagulopathy Status: Resolved Comment: due to anticoagulation prior to admission and may be due to sepsis (13) H/O deep venous thrombosis Code(s): Z86.718 - PERSONAL HISTORY OF OTHER VENOUS THROMBOSIS AND EMBOLISM Status: Chronic Comment: right leg DVT - Plan cont current plan of care, continue antibiotics * continue iv flagyl and oral vancomycin * medication reviewed as below * symptomatic treatment * supportive care * speech therapy * wbc continue to improve. Review of Systems - Review of Systems ENT: negative: Ear Pain, Ear Discharge, Nose Pain, Nose Discharge, Nose Congestion, Mouth Pain, Mouth Swelling, Throat Pain, Throat Swelling, Other Respiratory: negative: Cough, Dry, Shortness of Breath, Hemoptysis, SOB with Excertion, Pleuritic Pain, Sputum, Wheezing Cardiovascular: negative: chest pain, palpitations, orthopnea, paroxysmal nocturnal dyspnea, edema, light headedness, other Gastrointestinal: negative: Nausea, Vomiting, Abdominal Pain, Diarrhea, Constipation, Melena, Hematochezia, Other Genitourinary: negative: Dysuria, Frequency, Incontinence, Hematuria, Retention , Other Musculoskeletal: negative: Neck Pain, Shoulder Pain, Arm Pain, Back Pain, Hand Pain, Leg Pain, Foot Pain, Other Other: not reliable due to level of cognitive status - Medications/Allergies Allergies/Adverse Reactions: Allergies Allergy/AdvReac Type Severity Reaction Status Date / Time codeine Allergy Verified 02/03/18 15:07 ibuprofen [From Advil] Allergy Verified 02/03/18 15:07 naproxen [From Naprosyn] Allergy Verified 02/03/18 15:07 nitrofurantoin Allergy Verified 02/03/18 15:07 [From Macrobid] Penicillins Allergy Verified 02/03/18 15:07 rofecoxib [From Vioxx] Allergy Verified 02/03/18 15:07 Sulfa (Sulfonamide Allergy Verified 02/03/18 15:07 Antibiotics) Medications: Current Medications Acetaminophen (Tylenol) 650 mg PO Q4H PRN PRN Reason: Headache/Fever or Pain Last Admin: 02/15/18 04:41 Dose: 650 mg Al Hydroxide/Mg Hydroxide (Maalox) 30 ml PO Q6H PRN PRN Reason: Heartburn or Indigestion Albuterol/Ipratropium (Duoneb) 3 ml NEB [id number] [facility] Last Admin: 02/15/18 06:39 Dose: 3 ml Albuterol/Ipratropium (Duoneb) 3 ml NEB [id number] PRN PRN Reason: SOB &/or Wheezing Artificial Tears (Tears Renewed 15ml Bottle) 0 drop EA EYE PRN PRN PRN Reason: Dry Eyes Budesonide (Pulmicort Neb Solution) 0.5 mg INH BID-RT [facility] Last Admin: 02/15/18 06:39 Dose: 0.5 mg Enoxaparin Sodium (Lovenox) 40 mg SC 0900 [facility] Last Admin: 02/15/18 09:55 Dose: 40 mg Fentanyl (Duragesic) 50 mcg TD Q3D [facility] Last Admin: 02/14/18 12:16 Dose: 50 mcg Fluticasone Propionate (Flonase Nasal [place]) 0 gm NASAL DAILY [facility] Last Admin: 02/14/18 09:33 Dose: 1 spray Guaifenesin (Robitussin Sf) 200 mg PO Q4H PRN PRN Reason: Cough Metronidazole 500 mg/ Device 100 mls @ 200 mls/hr IVPB Q8HR [facility] Last Admin: 02/15/18 04:41 Dose: 100 mls Iron/Minerals/Multivitamins (Certa Lo Liquid) 15 ml PER TUBE DAILY [facility] Last Admin: 02/15/18 09:56 Dose: 15 ml Lidocaine HCl (Xylocaine 2% Viscous) 15 ml SSP QID PRN PRN Reason: oral pain Last Admin: 02/14/18 12:23 Dose: 15 ml Loratadine (Claritin) 10 mg PO DAILYPRN PRN PRN Reason: Sinus Symptoms Mineral Oil/White Petrolatum (Eucerin Cream) 0 gm TOP BIDPRN PRN PRN Reason: Dry Skin Mometasone Furoate/Formoterol Fumar (Dulera 100 Mcg/5 Mcg Inhaler) 2 puff INH BID-RT [facility] Last Admin: 02/15/18 06:39 Dose: 2 puff Morphine Sulfate (Morphine Sulfate) 4 mg SLOW IVP Q1H PRN PRN Reason: Breakthrough Pain Last Admin: 02/15/18 09:57 Dose: 4 mg Nystatin (Mycostatin Powder) 0 gm TOP BID [facility] Last Admin: 02/15/18 09:56 Dose: 1 applic Ondansetron HCl (Zofran Odt) 4 mg PO Q6H PRN PRN Reason: Nausea/Vomiting Ondansetron HCl (Zofran) 4 mg IVP Q6H PRN PRN Reason: Nausea/Vomiting Phenol (Chloraseptic [place] 180 Ml Bot) 0 ml PO PRN PRN PRN Reason: Sore Throat Last Admin: 02/14/18 09:41 Dose: 1 spr Saccharomyces Boulardii (Florastor) 250 mg PER TUBE TID [facility] Last Admin: 02/15/18 09:56 Dose: 250 mg Sodium Chloride ([place] Nasal [place] 0.65%) 0 ml EA NARE QIDPRN PRN PRN Reason: Nasal Congestion Sodium Chloride (Flush - Normal Saline) 10 ml IVF Q12HR [facility] Last Admin: 02/15/18 10:02 Dose: 10 ml Sodium Chloride (Flush - Normal Saline) 10 ml IVF PRN PRN PRN Reason: Saline Flush Last Admin: 02/14/18 12:24 Dose: 10 ml Vancomycin HCl (First Vancomycin) 500 mg PO QID [facility] Last Admin: 02/15/18 09:56 Dose: 500 mg
[2018-02-15] MEDS: Fluticasone Propionate Nasal Spray 16 gm Bottle NASAL SCH (12:31)
--- NOTE | 2018-02-15 12:49 | PRG ---
DATE OF SERVICE: 02/15/2018 Jessica Cardoso continues to have a tender abdomen. She says she did not feel any better. Her white count is down; however, to 17.2, hemoglobin is 8.9, platelets 152. Her renal function remains stable with a creatinine of 0.67 and normal potassium. PHYSICAL EXAMINATION: LUNGS/HEART: Her lungs and heart are unchanged. ABDOMEN: Her abdomen is still diffusely tender. EXTREMITIES: Without asymmetry. She is globally edematous because of volume resuscitation associate d with her colitis. IMPRESSION: 1. Life threatening Clostridium difficile colitis. 2. Life threatening deconditioning. PLAN: Continue antimicrobial therapy. Her deconditioning will be the biggest factor that determines whether or not she survives this in my opinion.
[2018-02-16] MEDS: metroNIDAZOLE 500 MG in Premix Bag 1 BAG IVPB SCH ×3 (05:36→19:32)
[2018-02-16 05:57] LABS: Anion Gap 10 mmol/L (10-20); BUN (Urea Nitrogen) 24 mg/dL (9.8-20.1); Calc. Creatinine Clearance 121 mL/min (70-130); Calcium 8.9 mg/dL (7.8-10.44); Carbon Dioxide 22 mmol/L (23-31); Chloride 111 mmol/L (98-107); Estimated GFR-MDRD 86; Glucose 100 mg/dL (83-110); Potassium 4.3 mmol/L (3.5-5.1); Sodium 139 mmol/L (136-145)
[2018-02-16 06:00] LABS: Band 25 % (5-11); Eosinophils 1 % (0-10); Hemoglobin 9.6 g/dL (12.0-16.0); Lymphocytes 10 % (21-51); MDiff Complete? YES; Mean Corpuscular HGB CONC 31.6 g/dL (32.0-36.0); Mean Corpuscular Hemoglobin 31.6 pg (27.0-31.0); Mean Platelet Volume 9.8 fL (7.4-10.4); Monocytes 18 % (0-10); Neutrophil 46 % (42-75); PLT Morphology Comment Appears Adequate; Platelet Count 186 thou/uL (130-400); RBC Distribution Width 16.6 % (11.5-14.5); Red Blood Cell (RBC) Count 3.03 mill/uL (4.20-5.40); White Blood Cell (WBC) Count 17.8 thou/uL (4.8-10.8)
[2018-02-16] MEDS: Budesonide 0.5 MG/2 ML NEB INH SCH ×2 (07:00→19:45)
[2018-02-16] MEDS: Mometasone/Formoterol 120 PUFF INHALER INH SCH ×2 (07:01→19:46)
[2018-02-16] MEDS: Vancomycin HCl 25 MG/ML Oral PO SCH ×4 (08:34→19:28)
[2018-02-16] MEDS: Multivits W-Minerals Liquid 15mL UDCUP PER TUBE SCH (08:34)
[2018-02-16] MEDS: Nystatin Powder 15 GM BOT TOP SCH ×2 (08:35→19:29)
[2018-02-16] MEDS: Enoxaparin Sodium 40 MG/0.4 ML SYRINGE SC SCH (08:35)
[2018-02-16] MEDS: Fluticasone Propionate Nasal Spray 16 gm Bottle NASAL SCH (08:35)
[2018-02-16] MEDS: Saccharomyces boulardii 250 MG CAP PER TUBE SCH ×3 (08:36→19:28)
--- NOTE | 2018-02-16 12:20 | PDOC.PN ---
- Subjective Encounter Start Date: 02/16/18 Encounter Start Time: 08:15 - Objective Resuscitation Status: Resuscitation Status DNR:Do Not Resuscitate MAR Reviewed: Yes Vital Signs & Weight: Vital Signs (12 hours) Temp Pulse Resp BP Pulse Ox 02/16/18 09:08 98.5 F 92 16 98/56 L 99 02/16/18 08:00 97.7 F 90 16 02/16/18 07:00 90 16 98 02/16/18 06:59 90 16 98 Weight Admit Weight 238 lb 1.588 oz Weight 261 lb 11.2 oz Most Recent Monitor Data Heart Rate from ECG 81 NIBP 114/50 NIBP BP-Mean 68 Respiration from ECG 14 SpO2 99 I&O: 02/15/18 02/16/18 02/17/18 06:59 06:59 06:59 Intake Total 1050 320 60 Output Total 600 525 Balance 450 -205 60 Result Diagrams: 02/16/18 04:40 02/16/18 04:40 Phys Exam - Physical Examination Constitutional: NAD HEENT: PERRLA, moist MMs, sclera anicteric Neck: no JVD, supple Respiratory: no wheezing, no rales, no rhonchi Cardiovascular: RRR, no significant murmur, no rub Gastrointestinal: soft, no distention, positive bowel sounds diffuse sore Musculoskeletal: pulses present, edema present Neurological: moves all 4 limbs Lymphatic: no nodes Psychiatric: normal affect Skin: no rash, normal turgor Dx/Plan (1) Acute encephalopathy Code(s): G93.40 - ENCEPHALOPATHY, UNSPECIFIED Status: Resolved Comment: (2) Acute kidney failure Status: Resolved (3) C. difficile colitis Status: Acute Comment: mproving (4) Hypokalemia Code(s): E87.6 - HYPOKALEMIA Status: Resolved Comment: (5) Hyponatremia Code(s): E87.1 - HYPO-OSMOLALITY AND HYPONATREMIA Status: Resolved (6) Leukemoid reaction Code(s): D72.823 - LEUKEMOID REACTION Status: Acute Comment: improving (7) Physical deconditioning Code(s): R53.81 - OTHER MALAISE Status: Acute (8) Sepsis with acute organ dysfunction Code(s): A41.9 - SEPSIS, UNSPECIFIED ORGANISM; R65.20 - SEVERE SEPSIS WITHOUT SEPTIC SHOCK Status: Acute (9) Septic shock due to Clostridium difficile Code(s): [id number] - Status: Resolved Comment: (10) HTN (hypertension) Code(s): I10 - ESSENTIAL (PRIMARY) HYPERTENSION Status: Chronic Qualifiers: Hypertension type: essential hypertension Qualified Code(s): I10 - Essential (primary) hypertension Comment: (11) Obesity (BMI 30-39.9) Code(s): E66.9 - OBESITY, UNSPECIFIED Status: Chronic (12) Coagulopathy Status: Resolved Comment: due to anticoagulation prior to admission and may be due to sepsis (13) H/O deep venous thrombosis Code(s): Z86.718 - PERSONAL HISTORY OF OTHER VENOUS THROMBOSIS AND EMBOLISM Status: Chronic Comment: right leg DVT - Plan cont current plan of care, 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 Review of Systems - Review of Systems Constitutional: weakness, malaise. negative: fever, chills, sweats, other ENT: negative: Ear Pain, Ear Discharge, Nose Pain, Nose Discharge, Nose Congestion, Mouth Pain, Mouth Swelling, Throat Pain, Throat Swelling, Other Respiratory: negative: Cough, Dry, Shortness of Breath, Hemoptysis, SOB with Excertion, Pleuritic Pain, Sputum, Wheezing Cardiovascular: edema. negative: chest pain, palpitations, orthopnea, paroxysmal nocturnal dyspnea, light headedness, other Gastrointestinal: Abdominal Pain. negative: Nausea, Vomiting, Diarrhea, Constipation, Melena, Hematochezia, Other Genitourinary: negative: Dysuria, Frequency, Incontinence, Hematuria, Retention , Other Musculoskeletal: negative: Neck Pain, Shoulder Pain, Arm Pain, Back Pain, Hand Pain, Leg Pain, Foot Pain, Other Skin: negative: Rash, Lesions, Natalio, Bruising, Other - Medications/Allergies Allergies/Adverse Reactions: Allergies Allergy/AdvReac Type Severity Reaction Status Date / Time codeine Allergy Verified 02/03/18 15:07 ibuprofen [From Advil] Allergy Verified 02/03/18 15:07 naproxen [From Naprosyn] Allergy Verified 02/03/18 15:07 nitrofurantoin Allergy Verified 02/03/18 15:07 [From Macrobid] Penicillins Allergy Verified 02/03/18 15:07 rofecoxib [From Vioxx] Allergy Verified 02/03/18 15:07 Sulfa (Sulfonamide Allergy Verified 02/03/18 15:07 Antibiotics) Medications: Current Medications Acetaminophen (Tylenol) 650 mg PO Q4H PRN PRN Reason: Headache/Fever or Pain Last Admin: 02/15/18 04:41 Dose: 650 mg Al Hydroxide/Mg Hydroxide (Maalox) 30 ml PO Q6H PRN PRN Reason: Heartburn or Indigestion Albuterol/Ipratropium (Duoneb) 3 ml NEB [id number] [facility] Last Admin: 02/16/18 06:59 Dose: 3 ml Albuterol/Ipratropium (Duoneb) 3 ml NEB [id number] PRN PRN Reason: SOB &/or Wheezing Artificial Tears (Tears Renewed 15ml Bottle) 0 drop EA EYE PRN PRN PRN Reason: Dry Eyes Budesonide (Pulmicort Neb Solution) 0.5 mg INH BID-RT [facility] Last Admin: 02/16/18 07:00 Dose: 0.5 mg Enoxaparin Sodium (Lovenox) 40 mg SC 0900 [facility] Last Admin: 02/16/18 08:35 Dose: 40 mg Fentanyl (Duragesic) 50 mcg TD Q3D [facility] Last Admin: 02/14/18 12:16 Dose: 50 mcg Fluticasone Propionate (Flonase Nasal [place]) 0 gm NASAL DAILY [facility] Last Admin: 02/16/18 08:35 Dose: Not Given Guaifenesin (Robitussin Sf) 200 mg PO Q4H PRN PRN Reason: Cough Metronidazole 500 mg/ Device 100 mls @ 200 mls/hr IVPB Q8HR [facility] Last Admin: 02/16/18 05:36 Dose: 100 mls Iron/Minerals/Multivitamins (Certa Lo Liquid) 15 ml PER TUBE DAILY [facility] Last Admin: 02/16/18 08:34 Dose: 15 ml Lidocaine HCl (Xylocaine 2% Viscous) 15 ml SSP QID PRN PRN Reason: oral pain Last Admin: 02/14/18 12:23 Dose: 15 ml Loratadine (Claritin) 10 mg PO DAILYPRN PRN PRN Reason: Sinus Symptoms Mineral Oil/White Petrolatum (Eucerin Cream) 0 gm TOP BIDPRN PRN PRN Reason: Dry Skin Mometasone Furoate/Formoterol Fumar (Dulera 100 Mcg/5 Mcg Inhaler) 2 puff INH BID-RT [facility] Last Admin: 02/16/18 07:01 Dose: 2 puff Morphine Sulfate (Morphine Sulfate) 4 mg SLOW IVP Q1H PRN PRN Reason: Breakthrough Pain Last Admin: 02/16/18 11:44 Dose: 4 mg Nystatin (Mycostatin Powder) 0 gm TOP BID [facility] Last Admin: 02/16/18 08:35 Dose: 1 applic Ondansetron HCl (Zofran Odt) 4 mg PO Q6H PRN PRN Reason: Nausea/Vomiting Ondansetron HCl (Zofran) 4 mg IVP Q6H PRN PRN Reason: Nausea/Vomiting Phenol (Chloraseptic [place] 180 Ml Bot) 0 ml PO PRN PRN PRN Reason: Sore Throat Last Admin: 02/14/18 09:41 Dose: 1 spr Saccharomyces Boulardii (Florastor) 250 mg PER TUBE TID [facility] Last Admin: 02/16/18 08:36 Dose: 250 mg Sodium Chloride ([place] Nasal [place] 0.65%) 0 ml EA NARE QIDPRN PRN PRN Reason: Nasal Congestion Sodium Chloride (Flush - Normal Saline) 10 ml IVF Q12HR [facility] Last Admin: 02/16/18 08:36 Dose: 10 ml Sodium Chloride (Flush - Normal Saline) 10 ml IVF PRN PRN PRN Reason: Saline Flush Last Admin: 02/14/18 12:24 Dose: 10 ml Vancomycin HCl (First Vancomycin) 500 mg PO QID [facility] Last Admin: 02/16/18 08:34 Dose: 500 mg
[2018-02-16] MEDS ORDERED: Fentanyl 100 MCG/2 ML VIAL SLOW IVP PRN (19:10)
[2018-02-17 05:49] LABS: Band 33 % (5-11); Lymphocytes 9 % (21-51); MDiff Complete? YES; Mean Platelet Volume 10.5 fL (7.4-10.4); Monocytes 16 % (0-10); Neutrophil 42 % (42-75); PLT Morphology Comment Appears Decreased; Platelet Count 110 thou/uL (130-400); White Blood Cell (WBC) Count 21.3 thou/uL (4.8-10.8)
[2018-02-17] MEDS: metroNIDAZOLE 500 MG in Premix Bag 1 BAG IVPB SCH ×3 (05:55→21:31)
[2018-02-17 06:00] LABS: Anion Gap 11 mmol/L (10-20); BUN (Urea Nitrogen) 27 mg/dL (9.8-20.1); Calc. Creatinine Clearance 125 mL/min (70-130); Calcium 8.4 mg/dL (7.8-10.44); Carbon Dioxide 20 mmol/L (23-31); Chloride 113 mmol/L (98-107); Estimated GFR-MDRD 89; Glucose 109 mg/dL (83-110); Potassium 5.7 mmol/L (3.5-5.1); Sodium 138 mmol/L (136-145)
[2018-02-17] MEDS: Budesonide 0.5 MG/2 ML NEB INH SCH ×2 (06:41→18:27)
[2018-02-17] MEDS: Mometasone/Formoterol 120 PUFF INHALER INH SCH ×2 (06:41→18:28)
[2018-02-17] MEDS: Fluticasone Propionate Nasal Spray 16 gm Bottle NASAL SCH (08:12)
[2018-02-17] MEDS: Nystatin Powder 15 GM BOT TOP SCH ×2 (08:15→19:55)
[2018-02-17] MEDS: Saccharomyces boulardii 250 MG CAP PER TUBE SCH ×3 (08:15→19:54)
[2018-02-17] MEDS: Vancomycin HCl 25 MG/ML Oral PO SCH ×4 (08:19→19:55)
[2018-02-17] MEDS: Enoxaparin Sodium 40 MG/0.4 ML SYRINGE SC SCH (08:19)
[2018-02-17] MEDS: Multivits W-Minerals Liquid 15mL UDCUP PER TUBE SCH (09:10)
--- NOTE | 2018-02-17 10:19 | PDOC.PN ---
- Subjective Encounter Start Date: 02/17/18 Encounter Start Time: 09:00 Patient seen and examined for c-diff colitis, she has all over pain, No overnight events - Objective Resuscitation Status: Resuscitation Status DNR:Do Not Resuscitate MAR Reviewed: Yes Vital Signs & Weight: Vital Signs (12 hours) Temp Pulse Resp BP Pulse Ox 02/17/18 08:00 98 F 87 16 96 02/17/18 07:42 98 F 87 16 146/64 H 96 02/17/18 06:41 86 20 100 02/17/18 06:39 86 20 100 02/17/18 01:14 89 20 121/78 100 02/17/18 00:54 84 18 99 Weight Admit Weight 238 lb 1.588 oz Weight 261 lb 11.2 oz Most Recent Monitor Data Heart Rate from ECG 81 NIBP 114/50 NIBP BP-Mean 68 Respiration from ECG 14 SpO2 99 I&O: 02/16/18 02/17/18 02/18/18 06:59 06:59 06:59 Intake Total 320 470 Output Total 525 850 Balance -205 -380 Result Diagrams: 02/17/18 05:16 02/17/18 05:16 Phys Exam - Physical Examination Constitutional: NAD HEENT: PERRLA, sclera anicteric dubhuff tube+ Neck: no JVD, supple Respiratory: no wheezing, no rales, no rhonchi Cardiovascular: RRR, no significant murmur, no rub Gastrointestinal: soft, positive bowel sounds diffuse soreness Musculoskeletal: pulses present, edema present Neurological: non-focal Lymphatic: no nodes Psychiatric: normal affect Skin: no rash, normal turgor Dx/Plan (1) Acute encephalopathy Code(s): G93.40 - ENCEPHALOPATHY, UNSPECIFIED Status: Resolved Comment: (2) Acute kidney failure Status: Resolved (3) C. difficile colitis Status: Acute Comment: mproving (4) Hypokalemia Code(s): E87.6 - HYPOKALEMIA Status: Resolved Comment: (5) Hyponatremia Code(s): E87.1 - HYPO-OSMOLALITY AND HYPONATREMIA Status: Resolved (6) Leukemoid reaction Code(s): D72.823 - LEUKEMOID REACTION Status: Acute Comment: improving (7) Physical deconditioning Code(s): R53.81 - OTHER MALAISE Status: Acute (8) Sepsis with acute organ dysfunction Code(s): A41.9 - SEPSIS, UNSPECIFIED ORGANISM; R65.20 - SEVERE SEPSIS WITHOUT SEPTIC SHOCK Status: Acute (9) Septic shock due to Clostridium difficile Code(s): [id number] - Status: Resolved Comment: (10) HTN (hypertension) Code(s): I10 - ESSENTIAL (PRIMARY) HYPERTENSION Status: Chronic Qualifiers: Hypertension type: essential hypertension Qualified Code(s): I10 - Essential (primary) hypertension Comment: (11) Obesity (BMI 30-39.9) Code(s): E66.9 - OBESITY, UNSPECIFIED Status: Chronic (12) Coagulopathy Status: Resolved Comment: due to anticoagulation prior to admission and may be due to sepsis (13) H/O deep venous thrombosis Code(s): Z86.718 - PERSONAL HISTORY OF OTHER VENOUS THROMBOSIS AND EMBOLISM Status: Chronic Comment: right leg DVT - Plan cont current plan of care, continue antibiotics, PT/OT, outreach and education social worker * continue diet as tolerated * continue additional tube feeding if less oral intake * on fentanyl patch as well as morphin as needed * medication reviewed as below * symptomatic treatment * prognosis is poor * now again wbc rising. Review of Systems - Review of Systems Other: diffuse pain, not reliable due to her level of cognitive status - Medications/Allergies Allergies/Adverse Reactions: Allergies Allergy/AdvReac Type Severity Reaction Status Date / Time codeine Allergy Verified 02/03/18 15:07 ibuprofen [From Advil] Allergy Verified 02/03/18 15:07 naproxen [From Naprosyn] Allergy Verified 02/03/18 15:07 nitrofurantoin Allergy Verified 02/03/18 15:07 [From Macrobid] Penicillins Allergy Verified 02/03/18 15:07 rofecoxib [From Vioxx] Allergy Verified 02/03/18 15:07 Sulfa (Sulfonamide Allergy Verified 02/03/18 15:07 Antibiotics) Medications: Current Medications Acetaminophen (Tylenol) 650 mg PO Q4H PRN PRN Reason: Headache/Fever or Pain Last Admin: 02/15/18 04:41 Dose: 650 mg Al Hydroxide/Mg Hydroxide (Maalox) 30 ml PO Q6H PRN PRN Reason: Heartburn or Indigestion Albuterol/Ipratropium (Duoneb) 3 ml NEB [id number]-VR [facility] Last Admin: 02/17/18 06:39 Dose: 3 ml Albuterol/Ipratropium (Duoneb) 3 ml NEB [id number] PRN PRN Reason: SOB &/or Wheezing Artificial Tears (Tears Renewed 15ml Bottle) 0 drop EA EYE PRN PRN PRN Reason: Dry Eyes Budesonide (Pulmicort Neb Solution) 0.5 mg INH BID-RT [facility] Last Admin: 02/17/18 06:41 Dose: 0.5 mg Enoxaparin Sodium (Lovenox) 40 mg SC 0900 [facility] Last Admin: 02/17/18 08:19 Dose: 40 mg Fentanyl (Duragesic) 50 mcg TD Q3D [facility] Last Admin: 02/14/18 12:16 Dose: 50 mcg Fentanyl (Sublimaze) 25 mcg SLOW IVP Q2H PRN PRN Reason: Pain Fluticasone Propionate (Flonase Nasal [place]) 0 gm NASAL DAILY [facility] Last Admin: 02/17/18 08:12 Dose: Not Given Guaifenesin (Robitussin Sf) 200 mg PO Q4H PRN PRN Reason: Cough Metronidazole 500 mg/ Device 100 mls @ 200 mls/hr IVPB Q8HR [facility] Last Admin: 02/17/18 05:55 Dose: 100 mls Iron/Minerals/Multivitamins (Certa Lo Liquid) 15 ml PER TUBE DAILY [facility] Last Admin: 02/17/18 09:10 Dose: 15 ml Lidocaine HCl (Xylocaine 2% Viscous) 15 ml SSP QID PRN PRN Reason: oral pain Last Admin: 02/14/18 12:23 Dose: 15 ml Loratadine (Claritin) 10 mg PO DAILYPRN PRN PRN Reason: Sinus Symptoms Mineral Oil/White Petrolatum (Eucerin Cream) 0 gm TOP BIDPRN PRN PRN Reason: Dry Skin Mometasone Furoate/Formoterol Fumar (Dulera 100 Mcg/5 Mcg Inhaler) 2 puff INH BID-RT [facility] Last Admin: 02/17/18 06:41 Dose: 2 puff Morphine Sulfate (Morphine Sulfate) 4 mg SLOW IVP Q1H PRN PRN Reason: Breakthrough Pain Last Admin: 02/17/18 08:16 Dose: 4 mg Nystatin (Mycostatin Powder) 0 gm TOP BID [facility] Last Admin: 02/17/18 08:15 Dose: 1 applic Ondansetron HCl (Zofran Odt) 4 mg PO Q6H PRN PRN Reason: Nausea/Vomiting Ondansetron HCl (Zofran) 4 mg IVP Q6H PRN PRN Reason: Nausea/Vomiting Phenol (Chloraseptic [place] 180 Ml Bot) 0 ml PO PRN PRN PRN Reason: Sore Throat Last Admin: 02/14/18 09:41 Dose: 1 spr Saccharomyces Boulardii (Florastor) 250 mg PER TUBE TID [facility] Last Admin: 02/17/18 08:15 Dose: 250 mg Sodium Chloride ([place] Nasal [place] 0.65%) 0 ml EA NARE QIDPRN PRN PRN Reason: Nasal Congestion Sodium Chloride (Flush - Normal Saline) 10 ml IVF Q12HR [facility] Last Admin: 02/17/18 08:15 Dose: 10 ml Sodium Chloride (Flush - Normal Saline) 10 ml IVF PRN PRN PRN Reason: Saline Flush Last Admin: 02/14/18 12:24 Dose: 10 ml Vancomycin HCl (First Vancomycin) 500 mg PO QID [facility] Last Admin: 02/17/18 08:19 Dose: 500 mg
[2018-02-17] MEDS: fentaNYL 50 mcg/hour Patch TD SCH (12:43)
[2018-02-17] MEDS: Fentanyl 100 MCG/2 ML VIAL SLOW IVP PRN ×3 (12:48→18:00)
[2018-02-18] MEDS: metroNIDAZOLE 500 MG in Premix Bag 1 BAG IVPB SCH ×3 (05:24→22:21)
[2018-02-18 05:33] LABS: Anion Gap 10 mmol/L (10-20); BUN (Urea Nitrogen) 25 mg/dL (9.8-20.1); Calc. Creatinine Clearance 121 mL/min (70-130); Calcium 8.7 mg/dL (7.8-10.44); Carbon Dioxide 23 mmol/L (23-31); Chloride 108 mmol/L (98-107); Estimated GFR-MDRD 86; Glucose 104 mg/dL (83-110); Potassium 4.4 mmol/L (3.5-5.1); Sodium 137 mmol/L (136-145)
[2018-02-18 05:43] LABS: Band 14 % (5-11); Hemoglobin 9.7 g/dL (12.0-16.0); Lymphocytes 12 % (21-51); MDiff Complete? YES; Mean Corpuscular HGB CONC 31.6 g/dL (32.0-36.0); Mean Corpuscular Hemoglobin 31.3 pg (27.0-31.0); Mean Corpuscular Volume 99.1 fL (78.0-98.0); Mean Platelet Volume 9.8 fL (7.4-10.4); Monocytes 11 % (0-10); Neutrophil 63 % (42-75); Platelet Count 158 thou/uL (130-400); RBC Distribution Width 17.3 % (11.5-14.5); Red Blood Cell (RBC) Count 3.08 mill/uL (4.20-5.40); White Blood Cell (WBC) Count 17.5 thou/uL (4.8-10.8)
[2018-02-18] MEDS: Mometasone/Formoterol 120 PUFF INHALER INH SCH ×2 (06:22→18:30)
[2018-02-18] MEDS: Budesonide 0.5 MG/2 ML NEB INH SCH ×2 (06:22→18:29)
[2018-02-18] MEDS: Enoxaparin Sodium 40 MG/0.4 ML SYRINGE SC SCH (08:44)
[2018-02-18] MEDS: Multivits W-Minerals Liquid 15mL UDCUP PER TUBE SCH (08:45)
[2018-02-18] MEDS: Nystatin Powder 15 GM BOT TOP SCH ×2 (08:45→21:58)
[2018-02-18] MEDS: Saccharomyces boulardii 250 MG CAP PER TUBE SCH ×3 (08:45→21:56)
[2018-02-18] MEDS: Vancomycin HCl 25 MG/ML Oral PO SCH ×4 (08:46→21:59)
[2018-02-18] MEDS: Fluticasone Propionate Nasal Spray 16 gm Bottle NASAL SCH (08:48)
[2018-02-18] MEDS: Chloraseptic Spray 180 ml Bottle PO PRN (08:51)
--- NOTE | 2018-02-18 10:27 | PDOC.PN ---
- Subjective Encounter Start Date: 02/18/18 Encounter Start Time: 07:45 pt is sore all over, no diarrhoea, has significant weakness and edema of leg, she is not able to do therapy yet - Objective Resuscitation Status: Resuscitation Status DNR:Do Not Resuscitate MAR Reviewed: Yes Vital Signs & Weight: Vital Signs (12 hours) Temp Pulse Resp BP Pulse Ox 02/18/18 07:09 98.6 F 98 16 122/54 L 99 02/18/18 06:22 87 20 94 L 02/18/18 06:21 87 20 94 L 02/18/18 00:21 91 18 99 Weight Admit Weight 238 lb 1.588 oz Weight 261 lb 11.2 oz Most Recent Monitor Data Heart Rate from ECG 81 NIBP 114/50 NIBP BP-Mean 68 Respiration from ECG 14 SpO2 99 I&O: 02/17/18 02/18/18 02/19/18 06:59 06:59 06:59 Intake Total 470 1746 Output Total 850 525 Balance -380 1221 Result Diagrams: 02/18/18 04:59 02/18/18 04:59 Phys Exam - Physical Examination Constitutional: NAD HEENT: PERRLA, moist MMs, sclera anicteric Neck: no JVD, supple Respiratory: no wheezing, no rales, no rhonchi Cardiovascular: RRR, no significant murmur, no rub Gastrointestinal: soft, no distention, positive bowel sounds Musculoskeletal: pulses present, edema present Neurological: non-focal, normal sensation Lymphatic: no nodes Psychiatric: normal affect Skin: no rash, normal turgor Dx/Plan (1) Acute encephalopathy Code(s): G93.40 - ENCEPHALOPATHY, UNSPECIFIED Status: Resolved Comment: (2) Acute kidney failure Status: Resolved (3) C. difficile colitis Status: Acute Comment: mproving (4) Hypokalemia Code(s): E87.6 - HYPOKALEMIA Status: Resolved Comment: (5) Hyponatremia Code(s): E87.1 - HYPO-OSMOLALITY AND HYPONATREMIA Status: Resolved (6) Leukemoid reaction Code(s): D72.823 - LEUKEMOID REACTION Status: Acute Comment: improving (7) Physical deconditioning Code(s): R53.81 - OTHER MALAISE Status: Acute (8) Sepsis with acute organ dysfunction Code(s): A41.9 - SEPSIS, UNSPECIFIED ORGANISM; R65.20 - SEVERE SEPSIS WITHOUT SEPTIC SHOCK Status: Acute (9) Septic shock due to Clostridium difficile Code(s): [id number] - Status: Resolved Comment: (10) HTN (hypertension) Code(s): I10 - ESSENTIAL (PRIMARY) HYPERTENSION Status: Chronic Qualifiers: Hypertension type: essential hypertension Qualified Code(s): I10 - Essential (primary) hypertension Comment: (11) Obesity (BMI 30-39.9) Code(s): E66.9 - OBESITY, UNSPECIFIED Status: Chronic (12) Coagulopathy Status: Resolved Comment: due to anticoagulation prior to admission and may be due to sepsis (13) H/O deep venous thrombosis Code(s): Z86.718 - PERSONAL HISTORY OF OTHER VENOUS THROMBOSIS AND EMBOLISM Status: Chronic Comment: right leg DVT - Plan cont current plan of care, continue antibiotics, PT/OT, social services manager * for edema will start lasix 20 mg IV bid, if BP gets low, will give her albumin * continue iv flagyl and oral vancomycin * today wbc count is better * continue pain control * should be on hospice if family agree, palliative care on case * medication reviewed as below * symptomatic treatment * supportive care * discharge placement is in progress. Review of Systems - Review of Systems Constitutional: weakness. negative: fever, chills, sweats, malaise, other Respiratory: negative: Cough, Dry, Shortness of Breath, Hemoptysis, SOB with Excertion, Pleuritic Pain, Sputum, Wheezing Cardiovascular: negative: chest pain, palpitations, orthopnea, paroxysmal nocturnal dyspnea, edema, light headedness, other Gastrointestinal: negative: Nausea, Vomiting, Abdominal Pain, Diarrhea, Constipation, Melena, Hematochezia, Other Genitourinary: negative: Dysuria, Frequency, Incontinence, Hematuria, Retention , Other Musculoskeletal: negative: Neck Pain, Shoulder Pain, Arm Pain, Back Pain, Hand Pain, Leg Pain, Foot Pain, Other Skin: negative: Rash, Lesions, Natalio, Bruising, Other Other: patient has diffuse pain - Medications/Allergies Allergies/Adverse Reactions: Allergies Allergy/AdvReac Type Severity Reaction Status Date / Time codeine Allergy Verified 02/03/18 15:07 ibuprofen [From Advil] Allergy Verified 02/03/18 15:07 naproxen [From Naprosyn] Allergy Verified 02/03/18 15:07 nitrofurantoin Allergy Verified 02/03/18 15:07 [From Macrobid] Penicillins Allergy Verified 02/03/18 15:07 rofecoxib [From Vioxx] Allergy Verified 02/03/18 15:07 Sulfa (Sulfonamide Allergy Verified 02/03/18 15:07 Antibiotics) Medications: Current Medications Acetaminophen (Tylenol) 650 mg PO Q4H PRN PRN Reason: Headache/Fever or Pain Last Admin: 02/15/18 04:41 Dose: 650 mg Al Hydroxide/Mg Hydroxide (Maalox) 30 ml PO Q6H PRN PRN Reason: Heartburn or Indigestion Albuterol/Ipratropium (Duoneb) 3 ml NEB [id number] [facility] Last Admin: 02/18/18 06:21 Dose: 3 ml Albuterol/Ipratropium (Duoneb) 3 ml NEB [id number] PRN PRN Reason: SOB &/or Wheezing Artificial Tears (Tears Renewed 15ml Bottle) 0 drop EA EYE PRN PRN PRN Reason: Dry Eyes Budesonide (Pulmicort Neb Solution) 0.5 mg INH BID-RT [facility] Last Admin: 02/18/18 06:22 Dose: 0.5 mg Enoxaparin Sodium (Lovenox) 40 mg SC 0900 [facility] Last Admin: 02/18/18 08:44 Dose: 40 mg Fentanyl (Duragesic) 50 mcg TD Q3D [facility] Last Admin: 02/17/18 12:43 Dose: 50 mcg Fentanyl (Sublimaze) 25 mcg SLOW IVP Q2H PRN PRN Reason: Pain Last Admin: 02/17/18 18:00 Dose: 25 mcg Fluticasone Propionate (Flonase Nasal [place]) 0 gm NASAL DAILY [facility] Last Admin: 02/18/18 08:48 Dose: Not Given Guaifenesin (Robitussin Sf) 200 mg PO Q4H PRN PRN Reason: Cough Metronidazole 500 mg/ Device 100 mls @ 200 mls/hr IVPB Q8HR [facility] Last Admin: 02/18/18 05:24 Dose: 100 mls Iron/Minerals/Multivitamins (Certa Lo Liquid) 15 ml PER TUBE DAILY [facility] Last Admin: 02/18/18 08:45 Dose: 15 ml Lidocaine HCl (Xylocaine 2% Viscous) 15 ml SSP QID PRN PRN Reason: oral pain Last Admin: 02/14/18 12:23 Dose: 15 ml Loratadine (Claritin) 10 mg PO DAILYPRN PRN PRN Reason: Sinus Symptoms Mineral Oil/White Petrolatum (Eucerin Cream) 0 gm TOP BIDPRN PRN PRN Reason: Dry Skin Mometasone Furoate/Formoterol Fumar (Dulera 100 Mcg/5 Mcg Inhaler) 2 puff INH BID-RT [facility] Last Admin: 02/18/18 06:22 Dose: 2 puff Morphine Sulfate (Morphine Sulfate) 4 mg SLOW IVP Q1H PRN PRN Reason: Breakthrough Pain Last Admin: 02/18/18 08:46 Dose: 4 mg Nystatin (Mycostatin Powder) 0 gm TOP BID [facility] Last Admin: 02/18/18 08:45 Dose: 1 applic Ondansetron HCl (Zofran Odt) 4 mg PO Q6H PRN PRN Reason: Nausea/Vomiting Ondansetron HCl (Zofran) 4 mg IVP Q6H PRN PRN Reason: Nausea/Vomiting Phenol (Chloraseptic [place] 180 Ml Bot) 0 ml PO PRN PRN PRN Reason: Sore Throat Last Admin: 02/18/18 08:51 Dose: 1 spr Saccharomyces Boulardii (Florastor) 250 mg PER TUBE TID [facility] Last Admin: 02/18/18 08:45 Dose: 250 mg Sodium Chloride ([place] Nasal [place] 0.65%) 0 ml EA NARE QIDPRN PRN PRN Reason: Nasal Congestion Sodium Chloride (Flush - Normal Saline) 10 ml IVF Q12HR [facility] Last Admin: 02/18/18 08:46 Dose: 10 ml Sodium Chloride (Flush - Normal Saline) 10 ml IVF PRN PRN PRN Reason: Saline Flush Last Admin: 02/14/18 12:24 Dose: 10 ml Vancomycin HCl (First Vancomycin) 500 mg PO QID [facility] Last Admin: 02/18/18 08:46 Dose: 500 mg
[2018-02-18] MEDS ORDERED: Furosemide 20 MG/2 ML VIAL SLOW IVP SCH (11:00)
[2018-02-18] MEDS: Ondansetron HCl/PF 4 MG/2 ML Vial IVP PRN (12:06)
[2018-02-18] MEDS: Furosemide 20 MG/2 ML VIAL SLOW IVP SCH (14:43)
--- NOTE | 2018-02-18 18:02 | PRG ---
DATE OF SERVICE: 02/18/2018 The patient is somewhat apathetic listless. She establishes eye contact, appears depressed. Still h aving pain in the abdominal area, which is mild to moderate. She reports some diarrhea. Does not wa nt to much or answer questions, does not appear in distress. PHYSICAL EXAMINATION: VITAL SIGNS: T-max 98.6, pulse 92, respirations 20, O2 sat 96%. GENERAL: Awake. Dobbhoff tube in place. LUNGS: Symmetric air entry. HEART: S1, S2, regular rate. ABDOMEN: Soft with moderate distention and mild tenderness, which is diffuse. EXTREMITIES: Able to move extremities. LABORATORY DATA: White cell count 17.5, hemoglobin 9.7, platelets 158, 62% neutrophils, bands are do wn to 14%. Creatinine 0.66. ASSESSMENT AND DISCUSSION: Chronic obstructive pulmonary disease and urinary tract infections treate d multiple times now severe Clostridium difficile colitis, did not appear to have developed megacolon , but very sluggish improvement. Bands are going down and total white cell count decreasing as well. Still to be continued on current regimen, eventually transitioned to just oral vancomycin lower dos e for continuation of therapy with vancomycin taper scheduled over a month.
[2018-02-18] MEDS: Acetaminophen 325 MG TAB PO PRN (22:21)
[2018-02-19 05:07] LABS: Anion Gap 14 mmol/L (10-20); BUN (Urea Nitrogen) 29 mg/dL (9.8-20.1); Calc. Creatinine Clearance 105 mL/min (70-130); Calcium 9.1 mg/dL (7.8-10.44); Carbon Dioxide 23 mmol/L (23-31); Chloride 105 mmol/L (98-107); Estimated GFR-MDRD 73; Glucose 127 mg/dL (83-110); Potassium 4.6 mmol/L (3.5-5.1); Sodium 137 mmol/L (136-145)
[2018-02-19] MEDS: Furosemide 20 MG/2 ML VIAL SLOW IVP SCH ×2 (05:42→14:08)
[2018-02-19] MEDS: metroNIDAZOLE 500 MG in Premix Bag 1 BAG IVPB SCH ×3 (05:42→21:33)
[2018-02-19 05:57] LABS: Band 16 % (5-11); Hemoglobin 10.9 g/dL (12.0-16.0); Lymphocytes 2 % (21-51); MDiff Complete? YES; Mean Corpuscular HGB CONC 31.9 g/dL (32.0-36.0); Mean Corpuscular Hemoglobin 31.5 pg (27.0-31.0); Mean Corpuscular Volume 98.8 fL (78.0-98.0); Mean Platelet Volume 9.5 fL (7.4-10.4); Monocytes 8 % (0-10); Myelocyte 1 % (0-0); Neutrophil 73 % (42-75); Platelet Count 277 thou/uL (130-400); RBC Distribution Width 17.5 % (11.5-14.5); Red Blood Cell (RBC) Count 3.45 mill/uL (4.20-5.40); White Blood Cell (WBC) Count 23.2 thou/uL (4.8-10.8)
[2018-02-19] MEDS: Budesonide 0.5 MG/2 ML NEB INH SCH ×2 (07:46→18:32)
[2018-02-19] MEDS: Mometasone/Formoterol 120 PUFF INHALER INH SCH ×2 (07:48→18:32)
[2018-02-19] MEDS: Enoxaparin Sodium 40 MG/0.4 ML SYRINGE SC SCH (09:41)
[2018-02-19] MEDS: Fluticasone Propionate Nasal Spray 16 gm Bottle NASAL SCH (09:42)
[2018-02-19] MEDS: Nystatin Powder 15 GM BOT TOP SCH ×2 (09:42→23:43)
[2018-02-19] MEDS: Multivits W-Minerals Liquid 15mL UDCUP PER TUBE SCH (09:42)
[2018-02-19] MEDS: Vancomycin HCl 25 MG/ML Oral PO SCH ×4 (09:43→21:33)
[2018-02-19] MEDS: Saccharomyces boulardii 250 MG CAP PER TUBE SCH ×3 (09:43→21:33)
[2018-02-19] MEDS: Chloraseptic Spray 180 ml Bottle PO PRN (09:43)
[2018-02-19] MEDS: Ondansetron HCl/PF 4 MG/2 ML Vial IVP PRN (10:13)
--- NOTE | 2018-02-19 11:01 | PDOC.PN ---
- Subjective Encounter Start Date: 02/19/18 Encounter Start Time: 09:00 Patient seen and examined. pt is sleepy this morning, wbc count is high again today No overnight events - Objective Resuscitation Status: Resuscitation Status DNR:Do Not Resuscitate MAR Reviewed: Yes Vital Signs & Weight: Vital Signs (12 hours) Temp Pulse Resp BP Pulse Ox 02/19/18 08:07 97.7 F 102 H 22 H 100 02/19/18 07:48 105 H 20 93 L 02/19/18 07:42 105 H 20 93 L 02/19/18 00:51 98.2 F 84 18 90/59 L 94 L 02/19/18 00:25 84 20 94 L Weight Admit Weight 238 lb 1.588 oz Weight 261 lb 11.2 oz Most Recent Monitor Data Heart Rate from ECG 81 NIBP 114/50 NIBP BP-Mean 68 Respiration from ECG 14 SpO2 99 I&O: 02/18/18 02/19/18 02/20/18 06:59 06:59 06:59 Intake Total 1746 528 Output Total 525 925 Balance 1221 -397 Result Diagrams: 02/19/18 05:06 02/19/18 04:41 Phys Exam - Physical Examination Constitutional: NAD sleepy HEENT: PERRLA, sclera anicteric dubhuff tube in place Neck: no JVD, supple Respiratory: no wheezing, no rales, no rhonchi Cardiovascular: RRR, no significant murmur, no rub Gastrointestinal: soft, non-tender, no distention, positive bowel sounds Musculoskeletal: pulses present, edema present Neurological: non-focal Lymphatic: no nodes Psychiatric: normal affect Skin: no rash, normal turgor Dx/Plan (1) Acute encephalopathy Code(s): G93.40 - ENCEPHALOPATHY, UNSPECIFIED Status: Resolved Comment: (2) Acute kidney failure Status: Resolved (3) C. difficile colitis Status: Acute Comment: mproving (4) Hypokalemia Code(s): E87.6 - HYPOKALEMIA Status: Resolved Comment: (5) Hyponatremia Code(s): E87.1 - HYPO-OSMOLALITY AND HYPONATREMIA Status: Resolved (6) Leukemoid reaction Code(s): D72.823 - LEUKEMOID REACTION Status: Acute Comment: improving (7) Physical deconditioning Code(s): R53.81 - OTHER MALAISE Status: Acute (8) Sepsis with acute organ dysfunction Code(s): A41.9 - SEPSIS, UNSPECIFIED ORGANISM; R65.20 - SEVERE SEPSIS WITHOUT SEPTIC SHOCK Status: Acute (9) Septic shock due to Clostridium difficile Code(s): [id number] - Status: Resolved Comment: (10) HTN (hypertension) Code(s): I10 - ESSENTIAL (PRIMARY) HYPERTENSION Status: Chronic Qualifiers: Hypertension type: essential hypertension Qualified Code(s): I10 - Essential (primary) hypertension Comment: (11) Obesity (BMI 30-39.9) Code(s): E66.9 - OBESITY, UNSPECIFIED Status: Chronic (12) Coagulopathy Status: Resolved Comment: due to anticoagulation prior to admission and may be due to sepsis (13) H/O deep venous thrombosis Code(s): Z86.718 - PERSONAL HISTORY OF OTHER VENOUS THROMBOSIS AND EMBOLISM Status: Chronic Comment: right leg DVT (14) Hyperkalemia Code(s): E87.5 - HYPERKALEMIA Status: Acute (15) UTI (urinary tract infection) Status: Ruled-out Comment: colonization (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 Review of Systems - Review of Systems Other: not reliable due to current level of cognitive status - Medications/Allergies Allergies/Adverse Reactions: Allergies Allergy/AdvReac Type Severity Reaction Status Date / Time codeine Allergy Verified 02/03/18 15:07 ibuprofen [From Advil] Allergy Verified 02/03/18 15:07 naproxen [From Naprosyn] Allergy Verified 02/03/18 15:07 nitrofurantoin Allergy Verified 02/03/18 15:07 [From Macrobid] Penicillins Allergy Verified 02/03/18 15:07 rofecoxib [From Vioxx] Allergy Verified 02/03/18 15:07 Sulfa (Sulfonamide Allergy Verified 02/03/18 15:07 Antibiotics) Medications: Current Medications Acetaminophen (Tylenol) 650 mg PO Q4H PRN PRN Reason: Headache/Fever or Pain Last Admin: 02/18/18 22:21 Dose: 650 mg Al Hydroxide/Mg Hydroxide (Maalox) 30 ml PO Q6H PRN PRN Reason: Heartburn or Indigestion Albuterol/Ipratropium (Duoneb) 3 ml NEB [id number] [facility] Last Admin: 02/19/18 07:42 Dose: 3 ml Albuterol/Ipratropium (Duoneb) 3 ml NEB Q6MT-FU PRN PRN Reason: SOB &/or Wheezing Artificial Tears (Tears Renewed 15ml Bottle) 0 drop EA EYE PRN PRN PRN Reason: Dry Eyes Budesonide (Pulmicort Neb Solution) 0.5 mg INH BID-RT [facility] Last Admin: 02/19/18 07:46 Dose: 0.5 mg Enoxaparin Sodium (Lovenox) 40 mg SC 0900 [facility] Last Admin: 02/19/18 09:41 Dose: 40 mg Fentanyl (Duragesic) 50 mcg TD Q3D [facility] Last Admin: 02/17/18 12:43 Dose: 50 mcg Fentanyl (Sublimaze) 25 mcg SLOW IVP Q2H PRN PRN Reason: Pain Last Admin: 02/17/18 18:00 Dose: 25 mcg Fluticasone Propionate (Flonase Nasal [place]) 0 gm NASAL DAILY [facility] Last Admin: 02/19/18 09:42 Dose: Not Given Furosemide (Lasix) 20 mg SLOW IVP 0600,1400 [facility] Last Admin: 02/19/18 05:42 Dose: 20 mg Guaifenesin (Robitussin Sf) 200 mg PO Q4H PRN PRN Reason: Cough Metronidazole 500 mg/ Device 100 mls @ 200 mls/hr IVPB Q8HR [facility] Last Admin: 02/19/18 05:42 Dose: 100 mls Iron/Minerals/Multivitamins (Certa Lo Liquid) 15 ml PER TUBE DAILY [facility] Last Admin: 02/19/18 09:42 Dose: 15 ml Lidocaine HCl (Xylocaine 2% Viscous) 15 ml SSP QID PRN PRN Reason: oral pain Last Admin: 02/14/18 12:23 Dose: 15 ml Loratadine (Claritin) 10 mg PO DAILYPRN PRN PRN Reason: Sinus Symptoms Mineral Oil/White Petrolatum (Eucerin Cream) 0 gm TOP BIDPRN PRN PRN Reason: Dry Skin Mometasone Furoate/Formoterol Fumar (Dulera 100 Mcg/5 Mcg Inhaler) 2 puff INH BID-RT [facility] Last Admin: 02/19/18 07:48 Dose: 2 puff Morphine Sulfate (Morphine Sulfate) 4 mg SLOW IVP Q1H PRN PRN Reason: Breakthrough Pain Last Admin: 02/19/18 10:12 Dose: 4 mg Nystatin (Mycostatin Powder) 0 gm TOP BID [facility] Last Admin: 02/19/18 09:42 Dose: 1 applic Ondansetron HCl (Zofran Odt) 4 mg PO Q6H PRN PRN Reason: Nausea/Vomiting Ondansetron HCl (Zofran) 4 mg IVP Q6H PRN PRN Reason: Nausea/Vomiting Last Admin: 02/19/18 10:13 Dose: 4 mg Phenol (Chloraseptic [place] 180 Ml Bot) 0 ml PO PRN PRN PRN Reason: Sore Throat Last Admin: 02/19/18 09:43 Dose: 1 spr Saccharomyces Boulardii (Florastor) 250 mg PER TUBE TID [facility] Last Admin: 02/19/18 09:43 Dose: 250 mg Sodium Chloride ([place] Nasal [place] 0.65%) 0 ml EA NARE QIDPRN PRN PRN Reason: Nasal Congestion Sodium Chloride (Flush - Normal Saline) 10 ml IVF Q12HR [facility] Last Admin: 02/19/18 09:43 Dose: 10 ml Sodium Chloride (Flush - Normal Saline) 10 ml IVF PRN PRN PRN Reason: Saline Flush Last Admin: 02/14/18 12:24 Dose: 10 ml Vancomycin HCl (First Vancomycin) 500 mg PO QID [facility] Last Admin: 02/19/18 09:43 Dose: 500 mg
[2018-02-19 14:00] VITALS: BMI 42.2
[2018-02-19] MEDS ORDERED: Norepinephrine 8 MG/250 ML BAG IVPB PRN (15:08)
[2018-02-19] MEDS ORDERED: Sodium Chloride 0.9% 1,000 ML IV SCH (15:30)
[2018-02-19] MEDS: Sodium Chloride 0.9% 1,000 ML IV SCH (16:26)
[2018-02-19] MEDS: Acetaminophen 325 MG TAB PO PRN ×2 (16:30→21:32)
[2018-02-20] MEDS: Sodium Chloride 0.9% 1,000 ML IV SCH ×2 (00:55→08:15)
[2018-02-20] MEDS: Furosemide 20 MG/2 ML VIAL SLOW IVP SCH (05:31)
[2018-02-20] MEDS: metroNIDAZOLE 500 MG in Premix Bag 1 BAG IVPB SCH (06:39)
[2018-02-20] MEDS: Budesonide 0.5 MG/2 ML NEB INH SCH (07:38)
[2018-02-20 07:44] LABS: Hemoglobin 10.7 g/dL (12.0-16.0); Mean Corpuscular HGB CONC 32.1 g/dL (32.0-36.0); Mean Corpuscular Volume 99.8 fL (78.0-98.0); Mean Platelet Volume 9.4 fL (7.4-10.4); Platelet Count 232 thou/uL (130-400); RBC Distribution Width 17.8 % (11.5-14.5); Red Blood Cell (RBC) Count 3.36 mill/uL (4.20-5.40); White Blood Cell (WBC) Count 48.3 thou/uL (4.8-10.8)
[2018-02-20] MEDS: Mometasone/Formoterol 120 PUFF INHALER INH SCH (07:46)
[2018-02-20 07:55] LABS: Band 25 % (5-11); Lymphocytes 1 % (21-51); MDiff Complete? YES; Metamyelocyte 5 % (0-0); Monocytes 6 % (0-10); Neutrophil 60 % (42-75); Reactive Lymphocytes 3 % (0-10)
[2018-02-20] MEDS: Acetaminophen 325 MG TAB PO PRN (07:59)
[2018-02-20] MEDS: Nystatin Powder 15 GM BOT TOP SCH (08:00)
[2018-02-20] MEDS: Saccharomyces boulardii 250 MG CAP PER TUBE SCH (08:00)
[2018-02-20] MEDS: Enoxaparin Sodium 40 MG/0.4 ML SYRINGE SC SCH ×2 (08:00→08:19)
[2018-02-20] MEDS: Fluticasone Propionate Nasal Spray 16 gm Bottle NASAL SCH (08:00)
[2018-02-20] MEDS: Multivits W-Minerals Liquid 15mL UDCUP PER TUBE SCH (08:00)
[2018-02-20 08:13] LABS: Anion Gap 14 mmol/L (10-20); BUN (Urea Nitrogen) 35 mg/dL (9.8-20.1); Calc. Creatinine Clearance 68 mL/min (70-130); Carbon Dioxide 21 mmol/L (23-31); Chloride 107 mmol/L (98-107); Estimated GFR-MDRD 44; Glucose 81 mg/dL (83-110); Sodium 137 mmol/L (136-145)
[2018-02-20 08:15] VITALS: BP 70/42
[2018-02-20 09:01] VITALS: TEMP 96.9
[2018-02-20] MEDS: Vancomycin HCl 25 MG/ML Oral PO SCH (10:26)
--- NOTE | 2018-02-20 11:41 | DIS ---
DATE OF ADMISSION: 02/03/2018 DATE OF DISCHARGE: 02/20/2018 PRIMARY CARE PHYSICIAN: Solitario Ivory M.D. DISCHARGE DISPOSITION: Inpatient hospice facility. PRIMARY DISCHARGE DIAGNOSES: 1. Septic shock due to Clostridium difficile colitis. 2. Abnormal electrolytes (hyponatremia, hypokalemia). 3. Acute kidney failure. 4. Acute metabolic encephalopathy. 5. Coagulopathy. 6. Leukemoid reaction. 7. Severe Clostridium difficile colitis. 8. Severe physical deconditioning. SECONDARY DISCHARGE DIAGNOSES: 1. History of deep venous thrombosis. 2. Hypertension. 3. Obesity with BMI 42. 4. Chronic obstructive pulmonary disease. PRIMARY PROCEDURE/OPERATION: Central line placement. RADIOLOGICAL INVESTIGATION: Abdomen and pelvis CT scan consistent with diffuse colitis, several ches t x-rays while in hospital. SIGNIFICANT LABORATORY DATA: WBC 48.3, hemoglobin 10.7, platelets 232. INR 1.3. Sodium 137, creati nine 1.17, calcium 9.0. Urinalysis suggestive of UTI. Urine culture grew Klebsiella. Blood culture negative. C. difficile positive. DISCHARGE MEDICATIONS: The patient is discharged to inpatient hospice facility for comfort care. Neel cardenas team will order hospice medications for comfort care only. CONTRAINDICATIONS: None. CODE STATUS: DNR. INPATIENT CONSULTANTS: Dr. Bal and group were following the patient while patient was in CCU. Dr. Benitez was consulted for central line as well as surgical evaluation. Dr. Rodriguez was consulted f or C. difficile colitis. Dr. Godinez was also following for sepsis. TEST RESULTS PENDING ON DISCHARGE: None. ALLERGIES: CODEINE, IBUPROFEN, NAPROXEN, MACROBID, PENICILLIN. DISCHARGE PLAN: The patient is discharged to inpatient hospice facility for comfort care. The patie nt will remain in our hospital for comfort care and [facility] will take over. Dr. Laura coates will manage from now onward. HOSPITAL COURSE: An 82-year-old female, who was recently admitted in our hospital for UTI. At that time, she was treated for UTI and she will develop C. difficile infection. The patient was discharge d with a C. difficile treatment at longterm. At longterm, she had a couple of episodes of an tibiotic exposure for recurrent UTI and she was getting IV antibiotic as well. This time, she presen asif to emergency room with hypotension and severe sepsis. She was initially in septic shock. She re quired central line placement and Levophed support. On admission, her WBC count was 100,000. The kev hylton was treated with n.p.o., IV fluid, Levophed drip, broad-spectrum antibiotic therapy with oral v ancomycin as well as vancomycin enema and IV Flagyl. Initially, this patient's condition was severe. General Surgery was consulted for evaluation of kris ctomy. GI was also consulted for C. difficile colitis. Pulmonary group was also managed following f or her critical illness. She was requiring Levophed drip for next several days. When her Levophed requirement was, no longer needed, at that point we transferred her to [facility]. She also required several times albumin infusion. She was getting fluid overloaded status and that is why she required several times Lasix as well int ermittently. Initially, we saw only number-lei improvement with the WBC count slowly going down to 17.2, but subs equently WBC started going up again. Even though WBC count was improving, the patient did not have a ny clinical improvement. She was having severe pain. While in hospital, we had a code status discussion with the family member and the patient was made DN R. When patient was relatively stable, at that point we transferred her to medical floor. We contro lled her pain. The patient's condition again started deteriorating. Her WBC count started going up and she becoming hypotensive. We discussed with the family member again for goal of care and they do not want to transfer her back to CCU and they wanted to make her comfortable. They do not want to p rolong her bad quality of life as well and that is why they wanted to discontinue tube feeding, IV fl uid, and antibiotic therapy, they just only want comfort care. While in CCU, patient failed swallow evaluation and that is why she was getting Dobbhoff tube feeding for nutrition. Initially, she was kept n.p.o., but subsequently we started her on tube feeding. Kev hylton's pain was controlled with morphine while in hospital. She was also given fentanyl patch. Patient's family member did not want her to go back to the same longterm. That is why case manag er was also following, but this patient's condition continued to deteriorate and now she was qualifyi for inpatient hospice care. PHYSICAL EXAMINATION: Today, I had lengthy discussion with the family member about goal of care. Th e patient is seen and examined at bedside today. VITAL SIGNS: Currently, temperature 96.9, pulse 92, respiratory rate 30, blood pressure 70/42, weigh t 262 pounds. GENERAL: The patient is currently in respiratory distress, lethargic, encephalopathic. HEAD: Normocephalic, atraumatic. EYES: Pupils round, reactive to light. ENT: Dry mucous membranes. No oral lesion. The Dobhoff tube in place. NECK: Supple. LUNGS: Coarse breath sounds. CARDIAC: S1 and S2, regular. No murmur. ABDOMEN: Distended, tender. EXTREMITIES: Edema noted. NEUROLOGIC: Unable to assess. Total time spent on discharge day more than 30 minutes. Patient's prognosis is very poor. Survival chances are very nil.
--- NOTE | 2018-02-20 12:45 | EKG ---
Test Reason : Blood Pressure : / mmHG Vent. Rate : 082 BPM Atrial Rate : 441 BPM P-R Int : 000 ms QRS Dur : 132 ms QT Int : 436 ms P-R-T Axes : 000 -33 006 degrees QTc Int : 509 ms Atrial fibrillation with a competing junctional pacemaker Left axis deviation Right bundle branch block Abnormal ECG Confirmed by BEBO BRIDGES ([id number]), sound editor RONAN MORA ([id number]) on 02/20/2018 12:44:49 PM Referred By: Confirmed By:BEBO BRIDGES
== END 2018-02-20 11:07 | disposition hospice, inpatient (51) | DRG 871 ==
LOC: ERS 09:47 → IMCU/EMU 14:55 → CCU 17:33 → IMCU/EMU 02-07 11:02 → T4-B 02-12 12:29
PROVIDERS: ADMIT Internal Medicine; ATTEND Internal Medicine
PROC: 06HY33Z Insertion of Infusion Device into Lower Vein, Percutaneous Approach (ICD-10-PCS; principal; 2018-02-03)
DX: A41.9 Sepsis, unspecified organism (principal); R65.21 Severe sepsis with septic shock; G92 Toxic encephalopathy; E87.1 Hypo-osmolality and hyponatremia; N17.9 Acute kidney failure, unspecified; D68.9 Coagulation defect, unspecified; A04.72 Enterocolitis due to Clostridium difficile, not specified as recurrent; Z68.41 Body mass index [BMI] 40.0-44.9, adult; N39.0 Urinary tract infection, site not specified; E87.0 Hyperosmolality and hypernatremia; T85.628A Displacement of other specified internal prosthetic devices, implants and grafts, initial encounter; E87.2 Acidosis; I50.32 Chronic diastolic (congestive) heart failure; E87.6 Hypokalemia; D72.823 Leukemoid reaction; Z86.718 Personal history of other venous thrombosis and embolism; E66.9 Obesity, unspecified; J44.9 Chronic obstructive pulmonary disease, unspecified; B96.20 Unspecified Escherichia coli [E. coli] as the cause of diseases classified elsewhere; Z66 Do not resuscitate; Z88.0 Allergy status to penicillin; Z51.5 Encounter for palliative care; E87.5 Hyperkalemia; Y83.8 Other surgical procedures as the cause of abnormal reaction of the patient, or of later complication, without mention of misadventure at the time of the procedure; Y92.9 Unspecified place or not applicable; G89.29 Other chronic pain; D63.8 Anemia in other chronic diseases classified elsewhere; I11.0 Hypertensive heart disease with heart failure; K21.9 Gastro-esophageal reflux disease without esophagitis; E86.0 Dehydration
CPT/HCPCS: 36415; 36416; 36430; 51701; 71045; 74018; 74177; 80048; 80053; 81003; 81015; 82553; 82805; 83605; 83690; 83735; 84100; 84484; 85007; 85025; 85027; 85049; 85060; 85300; 85362; 85379; 85384; 85610; 85730; 86850; 86900; 86901; 87040; 87077; 87086; 87186; 87324; 87449; 93005; 94640; 94664; 96361; 96365; A4216; C9132; G8978-GP-CM; G8979-GP-CK; G8979-GP-CL; G8987-GO-CN; G8988-GO-CL; G8996-GN-CJ; G8997-GN-CI; J0744; J1450; J1650; J1940; J2270; J2405; J3010; J3370; J3475; J3480; J7050; J7620; J7626; P9047; P9059

== ENCOUNTER 2018-02-20 11:08 | Inpatient (IN) | payer OTHER ==
[2018-02-20] MEDS ORDERED: Lorazepam 2 MG/ML VIAL SLOW IVP PRN (12:11)
[2018-02-20] MEDS ORDERED: Scopolamine 1.5 mg/72 hour Patch TOP PRN (12:12)
[2018-02-21 10:38] VITALS: TEMP 97.6
--- NOTE | 2018-02-22 14:50 | DS ---
SUBJECTIVE: This is an 82-year-old female, who was admitted for septic shock due to Clostridium diff icile colitis with multiorgan failure and obesity. The patient was admitted to the hospital without any complication. The patient passed on 02/21/2018 at 7:40 p.m. Family was aware, home was advised, no complications or issues were reported.
== END 2018-02-21 18:30 | disposition expired | DRG 951 ==
LOC: T4-B 11:08
PROVIDERS: ADMIT Internal Medicine Nephrology; ATTEND Internal Medicine Nephrology
DX: Z51.5 Encounter for palliative care (principal); A41.9 Sepsis, unspecified organism; R65.21 Severe sepsis with septic shock; I50.32 Chronic diastolic (congestive) heart failure; A04.72 Enterocolitis due to Clostridium difficile, not specified as recurrent; I11.0 Hypertensive heart disease with heart failure; J44.9 Chronic obstructive pulmonary disease, unspecified; K21.9 Gastro-esophageal reflux disease without esophagitis; E66.9 Obesity, unspecified; Z66 Do not resuscitate; Z88.6 Allergy status to analgesic agent; Z88.1 Allergy status to other antibiotic agents; Z88.5 Allergy status to narcotic agent; Z88.0 Allergy status to penicillin; Z88.2 Allergy status to sulfonamides; Z79.899 Other long term (current) drug therapy
CPT/HCPCS: J2060; J2270